=== PATIENT | female | born 1945 | race Caucasian/White ===

== ENCOUNTER 2017-12-07 13:45 | Outpatient (RCR) | payer MEDICARE, OTHER, SELFPAY ==
--- NOTE | 2017-10-27 09:51 | PT.OTN ---
Addendum entered and electronically signed by Bebe Cano, PT 10/27/17 10:03: Transition note: On October 25, 2017 our therapy services consisting of Speech, Occupational, and Physical Therapy transitioned from the [employer] electronic documentation system to a new [employer] electronic documentation system.?? All documentation prior to October 25 can be found under [employer] saved data. From October 25 forward all medical record documentation will be in [email or web address]. Original Note: Current Diagnoses Cerebrovascular disease, unspecified (10/27/17) Unsteadiness on feet (10/27/17) Weakness (10/27/17) Physical Therapy Treatment Note PT-OP-A Visit Information Start: 10/27/17 08:10 Freq: Status: Active Protocol: Activity Type Activity Date Activity User E-Sign Co-Sign Detail Recorded Client Recorded Date Recorded By Document 10/27/17 09:03 [facility] [id number] 10/27/17 09:51 [facility] 10/27/17 09:03 Out-Patient Physical Therapy Visit Information [Visit Information] -Visit Type Treatment Note -Visit Note POC due -Visit Start Time 09:05 -Visit Stop Time 09:45 -Total Visit Minutes 40 -Visit Number 2 PT-OP-C Subjective Start: 10/27/17 08:10 Freq: Status: Active Protocol: Activity Type Activity Date Activity User E-Sign Co-Sign Detail Recorded Client Recorded Date Recorded By Document 10/27/17 09:03 [facility] [id number] 10/27/17 09:51 [facility] 10/27/17 09:03 OP-PT Subjective [Patient Comments] -Patient Comments Pt report she has been walking 1 mile at the track daily most days . PT-OP-Q Treatments Start: 10/27/17 08:10 Freq: Status: Active Protocol: Activity Type Activity Date Activity User E-Sign Co-Sign Detail Recorded Client Recorded Date Recorded By Document 10/27/17 09:03 [facility] [id number] 10/27/17 09:51 [facility] 10/27/17 09:03 Cardio Equipment [Recumbent Elliptical (Biodex)] -Duration (Minutes) 6 -Resistance 4 -Seat Position 9 Gym Equipment [Shuttle Recovery] Unilateral Squats -Resistance 50 -Shuttle Recovery Platform Stable -Reps/Time 2x15 Bilateral Squats -Resistance 100 -Shuttle Recovery Platform Unstable -Reps/Time 2x15 [Shuttle Balance] 1 -Details red clips -Comments fwd & side:WBOS & NBOS & staggered stance fwd [Sport Cord] 2 -Exercise Details side step -Cord/Resistance blue -Reps/Duration x10 each 1 -Exercise Details fwd & back resisted walk -Cord/Resistance blue -Reps/Duration 10 each Neuro Re-Education Treatment [Balance Activities] 1 -Details hurdles w/ balance pods -Reps/Duration 6 reps PT-OP-T Assessment and Plan Start: 10/27/17 08:10 Freq: Status: Active Protocol: Activity Type Activity Date Activity User E-Sign Co-Sign Detail Recorded Client Recorded Date Recorded By Document 10/27/17 09:03 [facility] [id number] 10/27/17 09:51 [facility] 10/27/17 09:03 Physical Therapy Assessment [Assessment Summary] -Assessment Pt had difficulty with balance on uneven surfaces . She did well with general strengthening exercises and will likely be able to inc resistance next session. Physical Therapy Plan [Next Visit Focus/Plan] -Next Visit Plan Advance balance & develop HEP
--- NOTE | 2017-11-02 14:29 | PT.OTN ---
Current Diagnoses Cerebrovascular disease, unspecified (11/02/17) Unsteadiness on feet (11/02/17) Weakness (11/02/17) Physical Therapy Treatment Note PT-OP-A Visit Information Start: 10/27/17 08:10 Freq: Status: Active Protocol: Document 11/02/17 13:49 [facility] (Rec: 11/02/17 14:28 [facility] [id number]) Out-Patient Physical Therapy Visit Information Visit Information Visit Type Treatment Note Visit Note POC due 12/04/17 Visit Start Time 13:45 Visit Stop Time 14:30 Total Visit Minutes 45 Visit Number 3 PT-OP-C Subjective Start: 10/27/17 08:10 Freq: Status: Active Protocol: Document 11/02/17 13:49 [facility] (Rec: 11/02/17 14:28 [facility] [id number]) OP-PT Subjective Patient Comments Patient Comments Pt reports she has been walking daily except today. PT-OP-Q Treatments Start: 10/27/17 08:10 Freq: Status: Active Protocol: Document 11/02/17 13:49 [facility] (Rec: 11/02/17 14:28 [facility] [id number]) Cardio Equipment Recumbent Stepper (Sci-Fit) Duration (Minutes) 6 Resistance 4 Seat Position 13 Gym Equipment Shuttle Recovery Unilateral Squats Resistance 62 Shuttle Recovery Platform Stable Reps/Time 2x15 Bilateral Squats Resistance 125 Shuttle Recovery Platform Unstable Reps/Time 2x15 Shuttle Balance 1 Details red clips Comments fwd & side:WBOS & NBOS & staggered stance fwd Sport Cord 2 Exercise Details side step Cord/Resistance blue Reps/Duration x6 each 1 Exercise Details fwd & back resisted walk Cord/Resistance blue Reps/Duration 10 each Comments w/ 8in step up Neuro Re-Education Treatment Balance Activities 1 Details hurdles w/balance pods Reps/Duration 6 reps PT-OP-T Assessment and Plan Start: 10/27/17 08:10 Freq: Status: Active Protocol: Document 11/02/17 13:49 [facility] (Rec: 11/02/17 14:28 [facility] [id number]) Physical Therapy Assessment Assessment Summary Assessment Pt able to tolerate increased resistance with leg press today. Cont to have difficulty with balance pods with hurdles. Physical Therapy Plan Frequency and Duration Frequency of Treatment 1x/Week Plan of Care End Date 12/04/17 Next Visit Focus/Plan Next Visit Plan Advance balance & progress HEP
--- NOTE | 2017-11-09 14:27 | PT.OTN ---
Current Diagnoses Cerebrovascular disease, unspecified (11/09/17) Unsteadiness on feet (11/09/17) Weakness (11/09/17) Physical Therapy Treatment Note PT-OP-A Visit Information Start: 10/27/17 08:10 Freq: Status: Active Protocol: Document 11/09/17 13:48 [facility] (Rec: 11/09/17 14:27 [facility] [id number]) Out-Patient Physical Therapy Visit Information Visit Information Visit Type Treatment Note Visit Note POC due 12/04/17 Visit Start Time 13:45 Visit Stop Time 14:30 Total Visit Minutes 45 Visit Number 4 PT-OP-C Subjective Start: 10/27/17 08:10 Freq: Status: Active Protocol: Document 11/09/17 13:48 [facility] (Rec: 11/09/17 14:27 [facility] [id number]) OP-PT Subjective Patient Comments Patient Comments Pt reports she stretches when she feels like she needs it. She has already done her mile today. PT-OP-Q Treatments Start: 10/27/17 08:10 Freq: Status: Active Protocol: Document 11/09/17 13:48 [facility] (Rec: 11/09/17 14:27 [facility] [id number]) Gym Equipment Shuttle Recovery Bilateral Squats Resistance 125 Shuttle Recovery Platform Unstable Reps/Time 2x15 Shuttle Balance 1 Details red clips Comments fwd & side:WBOS & NBOS & staggered stance fwd Therapeutic Exercises Supine Exercises 3 Supine Exercise Name Hip flex w/hand press flex (B) Reps/Minutes 10 sec hold x5 2 Supine Exercise Name scissor bent knee Reps/Minutes 20 B 1 Supine Exercise Name bridge Reps/Minutes 20 Standing Exercises 1 Standing Exercise Name side step Resistance yellow tband Neuro Re-Education Treatment Balance Activities 1 Details hurdles w/balance pods Reps/Duration 6 reps PT-OP-T Assessment and Plan Start: 10/27/17 08:10 Freq: Status: Active Protocol: Document 11/09/17 13:48 [facility] (Rec: 11/09/17 14:27 [facility] [id number]) Physical Therapy Assessment Assessment Summary Assessment Improving with balance but cont to have uneven surface difficulty. Given HEP for home . Physical Therapy Plan Frequency and Duration Frequency of Treatment 1x/Week Plan of Care End Date 12/04/17 Next Visit Focus/Plan Next Visit Plan cont to advance balance
--- NOTE | 2017-11-16 13:44 | PT.OTN ---
Current Diagnoses Cerebrovascular disease, unspecified (11/16/17) Unsteadiness on feet (11/16/17) Weakness (11/16/17) Physical Therapy Treatment Note PT-OP-A Visit Information Start: 10/27/17 08:10 Freq: Status: Active Protocol: Document 11/16/17 13:07 [facility] (Rec: 11/16/17 13:44 [facility] [id number]) Out-Patient Physical Therapy Visit Information Visit Information Visit Type Treatment Note Visit Start Time 13:00 Visit Stop Time 13:45 Total Visit Minutes 45 Visit Number 5 Number of LUNCH WAGON OPERATOR Visits 0 PT-OP-C Subjective Start: 10/27/17 08:10 Freq: Status: Active Protocol: Document 11/16/17 13:07 [facility] (Rec: 11/16/17 13:44 [facility] [id number]) OP-PT Subjective Patient Comments Patient Comments Reports she has not done her core exercises much PT-OP-Q Treatments Start: 10/27/17 08:10 Freq: Status: Active Protocol: Document 11/16/17 13:07 [facility] (Rec: 11/16/17 13:44 [facility] [id number]) Cardio Equipment Recumbent Stepper (Sci-Fit) Duration (Minutes) 6 Resistance 5 Seat Position 13 Gym Equipment Shuttle Recovery Unilateral Squats Resistance 62 Shuttle Recovery Platform Stable Reps/Time 2x15 Bilateral Squats Resistance 125 Shuttle Recovery Platform Unstable Reps/Time 2x15 Shuttle Balance 1 Details red clips Comments fwd & side:WBOS & NBOS & staggered stance fwd Therapeutic Exercises Supine Exercises 3 Supine Exercise Name Hip flex w/hand press flex (B) Reps/Minutes 10 sec hold x5 2 Supine Exercise Name scissor bent knee Reps/Minutes 20 B 1 Supine Exercise Name bridge Reps/Minutes 20 Standing Exercises 2 Standing Exercise Name fwd/back walk Resistance green Reps/Minutes 2x20ft 1 Standing Exercise Name side step Resistance green tband Reps/Minutes 2x20ft Neuro Re-Education Treatment Balance Activities 1 Details hurdles w/balance pods Reps/Duration 6 reps PT-OP-T Assessment and Plan Start: 10/27/17 08:10 Freq: Status: Active Protocol: Document 11/16/17 13:07 [facility] (Rec: 11/16/17 13:44 [facility] [id number]) Physical Therapy Assessment Assessment Summary Assessment Pt required min cueing with exercises. Improved ability with balance board, but cont difficulty with hurdles with pods. Physical Therapy Plan Frequency and Duration Frequency of Treatment 1x/Week Plan of Care End Date 12/04/17 Next Visit Focus/Plan Next Visit Plan cont to advance balance Please Sign and Return: I have reviewed this Plan of Care and certify that the skilled therapy services above are required to meet the patient???s needs. Physician Signature Date Printed Name and Credentials Clinical Instructor Signature Printed Name and Credentials
--- NOTE | 2017-11-23 14:29 | PT.OTN ---
Current Diagnoses Cerebrovascular disease, unspecified (11/23/17) Unsteadiness on feet (11/23/17) Weakness (11/23/17) Physical Therapy Treatment Note PT-OP-A Visit Information Start: 10/27/17 08:10 Freq: Status: Active Protocol: Document 11/23/17 13:52 [facility] (Rec: 11/23/17 14:28 [facility] [id number]) Out-Patient Physical Therapy Visit Information Visit Information Visit Type Treatment Note Visit Note POC due 12/04/17 Visit Start Time 13:48 Visit Stop Time 14:28 Total Visit Minutes 40 Visit Number 6 PT-OP-C Subjective Start: 10/27/17 08:10 Freq: Status: Active Protocol: Document 11/23/17 13:52 [facility] (Rec: 11/23/17 14:28 [facility] [id number]) OP-PT Subjective Patient Comments Patient Comments Reports only did core exercises 1x. PT-OP-Q Treatments Start: 10/27/17 08:10 Freq: Status: Active Protocol: Document 11/23/17 13:52 [facility] (Rec: 11/23/17 14:28 [facility] [id number]) Cardio Equipment Recumbent Stepper (Sci-Fit) Duration (Minutes) 6 Resistance 5 Seat Position 12 Gym Equipment Shuttle Recovery Bilateral Squats Resistance 125 Shuttle Recovery Platform Unstable Reps/Time 2x15 Shuttle Balance 1 Details red clips Comments fwd & side:WBOS & NBOS & staggered stance fwd Therapeutic Exercises Supine Exercises 3 Supine Exercise Name Hip flex w/hand press flex (B) Reps/Minutes 10 sec hold x5 2 Supine Exercise Name scissor bent knee Reps/Minutes 20 B 1 Supine Exercise Name bridge w/alt march Reps/Minutes 10 Standing Exercises 2 Standing Exercise Name fwd/back walk Resistance green Reps/Minutes 2x20ft 1 Standing Exercise Name side step Resistance green tband Reps/Minutes 2x20ft PT-OP-T Assessment and Plan Start: 10/27/17 08:10 Freq: Status: Active Protocol: Document 11/23/17 13:52 [facility] (Rec: 11/23/17 14:28 [facility] [id number]) Physical Therapy Assessment Assessment Summary Assessment Pt did well on balance boards and tolerance with inc difficulty core stabilty exercises. Physical Therapy Plan Frequency and Duration Frequency of Treatment 1x/Week Plan of Care End Date 12/04/17 Next Visit Focus/Plan Next Visit Plan cont to advance balance Please Sign and Return: I have reviewed this Plan of Care and certify that the skilled therapy services above are required to meet the patient???s needs. Physician Signature Date Printed Name and Credentials Clinical Instructor Signature Printed Name and Credentials
--- NOTE | 2017-12-07 14:34 | PT.OTN ---
Current Diagnoses Cerebrovascular disease, unspecified (12/07/17) Unsteadiness on feet (12/07/17) Weakness (12/07/17) Physical Therapy Treatment Note PT-OP-A Visit Information Start: 10/27/17 08:10 Freq: Status: Active Protocol: Document 12/07/17 13:57 [facility] (Rec: 12/07/17 14:34 [facility] [id number]) Out-Patient Physical Therapy Visit Information Visit Information Visit Type Progress Note Visit Start Time 13:52 Visit Stop Time 14:30 Total Visit Minutes 38 Visit Number 1 PT-OP-C Subjective Start: 10/27/17 08:10 Freq: Status: Active Protocol: Document 12/07/17 13:57 [facility] (Rec: 12/07/17 14:34 [facility] [id number]) OP-PT Subjective Patient Comments Patient Comments Has been doing core almost daily PT-OP-D Balance Start: 12/07/17 13:57 Freq: Status: Active Protocol: Document 12/07/17 13:57 [facility] (Rec: 12/07/17 14:34 [facility] [id number]) Balance Tests Other Other Balance Tests Performed [facility] PT-OP-M Strength Start: 12/07/17 13:57 Freq: Status: Active Protocol: Document 12/07/17 13:57 [facility] (Rec: 12/07/17 14:34 [facility] [id number]) Hip Strength Hip Manual Muscle Testing Right Flexion (L2) 4+ Good+ Extension (S1) 5 Normal Abduction 5 Normal External Rotation 5 Normal Internal Rotation 5 Normal Left Flexion (L2) 4+ Good+ Extension (S1) 5 Normal Abduction 5 Normal External Rotation 5 Normal Internal Rotation 5 Normal Comments knee and ankle strength 5/5 B PT-OP-Q Treatments Start: 10/27/17 08:10 Freq: Status: Active Protocol: Document 12/07/17 13:57 [facility] (Rec: 12/07/17 14:34 [facility] [id number]) Cardio Equipment Recumbent Stepper (Sci-Fit) Duration (Minutes) 8 Resistance 5 Seat Position 12 Gym Equipment Shuttle Balance 1 Details red clips Comments fwd & side:WBOS & NBOS & staggered stance fwd Therapeutic Exercises Supine Exercises 3 Supine Exercise Name Hip flex w/hand press flex (B) Reps/Minutes 10 sec hold x5 2 Supine Exercise Name scissor bent knee Reps/Minutes 20 B 1 Supine Exercise Name bridge w/alt march Reps/Minutes 10 PT-OP-T Assessment and Plan Start: 10/27/17 08:10 Freq: Status: Active Protocol: Document 12/07/17 13:57 [facility] (Rec: 12/07/17 14:34 [facility] [id number]) Physical Therapy Assessment Impairments Impairments Balance Gait Strength Goals Four Impairment occ ambulating [facility]iary Goal (LTG) Pt will walk at least 4x/week for 2 miles. LTG Duration 01/25/18- daily 1-1.25 mile Three Impairment [place] [facility] Goal (LTG) 28/28 LTG Duration achieved Two Impairment DGI Short Term Goal (STG) 19 STG Duration achieved Penitentiary Goal (LTG) 22 LTG Duration by 01/25/18-excellent progress One Impairment MMT Short Term Goal (STG) Indep HEP STG Duration achieved Loom Operator Apprentice Goal (LTG) 5/5 LTG Duration by 01/25/18 Assessment Summary Assessment Pt is improving significantly with her balance & strength. Cont to have mild balance impairement but is making excellent progress with therapy. Physical Therapy Plan Frequency and Duration Frequency of Treatment 1x/Week Duration of Treatment 1 month Plan of Care Start Date 12/07/17 Plan of Care End Date 01/06/18 Therapeutic Interventions Therapeutic Interventions Balance Training Gait Training Home Exercise Program Therapeutic Exercises Next Visit Focus/Plan Next Note Type Treatment Note Next Visit Plan cont to advance balance Please Sign and Return: I have reviewed this Plan of Care and certify that the skilled therapy services above are required to meet the patient?s needs. Physician Signature Date Printed Name and Credentials Clinical Instructor Signature Printed Name and Credentials
--- NOTE | 2017-12-07 14:34 | PT.OPPN ---
Current Diagnoses Cerebrovascular disease, unspecified (12/07/17) Unsteadiness on feet (12/07/17) Weakness (12/07/17) Physical Therapy Progress Note PT-OP-A Visit Information Start: 10/27/17 08:10 Freq: Status: Active Protocol: Document 12/07/17 13:57 [facility] (Rec: 12/07/17 14:34 [facility] [id number]) Out-Patient Physical Therapy Visit Information Visit Information Visit Type Progress Note Visit Start Time 13:52 Visit Stop Time 14:30 Total Visit Minutes 38 Visit Number 1 PT-OP-C Subjective Start: 10/27/17 08:10 Freq: Status: Active Protocol: Document 12/07/17 13:57 [facility] (Rec: 12/07/17 14:34 [facility] [id number]) OP-PT Subjective Patient Comments Patient Comments Has been doing core almost daily PT-OP-D Balance Start: 12/07/17 13:57 Freq: Status: Active Protocol: Document 12/07/17 13:57 [facility] (Rec: 12/07/17 14:34 [facility] [id number]) Balance Tests Other Other Balance Tests Performed [facility] PT-OP-M Strength Start: 12/07/17 13:57 Freq: Status: Active Protocol: Document 12/07/17 13:57 [facility] (Rec: 12/07/17 14:34 [facility] [id number]) Hip Strength Hip Manual Muscle Testing Right Flexion (L2) 4+ Good+ Extension (S1) 5 Normal Abduction 5 Normal External Rotation 5 Normal Internal Rotation 5 Normal Left Flexion (L2) 4+ Good+ Extension (S1) 5 Normal Abduction 5 Normal External Rotation 5 Normal Internal Rotation 5 Normal Comments knee and ankle strength 5/5 B PT-OP-T Assessment and Plan Start: 10/27/17 08:10 Freq: Status: Active Protocol: Document 12/07/17 13:57 [facility] (Rec: 12/07/17 14:34 [facility] [id number]) Physical Therapy Assessment Impairments Impairments Balance Gait Strength Goals Four Impairment occ ambulating Detention Goal (LTG) Pt will walk at least 4x/week for 2 miles. LTG Duration 01/25/18- daily 1-1.25 mile Three Impairment [place] [employer]ite [employer]er Goal (LTG) LTG Duration achieved Two Impairment DGI Short Term Goal (STG) 19 STG Duration achieved Detention Goal (LTG) 22 LTG Duration by 01/25/18-excellent progress One Impairment MMT Short Term Goal (STG) Indep HEP STG Duration achieved Detention Goal (LTG) 5/5 LTG Duration by 01/25/18 Assessment Summary Assessment Pt is improving significantly with her balance & strength. Cont to have mild balance impairement but is making excellent progress with therapy. Physical Therapy Plan Frequency and Duration Frequency of Treatment 1x/Week Duration of Treatment 1 month Plan of Care Start Date 12/07/17 Plan of Care End Date 01/06/18 Therapeutic Interventions Therapeutic Interventions Balance Training Gait Training Home Exercise Program Therapeutic Exercises Next Visit Focus/Plan Next Note Type Treatment Note Next Visit Plan cont to advance balance
--- NOTE | 2017-12-07 14:34 | PT.OPPOC ---
Current Diagnoses Cerebrovascular disease, unspecified (12/07/17) Unsteadiness on feet (12/07/17) Weakness (12/07/17) Provider Visit Care Team Role Provider Type Mc Saavedra MD Attending Provider Physician Family Provider Primary Care Provider Specialty: Internal Medicine Address: [address] [place] [address], [id number] Email: Plan Of Care PT-OP-T Assessment and Plan Start: 10/27/17 08:10 Freq: Status: Active Protocol: Document 12/07/17 13:57 [facility] (Rec: 12/07/17 14:34 [facility] [id number]) Physical Therapy Assessment Impairments Impairments Balance Gait Strength Goals Four Impairment occ ambulating [facility] Goal (LTG) Pt will walk at least 4x/week for 2 miles. LTG Duration 01/25/18- daily 1-1.25 mile Three Impairment [place] [facility] Goal (LTG) 28/28 LTG Duration achieved Two Impairment DGI Short Term Goal (STG) 19 STG Duration achieved Outside Cutter Hand Goal (LTG) 22 LTG Duration by 01/25/18-excellent progress One Impairment MMT Short Term Goal (STG) Indep HEP STG Duration achieved Outside Cutter Hand Goal (LTG) 5/5 LTG Duration by 01/25/18 Assessment Summary Assessment Pt is improving significantly with her balance & strength. Cont to have mild balance impairement but is making excellent progress with therapy. Physical Therapy Plan Frequency and Duration Frequency of Treatment 1x/Week Duration of Treatment 1 month Plan of Care Start Date 12/07/17 Plan of Care End Date 01/06/18 Therapeutic Interventions Therapeutic Interventions Balance Training Gait Training Home Exercise Program Therapeutic Exercises Next Visit Focus/Plan Next Note Type Treatment Note Next Visit Plan cont to advance balance Plan of Care Dates Plan of Care Start Date 12/07/17 Plan of Care End Date 01/06/18 Please Sign and Return: I have reviewed this Plan of Care and certify that the skilled therapy services above are required to meet the patient?s needs. Physician Signature Date Printed Name and Credentials Clinical Instructor Signature Printed Name and Credentials
--- NOTE | 2017-12-14 10:28 | PT.OPDS ---
Current Diagnoses Cerebrovascular disease, unspecified (12/07/17) Unsteadiness on feet (12/07/17) Weakness (12/07/17) Provider Visit Care Team Role Provider Type Mc Saavedra MD Attending Provider Physician Family Provider Primary Care Provider Specialty: Internal Medicine Address: [address] [place] [address] Email: Discharge Summary PT-OP-C Subjective Start: 10/27/17 08:10 Freq: Status: Active Protocol: Document 12/07/17 13:57 [facility] (Rec: 12/07/17 14:34 [facility] [id number]) OP-PT Subjective Patient Comments Patient Comments Has been doing core almost daily PT-OP-D Balance Start: 12/07/17 13:57 Freq: Status: Active Protocol: Document 12/07/17 13:57 [facility] (Rec: 12/07/17 14:34 [facility] [id number]) Balance Tests Other Other Balance Tests Performed celina DGI PT-OP-M Strength Start: 12/07/17 13:57 Freq: Status: Active Protocol: Document 12/07/17 13:57 [facility] (Rec: 12/07/17 14:34 [facility] [id number]) Hip Strength Hip Manual Muscle Testing Right Flexion (L2) 4+ Good+ Extension (S1) 5 Normal Abduction 5 Normal External Rotation 5 Normal Internal Rotation 5 Normal Left Flexion (L2) 4+ Good+ Extension (S1) 5 Normal Abduction 5 Normal External Rotation 5 Normal Internal Rotation 5 Normal Comments knee and ankle strength 5/5 B PT-OP-T Assessment and Plan Start: 10/27/17 08:10 Freq: Status: Active Protocol: Document 12/07/17 13:57 [facility] (Rec: 12/07/17 14:34 [facility] [id number]) Physical Therapy Assessment Impairments Impairments Balance Gait Strength Goals Four Impairment occ ambulating Multimedia Engineer Goal (LTG) Pt will walk at least 4x/week for 2 miles. LTG Duration 01/25/18- daily 1-1.25 mile Three Impairment Tinnetti Long-Term Goal (LTG) LTG Duration achieved Two Impairment DGI Short Term Goal (STG) 19 STG Duration achieved Multimedia Engineer Goal (LTG) 22 LTG Duration by 01/25/18-excellent progress One Impairment MMT Short Term Goal (STG) Indep HEP STG Duration achieved Long-Term Goal (LTG) 5/5 LTG Duration by 01/25/18 Assessment Summary Assessment Pt is improving significantly with her balance & strength. Cont to have mild balance impairement but is making excellent progress with therapy. Physical Therapy Plan Discharge d/t pt cancelling last appointment and asking for D/C. Pt did make good balance progression.
== END 2018-04-07 09:20 ==
LOC: PHYS 13:45
PROVIDERS: Family Provider Internal Medicine; PCP Internal Medicine; Visit Provider Internal Medicine
DX: I67.9 Cerebrovascular disease, unspecified (principal); R53.1 Weakness; R26.81 Unsteadiness on feet
CPT/HCPCS: 97110; 97112

== ENCOUNTER 2018-05-23 15:03 | Observation (INO) | payer MEDICARE, OTHER, SELFPAY ==
[2018-05-23] VITALS (10 sets, daily range): BP systolic 140–182; BP diastolic 78–115; PULSE 50–74; RESP 14–20; TEMP 36.4–36.7; O2SAT 94–97; BMI 40.9
--- NOTE | 2018-05-23 15:08 | DI.CT.S_ITS ---
PROCEDURE: CT HEAD/BRAIN WO CON INDICATIONS: fall left sided waekness, code stroke TECHNIQUE: Noncontrast 4.5 mm thick angled axial sections acquired from the foramen magnum to the vertex, with coronal and sagittal reformats. For radiation dose reduction, the following was used: automated exposure control, adjustment of mA and/or kV according to patient size. COMPARISON: [facility], CT, HEAD WITHOUT CONTRAST, 05/06/2017, 15:55. FINDINGS: Image quality: Excellent. CSF spaces: Basal cisterns are patent. No extra-axial fluid collections. The ventricles are symmetric in size and shape. Brain: No intracranial bleeds or masses. There is cerebral volume loss for age, with resultant ventricular and sulcal prominence. There are periventricular and deep white matter chronic small vessel ischemic changes. There is intracranial internal carotid artery atherosclerosis. Skull and face: Calvarium and visualized facial bones appear intact, without suspicious lesions. Sinuses: Visualized sinuses and mastoids are clear. IMPRESSION: No acute intracranial abnormality. Dictated by: Kassandra Sosa M.D. on 05/23/2018 at 15:17 Approved by: Kassandra Sosa M.D. on 05/23/2018 at 15:18
--- NOTE | 2018-05-23 15:33 | DI.RAD.S_ITS ---
PROCEDURE: XR CHEST 1V INDICATIONS: chest pain TECHNIQUE: One view of the chest was acquired. COMPARISON: [facility], , CHEST 1 VIEW, 05/06/2017, 15:46. FINDINGS: Surgical changes and devices: Left axillary clips. Lungs and pleura: No pleural effusions or pneumothorax. Minimal increased pulmonary vascularity. Mediastinum: Mediastinal contours appear normal. Heart size is normal. Bones and chest wall: No suspicious bony lesions. Overlying soft tissues appear unremarkable. IMPRESSION: Minimal increased pulmonary vascularity. Dictated by: Emilee Rodriguez M.D. on 05/23/2018 at 15:50 Approved by: Emilee Rodriguez M.D. on 05/23/2018 at 15:51
[2018-05-23 15:41] LABS: Add Manual Diff / Slide Review NO; Basophils Percent Auto 0.3 % (0-2); Eosinophils Percent Auto 0.4 % (2-4); Hematocrit 38.3 % (36-46); Hemoglobin 12.6 g/dL (12.0-16.0); Lymphocytes Percent Auto 14.5 % (25-40); Mean Corpuscular HGB Conc 32.9 % (30-36); Mean Corpuscular Hemoglobin 29.6 PG (26-34); Monocytes Percent Auto 6.5 % (3-14); Neutrophils Absolute Auto 7500 /uL (3000-5900); Neutrophils Percent Auto 78.3 % (50-75); Platelet Count 328 X10^3/uL (150-400); Red Blood Cell Count 4.26 X10^6/uL (4.0-5.2); Red Cell Distribution Width 16.2 % (11.6-14.8); White Blood Cell Count 9.6 X10^3/uL (4.5-11.0)
--- NOTE | 2018-05-23 15:43 | PC.NURSE ---
All neuro symptoms resolved upon admission to ED. Talkative, bright and alert/ oriented x 3.
[2018-05-23 15:44] LABS: INR 1.1 (0.9-1.3); Prothrombin Time 11.8 SECONDS (10.1-12.7)
[2018-05-23 15:52] LABS: PTT Partial Thromboplastin Tim 32 SECONDS (26.4-36.2)
[2018-05-23 15:59] LABS: Alanine Aminotransferase 22 IU/L (9-52); Albumin 4.4 g/dL (3.5-5.0); Albumin Globulin Ratio 1.6 (1.0-2.8); Alkaline Phosphatase 83 U/L (38-126); Aspartate Aminotransferase 20 IU/L (14-36); Bilirubin Total 0.4 mg/dL (0.2-1.3); Blood Urea Nitrogen 29 mg/dL (7-17); Calcium 9.2 mg/dL (8.4-10.2); Carbon Dioxide 24 mmol/L (22-32); Chloride 105 mmol/L (98-107); Creatine Kinase 114 U/L (30-135); Estimated Glomerular Filt Rate 54.5 mL/min (>60); Globulin 2.8 g/dL (1.7-4.1); Glucose 118 mg/dL (80-110); HEMOLYSIS < 15 (0-50); Lipase 54 U/L (23-300); Potassium 4.1 mmol/L (3.4-5.1); Sodium 146 mmol/L (137-145); Total Protein 7.2 g/dL (6.3-8.2)
[2018-05-23 16:11] LABS: Troponin I < 0.012 ng/mL (0.01-0.034)
[2018-05-23 16:14] LABS: CKMB % Relative Index 2.7 % (1.5-5.0); Creatine Kinase MB 3.04 ng/mL (<2.37)
--- NOTE | 2018-05-23 16:23 | ED.HEATRA ---
HPI - Head Injury General Chief complaint: Trauma Stated complaint: GLF Time Seen by Provider: 05/23/18 15:08 Source: patient and EMS Mode of arrival: EMS Limitations: no limitations History of Present Illness HPI Narrative: Patient is a 73-year-old female who presents with left leg weakness. She says she was walking her dog in the park when suddenly she could not lift her leg. She began dragging it. She then tripped and fell she did hit her head but did not lose consciousness. She has no chest pain or heart palpitations. This has never happened to her before. She does take aspirin day. She is now able to move her leg and symptoms have. She bit her tongue when she fell and seem to landed mostly on her right bottom. No hip or pelvis. No numbness or tingling in legs. MD Complaint: head injury Related Data Home Medications Medication Instructions Recorded Confirmed aspirin 81 mg PO BID #0 09/21/11 05/23/18 cholecalciferol (vitamin D3) 2,000 iu PO BID #0 09/21/11 05/23/18 [Vitamin D3] [DEEP SLEEP] 1 cap PO BEDTIME PRN #0 05/06/17 05/23/18 atorvastatin 20 mg PO DAILY 05/23/18 05/23/18 carvedilol 6.25 mg PO BID 05/23/18 05/23/18 folic acid 1 mg PO DAILY 05/23/18 05/23/18 levothyroxine 50 mcg PO DAILY 05/23/18 05/23/18 metformin 500 mg PO BID 05/23/18 05/23/18 Allergies Allergy/AdvReac Type Severity Reaction Status Date / Time Sulfa (Sulfonamide Allergy Mild RASH Verified 05/23/18 17:04 Antibiotics) [SULFA (SULFONAMIDE ANTIBIOTICS)] codeine [CODEINE] AdvReac Mild N/V Verified 05/23/18 17:04 Review of Systems Review of Systems All systems reviewed & are unremarkable except as noted in HPI and below Constitutional Denies chills, Denies fever(s), Denies frequent falls, Denies lethargy and Reports weakness (Left leg) Eyes Denies change in vision, Denies eye discharge, Denies irritation and Denies loss of vision Cardiovascular Denies chest pain, Denies syncope, Denies irregular heart rhythm, Denies lightheadedness, Denies palpitations, Denies dyspnea, Denies dyspnea on exertion and Denies orthopnea Respiratory Denies cough, Denies dyspnea, Denies dyspnea on exertion and Denies wheezing Gastrointestinal Gastrointestinal: Denies abdominal pain, Denies change in bowel habits, Denies diarrhea, Denies nausea and Denies vomiting Musculoskeletal Denies back pain, Denies muscle weakness, Denies numbness and Denies tingling Integumentary/Breasts Denies pruritus, Denies erythema, Denies rash and Denies wounds Neurologic Reports system reviewed and no additional complaints, except as docu, Denies syncope, Denies frequent falls, Denies loss of vision, Denies numbness, Denies other visual disturbances, Denies tingling and Reports weakness (Left leg) Endocrine Denies palpitations Allergic/Immunologic Denies wheezing [facility] Medical History HTN (hypertension) (Chronic) Hypothyroidism (acquired) (Chronic) Obstructive sleep apnea of adult (Chronic) Social History Smoking Status: Never smoker Exam Initial Vital Signs Initial Vital Signs: Vital Signs Temperature 97.6 F 05/23/18 15:05 Pulse Rate 60 05/23/18 15:05 Respiratory Rate 14 05/23/18 15:05 Blood Pressure 149/115 H 05/23/18 15:05 Pulse Oximetry 94 05/23/18 15:05 GENERAL: Well-appearing alert oriented elderly female no acute distress HEENT: Head atraumatic, no abrasions or contusions EOMI, pupils reactive, face symmetric, no vertebral tenderness no step-offs CARDIOVASCULAR: Regular rate and rhythm without murmurs, rubs or gallops. RESPIRATORY: Breath sounds equal bilaterally, no wheezes rales or rhonchi. ABDOMEN: Soft, nontender. Normoactive bowel sounds all 4 quadrants. No guarding or rebound. EXTREMITIES: Normal range of motion, no clubbing or edema. Neurovascularly intact NEUROLOGICAL: Alert and oriented x4.Normal gait and speech. Cranial nerves II through XII grossly intact. Good xoxpbw-vs-bbiq, good qflu-ya-wyci, strength equal bilaterally, no dysarthria or aphasia, sensation in tact to soft touch bilaterally, no visual changes, no facial droop SKIN: Warm, dry, no laceration, no petechiae, no rashes or lesions. Scores NIH Stroke Scale Level of Conciousness: Alert, keenly responsive Ask month/age: Answers both questions correctly. Open/close eyes, close hand: Performs both tasks correctly Best gaze horizontal: Normal Visual sanz: No visual loss Facial palsy: Normal symetrical movement Left arm drift: No drift for full 10 sec Right arm drift: No drift for full 10 sec Left leg drift: No drift for full 10 sec Right leg drift: No drift for full 10 sec Limb ataxia: Absent Sensory on face/arms/legs: Normal, no sensory loss Best language: No aphasia, normal Dysarthria: Normal Extinction or inattention: No abnormality Total NIH Stroke scale score: 0 Course Orders Ordered: ED Orders 05/23/18 15:08 CT head/brain wo con Stat 05/23/18 15:20 Complete Blood Count AUTO DIFF Stat Comprehensive Metabolic Panel Stat Lipase Stat Partial Thromboplastin Time Stat Prothrombin Time INR Stat Troponin & CK Cardiac Panel Stat 05/23/18 15:33 XR chest 1V Stat EKG-12 Lead Stat 05/23/18 18:01 Education, smoking cessation ONGOING 05/23/18 18:03 Consult to Discharge Planning Routine Consult to Occupational Therapy Evaluate & Treat Consult to Physical Therapy Evaluate & Treat 05/24/18 05:00 CBC [Complete Blood Count AUTO DIFF] DAILY CMP [Comprehensive Metabolic Panel] DAILY Magnesium DAILY Phosphorous DAILY Acetaminophen (Tylenol) 650 mg PO Q6HR PRN PRN Reason: As Needed for Fever/Mild Pain Atorvastatin Calcium (Lipitor) 20 mg PO DAILY [facility] Carvedilol (Coreg) 6.25 mg PO BID [facility] Folic Acid (Folic Acid) 1 mg PO DAILY [facility] Hydralazine HCl (Apresoline) 10 mg IV Q6HR PRN PRN Reason: SBP>160 Sodium Chloride (Normal Saline 0.45%) 1,000 mls @ 70 mls/hr IV CONT OLEKSANDR Ibuprofen (Advil) 600 mg PO Q6HR PRN PRN Reason: As Needed for Fever/Mild Pain Levothyroxine Sodium (Synthroid) 50 mcg PO 0600 [facility] Metformin HCl (Glucophage) 500 mg PO BID [facility] Vitamin D (Vitamin D3) 1,000 unit PO BID OLEKSANDR Discontinued Medications Aspirin (Aspirin Chew) 324 mg PO NOW ONE Stop: 05/23/18 16:55 Last Admin: 11/27/18 17:06 Dose: 324 mg Vital Signs - 8 hr 05/23/18 15:05 05/23/18 15:20 05/23/18 15:33 Temperature 97.6 F Pulse Rate 60 62 60 Respiratory Rate 14 16 14 Blood Pressure 149/115 H Blood Pressure [Right Arm] 141/95 H 148/92 H Pulse Oximetry 94 95 94 05/23/18 16:00 05/23/18 16:14 05/23/18 17:30 Temperature Pulse Rate 56 L 50 L 50 L Respiratory Rate 16 18 17 Blood Pressure Blood Pressure [Right Arm] 157/113 H 175/81 H 182/91 H Pulse Oximetry 95 95 MDM - Head Injury Lab Data Attestation: I reviewed the patient's lab results. Result diagrams: 05/23/18 15:20 05/23/18 15:20 Lab Results 05/23/18 05/23/18 05/23/18 Range/Units 15:20 15:20 15:20 WBC 9.6 (4.5-11.0) X10^3/uL RBC 4.26 (4.0-5.2) X10^6/uL Hgb 12.6 (12.0-16.0) g/dL Hct 38.3 (36-46) % MCV 90.0 (80-100) fL MCH 29.6 (26-34) PG MCHC 32.9 (30-36) % RDW 16.2 H (11.6-14.8) % Plt Count 328 (150-400) X10^3/uL Neut % (Auto) 78.3 H (50-75) % Lymph % (Auto) 14.5 L (25-40) % Scurry % (Auto) 6.5 (3-14) % Eos % (Auto) 0.4 L (2-4) % Baso % (Auto) 0.3 (0-2) % Neut # (Auto) 7500 H (9124-0968) /uL PT 11.8 (10.1-12.7) SECONDS INR 1.1 (0.9-1.3) APTT 32 (26.4-36.2) SECONDS Sodium 146 H (137-145) mmol/L Potassium 4.1 (3.4-5.1) mmol/L Chloride 105 (98-107) mmol/L Carbon Dioxide 24 (22-32) mmol/L BUN 29 H (7-17) mg/dL Creatinine 1.00 (0.52-1.04) mg/dL Estimated GFR 54.5 L (>60) mL/min BUN/Creatinine Ratio 29.0 H (6-22) Glucose 118 H (80-110) mg/dL Calcium 9.2 (8.4-10.2) mg/dL Total Bilirubin 0.4 (0.2-1.3) mg/dL AST 20 (14-36) IU/L ALT 22 (9-52) IU/L Alkaline Phosphatase 83 (38-126) U/L Total Creatine Kinase 114 (30-135) U/L CK-MB (CK-2) 3.04 H (<2.37) ng/mL CK-MB (CK-2) Rel Index 2.7 (1.5-5.0) % Troponin I < 0.012 (0.01-0.034) ng/mL Total Protein 7.2 (6.3-8.2) g/dL Albumin 4.4 (3.5-5.0) g/dL Globulin 2.8 (1.7-4.1) g/dL Albumin/Globulin Ratio 1.6 (1.0-2.8) Lipase 54 (23-300) U/L Imaging Data CT scan - head: Radiologist's impression: PROCEDURE: CT HEAD/BRAIN WO CON INDICATIONS: fall left sided waekness, code stroke TECHNIQUE: Noncontrast 4.5 mm thick angled axial sections acquired from the foramen magnum to the vertex, with coronal and sagittal reformats. For radiation dose reduction, the following was used: automated exposure control, adjustment of mA and/or kV according to patient size. COMPARISON: [facility], CT, HEAD WITHOUT CONTRAST, 05/06/2017, 15:55. FINDINGS: Image quality: Excellent. CSF spaces: Basal cisterns are patent. No extra-axial fluid collections. The ventricles are symmetric in size and shape. Brain: No intracranial bleeds or masses. There is cerebral volume loss for age, with resultant ventricular and sulcal prominence. There are periventricular and deep white matter chronic small vessel ischemic changes. There is intracranial internal carotid artery atherosclerosis. Skull and face: Calvarium and visualized facial bones appear intact, without suspicious lesions. Sinuses: Visualized sinuses and mastoids are clear. IMPRESSION: No acute intracranial abnormality. Dictated by: Kassandra Sosa M.D. on 05/23/2018 at 15:17 Chest x-ray: Radiologist's impression: [address] [address] XRay Report Signed Patient: Leslee Johnson MMR#: [id number] : 6Acct:[id number] Age/Sex: 73 / FDate of Service: 05/23/18 Loc: ED Accession Number: [id number] Procedure: XR chest 1V Ordering Provider: Nancy Wu D.O. PROCEDURE: XR CHEST 1V INDICATIONS: chest pain TECHNIQUE: One view of the chest was acquired. COMPARISON: [facility], , CHEST 1 VIEW, 05/06/2017, 15:46. FINDINGS: Surgical changes and devices: Left axillary clips. Lungs and pleura: No pleural effusions or pneumothorax. Minimal increased pulmonary vascularity. Mediastinum: Mediastinal contours appear normal. Heart size is normal. Bones and chest wall: No suspicious bony lesions. Overlying soft tissues appear unremarkable. IMPRESSION: Minimal increased pulmonary vascularity. Dictated by: Emilee Rodriguez M.D. on 05/23/2018 at 15:50 ECG Data Attestation: I personally reviewed and interpreted this ECG as follows: Prior ECG tracings: available for review Interpretation: Normal sinus rhythm rate [address] changes no T-wave inversions, here interval 180 MDM Narrative Medical decision making narrative: Patient's symptoms have completely resolved no longer tPA candidate. She will be placed in observation for TIA workup. Dr. Han accepts Discharge Plan Departure Patient Disposition: Admitted as Observation Clinical Impression: Brain TIA Admit Date/Time: 05/23/18 17:44 Admit Provider: Tegan Omer
--- NOTE | 2018-05-23 16:28 | ED_ITS ---
HPI - Head Injury General Chief complaint: Trauma Stated complaint: GLF Time Seen by Provider: 05/23/18 15:08 Source: patient and EMS Mode of arrival: EMS Limitations: no limitations History of Present Illness HPI Narrative: Patient is a 73-year-old female who presents with left leg weakness. She says she was walking her dog in the park when suddenly she could not lift her leg. She began dragging it. She then tripped and fell she did hit her head but did not lose consciousness. She has no chest pain or heart palpitations. This has never happened to her before. She does take aspirin day. She is now able to move her leg and symptoms have. She bit her tongue when she fell and seem to landed mostly on her right bottom. No hip or pelvis. No numbness or tingling in legs. MD Complaint: head injury Related Data Home Medications Medication Instructions Recorded Confirmed aspirin 81 mg PO BID #0 09/21/11 05/23/18 cholecalciferol (vitamin D3) 2,000 iu PO BID #0 09/21/11 05/23/18 [Vitamin D3] [DEEP SLEEP] 1 cap PO BEDTIME PRN #0 05/06/17 05/23/18 atorvastatin 20 mg PO DAILY 05/23/18 05/23/18 carvedilol 6.25 mg PO BID 05/23/18 05/23/18 folic acid 1 mg PO DAILY 05/23/18 05/23/18 levothyroxine 50 mcg PO DAILY 05/23/18 05/23/18 metformin 500 mg PO BID 05/23/18 05/23/18 Allergies Allergy/AdvReac Type Severity Reaction Status Date / Time Sulfa (Sulfonamide Allergy Mild RASH Verified 05/23/18 17:04 Antibiotics) [SULFA (SULFONAMIDE ANTIBIOTICS)] codeine [CODEINE] AdvReac Mild N/V Verified 05/23/18 17:04 Review of Systems Review of Systems All systems reviewed & are unremarkable except as noted in HPI and below Constitutional Denies chills, Denies fever(s), Denies frequent falls, Denies lethargy and Reports weakness (Left leg) Eyes Denies change in vision, Denies eye discharge, Denies irritation and Denies loss of vision Cardiovascular Denies chest pain, Denies syncope, Denies irregular heart rhythm, Denies lightheadedness, Denies palpitations, Denies dyspnea, Denies dyspnea on exertion and Denies orthopnea Respiratory Denies cough, Denies dyspnea, Denies dyspnea on exertion and Denies wheezing Gastrointestinal Gastrointestinal: Denies abdominal pain, Denies change in bowel habits, Denies diarrhea, Denies nausea and Denies vomiting Musculoskeletal Denies back pain, Denies muscle weakness, Denies numbness and Denies tingling Integumentary/Breasts Denies pruritus, Denies erythema, Denies rash and Denies wounds Neurologic Reports system reviewed and no additional complaints, except as docu, Denies syncope, Denies frequent falls, Denies loss of vision, Denies numbness, Denies other visual disturbances, Denies tingling and Reports weakness (Left leg) Endocrine Denies palpitations Allergic/Immunologic Denies wheezing [facility] Medical History HTN (hypertension) (Chronic) Hypothyroidism (acquired) (Chronic) Obstructive sleep apnea of adult (Chronic) Social History Smoking Status: Never smoker Exam Initial Vital Signs Initial Vital Signs: Vital Signs Temperature 97.6 F 05/23/18 15:05 Pulse Rate 60 05/23/18 15:05 Respiratory Rate 14 05/23/18 15:05 Blood Pressure 149/115 H 05/23/18 15:05 Pulse Oximetry 94 05/23/18 15:05 GENERAL: Well-appearing alert oriented elderly female no acute distress HEENT: Head atraumatic, no abrasions or contusions EOMI, pupils reactive, face symmetric, no vertebral tenderness no step-offs CARDIOVASCULAR: Regular rate and rhythm without murmurs, rubs or gallops. RESPIRATORY: Breath sounds equal bilaterally, no wheezes rales or rhonchi. ABDOMEN: Soft, nontender. Normoactive bowel sounds all 4 quadrants. No guarding or rebound. EXTREMITIES: Normal range of motion, no clubbing or edema. Neurovascularly intact NEUROLOGICAL: Alert and oriented x4.Normal gait and speech. Cranial nerves II through XII grossly intact. Good scjiyp-wt-yawe, good kevm-zb-rurp, strength equal bilaterally, no dysarthria or aphasia, sensation in tact to soft touch bilaterally, no visual changes, no facial droop SKIN: Warm, dry, no laceration, no petechiae, no rashes or lesions. Scores NIH Stroke Scale Level of Conciousness: Alert, keenly responsive Ask month/age: Answers both questions correctly. Open/close eyes, close hand: Performs both tasks correctly Best gaze horizontal: Normal Visual sanz: No visual loss Facial palsy: Normal symetrical movement Left arm drift: No drift for full 10 sec Right arm drift: No drift for full 10 sec Left leg drift: No drift for full 10 sec Right leg drift: No drift for full 10 sec Limb ataxia: Absent Sensory on face/arms/legs: Normal, no sensory loss Best language: No aphasia, normal Dysarthria: Normal Extinction or inattention: No abnormality Total NIH Stroke scale score: 0 Course Orders Ordered: ED Orders 05/23/18 15:08 CT head/brain wo con Stat 05/23/18 15:20 Complete Blood Count AUTO DIFF Stat Comprehensive Metabolic Panel Stat Lipase Stat Partial Thromboplastin Time Stat Prothrombin Time INR Stat Troponin & CK Cardiac Panel Stat 05/23/18 15:33 XR chest 1V Stat EKG-12 Lead Stat 05/23/18 18:01 Education, smoking cessation ONGOING 05/23/18 18:03 Consult to Discharge Planning Routine Consult to Occupational Therapy Evaluate & Treat Consult to Physical Therapy Evaluate & Treat 05/24/18 05:00 CBC [Complete Blood Count AUTO DIFF] DAILY CMP [Comprehensive Metabolic Panel] DAILY Magnesium DAILY Phosphorous DAILY Acetaminophen (Tylenol) 650 mg PO Q6HR PRN PRN Reason: As Needed for Fever/Mild Pain Atorvastatin Calcium (Lipitor) [address] [facility] Carvedilol (Coreg) 6.[address] [facility] Folic Acid (Folic Acid) [address] [facility] Hydralazine HCl (Apresoline) 10 mg IV Q6HR PRN PRN Reason: SBP>160 Sodium Chloride (Normal Saline 0.45%) 1,000 mls @ 70 mls/hr IV CONT OLEKSANDR Ibuprofen (Advil) 600 mg PO Q6HR PRN PRN Reason: As Needed for Fever/Mild Pain Levothyroxine Sodium (Synthroid) [address] [facility] Metformin HCl (Glucophage) [address] [facility] Vitamin D (Vitamin D3) 1,000 unit PO BID OLE[facility]AN[facility] Discontinued Medications Aspirin (Aspirin Chew) 324 mg PO NOW ONE Stop: 05/23/18 16:55 Last Admin: 11/27/18 17:06 Dose: 324 mg Vital Signs - 8 hr 05/23/18 15:05 05/23/18 15:20 05/23/18 15:33 Temperature 97.6 F Pulse Rate 60 62 60 Respiratory Rate 14 16 14 Blood Pressure 149/115 H Blood Pressure [Right Arm] 141/95 H 148/92 H Pulse Oximetry 94 95 94 05/23/18 16:00 05/23/18 16:14 05/23/18 17:30 Temperature Pulse Rate 56 L 50 L 50 L Respiratory Rate 16 18 17 Blood Pressure Blood Pressure [Right Arm] 157/113 H 175/81 H 182/91 H Pulse Oximetry 95 95 MDM - Head Injury Lab Data Attestation: I reviewed the patient's lab results. Result diagrams: 05/23/18 15:20 05/23/18 15:20 Lab Results 05/23/18 05/23/18 05/23/18 Range/Units 15:20 15:20 15:20 WBC 9.6 (4.5-11.0) X10^3/uL RBC 4.26 (4.0-5.2) X10^6/uL Hgb 12.6 (12.0-16.0) g/dL Hct 38.3 (36-46) % MCV 90.0 (80-100) fL MCH 29.6 (26-34) PG MCHC 32.9 (30-36) % RDW 16.2 H (11.6-14.8) % Plt Count 328 (150-400) X10^3/uL Neut % (Auto) 78.3 H (50-75) % Lymph % (Auto) 14.5 L (25-40) % Pickett % (Auto) 6.5 (3-14) % Eos % (Auto) 0.4 L (2-4) % Baso % (Auto) 0.3 (0-2) % Neut # (Auto) 7500 H (9819-5666) /uL PT 11.8 (10.1-12.7) SECONDS INR 1.1 (0.9-1.3) APTT 32 (26.4-36.2) SECONDS Sodium 146 H (137-145) mmol/L Potassium 4.1 (3.4-5.1) mmol/L Chloride 105 (98-107) mmol/L Carbon Dioxide 24 (22-32) mmol/L BUN 29 H (7-17) mg/dL Creatinine 1.00 (0.52-1.04) mg/dL Estimated GFR 54.5 L (>60) mL/min BUN/Creatinine Ratio 29.0 H (6-22) Glucose 118 H (80-110) mg/dL Calcium 9.2 (8.4-10.2) mg/dL Total Bilirubin 0.4 (0.2-1.3) mg/dL AST 20 (14-36) IU/L ALT 22 (9-52) IU/L Alkaline Phosphatase 83 (38-126) U/L Total Creatine Kinase 114 (30-135) U/L CK-MB (CK-2) 3.04 H (<2.37) ng/mL CK-MB (CK-2) Rel Index 2.7 (1.5-5.0) % Troponin I < 0.012 (0.01-0.034) ng/mL Total Protein 7.2 (6.3-8.2) g/dL Albumin 4.4 (3.5-5.0) g/dL Globulin 2.8 (1.7-4.1) g/dL Albumin/Globulin Ratio 1.6 (1.0-2.8) Lipase 54 (23-300) U/L Imaging Data CT scan - head: Radiologist's impression: PROCEDURE: CT HEAD/BRAIN WO CON INDICATIONS: fall left sided waekness, code stroke TECHNIQUE: Noncontrast 4.5 mm thick angled axial sections acquired from the foramen magnum to the vertex, with coronal and sagittal reformats. For radiation dose reduction, the following was used: automated exposure control, adjustment of mA and/or kV according to patient size. COMPARISON: [facility], CT, HEAD WITHOUT CONTRAST, 05/06/2017, 15:55. FINDINGS: Image quality: Excellent. CSF spaces: Basal cisterns are patent. No extra-axial fluid collections. The ventricles are symmetric in size and shape. Brain: No intracranial bleeds or masses. There is cerebral volume loss for age , with resultant ventricular and sulcal prominence. There are periventricular and deep white matter chronic small vessel ischemic changes. There is intracranial internal carotid artery atherosclerosis. Skull and face: Calvarium and visualized facial bones appear intact, without suspicious lesions. Sinuses: Visualized sinuses and mastoids are clear. IMPRESSION: No acute intracranial abnormality. Dictated by: Kassandra Sosa M.D. on 05/23/2018 at 15:17 Chest x-ray: Radiologist's impression: [address] [address] XRay Report Signed Patient: Leslee Johnson MMR#: [id number] : 6Acct:[id number] Age/Sex: 73 / FDate of Service: 05/23/18 Loc: ED Accession Number: [id number] Procedure: XR chest 1V Ordering Provider: Nancy Wu D.O. PROCEDURE: XR CHEST 1V INDICATIONS: chest pain TECHNIQUE: One view of the chest was acquired. COMPARISON: [facility], , CHEST 1 VIEW, 05/06/2017, 15:46. FINDINGS: Surgical changes and devices: Left axillary clips. Lungs and pleura: No pleural effusions or pneumothorax. Minimal increased pulmonary vascularity. Mediastinum: Mediastinal contours appear normal. Heart size is normal. Bones and chest wall: No suspicious bony lesions. Overlying soft tissues appear unremarkable. IMPRESSION: Minimal increased pulmonary vascularity. Dictated by: Emilee Rodriguez M.D. on 05/23/2018 at 15:50 ECG Data Attestation: I personally reviewed and interpreted this ECG as follows: Prior ECG tracings: available for review Interpretation: Normal sinus rhythm rate [address] changes no T-wave inversions, here interval 180 MDM Narrative Medical decision making narrative: Patient's symptoms have completely resolved no longer tPA candidate. She will be placed in observation for TIA workup. Dr. Han accepts Discharge Plan Departure Patient Disposition: Admitted as Observation Clinical Impression: Brain TIA Admit Date/Time: 05/23/18 17:44 Admit Provider: Tegan Omer
[2018-05-23] MEDS: ASPIRIN 81 MG TAB 324 MG PO (17:06)
[2018-05-23 18:32] LABS: Cholesterol 170 mg/dL (140-199); HDL Cholesterol 45 mg/dL (40-60); LDL Cholesterol Calculated 96 mg/dL (<100); Triglycerides 147 mg/dL (35-150)
--- NOTE | 2018-05-23 18:54 | PM.HP.1 ---
History of Present Illness Date Patient Seen: 05/23/18 Time Patient Seen: 18:55 Chief complaint: GLF Narrative: The patient is a 73-year-old female with PMH significant for HTN, AFib, RAMA / CPAP, h/o intracranial bleed (see CT head 05/06/2017), DM 2T, breast cancer (h/o b/l mastectomy, 1980 and 2013), DDD, morbid obesity (BMI 41), and hypothyroidism. Presents with complaints of left lower extremity weakness. Symptom onset is acute. Symptoms presented when patient was walking her dog earlier in the day. At time of the event she developed sudden onset of LLE weakness (reports being unable to lift her leg off the ground and maintaining her balance). Associated symptoms include disorientation, lightheadedness (denies feeling dizzy) and awareness that she may pass out. Due to degree of weakness in the left extremity and difficulty with ambulation, she fell sideways, landing onto her right buttock. She hit the occipital aspect of the head. Patient is on ASA 81 mg BID. There was no loss of consciousness. CT of head in ED was unremarkable for an acute intracranial process. At time of the event patient did not experience headache, change in vision, chest pain, palpitations, dyspnea, or paresthesia. Patient had a similar event 1 year ago. At that time an intracranial bleed was discovered and she was taken to [facility] (w/u did not consist of a surgical intervention by report). In the past 24-48 hours the patient developed LLE edema. Denies pain in the affected extremity. In the past 6-12 months patient reports worsening fatigue and problems with memory. There is a degree of exertional dyspnea and decreased activity toelrance. She is not able to note the severity as her mobility and balance has been less than optimal for a number of months (currently partaking in physical therapy). In regard to AFIB, has been managed w/ phamacotherapy. Never had a cardioversion or any type of an ablation. Follows with a roadmaster, Dr. Boudreaux; however, notes that it has been sometime since she's seen him. Patient does not follow with neurology. Patient History Medical History HTN (hypertension) (Chronic) Hypothyroidism (acquired) (Chronic) Obstructive sleep apnea of adult (Chronic) Family & Social History Safety & Behavioral: Feels Safe in Current Yes Environment Tobacco & Substance use: Patient is . Does with her in her own home. No current or prior history of tobacco dependence. Drinks rarely or on special occasions. No prior or current history of marijuana or recreational drug use. Full Code. No formal advanced directive as of 05/23/2018. Designates as a surrogate decision maker. Meds Home Medications Medication Instructions Recorded Confirmed Type aspirin 81 mg PO BID #0 09/21/11 05/23/18 History cholecalciferol (vitamin D3) 2,000 iu PO BID #0 09/21/11 05/23/18 History [Vitamin D3] [DEEP SLEEP] 1 cap PO BEDTIME PRN #0 05/06/17 05/23/18 History atorvastatin 20 mg PO DAILY 05/23/18 05/23/18 History carvedilol 6.25 mg PO BID 05/23/18 05/23/18 History folic acid 1 mg PO DAILY 05/23/18 05/23/18 History levothyroxine 50 mcg PO DAILY 05/23/18 05/23/18 History metformin 500 mg PO BID 05/23/18 05/23/18 History Allergies Allergy/AdvReac Type Severity Reaction Status Date / Time Sulfa (Sulfonamide Allergy Mild RASH Verified 05/23/18 17:04 Antibiotics) [SULFA (SULFONAMIDE ANTIBIOTICS)] codeine [CODEINE] AdvReac Mild N/V Verified 05/23/18 17:04 Review of Systems Review of Systems All systems reviewed & are unremarkable except as noted in HPI and below Exam Vital Signs (past 8 hours): - 05/23/18 15:05 05/23/18 15:20 05/23/18 15:33 Temperature 97.6 F Pulse Rate 60 62 60 Respiratory Rate 14 16 14 Blood Pressure 149/115 H Blood Pressure [Right Arm] 141/95 H 148/92 H Pulse Oximetry 94 95 94 05/23/18 16:00 05/23/18 16:14 05/23/18 17:30 Temperature Pulse Rate 56 L 50 L 50 L Respiratory Rate 16 18 17 Blood Pressure Blood Pressure [Right Arm] 157/113 H 175/81 H 182/91 H Pulse Oximetry 95 95 Oxygen Delivery Method Room Air Narrative Exam Narrative: Constitutional: NAD, obese body habitus Neurologic: AOx3, no focal neurological deficits, poor long-term memory recall, no speech deficits Head: NC, AT Eyes: Pupils equal and reactive, gaze conjugate Ears: external ears normal, no otorrhea Nose: external nose normal, no rhinorrhea or epistaxis Throat: dry MM, oropharynx w/o exudate Neck: no masses, lymphadenopathy, or JVD Chest / Respiratory: equal chest rise, unlabored respiratory effort, no tachypnea, CTAB Heart / CV: S1S2, + murmur Abdomen / GI: round, + central obesity, NT, ND, + BS, no organomegaly : no suprapubic tenderness, no CVA Peripheral / Vascular: warm to touch, DP pulses palpable, unilateral LLE edema Musc: full ROM of upper and lower extremities, adequate muscle tone and bulk Skin: no ecchymosis or suspicious lesions / ulcers Objective Labs Result Diagrams: 05/23/18 15:20 05/23/18 15:20 Labs: Laboratory Results - last 24 hr 05/23/18 05/23/18 05/23/18 15:20 15:20 15:20 WBC 9.6 RBC 4.26 Hgb 12.6 Hct 38.3 MCV 90.0 MCH 29.6 MCHC 32.9 RDW 16.2 H Plt Count 328 Neut % (Auto) 78.3 H Lymph % (Auto) 14.5 L Toombs % (Auto) 6.5 Eos % (Auto) 0.4 L Baso % (Auto) 0.3 Neut # (Auto) 7500 H PT 11.8 INR 1.1 APTT 32 Sodium 146 H Potassium 4.1 Chloride 105 Carbon Dioxide 24 BUN 29 H Creatinine 1.00 Estimated GFR 54.5 L BUN/Creatinine Ratio 29.0 H Glucose 118 H Calcium 9.2 Total Bilirubin 0.4 AST 20 ALT 22 Alkaline Phosphatase 83 Total Creatine Kinase 114 CK-MB (CK-2) 3.04 H CK-MB (CK-2) Rel Index 2.7 Troponin I < 0.012 Total Protein 7.2 Albumin 4.4 Globulin 2.8 Albumin/Globulin Ratio 1.6 Triglycerides Cholesterol LDL Cholesterol, Calc HDL Cholesterol Lipase 54 05/23/18 15:20 WBC RBC Hgb Hct MCV MCH MCHC RDW Plt Count Neut % (Auto) Lymph % (Auto) Toombs % (Auto) Eos % (Auto) Baso % (Auto) Neut # (Auto) PT INR APTT Sodium Potassium Chloride Carbon Dioxide BUN Creatinine Estimated GFR BUN/Creatinine Ratio Glucose Calcium Total Bilirubin AST ALT Alkaline Phosphatase Total Creatine Kinase CK-MB (CK-2) CK-MB (CK-2) Rel Index Troponin I Total Protein Albumin Globulin Albumin/Globulin Ratio Triglycerides 147 Cholesterol 170 LDL Cholesterol, Calc 96 HDL Cholesterol 45 Lipase Assessment & Plan Plan: Assessment/Plan Narrative: TIA - h/o afib, w/ ASA 81 mg BID for anticoagulation - echocardiogram - MR per stroke protocol in am - tele monitoring - VS and pulse ox Q4H - Goal BP less than 180/105 mmHg Ground Level Fall 2/2 LLE weakness, CT Head unremarkable for an acute intracranial process. AFIB (dx 5 yrs ago) Managed w/ pharmacotherapy. No prior h/o cardioversion or ablation procedures. BATCH TANK CONTROLLER regimen consists of ASA 81 mg BID and carvedilol 6.25 BID H/O intracerebral bleed. [id number] Score 6. ATRIA Bleeding Score 2 (does account for prior hemorrhage dx). - continue BATCH TANK CONTROLLER regimen - risk stratify - concern that patient may be having asymptomatic AFIB, or potentially deni / tachy arrhythmia, consider evaluation for a cardiac event recorder, would need to follow up with outpatient cardiology - potentially not a candidate for long-term anticoagulation; however, ATRIA score is 2 and does encourage start of warfarin; perhaps, consider an evaluation for Watchman device, would also need to f/u w/ outptient cardiology LLE unilateral edema, new onset - LLE venous doppler to R/O DVT Essential HTN, sub-optimally controlled - Trend BP - May require prn anti-hypertensives or an adjustment in home anti-hypertensive regimen DM 2T, uncontrolled A1C 8% in October 2017 w/ renal complications (CKD III) Currently managed w/ metformin 500 mg BID - repeat Hgb A1C , may need to adjust anti-glycemic regimen. This patient would benefit from a much tighter glucose control. - UA to check for proteinuria - hold metformin while inpatient, resume (if appropriate) at discharge - AC/HS glucose checks, start low dose (insulin naive) SSI Hypothyroidism BATCH TANK CONTROLLER managed w/ levothyroxine - check TSH - resume BATCH TANK CONTROLLER regimen Full code. No formal advance directive. Designates is surrogate decision maker. Home medications reviewed and reconciled.
--- NOTE | 2018-05-23 18:57 | P.HP_ITS ---
History of Present Illness Date Patient Seen: 05/23/18 Time Patient Seen: 18:55 Chief complaint: GLF Narrative: The patient is a 73-year-old female with PMH significant for HTN, AFib, RAMA / CPAP, h/o intracranial bleed (see CT head 05/06/2017), DM 2T, breast cancer (h/o b/l mastectomy, 1980 and 2013), DDD, morbid obesity (BMI 41), and hypothyroidism. Presents with complaints of left lower extremity weakness. Symptom onset is acute. Symptoms presented when patient was walking her dog earlier in the day. At time of the event she developed sudden onset of LLE weakness (reports being unable to lift her leg off the ground and maintaining her balance). Associated symptoms include disorientation, lightheadedness (denies feeling dizzy) and awareness that she may pass out. Due to degree of weakness in the left extremity and difficulty with ambulation, she fell sideways, landing onto her right buttock. She hit the occipital aspect of the head. Patient is on ASA 81 mg BID. There was no loss of consciousness. CT of head in ED was unremarkable for an acute intracranial process. At time of the event patient did not experience headache, change in vision, chest pain, palpitations, dyspnea, or paresthesia. Patient had a similar event 1 year ago. At that time an intracranial bleed was discovered and she was taken to [facility] (w/u did not consist of a surgical intervention by report). In the past 24-48 hours the patient developed LLE edema. Denies pain in the affected extremity. In the past 6-12 months patient reports worsening fatigue and problems with memory. There is a degree of exertional dyspnea and decreased activity toelrance. She is not able to note the severity as her mobility and balance has been less than optimal for a number of months ( currently partaking in physical therapy). In regard to AFIB, has been managed w/ phamacotherapy. Never had a cardioversion or any type of an ablation. Follows with a mechanical car checker, Dr. Boudreaux; however, notes that it has been sometime since she's seen him. Patient does not follow with neurology. Patient History Medical History HTN (hypertension) (Chronic) Hypothyroidism (acquired) (Chronic) Obstructive sleep apnea of adult (Chronic) Family & Social History Safety & Behavioral: Feels Safe in Current Yes Environment Tobacco & Substance use: Patient is . Does with her in her own home. No current or prior history of tobacco dependence. Drinks rarely or on special occasions. No prior or current history of marijuana or recreational drug use. Full Code. No formal advanced directive as of 05/23/2018. Designates as a surrogate decision maker. Meds Home Medications Medication Instructions Recorded Confirmed Type aspirin 81 mg PO BID #0 09/21/11 05/23/18 History cholecalciferol (vitamin D3) 2,000 iu PO BID #0 09/21/11 05/23/18 History [Vitamin D3] [DEEP SLEEP] 1 cap PO BEDTIME PRN #0 05/06/17 05/23/18 History atorvastatin 20 mg PO DAILY 05/23/18 05/23/18 History carvedilol 6.25 mg PO BID 05/23/18 05/23/18 History folic acid 1 mg PO DAILY 05/23/18 05/23/18 History levothyroxine 50 mcg PO DAILY 05/23/18 05/23/18 History metformin 500 mg PO BID 05/23/18 05/23/18 History Allergies Allergy/AdvReac Type Severity Reaction Status Date / Time Sulfa (Sulfonamide Allergy Mild RASH Verified 05/23/18 17:04 Antibiotics) [SULFA (SULFONAMIDE ANTIBIOTICS)] codeine [CODEINE] AdvReac Mild N/V Verified 05/23/18 17:04 Review of Systems Review of Systems All systems reviewed & are unremarkable except as noted in HPI and below Exam Vital Signs (past 8 hours): - 05/23/18 15:05 05/23/18 15:20 05/23/18 15:33 Temperature 97.6 F Pulse Rate 60 62 60 Respiratory Rate 14 16 14 Blood Pressure 149/115 H Blood Pressure [Right Arm] 141/95 H 148/92 H Pulse Oximetry 94 95 94 05/23/18 16:00 05/23/18 16:14 05/23/18 17:30 Temperature Pulse Rate 56 L 50 L 50 L Respiratory Rate 16 18 17 Blood Pressure Blood Pressure [Right Arm] 157/113 H 175/81 H 182/91 H Pulse Oximetry 95 95 Oxygen Delivery Method Room Air Narrative Exam Narrative: Constitutional: NAD, obese body habitus Neurologic: AOx3, no focal neurological deficits, poor long-term memory recall , no speech deficits Head: NC, AT Eyes: Pupils equal and reactive, gaze conjugate Ears: external ears normal, no otorrhea Nose: external nose normal, no rhinorrhea or epistaxis Throat: dry MM, oropharynx w/o exudate Neck: no masses, lymphadenopathy, or JVD Chest / Respiratory: equal chest rise, unlabored respiratory effort, no tachypnea, CTAB Heart / CV: S1S2, + murmur Abdomen / GI: round, + central obesity, NT, ND, + BS, no organomegaly : no suprapubic tenderness, no CVA Peripheral / Vascular: warm to touch, DP pulses palpable, unilateral LLE edema Musc: full ROM of upper and lower extremities, adequate muscle tone and bulk Skin: no ecchymosis or suspicious lesions / ulcers Objective Labs Result Diagrams: 05/23/18 15:20 05/23/18 15:20 Labs: Laboratory Results - last 24 hr 05/23/18 05/23/18 05/23/18 15:20 15:20 15:20 WBC 9.6 RBC 4.26 Hgb 12.6 Hct 38.3 MCV 90.0 MCH 29.6 MCHC 32.9 RDW 16.2 H Plt Count 328 Neut % (Auto) 78.3 H Lymph % (Auto) 14.5 L Lander % (Auto) 6.5 Eos % (Auto) 0.4 L Baso % (Auto) 0.3 Neut # (Auto) 7500 H PT 11.8 INR 1.1 APTT 32 Sodium 146 H Potassium 4.1 Chloride 105 Carbon Dioxide 24 BUN 29 H Creatinine 1.00 Estimated GFR 54.5 L BUN/Creatinine Ratio 29.0 H Glucose 118 H Calcium 9.2 Total Bilirubin 0.4 AST 20 ALT 22 Alkaline Phosphatase 83 Total Creatine Kinase 114 CK-MB (CK-2) 3.04 H CK-MB (CK-2) Rel Index 2.7 Troponin I < 0.012 Total Protein 7.2 Albumin 4.4 Globulin 2.8 Albumin/Globulin Ratio 1.6 Triglycerides Cholesterol LDL Cholesterol, Calc HDL Cholesterol Lipase 54 05/23/18 15:20 WBC RBC Hgb Hct MCV MCH MCHC RDW Plt Count Neut % (Auto) Lymph % (Auto) Lander % (Auto) Eos % (Auto) Baso % (Auto) Neut # (Auto) PT INR APTT Sodium Potassium Chloride Carbon Dioxide BUN Creatinine Estimated GFR BUN/Creatinine Ratio Glucose Calcium Total Bilirubin AST ALT Alkaline Phosphatase Total Creatine Kinase CK-MB (CK-2) CK-MB (CK-2) Rel Index Troponin I Total Protein Albumin Globulin Albumin/Globulin Ratio Triglycerides 147 Cholesterol 170 LDL Cholesterol, Calc 96 HDL Cholesterol 45 Lipase Assessment & Plan Plan: Assessment/Plan Narrative: TIA - h/o afib, w/ ASA 81 mg BID for anticoagulation - echocardiogram - MR per stroke protocol in am - tele monitoring - VS and pulse ox Q4H - Goal BP less than 180/105 mmHg Ground Level Fall 2/2 LLE weakness, CT Head unremarkable for an acute intracranial process. AFIB (dx 5 yrs ago) Managed w/ pharmacotherapy. No prior h/o cardioversion or ablation procedures. DIRECTOR OF EXHIBITS regimen consists of ASA 81 mg BID and carvedilol 6.25 BID H/O intracerebral bleed. [id number] Score 6. ATRIA Bleeding Score 2 (does account for prior hemorrhage dx). - continue DIRECTOR OF EXHIBITS regimen - risk stratify - concern that patient may be having asymptomatic AFIB, or potentially deni / tachy arrhythmia, consider evaluation for a cardiac event recorder, would need to follow up with outpatient cardiology - potentially not a candidate for long-term anticoagulation; however, ATRIA score is 2 and does encourage start of warfarin; perhaps, consider an evaluation for Watchman device, would also need to f/u w/ outptient cardiology LLE unilateral edema, new onset - LLE venous doppler to R/O DVT Essential HTN, sub-optimally controlled - Trend BP - May require prn anti-hypertensives or an adjustment in home anti-hypertensive regimen DM 2T, uncontrolled A1C 8% in October 2017 w/ renal complications (CKD III) Currently managed w/ metformin 500 mg BID - repeat Hgb A1C , may need to adjust anti-glycemic regimen. This patient would benefit from a much tighter glucose control. - UA to check for proteinuria - hold metformin while inpatient, resume (if appropriate) at discharge - AC/HS glucose checks, start low dose (insulin naive) SSI Hypothyroidism DIRECTOR OF EXHIBITS managed w/ levothyroxine - check TSH - resume DIRECTOR OF EXHIBITS regimen Full code. No formal advance directive. Designates is surrogate decision maker. Home medications reviewed and reconciled.
[2018-05-23] MEDS: SODIUM CHLORIDE 0.45% 1,000 ML 70 ML IV (20:00)
[2018-05-23] MEDS: CARVEDILOL 6.25 MG TABLET PO (21:36)
[2018-05-23] MEDS: CHOLECALCIFEROL (VITAMIN D3) 1,000 UNIT TABLET 1000 UNIT PO (21:36)
--- NOTE | 2018-05-23 23:31 | PC.NURSE ---
1919: Leslee admitted from ER, awake, oriented to self & situation, NIH = zero. Good historian except for recent details, spouse reports she has short term memory loss. Hypertensive, BP 153/110 on right ankle, 149/102 right wrist. After rest period at 2136 BP better at 140/78. RA oxygen high 90's. Tele rhythm sinus deni, rate 58 bpm. SCD's placed, JUDITH hose obtained from materials by pond supervisor at 2200, pt sleeping at that time. NOC RN Karyna aware that there are orders for JUDITH hose. Admission paperwork complete by Tasha haley RN. IVF infusing at 70 ml/hour to right wrist, 2nd IV to right wrist is saline locked. Taking in good PO's, no facial droop & denies difficulty swallowing food or water. Pt oriented to room & call button, calling nurse appropriately, call button at side. Alarm active & high fall precautions in place.
[2018-05-24] VITALS: O2SAT 95
--- NOTE | 2018-05-24 | DI.ECHO.S_ITS ---
[facility] +---------+ : : [address] [place] : : : : [id number] : : : : Phone: [phone]+ Echocardiogram Report + + :Name: BARBARA MOREIRA Study Date: 05/24/2018 Height: 69 in : :[facility] Exam Location: [facility] Weight: 223 lb : : Gender: Female BSA: 2.2 m2 : :: 1945 Age: 73 yrs BP: 146/93 mmHg: :Reason For Study: Atrial Fibrillation/Dyspnea : :Ordering Physician: Alan : :Hospitalist Performed By: Kaitlin Moreno : :Referring: SAMIRA LUCAS : + + Interpretation Summary The left ventricle is normal in size. The ejection fraction is estimated to be 55-60%. The right ventricle is normal in size and function. There is mild aortic regurgitation. The ascending aorta is mildly enlarged. The aortic arch is mildly enlarged. Procedure: A two-dimensional transthoracic echocardiogram with color flow and Doppler was performed. The study quality was technically adequate. There is no prior echocardiogram noted for this patient. The patient was in normal sinus rhythm during the exam. Left Ventricle: The left ventricle is normal in size. Left ventricular wall thickness is mildly increased. Proximal septal thickening is noted. There is no echo evidence for significant left ventricular outflow tract obstruction. There is no thrombus. The ejection fraction is estimated to be 55-60%. There are no focal wall motion abnormalities. MV E/A: 0.98 Med Peak E' Luis Fernando: 4.5 cm/sec E/E' med: 13.7. Right Ventricle: The right ventricle is normal in size and function. Atria: The left atrium is moderately dilated. The right atrium is normal in size. The interatrial septum is intact with no evidence for an atrial septal defect. Mitral Valve: There is mild mitral annular calcification. There is trace mitral regurgitation. Aortic Valve: The aortic valve is trileaflet. The aortic valve is mildly calcified. There is no hemodynamically significant valvular aortic stenosis. There is mild aortic regurgitation. Tricuspid Valve: The tricuspid valve is not well visualized, but is grossly normal. Pulmonary artery pressures cannot be estimated because of the lack of a measurable TR jet velocity. There is trace tricuspid regurgitation. Pulmonic Valve: The pulmonic valve is not well seen, but is grossly normal. There is mild pulmonic regurgitation. Great Vessels: The aortic root is normal size. The ascending aorta is mildly enlarged. The aortic arch is mildly enlarged. The inferior vena cava was not visualized. Pericardium/ Pleura There is no pericardial effusion. There is an anterior echo-free space consistent with a fat pad. There is no pleural effusion. MMode/2D Measurements & Calculations LVIDd: 5.2 cm LVOT diam: 2.5 cm LVIDs: 2.9 cm Ao root diam: 3.5 cm FS: 44.8 % asc Aorta Diam: 3.9 cm IVSd: 1.2 cm Ao Arch Diam (Prox Trans): 3.6 cm LVPWd: 1.00 cm LV almanza. diameter/BSA (cm/m^2): 2.4 LV sys. diameter/BSA (cm/m^2): 1.3 LA A2 area: 23.0 cm2 RA long axis: 4.9 cm LA A4 area: 25.7 cm2 RA area: 15.9 cm2 LA length (vol): 5.9 cm RA vol: 43.7 ml LA vol: 85.0 ml RA : 20.2 ml/m2 LA vol index: 39.3 ml/m2 TAPSE: 2.5 cm Doppler Measurements & Calculations MV E max luis fernando: 62.0 cm/sec PA V2 max: 55.7 cm/sec MV A max luis fernando: 63.6 cm/sec PA V2 mean: 35.5 cm/sec MV E/A: 0.98 PA mean P.58 mmHg Med Peak E' Luis Fernando: 4.5 cm/sec PA pr(Accel): -0.85 mmHg E/E' med: 13.7 Lat Peak E' Luis Fernando: 5.4 cm/sec E/E' lat: 11.5 E/e' average: 12.6 MV dec time: 0.18 sec Reading Physician:NARENDRA
--- NOTE | 2018-05-24 | DI.US.S_ITS ---
PROCEDURE: US PERIPH VENOUS LOW EXTREM LT INDICATIONS: acute LLE edema, TIA event, h/o afib TECHNIQUE: Real-time imaging, as well as color and pulse Doppler interrogation, were performed of the lower extremity deep veins from the inguinal ligament to the popliteal fossa. COMPARISON: None. FINDINGS: The deep veins are normally compressible, and free of intraluminal thrombus. Color and pulse Doppler demonstrate normal phasic intraluminal flow. There is normal augmentation response to distal compression maneuver. IMPRESSION: No evidence of left lower extremity deep vein thrombosis. Dictated by: Jong Ng M.D. on 05/24/2018 at 9:18 Approved by: Jong Ng M.D. on 05/24/2018 at 9:19
--- NOTE | 2018-05-24 | DI.MRI.S_ITS ---
PROCEDURE: MR STROKE Pre- and post-contrast brain MRI, non-contrast brain MR angiogram, pre- and postcontrast neck MR angiogram INDICATIONS: TIA, r.o CVA TECHNIQUE: Brain: Noncontrast axial T1 spin echo, axial T2 fast spin echo, sagittal and axial FLAIR, coronal T2 fast spin echo, axial gradient echo, axial diffusion and ADC through the brain. After the administration of contrast, axial 3D VIBE of the cranial vasculature and brain. Brain MRA: Non-contrast 3-D time of flight MR angiogram, with multiple qnhapzd-hfujfedbw-pgncobolon (MIP) reformats performed. Neck MRA: Axial and sagittal TruFISP through the neck. Coronal dynamic MR angiogram during administration of contrast in the arterial and venous phases, with 3-dimenstional awktnzl-utqdoitei-cwspkxvcpm (MIP) reformats constructed from subtraction images. COMPARISON: [facility], US, CAROTID ARTERY DOPPLER BILAT, 10/09/2012, 12:47. [facility], CT, HEAD WITHOUT CONTRAST, 05/06/2017, 15:55. [facility], MR, MR HEAD/BRAIN WO CON, 11/02/2017, 8:44. [facility], CT, CT HEAD/BRAIN WO CON, 05/23/2018, 14:57. FINDINGS: Image quality: Diagnostic BRAIN: CSF spaces: Ventricles are normal in size and shape. Basal cisterns are patent. No extra-axial fluid collections. Brain: No intracranial mass effects. No acute hemorrhage can be seen. Findings of remote hemorrhage can again be seen within the right epstein radiata, with susceptibility artifact. Smaller foci of susceptibility artifact can be seen elsewhere, which are consistent with small areas of remote hemorrhage, including within the left anterior thalamus. Chronic small vessel ischemic change can be seen. Brain parenchymal volume loss is noted. Goldman-white matter interface is normal. Diffusion weighted images show no acute ischemic insults. Brainstem appears normal. Normal intravascular flow voids are present. No abnormal intracranial enhancement. Skull and face: Calvarial marrow signal is normal. Orbits appear normal. Sinuses: Sinuses and mastoids are clear. BRAIN MR ANGIOGRAM: Anterior circulation: Intracranial internal carotid arteries are normal in size and enhancement. The flow within the paired anterior cerebral arteries is normal and symmetric. The flow within the middle cerebral arteries is normal and symmetric. The anterior communicating artery is seen. No stenoses, occlusions, or aneurysms. Posterior circulation: The visualized portions of the vertebral arteries demonstrate normal caliber, and join to form a normal appearing basilar artery. There is a prominent right posterior communicating artery seen, with an accompanying diminutive right P1 segment. This is attributed to a type origin of the right posterior cerebral artery, which is considered to be a normal developmental variant of typically no clinical consequence. The flow within the posterior cerebral arteries is normal and symmetric. No stenoses, occlusions, or aneurysms. NECK MR ANGIOGRAM: Carotids: Great vessels demonstrate a conventional anatomy as they arise from the aortic arch. The origins of the common carotid arteries appear patent. The calibers and courses of both common carotid arteries are normal. The bifurcation regions appear normal bilaterally. The internal carotid arteries demonstrate normal caliber. The proximal internal carotid arteries are tortuous, particularly on the right. Posterior circulation: The origins of the vertebral arteries appear patent. The proximal vertebral arteries are tortuous and there is apparent poor flow within them. More superior portions of both vertebral arteries demonstrate normal caliber, and join to form a normal appearing basilar artery. Miscellaneous: Subclavian arteries appear patent. Pre-contrast images through the neck show no soft tissue abnormalities. IMPRESSION: BRAIN MRI: No findings of acute or subacute infarction can be seen. Remote right epstein radiata hemorrhage is seen. Note is made of age-appropriate brain parenchymal volume loss and chronic small vessel ischemic changes. BRAIN MR ANGIOGRAM: No significant intracranial arterial abnormality is seen. NECK MR ANGIOGRAM: No hemodynamically significant stenosis can be seen of the carotid arteries. Apparent poor flow within the proximal vertebral arteries. However, this is felt most likely to be artifactual. Dictated by: Brendon Childs M.D. on 05/24/2018 at 9:08 Approved by: Brendon Childs M.D. on 05/24/2018 at 9:19
[2018-05-24 01:00] LABS: RBC Urine None Seen (0-5/HPF)
[2018-05-24 01:15] LABS: Appearance Urine UA CLEAR; Bilirubin Urine UA NEGATIVE (NEGATIVE); Color Urine UA YELLOW; Glucose Urine UA TRACE g/dL (Normal); Ketones Urine UA NEGATIVE (NEGATIVE); Leukocyte Esterase Urine UA TRACE (NEGATIVE); Nitrite Urine UA NEGATIVE (Negative); Occult Blood Urine UA NEGATIVE (Negative); Protein Urine UA NEGATIVE (Negative); Specific Gravity Urine UA 1.025 (1.000-1.035); Urobilinogen Urine UA 0.2 E.U./dL (0.2)
[2018-05-24 01:23] LABS: Bacteria Urine Few (2-10); Culture Indicated Urine Specimen Cultured; Granular Casts Urine 0-1/LPF; Renal Epithelial Cells Urine 0-1/HPF; Squamous Epithelial Cell Urine 1-5 /HPF; WBC Urine 5-10/HPF (0-5/HPF)
[2018-05-24 04:00] VITALS: BP 149/93; PULSE 57; RESP 16; TEMP 36.6; O2SAT 94
[2018-05-24] MEDS: LEVOTHYROXINE 50 MCG TABLET PO (05:31)
[2018-05-24 06:07] LABS: Add Manual Diff / Slide Review NO; Basophils Percent Auto 0.4 % (0-2); Eosinophils Percent Auto 0.7 % (2-4); Hemoglobin 11.2 g/dL (12.0-16.0); Lymphocytes Percent Auto 21.8 % (25-40); Mean Corpuscular Hemoglobin 29.7 PG (26-34); Mean Corpuscular Volume 90.1 fL (80-100); Monocytes Percent Auto 8.5 % (3-14); Neutrophils Absolute Auto 7100 /uL (3000-5900); Neutrophils Percent Auto 68.6 % (50-75); Platelet Count 278 X10^3/uL (150-400); Red Blood Cell Count 3.78 X10^6/uL (4.0-5.2); White Blood Cell Count 10.3 X10^3/uL (4.5-11.0)
[2018-05-24 06:17] LABS: Alanine Aminotransferase 22 IU/L (9-52); Albumin 3.6 g/dL (3.5-5.0); Albumin Globulin Ratio 1.5 (1.0-2.8); Alkaline Phosphatase 69 U/L (38-126); Aspartate Aminotransferase 16 IU/L (14-36); BUN Creatinine Ratio 31.1 (6-22); Bilirubin Total 0.3 mg/dL (0.2-1.3); Blood Urea Nitrogen 28 mg/dL (7-17); Calcium 8.6 mg/dL (8.4-10.2); Carbon Dioxide 25 mmol/L (22-32); Chloride 107 mmol/L (98-107); Estimated Glomerular Filt Rate > 60.0 mL/min (>60); Globulin 2.4 g/dL (1.7-4.1); Glucose 131 mg/dL (80-110); HEMOLYSIS < 15 (0-50); Magnesium 2.1 mg/dL (1.6-2.3); Phosphorous 4.2 mg/dL (2.8-4.1); Potassium 3.3 mmol/L (3.4-5.1); Sodium 143 mmol/L (137-145)
[2018-05-24 06:20] LABS: Hemoglobin A1C% w Est Avg Glu 7.3 % (4.0-6.0)
[2018-05-24 06:28] LABS: Cholesterol 134 mg/dL (140-199); HDL Cholesterol 30 mg/dL (40-60); LDL Cholesterol Calculated 77 mg/dL (<100); Triglycerides 137 mg/dL (35-150); VLDL Cholesterol Calculated 27 mg/dL (2-30)
[2018-05-24 07:10] LABS: TSH w/ Reflex to FT4 2.48 uIU/mL (0.47-4.68)
[2018-05-24 07:40] VITALS: BP 173/89; PULSE 60; RESP 16; TEMP 36.9; O2SAT 96
[2018-05-24] MEDS: ATORVASTATIN 20 MG TABLET PO (08:34)
[2018-05-24] MEDS: FOLIC ACID 1 MG TABLET PO (08:34)
[2018-05-24] MEDS: CARVEDILOL 6.25 MG TABLET PO (08:34)
[2018-05-24] MEDS: CHOLECALCIFEROL (VITAMIN D3) 1,000 UNIT TABLET 1000 UNIT PO (08:34)
[2018-05-24] MEDS: SODIUM CHLORIDE 0.9% FLUSH 10 ML IV (08:35)
[2018-05-24 09:09] VITALS: BP 146/93
--- NOTE | 2018-05-24 09:45 | PT.IPTN ---
Physical Therapy Treatment Note M2 PT-IP Current Condition Start: 05/24/18 08:48 Freq: NEEDED Status: Active Protocol: Document 05/24/18 08:49 [facility] (Rec: 05/24/18 09:03 [facility] [id number]) Physical Therapy Current Condition Current Condition Evaluation Date 05/24/18 Treatment Diagnosis weakness, possible TIA M3 PT-IP Subjective Start: 05/24/18 08:48 Freq: NEEDED Status: Active Protocol: Document 05/24/18 08:49 [facility] (Rec: 05/24/18 09:03 [facility] [id number]) Subjective Physical Therapy Visit Type Type Initial Evaluation Visit Start Time 08:55 Visit Stop Time 09:20 Total Visit Minutes 25 Number of EL TEACHER Visits 0 Physical Therapy Visit Comments Patient Comments Pt agreeable to get up Patient Goals Home M4 PT-IP Mobility and Gait Start: 05/24/18 08:48 Freq: NEEDED Status: Active Protocol: Document 05/24/18 08:49 [facility] (Rec: 05/24/18 09:03 [facility] [id number]) PT-Bed Mobility Assessment Supine to Sit Supine to Sit Independent Scooting Scooting to Edge of Bed Independent PT-Transfer Assessment Sit to and From Stand Sit to and from Stand Contact Guard Assistance Equipment Transfer Assistive Device Gait Belt Orthotic/Prosthetic Devices or Brace: No Transfers Transfer Destination Chair Transfer Technique Stand Step Pivot Transfer Ability Level of Assist Minimal Assistance Comments Mobility Comments Pt used hand hold for stability for transfer to chair Gait Assessment Comments Gait Comments Did not amb d/t high BP. RN unsure if accurate measurement d/t BP being taken on ankle ( 195/147). Nurse present during session and asked for pt to just transfer to chair for breakfast. RN to follow up on BPs & to monitor pt. Pt reported no [place]AM[place], nausea, or any unwell feeling. PT-Balance Assessment Sitting Balance and Reactions Static Sitting Balance Ability Normal Dynamic Sitting Balance Ability Normal Standing Balance and Reactions Static Standing Balance Ability Fair Dynamic Standing Balance Ability Fair M5 PT-IP Objective Assessments Start: 05/24/18 08:48 Freq: NEEDED Status: Active Protocol: Document 05/24/18 08:49 [facility] (Rec: 05/24/18 09:45 [facility] [id number]) Orientation Orientation/Cognition Level of Alertness Alert Strength Lower Extremity Strength Assessment Bilaterally Impaired M6 PT-IP Treatment Start: 05/24/18 08:48 Freq: NEEDED Status: Active Protocol: Document 05/24/18 08:49 [facility] (Rec: 05/24/18 09:45 [facility] [email or web address]) Physical Therapy Treatment Education Education Provided Safety M7 PT-IP Assessment and Plan Start: 05/24/18 08:48 Freq: NEEDED Status: Active Protocol: Document 05/24/18 08:49 [facility] (Rec: 05/24/18 09:45 [facility] [id number]) PT Summary Assessment and Plan Potential Rehabilitation Potential Good Status of Condition at Evaluation Unstable Summary Impairments Strength Balance Cognition Gait Activity Tolerance Assessment Summary Pt was limited during eval d/t possible elevated BP. Pt did require hand hold assist for transfer and would benefit from skilled PT for improving balance and gait stability. Goals Bed Mobility Goal Independent Transfer Goal Independent Gait Goal Standby Assistance Gait Distance 200 Other Goals up/down 9 stairs with rail SBA Days to Meet Goals 4 Frequency of Treatment Frequency Of Treatment Twice a Day Treatment Plan Physical Therapy Treatment Plan Transfer Training Gait Training Therapeutic Exercise Balance Retraining Neuromuscular Re-ed Recommendations To Nursing Amount of Assist Needed 1 Person Assist Discharge Recommendations PT Discharge Recommendations Home with Assistance Outpatient PT
[2018-05-24] MEDS: SODIUM CHLORIDE 0.45% 1,000 ML 70 ML IV (10:12)
--- NOTE | 2018-05-24 12:41 | CM.IDA ---
Discharge Planning/Care Management CM Discharge Assessment Start: 05/24/18 12:33 Freq: Status: Active Protocol: Document 05/24/18 12:33 [facility] (Rec: 05/24/18 12:41 [facility] [id number]) Discharge Planning Assessment Assigned Net C Developer JEET Solorzano DPOA/Assigned Designee Name Sky Johnson, spouse Contact Information [phone] Advance Directives? No History Provided By Patient Family Member Prior Living Arrangements House Household Members spouse Type of transporation used prior to Drives own vehicle admit Independent with ADL's Yes Is patient alert and oriented? Yes Comment Met w/pt and her spouse at bedside, explained SW role. Pt explains she walks her dog daily at [facility] in [place] and is mostly indp at home. Pt had a stroke approx one year ago and since then has been a little more unsteady on her feet. Spouse and she are retired and spouse able bodied and can assist prn. Pt states no barriers to safe [place] home today if medically cleared. Pt/spouse appreciative of the visit. Barriers to Discharge No Discharge Plan Home Transportation Arrangement Family Referrals Initiated None needed Whiteboard Updated in Patient Room with Yes name and ext. # of Net C Developer Review Status In Process
--- NOTE | 2018-05-24 14:08 | PM.DS.1 ---
History of Present Illness Date Patient Seen: 05/24/18 Chief complaint: GLF Narrative: The patient is a 73-year-old female with PMH significant for HTN, AFib, RAMA / CPAP, h/o intracranial bleed (see CT head 05/06/2017), DM 2T, breast cancer (h/o b/l mastectomy, 1980 and 2013), DDD, morbid obesity (BMI 41), and hypothyroidism. Presents with complaints of left lower extremity weakness. Symptom onset is acute. Symptoms presented when patient was walking her dog earlier in the day. At time of the event she developed sudden onset of LLE weakness (reports being unable to lift her leg off the ground and maintaining her balance). Associated symptoms include disorientation, lightheadedness (denies feeling dizzy) and awareness that she may pass out. Due to degree of weakness in the left extremity and difficulty with ambulation, she fell sideways, landing onto her right buttock. She hit the occipital aspect of the head. Patient is on ASA 81 mg BID. There was no loss of consciousness. CT of head in ED was unremarkable for an acute intracranial process. At time of the event patient did not experience headache, change in vision, chest pain, palpitations, dyspnea, or paresthesia. Patient had a similar event 1 year ago. At that time an intracranial bleed was discovered and she was taken to [facility] (w/u did not consist of a surgical intervention by report). In the past 24-48 hours the patient developed LLE edema. Denies pain in the affected extremity. In the past 6-12 months patient reports worsening fatigue and problems with memory. There is a degree of exertional dyspnea and decreased activity toelrance. She is not able to note the severity as her mobility and balance has been less than optimal for a number of months (currently partaking in physical therapy). In regard to AFIB, has been managed w/ phamacotherapy. Never had a cardioversion or any type of an ablation. Follows with a shotgun shell loading machine operator, Dr. Boudreaux; however, notes that it has been sometime since she's seen him. Patient does not follow with neurology. Discharge Providers Date of admission: 05/23/18 17:44 Primary care physician: Mc Saavedra MD Consults: 05/23/18 18:03 Consult to Discharge Planning Routine Comment: Consult to Occupational Therapy Evaluate & Treat Comment: Physician Instructions: Evaluate and treat Consult to Physical Therapy Evaluate & Treat Comment: Physician Instructions: Evaluate and Treat Discharge provider: Diane Martell MD Discharge Date: 05/24/18 Summary Discharge Diagnosis: TIA Hypertension Morbid Obesity Atrial Fibrillation Hyperlipidemia Type 2 Diabetes Remote History of Intracranial Hemorrhage Hospital Course: Patient admitted to the hospital follow a fall. She felt her leg giving away with some disorientation similar to a prior episode. She had a complete work up to include a MRI, HEAD CT, ECHO, Doppler to r/o DVT. Her work up was negative. Patient was seen by OT/PT today. She was cleared to return home to continue outpatient rehab. Patient was deemed appropriate for discharge home. Status at Discharge Functional status at discharge: uses cane/walker Overall status at discharge: patient is back to baseline Time Spent with Patient Less than 30 minutes Exam Vital Signs (past 8 hours): - 05/24/18 07:40 05/24/18 09:09 Temperature 98.4 F Pulse Rate 60 Respiratory Rate 16 Blood Pressure 173/89 H 146/93 H Pulse Oximetry 96 Oxygen Delivery Method Room Air Narrative Exam Narrative: Pleasant female in no acute distress No facial asymetry, no weakness, no numbness or tingling Lungs: Clear CV: irregularly, irregular Objective Labs Result Diagrams: 05/24/18 05:48 05/24/18 05:48 Labs: Laboratory Results - last 24 hr 05/23/18 05/23/18 05/23/18 15:20 15:20 15:20 WBC 9.6 RBC 4.26 Hgb 12.6 Hct 38.3 MCV 90.0 MCH 29.6 MCHC 32.9 RDW 16.2 H Plt Count 328 Neut % (Auto) 78.3 H Lymph % (Auto) 14.5 L Owen % (Auto) 6.5 Eos % (Auto) 0.4 L Baso % (Auto) 0.3 Neut # (Auto) 7500 H PT 11.8 INR 1.1 APTT 32 Sodium 146 H Potassium 4.1 Chloride 105 Carbon Dioxide 24 BUN 29 H Creatinine 1.00 Estimated GFR 54.5 L BUN/Creatinine Ratio 29.0 H Glucose 118 H Hemoglobin A1c Calcium 9.2 Phosphorus Magnesium Total Bilirubin 0.4 AST 20 ALT 22 Alkaline Phosphatase 83 Total Creatine Kinase 114 CK-MB (CK-2) 3.04 H CK-MB (CK-2) Rel Index 2.7 Troponin I < 0.012 Total Protein 7.2 Albumin 4.4 Globulin 2.8 Albumin/Globulin Ratio 1.6 Triglycerides Cholesterol LDL Cholesterol, Calc VLDL Cholesterol HDL Cholesterol Lipase 54 TSH Urine Color Urine Appearance Urine pH Ur Specific [place] Urine Protein Urine Glucose (UA) Urine Ketones Urine Occult Blood Urine Nitrate Urine Bilirubin Urine Urobilinogen Ur Leukocyte Esterase Urine RBC Urine WBC Ur Squamous Epith Cells Ur Renal Epithelial Cell Urine Bacteria Granular Casts Ur Culture Indicated? Micro UA Comment 05/23/18 05/23/18 05/24/18 15:20 23:50 05:48 WBC 10.3 RBC 3.78 L Hgb 11.2 L Hct 34.0 L MCV 90.1 MCH 29.7 MCHC 33.0 RDW 16.0 H Plt Count 278 Neut % (Auto) 68.6 Lymph % (Auto) 21.8 L Owen % (Auto) 8.5 Eos % (Auto) 0.7 L Baso % (Auto) 0.4 Neut # (Auto) 7100 H PT INR APTT Sodium Potassium Chloride Carbon Dioxide BUN Creatinine Estimated GFR BUN/Creatinine Ratio Glucose Hemoglobin A1c Calcium Phosphorus Magnesium Total Bilirubin AST ALT Alkaline Phosphatase Total Creatine Kinase CK-MB (CK-2) CK-MB (CK-2) Rel Index Troponin I Total Protein Albumin Globulin Albumin/Globulin Ratio Triglycerides 147 Cholesterol 170 LDL Cholesterol, Calc 96 VLDL Cholesterol HDL Cholesterol 45 Lipase TSH Urine Color Yellow Urine Appearance Clear Urine pH 5.0 Ur Specific [place] 1.025 Urine Protein Negative Urine Glucose (UA) Trace Urine Ketones Negative Urine Occult Blood Negative Urine Nitrate Negative Urine Bilirubin Negative Urine Urobilinogen 0.2 Ur Leukocyte Esterase Trace H Urine RBC None seen Urine WBC 5-10/hpf H Ur Squamous Epith Cells 1-5 /hpf Ur Renal Epithelial Cell 0-1/hpf Urine Bacteria Few (2-10) H Granular Casts 0-1/lpf Ur Culture Indicated? Specimen cultured Micro UA Comment Not Reportable 05/24/18 05/24/18 05/24/18 05:48 05:48 05:48 WBC RBC Hgb Hct MCV MCH MCHC RDW Plt Count Neut % (Auto) Lymph % (Auto) Owen % (Auto) Eos % (Auto) Baso % (Auto) Neut # (Auto) PT INR APTT Sodium 143 Potassium 3.3 L Chloride 107 Carbon Dioxide 25 BUN 28 H Creatinine 0.90 Estimated GFR > 60.0 BUN/Creatinine Ratio 31.1 H Glucose 131 H Hemoglobin A1c 7.3 H Calcium 8.6 Phosphorus 4.2 H Magnesium 2.1 Total Bilirubin 0.3 AST 16 ALT 22 Alkaline Phosphatase 69 Total Creatine Kinase CK-MB (CK-2) CK-MB (CK-2) Rel Index Troponin I Total Protein 6.0 L Albumin 3.6 Globulin 2.4 Albumin/Globulin Ratio 1.5 Triglycerides 137 Cholesterol 134 L LDL Cholesterol, Calc 77 VLDL Cholesterol 27 HDL Cholesterol 30 L Lipase TSH Urine Color Urine Appearance Urine pH Ur Specific [place] Urine Protein Urine Glucose (UA) Urine Ketones Urine Occult Blood Urine Nitrate Urine Bilirubin Urine Urobilinogen Ur Leukocyte Esterase Urine RBC Urine WBC Ur Squamous Epith Cells Ur Renal Epithelial Cell Urine Bacteria Granular Casts Ur Culture Indicated? Micro UA Comment 05/24/18 05:48 WBC RBC Hgb Hct MCV MCH MCHC RDW Plt Count Neut % (Auto) Lymph % (Auto) Owen % (Auto) Eos % (Auto) Baso % (Auto) Neut # (Auto) PT INR APTT Sodium Potassium Chloride Carbon Dioxide BUN Creatinine Estimated GFR BUN/Creatinine Ratio Glucose Hemoglobin A1c Calcium Phosphorus Magnesium Total Bilirubin AST ALT Alkaline Phosphatase Total Creatine Kinase CK-MB (CK-2) CK-MB (CK-2) Rel Index Troponin I Total Protein Albumin Globulin Albumin/Globulin Ratio Triglycerides Cholesterol LDL Cholesterol, Calc VLDL Cholesterol HDL Cholesterol Lipase TSH 2.48 Urine Color Urine Appearance Urine pH Ur Specific [place] Urine Protein Urine Glucose (UA) Urine Ketones Urine Occult Blood Urine Nitrate Urine Bilirubin Urine Urobilinogen Ur Leukocyte Esterase Urine RBC Urine WBC Ur Squamous Epith Cells Ur Renal Epithelial Cell Urine Bacteria Granular Casts Ur Culture Indicated? Micro UA Comment Discharge Plan Discharge Plan Patient Disposition: Home Discharge Med Rec/Prescriptions Prescriptions: New aspirin 325 mg tablet 325 mg PO DAILY Qty: 30 RF: 0 Continue cholecalciferol (vitamin D3) [Vitamin D3] 1,000 UNIT tablet 2,000 iu PO BID Qty: 0 RF: 0 [DEEP SLEEP] 1 cap PO BEDTIME PRN (Reason: Sleep) Qty: 0 RF: 0 metformin 500 mg tablet 500 mg PO BID RF: 0 carvedilol 6.25 mg tablet 6.25 mg PO BID RF: 0 atorvastatin 20 mg tablet 20 mg PO DAILY RF: 0 levothyroxine 50 mcg tablet 50 mcg PO DAILY RF: 0 folic acid 1 mg tablet 1 mg PO DAILY RF: 0 Discontinued aspirin 81 MG tablet,chewable 81 mg PO BID Qty: 0 RF: 0 Provider Discharge Instructions Diet: Low-sodium and Low-cholesterol Activity: As tolerated Discharge Data Primary Care Provider: Mc Saavedra Attending Provider: Tegan Omer Admit Date/Time: 05/23/18 17:44
--- NOTE | 2018-05-24 14:10 | PT.IPTN ---
Physical Therapy Treatment Note M2 PT-IP Current Condition Start: 05/24/18 08:48 Freq: NEEDED Status: Discharge Protocol: Document 05/24/18 08:49 [facility] (Rec: 05/24/18 09:03 [facility] [email or web address]) Physical Therapy Current Condition Current Condition Evaluation Date 05/24/18 Treatment Diagnosis weakness, possible TIA M3 PT-IP Subjective Start: 05/24/18 08:48 Freq: NEEDED Status: Discharge Protocol: Document 05/24/18 14:10 [facility] (Rec: 05/24/18 15:02 [facility] [email or web address]) Subjective Physical Therapy Visit Type Type Treatment Note Visit Start Time 13:45 Visit Stop Time 14:10 Total Visit Minutes 25 Number of ELEVATOR STARTER Visits 1 Physical Therapy Visit Comments Patient Comments Pt state she is feeling better . M4 PT-IP Mobility and Gait Start: 05/24/18 08:48 Freq: NEEDED Status: Discharge Protocol: Document 05/24/18 14:10 [facility] (Rec: 05/24/18 15:02 [facility] [email or web address]) PT-Transfer Assessment Sit to and From Stand Sit to and from Stand Contact Guard Assistance Equipment Transfer Assistive Device Gait Belt Orthotic/Prosthetic Devices or Brace: No Transfers Transfer Destination Bed Transfer Ability Level of Assist Contact Guard Assistance Gait Assessment Gait Gait Assistance Required: Contact Guard Assist Distance (Feet) 200 Assistive Devices Assistive Device None Gait Belt Straight Cane Orthotic/Prosthetic Devices or Brace: No Gait Deviations General Gait Pattern Decreased Stride Length Decreased Feet Clearance Wide Based Gait Comments Gait Comments pt ambulated 40 feet without assistive device with CGA and mild unsteadiness and then 160 feet with SPC and CGA. Stair Climbing Assessment Evaluation Level of Assist On Stairs Contact Guard Assistance Devices Stair Climbing Assistive Devices Right Railing Technique/Endurance Stair Climbing Direction Ascend and Descend Stair Climbing Technique Step Over Step Number of Steps Climbed 3 Query Text: Stair Climbing Set # Repetitions (reps) 1 M5 PT-IP Objective Assessments Start: 05/24/18 08:48 Freq: NEEDED Status: Discharge Protocol: Document 05/24/18 08:49 [facility] (Rec: 05/24/18 09:45 [facility] [email or web address]) Orientation Orientation/Cognition Level of Alertness Alert Strength Lower Extremity Strength Assessment Bilaterally Impaired M6 PT-IP Treatment Start: 05/24/18 08:48 Freq: NEEDED Status: Discharge Protocol: Document 05/24/18 08:49 [facility] (Rec: 05/24/18 09:45 [facility] [email or web address]) Physical Therapy Treatment Education Education Provided Safety M7 PT-IP Assessment and Plan Start: 05/24/18 08:48 Freq: NEEDED Status: Discharge Protocol: Document 05/24/18 14:10 [facility] (Rec: 05/24/18 15:02 [facility] [email or web address]) PT Summary Assessment and Plan Summary Assessment Summary Pt improving with mobility. She was mildly unsteady and reach to furniture with gait without assistive device. She improved stability with gait with SPC. She was safe with stair mobility and bed mobility. She did need increase time with initial stand for have safe balance. Frequency of Treatment Frequency Of Treatment Twice a Day Treatment Plan Physical Therapy Treatment Plan Transfer Training Gait Training Therapeutic Exercise Balance Retraining Neuromuscular Re-ed Recommendations To Nursing Amount of Assist Needed 1 Person Assist Discharge Recommendations PT Discharge Recommendations Home with Assistance Outpatient PT
--- NOTE | 2018-05-24 14:46 | OT.IP.EVAL ---
Past Medical History (Last Reviewed 05/23/18 @ 18:57 by LUISITO Solorio) HTN (hypertension) (Chronic) Hypothyroidism (acquired) (Chronic) Obstructive sleep apnea of adult (Chronic) Occupational Therapy Inpatient Evaluation/Re-Eval M1 PT/OT-IP Prior Functional Status Start: 05/24/18 08:48 Freq: NEEDED Status: Active Protocol: Document 05/24/18 08:49 [facility] (Rec: 05/24/18 09:03 [facility] [email or web address]) Medical Review Prior Functional Status Medical History Reviewed Yes Diet/Fluid Consistency Regular Communication WNL, Short term memory loss Mobility and Gait Indep without AD. Typically walks 1 mile at the park with her dog daily Activities of Daily Living and IADL's indep Social History Household Members spouse Living Arrangements House Number of Floors (Floors) One Floor Number of Stairs To Enter/Railing? either 1 step then 3 or 6 steps then 3 to enter with rail Home Environment High Toilet Walk in Shower Built-In Shower Seat Home Equipment Straight Cane Grab Bars In Shower Employment Status Retired M1 PT/OT-IP Prior Functional Status Start: 05/24/18 13:57 Freq: NEEDED Status: Active Protocol: Document 05/24/18 13:58 [facility] (Rec: 05/24/18 14:46 [facility] [id number]) Medical Review Prior Functional Status Medical History Reviewed Yes Diet/Fluid Consistency Regular Communication WNL, Short term memory loss Mobility and Gait Indep without AD. Typically walks 1 mile at the park with her dog daily Activities of Daily Living and IADL's Pt states independent with ADL 's , spouse pays the bills, cooks, does the laundry and they have assist for housekeeping. Social History Household Members spouse Living Arrangements House Number of Floors (Floors) One Floor Number of Stairs To Enter/Railing? either 1 step then 3 or 6 steps then 3 to enter with rail Home Environment High Toilet Walk in Shower Built-In Shower Seat Home Equipment Straight Cane Grab Bars In Shower Employment Status Retired M2 OT-IP Current Condition Start: 05/24/18 13:57 Freq: Status: Active Protocol: Document 05/24/18 13:58 [facility] (Rec: 05/24/18 14:46 [facility] [id number]) Occupational Therapy Current Condition Current Condition Evaluation Date 05/24/18 Treatment Diagnosis Weakness, GLF, possible TIA Diagnosis Onset Date 05/23/18 M3 OT- IP Subjective and Pain Start: 05/24/18 13:57 Freq: Status: Active Protocol: Document 05/24/18 13:58 [facility] (Rec: 05/24/18 14:46 [facility] [id number]) OT- Subjective Occupational Therapy Visit Type Type Initial Evaluation Visit Start Time 12:35 Visit Stop Time 13:35 Total Visit Minutes 60 Notes Pt's present for the end of OT session. Occupational Therapy Visit Comments Patient/Caregiver Goals Pt wanting to go home. OT Pain Assessment Pain When Pain Assessed At Rest Pain Present Pain Present Denied Pain M4 OT- IP ADL's Start: 05/24/18 13:57 Freq: Status: Active Protocol: Document 05/24/18 13:58 [facility] (Rec: 05/24/18 14:46 [facility] [id number]) OT ADL-Grooming General Evaluation Grooming Ability Standby Assistance Comments OT Grooming Comments SBA while at the sink for grooming needs and assist to manage IV pole. OT ADL-Dressing General Eval Lower Body Dressing Ability Standby Assistance Comments OT Dressing Comments Pt able to andressa/doff socks from the edge of the recliner. OT ADL-Toileting General Evaluation Toileting Ability Standby Assistance Devices Toileting Assistive Devices Grab Bars Comments OT Toileting Comments SBA to manage IV pole otherwise able to do all toileting needs with increased time and use of grab bar. M5 OT- IP IADL's Start: 05/24/18 13:57 Freq: Status: Active Protocol: Document 05/24/18 13:58 [facility] (Rec: 05/24/18 14:46 [facility] [id number]) OT-Instrumental Activities of Daily Living Medication Management Medication Management Comments Pt states takes her own medications. Money Management Money Management Caregiver Provides Assistance Meal Preparation Meal Preparation Caregiver Provides Assist Drapery Cutter Machine Drapery Cutter Machine Caregiver Provides Assist Driving Driving Comments Pt states drive only during the day and locally. M6 OT- IP Functional Cognition Start: 05/24/18 13:57 Freq: Status: Active Protocol: Document 05/24/18 13:58 [facility] (Rec: 05/24/18 14:46 [facility] [id number]) Cognitive Factors Limiting Selfcare Function Cognitive Ability Level of Alertness Alert Patient Orientation Name Place Situation Attention Span Ability Capable of Focused Attention Capable of Sustained Attention Unable to Sustain Attention Ability to Follow Commands Able to Follow One Step Commands Memory Description Immediate Intact Short Term Impaired Black Studies Professor Intact Problem Solving Ability Needs Assist to Identify Solutions Executive Function Ability Unable to Filter Distractions Unable to Organize Plans Unable to Remember Details Cognitive Tests ACL Pt score 4.4 out of 6.0 on the Lei Cognitive Level Screen which implies live with someone who does a daily check on the environment and removes any safety hazzards and solve any new problems. May be alone for part of the day with procedures for obtaining help by phone or from a neighbor. Cognitive Comments Cognitive Assessment Comments Pt scored 196 seconds and needing two cues to complete Pollock Making Part B which from [employer] implies a score of more than 180 seconds implies greater chance of a car accident. OT- Vision and Hearing OT- Hearing Assessment OT- Hearing Assessment WFL M7 OT- IP Mobility and Balance Start: 05/24/18 13:57 Freq: Status: Active Protocol: Document 05/24/18 13:58 [facility] (Rec: 05/24/18 14:46 [facility] [id number]) OT-Transfer Assessment Sit to and From Stand Sit to and from Stand Standby Assistance Transfers Transfer Ability Standby Assistance Technique Transfer Destination Chair Toilet Transfer Technique Stand Step Pivot Devices Transfer Assistive Devices None Gait Belt Comments Mobility Comments Pt tends to place her hand on the counter, wall and grab bar while walking into the bathroom. Pt states at home has placed spots to hold to for reassurance while getting into the bathroom. OT- Balance Assessment Sitting Balance and Reactions Static Sitting Balance Ability Normal Dynamic Sitting Balance Ability Normal Standing Balance and Reactions Static Standing Balance Ability Good Dynamic Standing Balance Ability Fair M8 OT- IP Objective Assessments Start: 05/24/18 13:57 Freq: Status: Active Protocol: Document 05/24/18 13:58 [facility] (Rec: 05/24/18 14:46 [facility] [id number]) OT Gross Range of Motion Upper Extremity Range of Motion Assessment Within Functional Limits M9 OT- IP Assessment and Plan Start: 05/24/18 13:57 Freq: Status: Active Protocol: Document 05/24/18 13:58 [facility] (Rec: 05/24/18 14:46 [facility] [id number]) OT Summary Assessment and Plan Potential Rehabilitation Potential Good Analytic Complexity at Evaluation Low Summary OT Impairments Balance Functional Cognition Functional Mobility Bathing Progress Towards Goals Progressing Toward Goals Assessment Summary Pt low complexity and main barriers are steps, dynamic balance, and would continue to benefit from supervision at home. Goals Dressing Goal Independent Bathing Goal Standby Assistance Shower Transfer Goal Standby Assistance OT-Other Goals Short term goals: see above LTG : Independent with the above Days to Meet Goals 3 Frequency of Treatment Frequency Of Treatment Once a Day Treatment Plan OT Treatment Plan Functional Cognition Training Functional Mobility Patient/Family Education Discharge Planning Other Treatment Recommendations and Next Shower Treatment Focus Discharge Recommendations OT Discharge Recommendations Home with Assistance
--- NOTE | 2018-05-24 14:51 | PC.NURSE ---
Discharge Note: Patient discharged home this shift via private vehicle. Discharge instructions reviewed with patient and spouse. No questions at time of discharge. IVs removed and patient tolerated well. Telemetry removed. Patient belongings with patient at time of discharge. Patient taken to car via wheelchair at 1445.
== END 2018-05-24 14:51 | disposition home or self-care (01) ==
LOC: ED 17:08 → AC 17:45
PROVIDERS: Nurse Practitioner Gerontology; Admitting Provider Hospitalist; Emergency Provider Emergency Medicine; Family Provider Internal Medicine; PCP Internal Medicine; Visit Provider Hospitalist
DX: G45.9 Transient cerebral ischemic attack, unspecified (principal); R53.1 Weakness; W01.198A Fall on same level from slipping, tripping and stumbling with subsequent striking against other object, initial encounter; Y93.K1 Activity, walking an animal; I10 Essential (primary) hypertension; E03.9 Hypothyroidism, unspecified; G47.33 Obstructive sleep apnea (adult) (pediatric); I48.91 Unspecified atrial fibrillation; E11.9 Type 2 diabetes mellitus without complications; E66.01 Morbid (severe) obesity due to excess calories; Z68.41 Body mass index [BMI] 40.0-44.9, adult; Z79.84 Long term (current) use of oral hypoglycemic drugs
CPT/HCPCS: 36415; 36591; 70450; 70553; 71045; 80053; 80061; 81001; 82550; 82553; 82962; 83036; 83690; 83735; 84100; 84443; 84484; 85025; 85610; 85730; 87086; 93005; 93306; 93971; 97116; 97127; 97163; 97165; 97530; 97535; 99283; 99285; 99291; G0378; J7050

== ENCOUNTER 2018-10-04 11:15 | Outpatient (RCR) | payer MEDICARE, OTHER, SELFPAY ==
--- NOTE | 2018-04-11 12:03 | PT.OPPOC ---
Current Diagnoses Other abnormalities of gait and mobility (04/11/18) Weakness (04/11/18) Provider Visit Care Team Role Provider Type Mc Saavedra MD Attending Provider Physician Family Provider Primary Care Provider Specialty: Internal Medicine Address: [address] [place] [address], [id number] Email: Plan Of Care PT-OP-T Assessment and Plan Start: 04/11/18 16:44 Freq: Status: Active Protocol: Document 04/11/18 16:46 ML (Rec: 04/11/18 17:16 ML [email or web address]) Physical Therapy Assessment Rehab Potential Rehabilitation Potential Good Evaluation Complexity Number of Personal Factors/Comorbidities 1-2 Number of Body Systems Impaired 1-2 Clinical Presentation at Evaluation Stable Impairments Impairments Balance Coordination Functional Activities Functional Mobility Gait Posture Strength Goals Two Impairment dec strength Short Term Goal (STG) Pt will be independent with HEP. STG Duration 05/12/18 Jail Goal (LTG) Pt will score a 5/5 on all LE MMT. One Impairment dec balance Short Term Goal (STG) Pt will be able to ambulate 20 ' in less than 5.5 seconds. STG Duration 05/12/18 Jail Goal (LTG) Pt will be able to ambulate stairs without use of handrail . LTG Duration 06/11/18 Assessment Summary Assessment Pt presented with dec balance during ambulation over objects , backward, eyes closed, and stairs. Pt was very dependent on having something to hold onto during all ambulation and moved very slowly and cautiously. Pt will benefit from skilled PT to improve her confidence in her balance through mobility of uneven surfaces, changing heights, low lighting, and different directions of gait. Physical Therapy Plan Frequency and Duration Frequency of Treatment 1x/Week Duration of Treatment 50 Plan of Care Start Date 04/11/18 Plan of Care End Date 06/11/18 Therapeutic Interventions Therapeutic Interventions Balance Training Coordination Training Gait Training Home Exercise Program Joint Mobilizations Manual Therapy Neuromuscular Re-education Patient/Caregiver Education Self-Care/Home Management Soft Tissue Mobilization Taping Therapeutic Activities Therapeutic Exercises Next Visit Focus/Plan Next Note Type Treatment Note Next Visit Plan HEP: NBOS, eyes closed, SLS, stairs Plan of Care Dates Plan of Care Start Date 04/11/18 Plan of Care End Date 06/11/18 Please Sign and Return: I have reviewed this Plan of Care and certify that the skilled therapy services above are required to meet the patient?s needs. Physician Signature Date Printed Name and Credentials Clinical Instructor Signature Printed Name and Credentials
--- NOTE | 2018-04-11 13:40 | PT.OIE ---
Current Diagnoses Other abnormalities of gait and mobility (04/11/18) Weakness (04/11/18) Past Medical History (Last Reviewed 02/03/18 @ 12:59 by LUISITO Barrera) HTN (hypertension) (Chronic) Hypothyroidism (acquired) (Chronic) Obstructive sleep apnea of adult (Chronic) Provider Visit Care Team Role Provider Type Mc Saavedra MD Attending Provider Physician Family Provider Primary Care Provider Specialty: Internal Medicine Address: [address] [place] [address], [facility] Email: Physical Therapy Initial Evaluation PT-OP-A Visit Information Start: 04/11/18 16:44 Freq: Status: Active Protocol: Document 04/11/18 16:46 ML (Rec: 04/11/18 17:16 ML [email or web address]) Out-Patient Physical Therapy Visit Information Visit Information Visit Type Initial Evaluation Visit Start Time 13:00 Visit Stop Time 13:50 Total Visit Minutes 50 Visit Number 07/06 Number of PROCUREMENT CONSULTANT Visits 0 Evaluation Information Evaluation Date 04/11/18 PT-OP-B Current Condition Start: 04/11/18 16:44 Freq: Status: Active Protocol: Document 04/11/18 16:46 ML (Rec: 04/11/18 17:16 ML [email or web address]) Current Condition History of Current Condition Current Complaints dec balance History of Current Condition 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 Pt reports having 2 sessions of PT prior to this since CVA, and despite improvement feels as though her balance and strength could improve. Pt gave up using her cane 5 days ago, and has been successful at safely walking 1.25 miles with her dog regularly to the park without dizziness. Pt emphasizes her caution/ awareness and moving slowly through all things and reports that she is frequently looking for something or someone to hold onto through activities that require unstable surfaces, quick rotational movements, low lighting, or change in surface height (stairs without rail). Pt also explains her frustration for memory difficulties of event that have happened recently. Treatment Goals Patient/Caregiver Goals gain strength in UEs and LEs; inc balance unsupported for gait and functional activities PT-OP-C Subjective Start: 10/16/18 16:44 Freq: Status: Active Protocol: Document 04/11/18 16:46 ML (Rec: 04/11/18 17:16 ML [email or web address]) OP-PT Subjective Patient Comments Patient Comments Pt reports not being sure of what exactly is her problem with her balance, but notes that there is deficit and would like to improve. PT-OP-D Balance Start: 04/11/18 16:44 Freq: Status: Active Protocol: Document 04/11/18 16:46 ML (Rec: 04/11/18 17:16 ML [email or web address]) Balance Tests Other Other Balance Tests Performed FGA: PT-OP-G Mobility & Gait Start: 04/11/18 16:44 Freq: Status: Active Protocol: Document 04/11/18 16:46 ML (Rec: 04/11/18 17:16 ML [email or web address]) OP Gait Assessment Gait Gait Assistance Required: Independent Comments Gait Comments Pt moves very slowly through all gait motions, pt's HUSAM is very wide to inc balance PT-OP-M Strength Start: 04/11/18 16:44 Freq: Status: Active Protocol: Document 04/11/18 16:46 ML (Rec: 04/11/18 17:16 ML [email or web address]) Hip Strength Hip Manual Muscle Testing Right Flexion (L2) 4- Good- Extension (S1) 5 Normal Abduction 5 Normal External Rotation 4- Good- Internal Rotation 5 Normal Left Flexion (L2) 4- Good- Extension (S1) 5 Normal Abduction 5 Normal External Rotation 4 Good Internal Rotation 5 Normal Knee Strength Knee Manual Muscle Testing Right Flexion (S2) 5 Normal Extension (L3) 5 Normal Left Flexion (S2) 5 Normal Extension (L3) 5 Normal Ankle/Foot Strength Ankle and Foot Manual Muscle Testing Right Dorsiflexion (L4) 4+ Good+ Plantarflexion (S1) 5 Normal Left Dorsiflexion (L4) 4+ Good+ Plantarflexion (S1) 5 Normal PT-OP-T Assessment and Plan Start: 04/11/18 16:44 Freq: Status: Active Protocol: Document 04/11/18 16:46 ML (Rec: 04/11/18 17:16 ML [email or web address]) Physical Therapy Assessment Rehab Potential Rehabilitation Potential Good Evaluation Complexity Number of Personal Factors/Comorbidities 1-2 Number of Body Systems Impaired 1-2 Clinical Presentation at Evaluation Stable Impairments Impairments Balance Coordination Functional Activities Functional Mobility Gait Posture Strength Goals Two Impairment dec strength Short Term Goal (STG) Pt will be independent with HEP. STG Duration 05/12/18 Detention Goal (LTG) Pt will score a 5/5 on all LE MMT. One Impairment dec balance Short Term Goal (STG) Pt will be able to ambulate 20 ' in less than 5.5 seconds. STG Duration 05/12/18 Detention Goal (LTG) Pt will be able to ambulate stairs without use of handrail . LTG Duration 06/11/18 Assessment Summary Assessment Pt presented with dec balance during ambulation over objects , backward, eyes closed, and stairs. Pt was very dependent on having something to hold onto during all ambulation and moved very slowly and cautiously. Pt will benefit from skilled PT to improve her confidence in her balance through mobility of uneven surfaces, changing heights, low lighting, and different directions of gait. Physical Therapy Plan Frequency and Duration Frequency of Treatment 1x/Week Duration of Treatment 50 Plan of Care Start Date 04/11/18 Plan of Care End Date 06/11/18 Therapeutic Interventions Therapeutic Interventions Balance Training Coordination Training Gait Training Home Exercise Program Joint Mobilizations Manual Therapy Neuromuscular Re-education Patient/Caregiver Education Self-Care/Home Management Soft Tissue Mobilization Taping Therapeutic Activities Therapeutic Exercises Next Visit Focus/Plan Next Note Type Treatment Note Next Visit Plan HEP: NBOS, eyes closed, SLS, stairs
--- NOTE | 2018-04-13 11:55 | PT.OIE ---
Current Diagnoses Other abnormalities of gait and mobility (04/11/18) Weakness (04/11/18) Past Medical History (Last Reviewed 02/03/18 @ 12:59 by LUISITO Barrera) HTN (hypertension) (Chronic) Hypothyroidism (acquired) (Chronic) Obstructive sleep apnea of adult (Chronic) Provider Visit Care Team Role Provider Type Mc Saavedra MD Attending Provider Physician Family Provider Primary Care Provider Specialty: Internal Medicine Address: [address] [place] [address], [facility] Email: Physical Therapy Initial Evaluation PT-OP-A Visit Information Start: 04/11/18 16:44 Freq: Status: Active Protocol: Document 04/11/18 16:46 ML (Rec: 04/11/18 17:16 ML [email or web address]) Out-Patient Physical Therapy Visit Information Visit Information Visit Type Initial Evaluation Visit Start Time 13:00 Visit Stop Time 13:50 Total Visit Minutes 50 Visit Number 07/06 Number of REFRIGERATED CARGO CLERK Visits 0 Evaluation Information Evaluation Date 04/11/18 PT-OP-B Current Condition Start: 04/11/18 16:44 Freq: Status: Active Protocol: Document 04/11/18 16:46 ML (Rec: 04/11/18 17:16 ML [email or web address]) Current Condition History of Current Condition Current Complaints dec balance History of Current Condition 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 Pt reports having 2 sessions of PT prior to this since CVA, and despite improvement feels as though her balance and strength could improve. Pt gave up using her cane 5 days ago, and has been successful at safely walking 1.25 miles with her dog regularly to the park without dizziness. Pt emphasizes her caution/ awareness and moving slowly through all things and reports that she is frequently looking for something or someone to hold onto through activities that require unstable surfaces, quick rotational movements, low lighting, or change in surface height (stairs without rail). Pt also explains her frustration for memory difficulties of event that have happened recently. Treatment Goals Patient/Caregiver Goals gain strength in UEs and LEs; inc balance unsupported for gait and functional activities PT-OP-C Subjective Start: 10/16/18 16:44 Freq: Status: Active Protocol: Document 04/11/18 16:46 ML (Rec: 04/11/18 17:16 ML [email or web address]) OP-PT Subjective Patient Comments Patient Comments Pt reports not being sure of what exactly is her problem with her balance, but notes that there is deficit and would like to improve. PT-OP-D Balance Start: 04/11/18 16:44 Freq: Status: Active Protocol: Document 04/11/18 16:46 ML (Rec: 04/11/18 17:16 ML [email or web address]) Balance Tests Other Other Balance Tests Performed FGA: PT-OP-G Mobility & Gait Start: 04/11/18 16:44 Freq: Status: Active Protocol: Document 04/11/18 16:46 ML (Rec: 04/11/18 17:16 ML [email or web address]) OP Gait Assessment Gait Gait Assistance Required: Independent Comments Gait Comments Pt moves very slowly through all gait motions, pt's HUSAM is very wide to inc balance PT-OP-M Strength Start: 04/11/18 16:44 Freq: Status: Active Protocol: Document 04/11/18 16:46 ML (Rec: 04/11/18 17:16 ML [email or web address]) Hip Strength Hip Manual Muscle Testing Right Flexion (L2) 4- Good- Extension (S1) 5 Normal Abduction 5 Normal External Rotation 4- Good- Internal Rotation 5 Normal Left Flexion (L2) 4- Good- Extension (S1) 5 Normal Abduction 5 Normal External Rotation 4 Good Internal Rotation 5 Normal Knee Strength Knee Manual Muscle Testing Right Flexion (S2) 5 Normal Extension (L3) 5 Normal Left Flexion (S2) 5 Normal Extension (L3) 5 Normal Ankle/Foot Strength Ankle and Foot Manual Muscle Testing Right Dorsiflexion (L4) 4+ Good+ Plantarflexion (S1) 5 Normal Left Dorsiflexion (L4) 4+ Good+ Plantarflexion (S1) 5 Normal PT-OP-T Assessment and Plan Start: 04/11/18 16:44 Freq: Status: Active Protocol: Document 04/11/18 16:46 ML (Rec: 04/11/18 17:16 ML [email or web address]) Physical Therapy Assessment Rehab Potential Rehabilitation Potential Good Evaluation Complexity Number of Personal Factors/Comorbidities 1-2 Number of Body Systems Impaired 1-2 Clinical Presentation at Evaluation Stable Impairments Impairments Balance Coordination Functional Activities Functional Mobility Gait Posture Strength Goals Two Impairment dec strength Short Term Goal (STG) Pt will be independent with HEP. STG Duration 05/12/18 Nursing Home Goal (LTG) Pt will score a 5/5 on all LE MMT. One Impairment dec balance Short Term Goal (STG) Pt will be able to ambulate 20 ' in less than 5.5 seconds. STG Duration 05/12/18 Nursing Home Goal (LTG) Pt will be able to ambulate stairs without use of handrail . LTG Duration 06/11/18 Assessment Summary Assessment Pt presented with dec balance during ambulation over objects , backward, eyes closed, and stairs. Pt was very dependent on having something to hold onto during all ambulation and moved very slowly and cautiously. Pt will benefit from skilled PT to improve her confidence in her balance through mobility of uneven surfaces, changing heights, low lighting, and different directions of gait. Physical Therapy Plan Frequency and Duration Frequency of Treatment 1x/Week Duration of Treatment 50 Plan of Care Start Date 04/11/18 Plan of Care End Date 06/11/18 Therapeutic Interventions Therapeutic Interventions Balance Training Coordination Training Gait Training Home Exercise Program Joint Mobilizations Manual Therapy Neuromuscular Re-education Patient/Caregiver Education Self-Care/Home Management Soft Tissue Mobilization Taping Therapeutic Activities Therapeutic Exercises Next Visit Focus/Plan Next Note Type Treatment Note Next Visit Plan HEP: NBOS, eyes closed, SLS, stairs
--- NOTE | 2018-04-19 17:49 | PT.OTN ---
Current Diagnoses Other abnormalities of gait and mobility (04/19/18) Physical Therapy Treatment Note PT-OP-A Visit Information Start: 04/11/18 16:44 Freq: Status: Active Protocol: Document 04/19/18 17:34 ML (Rec: 04/19/18 17:48 ML [id number]) Out-Patient Physical Therapy Visit Information Visit Information Visit Type Treatment Note Visit Start Time 16:00 Visit Stop Time 16:45 Total Visit Minutes 45 Visit Number 2/10 Number of SKULL CHOPPER Visits 0 PT-OP-B Current Condition Start: 04/11/18 16:44 Freq: Status: Active Protocol: Document 04/11/18 16:46 ML (Rec: 04/11/18 17:16 ML [email or web address]) Current Condition History of Current Condition Current Complaints dec balance History of Current Condition 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 Pt reports having 2 sessions of PT prior to this since CVA, and despite improvement feels as though her balance and strength could improve. Pt gave up using her cane 5 days ago, and has been successful at safely walking 1.25 miles with her dog regularly to the park without dizziness. Pt emphasizes her caution/ awareness and moving slowly through all things and reports that she is frequently looking for something or someone to hold onto through activities that require unstable surfaces, quick rotational movements, low lighting, or change in surface height (stairs without rail). Pt also explains her frustration for memory difficulties of event that have happened recently. Treatment Goals Patient/Caregiver Goals gain strength in UEs and LEs; inc balance unsupported for gait and functional activities PT-OP-C Subjective Start: 04/11/18 16:44 Freq: Status: Active Protocol: Document 04/19/18 17:34 ML (Rec: 04/19/18 17:48 ML [id number]) OP-PT Subjective Patient Comments Patient Comments Pt came into PT expressing that she was doing very well and had gone for a 1 mile walk with her dog just before attending PT. PT-OP-D Balance Start: 04/11/18 16:44 Freq: Status: Active Protocol: Document 04/11/18 16:46 ML (Rec: 04/11/18 17:16 ML [email or web address]) Balance Tests Other Other Balance Tests Performed FGA: PT-OP-G Mobility & Gait Start: 04/11/18 16:44 Freq: Status: Active Protocol: Document 04/11/18 16:46 ML (Rec: 04/11/18 17:16 ML [email or web address]) OP Gait Assessment Gait Gait Assistance Required: Independent Comments Gait Comments Pt moves very slowly through all gait motions, pt's HUSAM is very wide to inc balance PT-OP-M Strength Start: 04/11/18 16:44 Freq: Status: Active Protocol: Document 04/11/18 16:46 ML (Rec: 04/11/18 17:16 ML [email or web address]) Hip Strength Hip Manual Muscle Testing Right Flexion (L2) 4- Good- Extension (S1) 5 Normal Abduction 5 Normal External Rotation 4- Good- Internal Rotation 5 Normal Left Flexion (L2) 4- Good- Extension (S1) 5 Normal Abduction 5 Normal External Rotation 4 Good Internal Rotation 5 Normal Knee Strength Knee Manual Muscle Testing Right Flexion (S2) 5 Normal Extension (L3) 5 Normal Left Flexion (S2) 5 Normal Extension (L3) 5 Normal Ankle/Foot Strength Ankle and Foot Manual Muscle Testing Right Dorsiflexion (L4) 4+ Good+ Plantarflexion (S1) 5 Normal Left Dorsiflexion (L4) 4+ Good+ Plantarflexion (S1) 5 Normal PT-OP-Q Treatments Start: 04/11/18 16:44 Freq: Status: Active Protocol: Document 04/19/18 17:34 ML (Rec: 04/19/18 17:48 ML [id number]) Gym Equipment Shuttle Recovery Unilateral Squats Resistance 100# Shuttle Recovery Platform Unstable Reps/Time 12 each leg; cues and facilitation for glute; difficult maintain unstable Therapeutic Exercises Supine Exercises 1 Supine Exercise Name knee to chest stretch Side bilateral Reps/Minutes 30 sec hold Comments HEP Standing Exercises 1 Standing Exercise Name hurdles Side bilateral Equipment Used at bar Comments alternating step through; cue for slow and controlled & upright posture Neuro Re-Education Treatment Balance Activities 3 Details SLS Equipment counter and mirror Reps/Duration 30 sec Comments cues for glute and core activation; nuetral trunk and pelvis position; HEP; UE support for balance 2 Details tandem stance balance Equipment at counter Reps/Duration 30 sec Comments HEP; 2 finger support 1 Details NBOS balance Equipment at counter Reps/Duration 30 sec Comments eyes closed; HEP; 2 finger support PT-OP-T Assessment and Plan Start: 04/11/18 16:44 Freq: Status: Active Protocol: Document 04/19/18 17:34 ML (Rec: 04/19/18 17:48 ML [id number]) Physical Therapy Assessment Goals Two Impairment dec strength Short Term Goal (STG) Pt will be independent with HEP. STG Duration 05/12/18 Custodial Goal (LTG) Pt will score a 5/5 on all LE MMT. One Impairment dec balance Short Term Goal (STG) Pt will be able to ambulate 20 ' in less than 5.5 seconds. STG Duration 05/12/18 Globe Mounter Goal (LTG) Pt will be able to ambulate stairs without use of handrail . LTG Duration 06/11/18 Assessment Summary Assessment Pt had difficulty with balance exercises, especially shifting weight into back leg for tandem and standing on R leg > L leg. After using a mirror and verbal cueing as well as demonstration, the pt was able to make corrections, but still had difficulty with exercises. Pt had difficulty activating glutes on shuttle recovery but improved with facilitation. Pt also required cueing to slow motion through hurdles but improved with cueing. Physical Therapy Plan Frequency and Duration Frequency of Treatment 1x/Week Duration of Treatment 2 months Plan of Care Start Date 04/11/18 Plan of Care End Date 06/11/18 Next Visit Focus/Plan Next Note Type Treatment Note Next Visit Plan check on HEP; add HEP glute activation; shuttle balance and recovery; marching with hold in knee flex; add in challenging walking balance exercises
--- NOTE | 2018-04-26 17:08 | PT.OTN ---
Current Diagnoses Other abnormalities of gait and mobility (04/26/18) Physical Therapy Treatment Note PT-OP-A Visit Information Start: 04/11/18 16:44 Freq: Status: Active Protocol: Document 04/26/18 16:06 ML (Rec: 04/26/18 16:58 ML [id number]) Out-Patient Physical Therapy Visit Information Visit Information Visit Type Treatment Note Visit Start Time 16:00 Visit Stop Time 16:45 Total Visit Minutes 45 Visit Number 3/10 Number of POLYMER MATERIALS CONSULTANT Visits 0 PT-OP-B Current Condition Start: 04/11/18 16:44 Freq: Status: Active Protocol: Document 04/11/18 16:46 ML (Rec: 04/11/18 17:16 ML [email or web address]) Current Condition History of Current Condition Current Complaints dec balance History of Current Condition 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 Pt reports having 2 sessions of PT prior to this since CVA, and despite improvement feels as though her balance and strength could improve. Pt gave up using her cane 5 days ago, and has been successful at safely walking 1.25 miles with her dog regularly to the park without dizziness. Pt emphasizes her caution/ awareness and moving slowly through all things and reports that she is frequently looking for something or someone to hold onto through activities that require unstable surfaces, quick rotational movements, low lighting, or change in surface height (stairs without rail). Pt also explains her frustration for memory difficulties of event that have happened recently. Treatment Goals Patient/Caregiver Goals gain strength in UEs and LEs; inc balance unsupported for gait and functional activities PT-OP-C Subjective Start: 04/11/18 16:44 Freq: Status: Active Protocol: Document 04/26/18 16:06 ML (Rec: 04/26/18 16:58 ML [id number]) OP-PT Subjective Patient Comments Patient Comments Pt expresses that she is really having to be careful about making quick turns and on pavement, especially around dusk, to be cautious of losing her balance. PT-OP-D Balance Start: 04/11/18 16:44 Freq: Status: Active Protocol: Document 04/11/18 16:46 ML (Rec: 04/11/18 17:16 ML [email or web address]) Balance Tests Other Other Balance Tests Performed FGA: PT-OP-G Mobility & Gait Start: 04/11/18 16:44 Freq: Status: Active Protocol: Document 04/11/18 16:46 ML (Rec: 04/11/18 17:16 ML [email or web address]) OP Gait Assessment Gait Gait Assistance Required: Independent Comments Gait Comments Pt moves very slowly through all gait motions, pt's HUSAM is very wide to inc balance PT-OP-M Strength Start: 04/11/18 16:44 Freq: Status: Active Protocol: Document 04/11/18 16:46 ML (Rec: 04/11/18 17:16 ML [email or web address]) Hip Strength Hip Manual Muscle Testing Right Flexion (L2) 4- Good- Extension (S1) 5 Normal Abduction 5 Normal External Rotation 4- Good- Internal Rotation 5 Normal Left Flexion (L2) 4- Good- Extension (S1) 5 Normal Abduction 5 Normal External Rotation 4 Good Internal Rotation 5 Normal Knee Strength Knee Manual Muscle Testing Right Flexion (S2) 5 Normal Extension (L3) 5 Normal Left Flexion (S2) 5 Normal Extension (L3) 5 Normal Ankle/Foot Strength Ankle and Foot Manual Muscle Testing Right Dorsiflexion (L4) 4+ Good+ Plantarflexion (S1) 5 Normal Left Dorsiflexion (L4) 4+ Good+ Plantarflexion (S1) 5 Normal PT-OP-Q Treatments Start: 04/11/18 16:44 Freq: Status: Active Protocol: Document 04/26/18 16:06 ML (Rec: 04/26/18 16:58 ML [id number]) Cardio Equipment Recumbent Stepper (Sci-Fit) Duration (Minutes) 7 Resistance 6 Seat Position 14 Gym Equipment Shuttle Recovery Unilateral Squats Resistance 100# Shuttle Recovery Platform Stable Reps/Time cues for glute activation Shuttle Balance 1 Details red clips Comments WBOS;NBOS; tandem bilat; static, required UE support for tandem bilat Therapeutic Exercises Standing Exercises 3 Standing Exercise Name marching w/short knee flexion hold Equipment Used at bar Comments required some UE support, encouraged less and less 2 Standing Exercise Name hip ext Side bilateral Resistance lvl 1 Equipment Used at bar Comments cues for upright posture and min ROM to maintain pelvis position,engage abd PT-OP-T Assessment and Plan Start: 04/11/18 16:44 Freq: Status: Active Protocol: Document 04/26/18 16:06 ML (Rec: 04/26/18 16:58 ML [id number]) Physical Therapy Assessment Goals Two Impairment dec strength Short Term Goal (STG) Pt will be independent with HEP. STG Duration 05/12/18 Sales Manager Prearranged Funerals Goal (LTG) Pt will score a 5/5 on all LE MMT. One Impairment dec balance Short Term Goal (STG) Pt will be able to ambulate 20 ' in less than 5.5 seconds. STG Duration 05/12/18 Sales Manager Prearranged Funerals Goal (LTG) Pt will be able to ambulate stairs without use of handrail . LTG Duration 06/11/18 Assessment Summary Assessment Pt was able to activate her glute through exercise with less faciliation in comparison to last visit. Pt found marching exercise very difficult and was unable to remove her UE support although she did use less and less through cueing and repetition. Pt was able to do WBOS with ease, but was more challenge through the progression of NBOS and tandem. Physical Therapy Plan Frequency and Duration Frequency of Treatment 1x/Week Duration of Treatment 2 months Plan of Care Start Date 04/11/18 Plan of Care End Date 06/11/18 Next Visit Focus/Plan Next Note Type Treatment Note Next Visit Plan check on HEP exercises; wt shifting on shuttle balance ( red clips); review marching, hurdles, scifit, tandem walking parallel bars
--- NOTE | 2018-05-03 13:38 | PT.OTN ---
Current Diagnoses Other abnormalities of gait and mobility (05/03/18) Physical Therapy Treatment Note PT-OP-A Visit Information Start: 04/11/18 16:44 Freq: Status: Active Protocol: Document 05/03/18 11:25 ML (Rec: 05/03/18 11:46 ML [id number]) Out-Patient Physical Therapy Visit Information Visit Information Visit Type Treatment Note Visit Start Time 10:34 Visit Stop Time 11:17 Total Visit Minutes 43 Visit Number 4/10 Number of SEED TECHNICIAN Visits 0 PT-OP-B Current Condition Start: 04/11/18 16:44 Freq: Status: Active Protocol: Document 04/11/18 16:46 ML (Rec: 04/11/18 17:16 ML [email or web address]) Current Condition History of Current Condition Current Complaints dec balance History of Current Condition 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 Pt reports having 2 sessions of PT prior to this since CVA, and despite improvement feels as though her balance and strength could improve. Pt gave up using her cane 5 days ago, and has been successful at safely walking 1.25 miles with her dog regularly to the park without dizziness. Pt emphasizes her caution/ awareness and moving slowly through all things and reports that she is frequently looking for something or someone to hold onto through activities that require unstable surfaces, quick rotational movements, low lighting, or change in surface height (stairs without rail). Pt also explains her frustration for memory difficulties of event that have happened recently. Treatment Goals Patient/Caregiver Goals gain strength in UEs and LEs; inc balance unsupported for gait and functional activities PT-OP-C Subjective Start: 04/11/18 16:44 Freq: Status: Active Protocol: Document 05/03/18 11:25 ML (Rec: 05/03/18 11:46 ML [id number]) OP-PT Subjective Patient Comments Patient Comments Pt came into therapy after just going on a walk with her dog for 1 mile where she doesn 't have something to hold onto . PT-OP-D Balance Start: 04/11/18 16:44 Freq: Status: Active Protocol: Document 04/11/18 16:46 ML (Rec: 04/11/18 17:16 ML [email or web address]) Balance Tests Other Other Balance Tests Performed FGA: PT-OP-G Mobility & Gait Start: 04/11/18 16:44 Freq: Status: Active Protocol: Document 04/11/18 16:46 ML (Rec: 04/11/18 17:16 ML [email or web address]) OP Gait Assessment Gait Gait Assistance Required: Independent Comments Gait Comments Pt moves very slowly through all gait motions, pt's HUSAM is very wide to inc balance PT-OP-M Strength Start: 04/11/18 16:44 Freq: Status: Active Protocol: Document 04/11/18 16:46 ML (Rec: 04/11/18 17:16 ML [email or web address]) Hip Strength Hip Manual Muscle Testing Right Flexion (L2) 4- Good- Extension (S1) 5 Normal Abduction 5 Normal External Rotation 4- Good- Internal Rotation 5 Normal Left Flexion (L2) 4- Good- Extension (S1) 5 Normal Abduction 5 Normal External Rotation 4 Good Internal Rotation 5 Normal Knee Strength Knee Manual Muscle Testing Right Flexion (S2) 5 Normal Extension (L3) 5 Normal Left Flexion (S2) 5 Normal Extension (L3) 5 Normal Ankle/Foot Strength Ankle and Foot Manual Muscle Testing Right Dorsiflexion (L4) 4+ Good+ Plantarflexion (S1) 5 Normal Left Dorsiflexion (L4) 4+ Good+ Plantarflexion (S1) 5 Normal PT-OP-Q Treatments Start: 04/11/18 16:44 Freq: Status: Active Protocol: Document 05/03/18 11:25 ML (Rec: 05/03/18 11:46 ML [id number]) Neuro Re-Education Treatment Balance Activities 7 Details rocker board wt shifts Equipment parallel bars Comments forward and backward; side to side 6 Details therapad wt shift and SLS Equipment parallel bars Comments wt shifts to pickle processor leg momentarily, cues for posture and glute engagement 5 Details tandem walking Equipment parallel bars Comments forward and backward 4 Details hurdles Equipment parallel bars PT-OP-T Assessment and Plan Start: 04/11/18 16:44 Freq: Status: Active Protocol: Document 05/03/18 11:25 ML (Rec: 05/03/18 11:46 ML [id number]) Physical Therapy Assessment Goals Two Impairment dec strength Short Term Goal (STG) Pt will be independent with HEP. STG Duration 05/12/18 Microelectronics Engineer Goal (LTG) Pt will score a 5/5 on all LE MMT. One Impairment dec balance Short Term Goal (STG) Pt will be able to ambulate 20 ' in less than 5.5 seconds. STG Duration 05/12/18 Detention Goal (LTG) Pt will be able to ambulate stairs without use of handrail . LTG Duration 06/11/18 Assessment Summary Assessment Pt had difficulty activating her glute through activities by maintaining a flexed position in NBOS or abducting her hip in SLS. Pt was able to achieve wt shift better side to side rather than forward and backward. Physical Therapy Plan Frequency and Duration Frequency of Treatment 1x/Week Duration of Treatment 2 months Plan of Care Start Date 04/11/18 Plan of Care End Date 06/11/18 Next Visit Focus/Plan Next Note Type Treatment Note Next Visit Plan work on glute activation through exercises (bridging/ standing hip ext, marching on ball), PNF pelvis, progress balance
--- NOTE | 2018-05-10 12:00 | PT.OTN ---
Current Diagnoses Other abnormalities of gait and mobility (05/10/18) Physical Therapy Treatment Note PT-OP-A Visit Information Start: 04/11/18 16:44 Freq: Status: Active Protocol: Document 05/10/18 11:23 ML (Rec: 05/10/18 11:29 ML [id number]) Out-Patient Physical Therapy Visit Information Visit Information Visit Type Treatment Note Visit Start Time 10:32 Visit Stop Time 11:17 Total Visit Minutes 45 Visit Number 5/10 Number of CLINICAL TECHNICIAN Visits 0 PT-OP-B Current Condition Start: 04/11/18 16:44 Freq: Status: Active Protocol: Document 04/11/18 16:46 ML (Rec: 04/11/18 17:16 ML [email or web address]) Current Condition History of Current Condition Current Complaints dec balance History of Current Condition 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 Pt reports having 2 sessions of PT prior to this since CVA, and despite improvement feels as though her balance and strength could improve. Pt gave up using her cane 5 days ago, and has been successful at safely walking 1.25 miles with her dog regularly to the park without dizziness. Pt emphasizes her caution/ awareness and moving slowly through all things and reports that she is frequently looking for something or someone to hold onto through activities that require unstable surfaces, quick rotational movements, low lighting, or change in surface height (stairs without rail). Pt also explains her frustration for memory difficulties of event that have happened recently. Treatment Goals Patient/Caregiver Goals gain strength in UEs and LEs; inc balance unsupported for gait and functional activities PT-OP-C Subjective Start: 04/11/18 16:44 Freq: Status: Active Protocol: Document 05/10/18 11:23 ML (Rec: 05/10/18 11:29 ML [id number]) OP-PT Subjective Patient Comments Patient Comments Pt notes she has been doing her exercise regularly but missed yesterday. PT-OP-D Balance Start: 04/11/18 16:44 Freq: Status: Active Protocol: Document 04/11/18 16:46 ML (Rec: 04/11/18 17:16 ML [email or web address]) Balance Tests Other Other Balance Tests Performed FGA: 19/30 PT-OP-G Mobility & Gait Start: 04/11/18 16:44 Freq: Status: Active Protocol: Document 04/11/18 16:46 ML (Rec: 04/11/18 17:16 ML [email or web address]) OP Gait Assessment Gait Gait Assistance Required: Independent Comments Gait Comments Pt moves very slowly through all gait motions, pt's HUSAM is very wide to inc balance PT-OP-M Strength Start: 04/11/18 16:44 Freq: Status: Active Protocol: Document 04/11/18 16:46 ML (Rec: 04/11/18 17:16 ML [email or web address]) Hip Strength Hip Manual Muscle Testing Right Flexion (L2) 4- Good- Extension (S1) 5 Normal Abduction 5 Normal External Rotation 4- Good- Internal Rotation 5 Normal Left Flexion (L2) 4- Good- Extension (S1) 5 Normal Abduction 5 Normal External Rotation 4 Good Internal Rotation 5 Normal Knee Strength Knee Manual Muscle Testing Right Flexion (S2) 5 Normal Extension (L3) 5 Normal Left Flexion (S2) 5 Normal Extension (L3) 5 Normal Ankle/Foot Strength Ankle and Foot Manual Muscle Testing Right Dorsiflexion (L4) 4+ Good+ Plantarflexion (S1) 5 Normal Left Dorsiflexion (L4) 4+ Good+ Plantarflexion (S1) 5 Normal PT-OP-Q Treatments Start: 04/11/18 16:44 Freq: Status: Active Protocol: Document 05/10/18 11:23 ML (Rec: 05/10/18 11:29 ML [id number]) Therapeutic Exercises Standing Exercises 4 Standing Exercise Name wt shifting to SLS Comments cues for neutral position; core and glute actviation 2 Standing Exercise Name hip ext Side bilateral Resistance lvl 1 Equipment Used at bar Comments cues for upright posture and min ROM to maintain pelvis position,engage abd Neuro Re-Education Treatment Balance Activities 10 Details dynadisc balance Comments NBOS on one pod, tandem on two pods 9 Details seated theraball marches Equipment 75 cm Comments also done with chairs; lots of cues for posture (pt ed on sitting posture) 8 Details garbage pick up man object from ground Equipment parallel bars Comments cues for correct mechanics PT-OP-T Assessment and Plan Start: 04/11/18 16:44 Freq: Status: Active Protocol: Document 05/10/18 11:23 ML (Rec: 05/10/18 11:29 ML [id number]) Physical Therapy Assessment Goals Two Impairment dec strength Short Term Goal (STG) Pt will be independent with HEP. STG Duration 05/12/18 Hedis Analyst Goal (LTG) Pt will score a 5/5 on all LE MMT. One Impairment dec balance Short Term Goal (STG) Pt will be able to ambulate 20 ' in less than 5.5 seconds. STG Duration 05/12/18 Mcfp Goal (LTG) Pt will be able to ambulate stairs without use of handrail . LTG Duration 06/11/18 Assessment Summary Assessment Pt is able to ambulate though clinic without holding onto objects and walking with more appropriate gait pattern. Pt is improving her mechanics and balance with corrections as needed, but still seems to have difficulty with good core engagement in wt shifting and hip ext exercise. Physical Therapy Plan Frequency and Duration Frequency of Treatment 1x/Week Duration of Treatment 2 months Plan of Care Start Date 04/11/18 Plan of Care End Date 06/11/18 Next Visit Focus/Plan Next Note Type Treatment Note Next Visit Plan walking quickly; obstacle course of different things; bridging exercise; ask about HEP
--- NOTE | 2018-05-16 13:28 | PT.OTN ---
Current Diagnoses Other abnormalities of gait and mobility (05/16/18) Physical Therapy Treatment Note PT-OP-A Visit Information Start: 04/11/18 16:44 Freq: Status: Active Protocol: Document 05/16/18 11:19 ML (Rec: 05/16/18 12:10 ML [id number]) Out-Patient Physical Therapy Visit Information Visit Information Visit Type Treatment Note Visit Start Time 10:34 Visit Stop Time 11:17 Total Visit Minutes 43 Visit Number 6/ Number of SHIPPING WEIGHER Visits 0 PT-OP-B Current Condition Start: 04/11/18 16:44 Freq: Status: Active Protocol: Document 04/11/18 16:46 ML (Rec: 04/11/18 17:16 ML [email or web address]) Current Condition History of Current Condition Current Complaints dec balance History of Current Condition 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 Pt reports having 2 sessions of PT prior to this since CVA, and despite improvement feels as though her balance and strength could improve. Pt gave up using her cane 5 days ago, and has been successful at safely walking 1.25 miles with her dog regularly to the park without dizziness. Pt emphasizes her caution/ awareness and moving slowly through all things and reports that she is frequently looking for something or someone to hold onto through activities that require unstable surfaces, quick rotational movements, low lighting, or change in surface height (stairs without rail). Pt also explains her frustration for memory difficulties of event that have happened recently. Treatment Goals Patient/Caregiver Goals gain strength in UEs and LEs; inc balance unsupported for gait and functional activities PT-OP-C Subjective Start: 04/11/18 16:44 Freq: Status: Active Protocol: Document 05/16/18 11:19 ML (Rec: 05/16/18 12:10 ML [id number]) OP-PT Subjective Patient Comments Patient Comments Pt notes that he says she is walking around open spaces better without trying to grab onto things. PT-OP-D Balance Start: 04/11/18 16:44 Freq: Status: Active Protocol: Document 04/11/18 16:46 ML (Rec: 04/11/18 17:16 ML [email or web address]) Balance Tests Other Other Balance Tests Performed FGA: PT-OP-G Mobility & Gait Start: 04/11/18 16:44 Freq: Status: Active Protocol: Document 04/11/18 16:46 ML (Rec: 04/11/18 17:16 ML [email or web address]) OP Gait Assessment Gait Gait Assistance Required: Independent Comments Gait Comments Pt moves very slowly through all gait motions, pt's HUSAM is very wide to inc balance PT-OP-M Strength Start: 04/11/18 16:44 Freq: Status: Active Protocol: Document 04/11/18 16:46 ML (Rec: 04/11/18 17:16 ML [email or web address]) Hip Strength Hip Manual Muscle Testing Right Flexion (L2) 4- Good- Extension (S1) 5 Normal Abduction 5 Normal External Rotation 4- Good- Internal Rotation 5 Normal Left Flexion (L2) 4- Good- Extension (S1) 5 Normal Abduction 5 Normal External Rotation 4 Good Internal Rotation 5 Normal Knee Strength Knee Manual Muscle Testing Right Flexion (S2) 5 Normal Extension (L3) 5 Normal Left Flexion (S2) 5 Normal Extension (L3) 5 Normal Ankle/Foot Strength Ankle and Foot Manual Muscle Testing Right Dorsiflexion (L4) 4+ Good+ Plantarflexion (S1) 5 Normal Left Dorsiflexion (L4) 4+ Good+ Plantarflexion (S1) 5 Normal PT-OP-Q Treatments Start: 04/11/18 16:44 Freq: Status: Active Protocol: Document 05/16/18 11:19 ML (Rec: 05/16/18 12:10 ML [id number]) Gym Equipment Therapeutic Ball marching Ball Size/Color red 75cm Body Position Sitting Comments cues for dec trunk motions, UE support, and breathing with core engagement Therapeutic Exercises Supine Exercises bridge w/march Side bilateral Reps/Minutes 5x each leg Comments cue to engage core, hips level , and breathe Gait Training Gait Activity quick and safe walking Description quick and safe walking Comments no UE support; cues for neutral foot position; verbal cues for turning at specific times/directions Neuro Re-Education Treatment Balance Activities obstacle course Reps/Duration 6x through Comments uneven surfaces, hurdles, and steps; cues for initiating foot and neutral foot positioning PT-OP-T Assessment and Plan Start: 04/11/18 16:44 Freq: Status: Active Protocol: Document 05/16/18 11:19 ML (Rec: 05/16/18 12:10 ML [id number]) Physical Therapy Assessment Goals Two Impairment dec strength Short Term Goal (STG) Pt will be independent with HEP. STG Duration 05/12/18 Senior Care Goal (LTG) Pt will score a 5/5 on all LE MMT. One Impairment dec balance Short Term Goal (STG) Pt will be able to ambulate 20 ' in less than 5.5 seconds. STG Duration 05/12/18 Senior Care Goal (LTG) Pt will be able to ambulate stairs without use of handrail . LTG Duration 06/11/18 Assessment Summary Assessment Pt showed improvement in her ability to walk quickly without UE support and maintain a neutral foot position through cueing. Pt was able to make turns safely and more quickly than she has in the past. Pt still has difficulty in her awareness as she steps quickly onto surfaces she does not understand stability of. Pt was able to initiate movement with R when she was cued, but without cueing always initates with L. Pt shows improved core stability to struggles to maintain normal breathing pattern while initiating core. Physical Therapy Plan Frequency and Duration Frequency of Treatment 1x/Week Duration of Treatment 2 months Plan of Care Start Date 04/11/18 Plan of Care End Date 06/11/18 Next Visit Focus/Plan Next Note Type Treatment Note Next Visit Plan breathe through exercise; obstacle course of different things; review bridging exercise; ask about HEP
--- NOTE | 2018-06-02 15:21 | PT.OTN ---
Current Diagnoses Other abnormalities of gait and mobility (06/02/18) Physical Therapy Treatment Note PT-OP-A Visit Information Start: 04/11/18 16:44 Freq: Status: Active Protocol: Document 06/02/18 15:10 SA (Rec: 06/02/18 15:21 SA [email or web address]) Out-Patient Physical Therapy Visit Information Visit Information Visit Type Treatment Note Visit Start Time 13:20 Visit Stop Time 14:00 Total Visit Minutes 40 Visit Number 7/ Number of ROAD GANG SUPERVISOR Visits 1 PT-OP-B Current Condition Start: 04/11/18 16:44 Freq: Status: Active Protocol: Document 04/11/18 16:46 ML (Rec: 04/11/18 17:16 ML [email or web address]) Current Condition History of Current Condition Current Complaints dec balance History of Current Condition 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 Pt reports having 2 sessions of PT prior to this since CVA, and despite improvement feels as though her balance and strength could improve. Pt gave up using her cane 5 days ago, and has been successful at safely walking 1.25 miles with her dog regularly to the park without dizziness. Pt emphasizes her caution/ awareness and moving slowly through all things and reports that she is frequently looking for something or someone to hold onto through activities that require unstable surfaces, quick rotational movements, low lighting, or change in surface height (stairs without rail). Pt also explains her frustration for memory difficulties of event that have happened recently. Treatment Goals Patient/Caregiver Goals gain strength in UEs and LEs; inc balance unsupported for gait and functional activities PT-OP-C Subjective Start: 04/11/18 16:44 Freq: Status: Active Protocol: Document 06/02/18 15:10 SA (Rec: 06/02/18 15:21 SA [email or web address]) OP-PT Subjective Patient Comments Patient Comments Using cane consistently, feeling a little more steady on feet. PT-OP-D Balance Start: 04/11/18 16:44 Freq: Status: Active Protocol: Document 04/11/18 16:46 ML (Rec: 04/11/18 17:16 ML [email or web address]) Balance Tests Other Other Balance Tests Performed FGA: PT-OP-G Mobility & Gait Start: 04/11/18 16:44 Freq: Status: Active Protocol: Document 04/11/18 16:46 ML (Rec: 04/11/18 17:16 ML [email or web address]) OP Gait Assessment Gait Gait Assistance Required: Independent Comments Gait Comments Pt moves very slowly through all gait motions, pt's HUSAM is very wide to inc balance PT-OP-M Strength Start: 04/11/18 16:44 Freq: Status: Active Protocol: Document 04/11/18 16:46 ML (Rec: 04/11/18 17:16 ML [email or web address]) Hip Strength Hip Manual Muscle Testing Right Flexion (L2) 4- Good- Extension (S1) 5 Normal Abduction 5 Normal External Rotation 4- Good- Internal Rotation 5 Normal Left Flexion (L2) 4- Good- Extension (S1) 5 Normal Abduction 5 Normal External Rotation 4 Good Internal Rotation 5 Normal Knee Strength Knee Manual Muscle Testing Right Flexion (S2) 5 Normal Extension (L3) 5 Normal Left Flexion (S2) 5 Normal Extension (L3) 5 Normal Ankle/Foot Strength Ankle and Foot Manual Muscle Testing Right Dorsiflexion (L4) 4+ Good+ Plantarflexion (S1) 5 Normal Left Dorsiflexion (L4) 4+ Good+ Plantarflexion (S1) 5 Normal PT-OP-Q Treatments Start: 04/11/18 16:44 Freq: Status: Active Protocol: Document 06/02/18 15:10 SA (Rec: 06/02/18 15:21 SA [email or web address]) Cardio Equipment Recumbent Elliptical (Biodex) Duration (Minutes) 6 Resistance 4 Other HR 58-67 BPM Gym Equipment Shuttle Balance dynamic balance Details NBOS, weight shifts, UE movements and head turns Reps/Duration 5 min Therapeutic Ball marching Ball Size/Color red 75cm Body Position Sitting Comments cues for dec trunk motions, UE support, and breathing with core engagement Neuro Re-Education Treatment Balance Activities lateral stepping with postural correction Reps/Duration 4 lengths Comments cues for posture, limited UE support cone/bal bulk picker Equipment cone/weighted balls Reps/Duration 6 lengths Comments Pt with cane bending over to bulk picker balls from cone on ground. obstacle course Reps/Duration 6x through Comments uneven surfaces, hurdles, and steps; cues for initiating foot and neutral foot positioning PT-OP-T Assessment and Plan Start: 04/11/18 16:44 Freq: Status: Active Protocol: Document 06/02/18 15:10 SA (Rec: 06/02/18 15:21 SA [email or web address]) Physical Therapy Assessment Assessment Summary Assessment Pt progressing with dynamic balance challenges, improving gait. Physical Therapy Plan Next Visit Focus/Plan Next Note Type Treatment Note Next Visit Plan Pt consistent with HEP, progress dynamic balance and core strengthening as able.
--- NOTE | 2018-06-06 13:11 | PT.OTN ---
Current Diagnoses Other abnormalities of gait and mobility (06/06/18) Physical Therapy Treatment Note PT-OP-A Visit Information Start: 04/11/18 16:44 Freq: Status: Active Protocol: Document 06/06/18 13:01 SA (Rec: 06/06/18 13:11 SA [email or web address]) Out-Patient Physical Therapy Visit Information Visit Information Visit Type Treatment Note Visit Start Time 12:15 Visit Stop Time 13:01 Total Visit Minutes 46 Visit Number 8/10 Number of MEDICAL INSURANCE CLAIMS PROCESSOR Visits 2 PT-OP-B Current Condition Start: 04/11/18 16:44 Freq: Status: Active Protocol: Document 04/11/18 16:46 ML (Rec: 04/11/18 17:16 ML [email or web address]) Current Condition History of Current Condition Current Complaints dec balance History of Current Condition 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 Pt reports having 2 sessions of PT prior to this since CVA, and despite improvement feels as though her balance and strength could improve. Pt gave up using her cane 5 days ago, and has been successful at safely walking 1.25 miles with her dog regularly to the park without dizziness. Pt emphasizes her caution/ awareness and moving slowly through all things and reports that she is frequently looking for something or someone to hold onto through activities that require unstable surfaces, quick rotational movements, low lighting, or change in surface height (stairs without rail). Pt also explains her frustration for memory difficulties of event that have happened recently. Treatment Goals Patient/Caregiver Goals gain strength in UEs and LEs; inc balance unsupported for gait and functional activities PT-OP-C Subjective Start: 04/11/18 16:44 Freq: Status: Active Protocol: Document 06/06/18 13:01 SA (Rec: 06/06/18 13:11 SA [email or web address]) OP-PT Subjective Patient Comments Patient Comments is making a rail for stairs at home, working on walking safely with increasing speed. Patient Reported Progress Improving PT-OP-D Balance Start: 04/11/18 16:44 Freq: Status: Active Protocol: Document 04/11/18 16:46 ML (Rec: 04/11/18 17:16 ML [email or web address]) Balance Tests Other Other Balance Tests Performed FGA: PT-OP-G Mobility & Gait Start: 04/11/18 16:44 Freq: Status: Active Protocol: Document 04/11/18 16:46 ML (Rec: 04/11/18 17:16 ML [email or web address]) OP Gait Assessment Gait Gait Assistance Required: Independent Comments Gait Comments Pt moves very slowly through all gait motions, pt's HUSAM is very wide to inc balance PT-OP-M Strength Start: 04/11/18 16:44 Freq: Status: Active Protocol: Document 04/11/18 16:46 ML (Rec: 04/11/18 17:16 ML [email or web address]) Hip Strength Hip Manual Muscle Testing Right Flexion (L2) 4- Good- Extension (S1) 5 Normal Abduction 5 Normal External Rotation 4- Good- Internal Rotation 5 Normal Left Flexion (L2) 4- Good- Extension (S1) 5 Normal Abduction 5 Normal External Rotation 4 Good Internal Rotation 5 Normal Knee Strength Knee Manual Muscle Testing Right Flexion (S2) 5 Normal Extension (L3) 5 Normal Left Flexion (S2) 5 Normal Extension (L3) 5 Normal Ankle/Foot Strength Ankle and Foot Manual Muscle Testing Right Dorsiflexion (L4) 4+ Good+ Plantarflexion (S1) 5 Normal Left Dorsiflexion (L4) 4+ Good+ Plantarflexion (S1) 5 Normal PT-OP-Q Treatments Start: 04/11/18 16:44 Freq: Status: Active Protocol: Document 06/06/18 13:01 SA (Rec: 06/06/18 13:11 SA [email or web address]) Cardio Equipment Recumbent Stepper (Sci-Fit) Duration (Minutes) 7 Resistance 6 Gym Equipment Shuttle Balance dynamic balance Details NBOS, weight shifts, UE movements and head turns Reps/Duration 5 min Comments Blue setting Therapeutic Ball marching Ball Size/Color red 75cm Body Position Sitting Comments cues for dec trunk motions, UE support, and breathing with core engagement Therapeutic Exercises Supine Exercises bridge w/march Side bilateral Reps/Minutes 10x each Comments cues for engaging core and LE control Standing Exercises Hip ABD Side bilateral Resistance # 1 TB Reps/Minutes 15 x each Comments Limited UE support, cues for control Neuro Re-Education Treatment Balance Activities lateral stepping with postural correction Reps/Duration 4 lengths Comments cues for posture, limited UE support obstacle course Reps/Duration 6x through Comments uneven surfaces, hurdles, and steps; cues for initiating foot and neutral foot positioning 10 Details dynadisc balance Comments NBOS on one pod, tandem on two pods, progressing to marching 8 Details pickling tank operator object from ground Equipment parallel bars Comments cues for correct mechanics PT-OP-T Assessment and Plan Start: 04/11/18 16:44 Freq: Status: Active Protocol: Document 06/06/18 13:01 SA (Rec: 06/06/18 13:11 SA [email or web address]) Physical Therapy Assessment Progress Towards Goals Progress Towards Goals Progressing Toward Goals Assessment Summary Assessment Worked on stair climb with single rail as at home, increasing speed with postural control. Pt demonstrates good tolerance/ability to continue working on at home with use of rail. Physical Therapy Plan Next Visit Focus/Plan Next Note Type Treatment Note Next Visit Plan Continue to progress dynamic balance program as well as increasing gait speed. Continue with core stability training.
--- NOTE | 2018-06-16 11:21 | PT.OTN ---
Current Diagnoses Other abnormalities of gait and mobility (06/16/18) Physical Therapy Treatment Note PT-OP-A Visit Information Start: 04/11/18 16:44 Freq: Status: Active Protocol: Document 06/16/18 11:10 SA (Rec: 06/16/18 11:20 SA [email or web address]) Out-Patient Physical Therapy Visit Information Visit Information Visit Type Progress Note Visit Start Time 10:15 Visit Stop Time 11:03 Total Visit Minutes 48 Visit Number 9/10 Number of RESIDENTIAL ROOFER HELPER Visits 3 PT-OP-B Current Condition Start: 04/11/18 16:44 Freq: Status: Active Protocol: Document 04/11/18 16:46 ML (Rec: 04/11/18 17:16 ML [email or web address]) Current Condition History of Current Condition Current Complaints dec balance History of Current Condition 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 Pt reports having 2 sessions of PT prior to this since CVA, and despite improvement feels as though her balance and strength could improve. Pt gave up using her cane 5 days ago, and has been successful at safely walking 1.25 miles with her dog regularly to the park without dizziness. Pt emphasizes her caution/ awareness and moving slowly through all things and reports that she is frequently looking for something or someone to hold onto through activities that require unstable surfaces, quick rotational movements, low lighting, or change in surface height (stairs without rail). Pt also explains her frustration for memory difficulties of event that have happened recently. Treatment Goals Patient/Caregiver Goals gain strength in UEs and LEs; inc balance unsupported for gait and functional activities PT-OP-C Subjective Start: 04/11/18 16:44 Freq: Status: Active Protocol: Document 06/16/18 11:10 SA (Rec: 06/16/18 11:20 SA [email or web address]) OP-PT Subjective Patient Comments Patient Comments Feeling stronger, have been walking a lot but not doing any exercises at home. Patient Reported Progress Improving PT-OP-D Balance Start: 04/11/18 16:44 Freq: Status: Active Protocol: Document 04/11/18 16:46 ML (Rec: 04/11/18 17:16 ML [email or web address]) Balance Tests Other Other Balance Tests Performed FGA: PT-OP-G Mobility & Gait Start: 04/11/18 16:44 Freq: Status: Active Protocol: Document 04/11/18 16:46 ML (Rec: 04/11/18 17:16 ML [email or web address]) OP Gait Assessment Gait Gait Assistance Required: Independent Comments Gait Comments Pt moves very slowly through all gait motions, pt's HUSAM is very wide to inc balance PT-OP-M Strength Start: 04/11/18 16:44 Freq: Status: Active Protocol: Document 06/16/18 11:10 SA (Rec: 06/16/18 11:20 SA [email or web address]) Hip Strength Hip Manual Muscle Testing Right Flexion (L2) 4+ Good+ Extension (S1) 5 Normal Abduction 4 Good External Rotation 4 Good Internal Rotation 5 Normal Left Flexion (L2) 4+ Good+ Extension (S1) 5 Normal Abduction 5 Normal External Rotation 4+ Good+ Internal Rotation 5 Normal Knee Strength Knee Manual Muscle Testing Right Flexion (S2) 5 Normal Extension (L3) 5 Normal Left Flexion (S2) 5 Normal Extension (L3) 5 Normal Ankle/Foot Strength Ankle and Foot Manual Muscle Testing Right Dorsiflexion (L4) 4+ Good+ Plantarflexion (S1) 5 Normal Left Dorsiflexion (L4) 4+ Good+ Plantarflexion (S1) 5 Normal PT-OP-Q Treatments Start: 04/11/18 16:44 Freq: Status: Active Protocol: Document 06/16/18 11:10 SA (Rec: 06/16/18 11:20 SA [email or web address]) Gym Equipment Shuttle Balance dynamic balance Details NBOS, weight shifts, UE movements and head turns Reps/Duration 5 min Comments Blue setting Neuro Re-Education Treatment Balance Activities lateral stepping with postural correction Reps/Duration 4 lengths Comments cues for posture, limited UE support cone/bal fruit picker machine operator Equipment cone/weighted balls Reps/Duration 6 lengths Comments Pt with cane bending over to fruit picker machine operator balls from cone on ground. obstacle course Reps/Duration 6x through Comments uneven surfaces, hurdles, and steps; cues for initiating foot and neutral foot positioning PT-OP-T Assessment and Plan Start: 04/11/18 16:44 Freq: Status: Active Protocol: Document 06/16/18 11:10 SA (Rec: 12/21/18 11:20 SA [email or web address]) Physical Therapy Assessment Progress Towards Goals Progress Towards Goals Progressing Toward Goals Assessment Summary Assessment Pt progressing well with walking speed and stair climb, can continue to progress dynamic balance training and LE strengthening. Physical Therapy Plan Next Visit Focus/Plan Next Note Type Treatment Note Next Visit Plan Continue to work on dynamic balance ans LE/core strengthening. Finalize HEP and encourage pt to do.
--- NOTE | 2018-06-16 13:11 | PT.OTN ---
Current Diagnoses Other abnormalities of gait and mobility (06/16/18) Physical Therapy Treatment Note PT-OP-A Visit Information Start: 04/11/18 16:44 Freq: Status: Active Protocol: Document 06/16/18 11:10 SA (Rec: 06/16/18 11:20 SA [email or web address]) Out-Patient Physical Therapy Visit Information Visit Information Visit Type Progress Note Visit Start Time 10:15 Visit Stop Time 11:03 Total Visit Minutes 48 Visit Number 9/10 Number of ENROLLMENT SERVICES VICE PRESIDENT Visits 3 PT-OP-B Current Condition Start: 04/11/18 16:44 Freq: Status: Active Protocol: Document 04/11/18 16:46 ML (Rec: 04/11/18 17:16 ML [email or web address]) Current Condition History of Current Condition Current Complaints dec balance History of Current Condition 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 Pt reports having 2 sessions of PT prior to this since CVA, and despite improvement feels as though her balance and strength could improve. Pt gave up using her cane 5 days ago, and has been successful at safely walking 1.25 miles with her dog regularly to the park without dizziness. Pt emphasizes her caution/ awareness and moving slowly through all things and reports that she is frequently looking for something or someone to hold onto through activities that require unstable surfaces, quick rotational movements, low lighting, or change in surface height (stairs without rail). Pt also explains her frustration for memory difficulties of event that have happened recently. Treatment Goals Patient/Caregiver Goals gain strength in UEs and LEs; inc balance unsupported for gait and functional activities PT-OP-C Subjective Start: 04/11/18 16:44 Freq: Status: Active Protocol: Document 06/16/18 11:10 SA (Rec: 06/16/18 11:20 SA [email or web address]) OP-PT Subjective Patient Comments Patient Comments Feeling stronger, have been walking a lot but not doing any exercises at home. Patient Reported Progress Improving PT-OP-D Balance Start: 04/11/18 16:44 Freq: Status: Active Protocol: Document 04/11/18 16:46 ML (Rec: 04/11/18 17:16 ML [email or web address]) Balance Tests Other Other Balance Tests Performed FGA: PT-OP-G Mobility & Gait Start: 04/11/18 16:44 Freq: Status: Active Protocol: Document 04/11/18 16:46 ML (Rec: 04/11/18 17:16 ML [email or web address]) OP Gait Assessment Gait Gait Assistance Required: Independent Comments Gait Comments Pt moves very slowly through all gait motions, pt's HUSAM is very wide to inc balance PT-OP-M Strength Start: 04/11/18 16:44 Freq: Status: Active Protocol: Document 06/16/18 11:10 SA (Rec: 06/16/18 11:20 SA [email or web address]) Hip Strength Hip Manual Muscle Testing Right Flexion (L2) 4+ Good+ Extension (S1) 5 Normal Abduction 4 Good External Rotation 4 Good Internal Rotation 5 Normal Left Flexion (L2) 4+ Good+ Extension (S1) 5 Normal Abduction 5 Normal External Rotation 4+ Good+ Internal Rotation 5 Normal Knee Strength Knee Manual Muscle Testing Right Flexion (S2) 5 Normal Extension (L3) 5 Normal Left Flexion (S2) 5 Normal Extension (L3) 5 Normal Ankle/Foot Strength Ankle and Foot Manual Muscle Testing Right Dorsiflexion (L4) 4+ Good+ Plantarflexion (S1) 5 Normal Left Dorsiflexion (L4) 4+ Good+ Plantarflexion (S1) 5 Normal PT-OP-Q Treatments Start: 04/11/18 16:44 Freq: Status: Active Protocol: Document 06/16/18 11:10 SA (Rec: 06/16/18 11:20 SA [email or web address]) Gym Equipment Shuttle Balance dynamic balance Details NBOS, weight shifts, UE movements and head turns Reps/Duration 5 min Comments Blue setting Neuro Re-Education Treatment Balance Activities lateral stepping with postural correction Reps/Duration 4 lengths Comments cues for posture, limited UE support cone/bal cable mock up assembler Equipment cone/weighted balls Reps/Duration 6 lengths Comments Pt with cane bending over to cable mock up assembler balls from cone on ground. obstacle course Reps/Duration 6x through Comments uneven surfaces, hurdles, and steps; cues for initiating foot and neutral foot positioning PT-OP-T Assessment and Plan Start: 04/11/18 16:44 Freq: Status: Active Protocol: Document 06/16/18 11:10 SA (Rec: 12/21/18 11:20 SA [email or web address]) Physical Therapy Assessment Goals Four Impairment occ ambulating Correction Goal (LTG) Pt will walk at least 4x/week for 2 miles. LTG Duration 01/25/18- daily 1-1.25 mile Three Impairment Tinnetti Correction Goal (LTG) LTG Duration achieved Two Impairment dec strength Short Term Goal (STG) Pt will be independent with HEP. STG Duration 05/12/18 Correction Goal (LTG) Pt will score a 5/5 on all LE MMT. 06-16-18. Improved ti 4+/ 5 One Impairment dec balance Short Term Goal (STG) Pt will be able to ambulate 20 ' in less than 5.5 seconds. STG Duration 05/12/18 Events Assistant Goal (LTG) Pt will be able to ambulate stairs without use of handrail . LTG Duration 06/16/18 achieved Progress Towards Goals Progress Towards Goals Progressing Toward Goals Assessment Summary Assessment Pt progressing well with walking speed and stair climb, can continue to progress dynamic balance training and LE strengthening. Physical Therapy Plan Frequency and Duration Frequency of Treatment 1x/Week Duration of Treatment 2 months Plan of Care Start Date 06/16/18 Plan of Care End Date 08/12/18 Next Visit Focus/Plan Next Note Type Treatment Note Next Visit Plan Continue to work on dynamic balance ans LE/core strengthening. Finalize HEP and encourage pt to do.
--- NOTE | 2018-06-16 16:10 | PT.OPPN ---
Current Diagnoses Other abnormalities of gait and mobility (06/16/18) Physical Therapy Progress Note PT-OP-A Visit Information Start: 04/11/18 16:44 Freq: Status: Active Protocol: Document 06/16/18 11:10 SA (Rec: 06/16/18 11:20 SA [email or web address]) Out-Patient Physical Therapy Visit Information Visit Information Visit Type Progress Note Visit Start Time 10:15 Visit Stop Time 11:03 Total Visit Minutes 48 Visit Number 9/10 Number of BUSINESS AND MARKETING TEACHER Visits 3 PT-OP-B Current Condition Start: 04/11/18 16:44 Freq: Status: Active Protocol: Document 04/11/18 16:46 ML (Rec: 04/11/18 17:16 ML [email or web address]) Current Condition History of Current Condition Current Complaints dec balance History of Current Condition 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 Pt reports having 2 sessions of PT prior to this since CVA, and despite improvement feels as though her balance and strength could improve. Pt gave up using her cane 5 days ago, and has been successful at safely walking 1.25 miles with her dog regularly to the park without dizziness. Pt emphasizes her caution/ awareness and moving slowly through all things and reports that she is frequently looking for something or someone to hold onto through activities that require unstable surfaces, quick rotational movements, low lighting, or change in surface height (stairs without rail). Pt also explains her frustration for memory difficulties of event that have happened recently. Treatment Goals Patient/Caregiver Goals gain strength in UEs and LEs; inc balance unsupported for gait and functional activities PT-OP-C Subjective Start: 04/11/18 16:44 Freq: Status: Active Protocol: Document 06/16/18 11:10 SA (Rec: 06/16/18 11:20 SA [email or web address]) OP-PT Subjective Patient Comments Patient Comments Feeling stronger, have been walking a lot but not doing any exercises at home. Patient Reported Progress Improving PT-OP-D Balance Start: 04/11/18 16:44 Freq: Status: Active Protocol: Document 04/11/18 16:46 ML (Rec: 04/11/18 17:16 ML [email or web address]) Balance Tests Other Other Balance Tests Performed FGA: PT-OP-G Mobility & Gait Start: 04/11/18 16:44 Freq: Status: Active Protocol: Document 04/11/18 16:46 ML (Rec: 04/11/18 17:16 ML [email or web address]) OP Gait Assessment Gait Gait Assistance Required: Independent Comments Gait Comments Pt moves very slowly through all gait motions, pt's HUSAM is very wide to inc balance PT-OP-M Strength Start: 04/11/18 16:44 Freq: Status: Active Protocol: Document 06/16/18 11:10 SA (Rec: 06/16/18 11:20 SA [email or web address]) Hip Strength Hip Manual Muscle Testing Right Flexion (L2) 4+ Good+ Extension (S1) 5 Normal Abduction 4 Good External Rotation 4 Good Internal Rotation 5 Normal Left Flexion (L2) 4+ Good+ Extension (S1) 5 Normal Abduction 5 Normal External Rotation 4+ Good+ Internal Rotation 5 Normal Knee Strength Knee Manual Muscle Testing Right Flexion (S2) 5 Normal Extension (L3) 5 Normal Left Flexion (S2) 5 Normal Extension (L3) 5 Normal Ankle/Foot Strength Ankle and Foot Manual Muscle Testing Right Dorsiflexion (L4) 4+ Good+ Plantarflexion (S1) 5 Normal Left Dorsiflexion (L4) 4+ Good+ Plantarflexion (S1) 5 Normal PT-OP-T Assessment and Plan Start: 04/11/18 16:44 Freq: Status: Active Protocol: Document 06/16/18 16:07 [facility] (Rec: 06/16/18 16:10 [facility] [email or web address]) Physical Therapy Assessment Impairments Impairments Activity Tolerance Balance Functional Mobility Gait Posture Strength Goals FGA Impairment balance Correction Goal (LTG) FGA to to demonstrate dec risk for falls LTG Duration 08/17/18 Four Impairment occ ambulating Projector Booth Operator Goal (LTG) Pt will walk at least 4x/week for 2 miles. LTG Duration 07/28/18- daily 1-1.25 mile Three Impairment Tinnetti Correction Goal (LTG) LTG Duration achieved Two Impairment dec strength Short Term Goal (STG) Pt will be independent with HEP. STG Duration 05/12/18 Correction Goal (LTG) Pt will score a 5/5 on all LE MMT. 06-16-18. Improved ti 4+/ 5 LTG Duration 07/17/18 One Impairment dec balance Short Term Goal (STG) Pt will be able to ambulate 20 ' in less than 5.5 seconds. STG Duration achieved Correction Goal (LTG) Pt will be able to ambulate stairs without use of handrail . LTG Duration 06/16/18 achieved Physical Therapy Plan Frequency and Duration Frequency of Treatment 1x/Week Duration of Treatment 2 months Plan of Care Start Date 06/16/18 Plan of Care End Date 08/12/18 Therapeutic Interventions Therapeutic Interventions Aquatic Therapy Balance Training Gait Training Home Exercise Program Neuromuscular Re-education Taping Therapeutic Activities Therapeutic Exercises Next Visit Focus/Plan Next Note Type Treatment Note Next Visit Plan Continue to work on dynamic balance ans LE/core strengthening. Finalize HEP and encourage pt to do.
--- NOTE | 2018-06-16 16:10 | PT.OPPOC ---
Current Diagnoses Other abnormalities of gait and mobility (06/16/18) Provider Visit Care Team Role Provider Type Mc Saavedra MD Attending Provider Physician Family Provider Primary Care Provider Specialty: Internal Medicine Address: [address] [place] [address], [id number] Email: Plan Of Care PT-OP-T Assessment and Plan Start: 04/11/18 16:44 Freq: Status: Active Protocol: Document 06/16/18 16:07 [facility] (Rec: 06/16/18 16:10 [facility] [email or web address]) Physical Therapy Assessment Impairments Impairments Activity Tolerance Balance Functional Mobility Gait Posture Strength Goals FGA Impairment balance Halfway Goal (LTG) FGA to to demonstrate dec risk for falls LTG Duration 08/17/18 Four Impairment occ ambulating Halfway Goal (LTG) Pt will walk at least 4x/week for 2 miles. LTG Duration 07/28/18- daily 1-1.25 mile Three Impairment Tinnetti Concaver Goal (LTG) LTG Duration achieved Two Impairment dec strength Short Term Goal (STG) Pt will be independent with HEP. STG Duration 05/12/18 Halfway Goal (LTG) Pt will score a 5/5 on all LE MMT. 06-16-18. Improved ti 4+/ 5 LTG Duration 07/17/18 One Impairment dec balance Short Term Goal (STG) Pt will be able to ambulate 20 ' in less than 5.5 seconds. STG Duration achieved Concaver Goal (LTG) Pt will be able to ambulate stairs without use of handrail . LTG Duration 06/16/18 achieved Physical Therapy Plan Frequency and Duration Frequency of Treatment 1x/Week Duration of Treatment 2 months Plan of Care Start Date 06/16/18 Plan of Care End Date 08/12/18 Therapeutic Interventions Therapeutic Interventions Aquatic Therapy Balance Training Gait Training Home Exercise Program Neuromuscular Re-education Taping Therapeutic Activities Therapeutic Exercises Next Visit Focus/Plan Next Note Type Treatment Note Next Visit Plan Continue to work on dynamic balance ans LE/core strengthening. Finalize HEP and encourage pt to do. Plan of Care Dates Plan of Care Start Date 06/16/18 Plan of Care End Date 08/12/18 Please Sign and Return: I have reviewed this Plan of Care and certify that the skilled therapy services above are required to meet the patient?s needs. Physician Signature Date Printed Name and Credentials Clinical Instructor Signature Printed Name and Credentials
--- NOTE | 2018-06-28 12:02 | PT.OTN ---
Current Diagnoses Other abnormalities of gait and mobility (06/28/18) Physical Therapy Treatment Note PT-OP-A Visit Information Start: 04/11/18 16:44 Freq: Status: Active Protocol: Document 06/28/18 11:22 [facility] (Rec: 06/28/18 12:02 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 Pt reports having 2 sessions of PT prior to this since CVA, and despite improvement feels as though her balance and strength could improve. Pt gave up using her cane 5 days ago, and has been successful at safely walking 1.25 miles with her dog regularly to the park without dizziness. Pt emphasizes her caution/ awareness and moving slowly through all things and reports that she is frequently looking for something or someone to hold onto through activities that require unstable surfaces, quick rotational movements, low lighting, or change in surface height (stairs without rail). Pt also explains her frustration for memory difficulties of event that have happened recently. Treatment Goals Patient/Caregiver Goals gain strength in UEs and LEs; inc balance unsupported for gait and functional activities PT-OP-C Subjective Start: 04/11/18 16:44 Freq: Status: Active Protocol: Document 06/28/18 11:22 [facility] (Rec: 06/28/18 12:02 [facility] [id number]) OP-PT Subjective Patient Comments Patient Comments Pt report sshe has not been doing her walking this week with the holidays. She plans to get back to it soon. PT-OP-D Balance Start: 04/11/18 16:44 Freq: Status: Active Protocol: Document 04/11/18 16:46 ML (Rec: 04/11/18 17:16 ML [email or web address]) Balance Tests Other Other Balance Tests Performed FGA: PT-OP-G Mobility & Gait Start: 04/11/18 16:44 Freq: Status: Active Protocol: Document 04/11/18 16:46 ML (Rec: 04/11/18 17:16 ML [email or web address]) OP Gait Assessment Gait Gait Assistance Required: Independent Comments Gait Comments Pt moves very slowly through all gait motions, pt's HUSAM is very wide to inc balance PT-OP-M Strength Start: 04/11/18 16:44 Freq: Status: Active Protocol: Document 06/16/18 11:10 SA (Rec: 06/16/18 11:20 SA [email or web address]) Hip Strength Hip Manual Muscle Testing Right Flexion (L2) 4+ Good+ Extension (S1) 5 Normal Abduction 4 Good External Rotation 4 Good Internal Rotation 5 Normal Left Flexion (L2) 4+ Good+ Extension (S1) 5 Normal Abduction 5 Normal External Rotation 4+ Good+ Internal Rotation 5 Normal Knee Strength Knee Manual Muscle Testing Right Flexion (S2) 5 Normal Extension (L3) 5 Normal Left Flexion (S2) 5 Normal Extension (L3) 5 Normal Ankle/Foot Strength Ankle and Foot Manual Muscle Testing Right Dorsiflexion (L4) 4+ Good+ Plantarflexion (S1) 5 Normal Left Dorsiflexion (L4) 4+ Good+ Plantarflexion (S1) 5 Normal PT-OP-Q Treatments Start: 04/11/18 16:44 Freq: Status: Active Protocol: Document 06/28/18 11:22 [facility] (Rec: 06/28/18 12:02 [facility] [id number]) Cardio Equipment Recumbent Stepper (Sci-Fit) Duration (Minutes) 7 Resistance 7 Therapeutic Exercises Standing Exercises 4 Standing Exercise Name sidestepping Equipment Used Lvl3 Reps/Minutes 2x20ft Neuro Re-Education Treatment Balance Activities 10 Details dynadisc balance Comments staggered stance: head turns & EC 6 Details tandem walking Reps/Duration 4x20ft 5 Details hurdles Comments close set x6 laps; about 5 ft apart w/2 hurdles x8 laps 4 Details step ups to bosu B Reps/Duration x8 ea leg 3 Details fwd/back walking EC Reps/Duration 3x20ft 2 Details backwards walking Reps/Duration 3x20ft 1 Details marching fwd Reps/Duration 3x20ft PT-OP-T Assessment and Plan Start: 04/11/18 16:44 Freq: Status: Active Protocol: Document 06/28/18 11:22 [facility] (Rec: 06/28/18 12:02 [facility] [id number]) Physical Therapy Assessment Goals FGA Impairment balance Halfway Goal (LTG) FGA to 25/30 to demonstrate dec risk for falls LTG Duration 08/17/18 Four Impairment occ ambulating Meat Carver Goal (LTG) Pt will walk at least 4x/week for 2 miles. LTG Duration 07/28/18- daily 1-1.25 mile Three Impairment Tinnetti Meat Carver Goal (LTG) LTG Duration achieved Two Impairment dec strength Short Term Goal (STG) Pt will be independent with HEP. STG Duration 05/12/18 Halfway Goal (LTG) Pt will score a 5/5 on all LE MMT. 06-16-18. Improved ti 4+/ 5 LTG Duration 07/17/18 One Impairment dec balance Short Term Goal (STG) Pt will be able to ambulate 20 ' in less than 5.5 seconds. STG Duration achieved Meat Carver Goal (LTG) Pt will be able to ambulate stairs without use of handrail . LTG Duration 06/16/18 achieved Assessment Summary Assessment Pt did well with balance exercises today, but was challenged with SLS positions, NBOS like tandem and EC activities. Physical Therapy Plan Frequency and Duration Frequency of Treatment 1x/Week Duration of Treatment 2 months Plan of Care Start Date 06/16/18 Plan of Care End Date 08/12/18 Next Visit Focus/Plan Next Note Type Treatment Note Next Visit Plan Work on dynamic balance activities.
--- NOTE | 2018-07-05 11:53 | PT.OTN ---
Current Diagnoses Other abnormalities of gait and mobility (07/05/18) Physical Therapy Treatment Note PT-OP-A Visit Information Start: 04/11/18 16:44 Freq: Status: Active Protocol: Document 07/05/18 11:12 [facility] (Rec: 07/05/18 11:53 [facility] [id number]) Out-Patient Physical Therapy Visit Information Visit Information Visit Type Treatment Note Visit Start Time 11:15 Visit Stop Time 12:00 Total Visit Minutes 45 Visit Number 3/10 Number of CONTROL CLERK REPAIRS Visits 0 PT-OP-B Current Condition Start: 04/11/18 16:44 Freq: Status: Active Protocol: Document 04/11/18 16:46 ML (Rec: 04/11/18 17:16 ML [email or web address]) Current Condition History of Current Condition Current Complaints dec balance History of Current Condition 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 Pt reports having 2 sessions of PT prior to this since CVA, and despite improvement feels as though her balance and strength could improve. Pt gave up using her cane 5 days ago, and has been successful at safely walking 1.25 miles with her dog regularly to the park without dizziness. Pt emphasizes her caution/ awareness and moving slowly through all things and reports that she is frequently looking for something or someone to hold onto through activities that require unstable surfaces, quick rotational movements, low lighting, or change in surface height (stairs without rail). Pt also explains her frustration for memory difficulties of event that have happened recently. Treatment Goals Patient/Caregiver Goals gain strength in UEs and LEs; inc balance unsupported for gait and functional activities PT-OP-C Subjective Start: 04/11/18 16:44 Freq: Status: Active Protocol: Document 07/05/18 11:12 [facility] (Rec: 07/05/18 11:53 [facility] [id number]) OP-PT Subjective Patient Comments Patient Comments reports she hasn't been walking d/t having a lot of sorting she was doing at home. PT-OP-D Balance Start: 04/11/18 16:44 Freq: Status: Active Protocol: Document 04/11/18 16:46 ML (Rec: 04/11/18 17:16 ML [email or web address]) Balance Tests Other Other Balance Tests Performed FGA: PT-OP-G Mobility & Gait Start: 04/11/18 16:44 Freq: Status: Active Protocol: Document 04/11/18 16:46 ML (Rec: 04/11/18 17:16 ML [email or web address]) OP Gait Assessment Gait Gait Assistance Required: Independent Comments Gait Comments Pt moves very slowly through all gait motions, pt's HUSAM is very wide to inc balance PT-OP-M Strength Start: 04/11/18 16:44 Freq: Status: Active Protocol: Document 06/16/18 11:10 SA (Rec: 06/16/18 11:20 SA [email or web address]) Hip Strength Hip Manual Muscle Testing Right Flexion (L2) 4+ Good+ Extension (S1) 5 Normal Abduction 4 Good External Rotation 4 Good Internal Rotation 5 Normal Left Flexion (L2) 4+ Good+ Extension (S1) 5 Normal Abduction 5 Normal External Rotation 4+ Good+ Internal Rotation 5 Normal Knee Strength Knee Manual Muscle Testing Right Flexion (S2) 5 Normal Extension (L3) 5 Normal Left Flexion (S2) 5 Normal Extension (L3) 5 Normal Ankle/Foot Strength Ankle and Foot Manual Muscle Testing Right Dorsiflexion (L4) 4+ Good+ Plantarflexion (S1) 5 Normal Left Dorsiflexion (L4) 4+ Good+ Plantarflexion (S1) 5 Normal PT-OP-Q Treatments Start: 04/11/18 16:44 Freq: Status: Active Protocol: Document 07/05/18 11:12 [facility] (Rec: 07/05/18 11:53 [facility] [id number]) Cardio Equipment Recumbent Stepper (Sci-Fit) Duration (Minutes) 7 Resistance 7 Gym Equipment Shuttle Balance 1 Details red clips Comments fwd &side WBOS &NBOS; fwd staggered stance B Therapeutic Exercises Standing Exercises 4 Standing Exercise Name sidestepping Equipment Used green Reps/Minutes 2x20ft 3 Standing Exercise Name fwd/back walk Equipment Used green Reps/Minutes 2x20ft Neuro Re-Education Treatment Balance Activities 5 Details hurdles Comments close set x6 laps; about 5 ft apart w/2 hurdles x8 laps 3 Details walking w/vertical & horizontal head turns Reps/Duration 4x50ft 2 Details EC fwd/backwards walking Reps/Duration 2x20ft PT-OP-T Assessment and Plan Start: 04/11/18 16:44 Freq: Status: Active Protocol: Document 07/05/18 11:12 [facility] (Rec: 07/05/18 11:53 [facility] [id number]) Physical Therapy Assessment Goals FGA Impairment balance Bulk Tank Driver Goal (LTG) FGA to 25/30 to demonstrate dec risk for falls LTG Duration 08/17/18 Four Impairment occ ambulating Usp Goal (LTG) Pt will walk at least 4x/week for 2 miles. LTG Duration 07/28/18- daily 1-1.25 mile Two Impairment dec strength Short Term Goal (STG) Pt will be independent with HEP. STG Duration 05/12/18 Bulk Tank Driver Goal (LTG) Pt will score a 5/5 on all LE MMT. 06-16-18. Improved ti 4+/ 5 LTG Duration 07/17/18 Assessment Summary Assessment Pt had difficulty w/ EC activity but improved balance w/ head turns today. She cont to be challenged by uneven surfaces Physical Therapy Plan Frequency and Duration Frequency of Treatment 1x/Week Duration of Treatment 2 months Plan of Care Start Date 06/16/18 Plan of Care End Date 08/12/18 Next Visit Focus/Plan Next Note Type Treatment Note Next Visit Plan Work on dynamic balance activities with eyes closed & head turns
--- NOTE | 2018-07-12 11:57 | PT.OTN ---
Current Diagnoses Other abnormalities of gait and mobility (07/12/18) Physical Therapy Treatment Note PT-OP-A Visit Information Start: 04/11/18 16:44 Freq: Status: Active Protocol: Document 07/12/18 11:24 [facility] (Rec: 07/12/18 11:57 [facility] [id number]) Out-Patient Physical Therapy Visit Information Visit Information Visit Type Treatment Note Visit Start Time 11:15 Visit Stop Time 12:00 Total Visit Minutes 45 Visit Number 4/10 Number of CRACKER SPRAYER Visits 0 PT-OP-B Current Condition Start: 04/11/18 16:44 Freq: Status: Active Protocol: Document 04/11/18 16:46 ML (Rec: 04/11/18 17:16 ML [email or web address]) Current Condition History of Current Condition Current Complaints dec balance History of Current Condition 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 Pt reports having 2 sessions of PT prior to this since CVA, and despite improvement feels as though her balance and strength could improve. Pt gave up using her cane 5 days ago, and has been successful at safely walking 1.25 miles with her dog regularly to the park without dizziness. Pt emphasizes her caution/ awareness and moving slowly through all things and reports that she is frequently looking for something or someone to hold onto through activities that require unstable surfaces, quick rotational movements, low lighting, or change in surface height (stairs without rail). Pt also explains her frustration for memory difficulties of event that have happened recently. Treatment Goals Patient/Caregiver Goals gain strength in UEs and LEs; inc balance unsupported for gait and functional activities PT-OP-C Subjective Start: 04/11/18 16:44 Freq: Status: Active Protocol: Document 07/12/18 11:24 [facility] (Rec: 07/12/18 11:57 [facility] [id number]) OP-PT Subjective Patient Comments Patient Comments Pt reports she still isn't walking PT-OP-D Balance Start: 04/11/18 16:44 Freq: Status: Active Protocol: Document 04/11/18 16:46 ML (Rec: 04/11/18 17:16 ML [email or web address]) Balance Tests Other Other Balance Tests Performed FGA: PT-OP-G Mobility & Gait Start: 04/11/18 16:44 Freq: Status: Active Protocol: Document 04/11/18 16:46 ML (Rec: 04/11/18 17:16 ML [email or web address]) OP Gait Assessment Gait Gait Assistance Required: Independent Comments Gait Comments Pt moves very slowly through all gait motions, pt's HUSAM is very wide to inc balance PT-OP-M Strength Start: 04/11/18 16:44 Freq: Status: Active Protocol: Document 06/16/18 11:10 SA (Rec: 06/16/18 11:20 SA [email or web address]) Hip Strength Hip Manual Muscle Testing Right Flexion (L2) 4+ Good+ Extension (S1) 5 Normal Abduction 4 Good External Rotation 4 Good Internal Rotation 5 Normal Left Flexion (L2) 4+ Good+ Extension (S1) 5 Normal Abduction 5 Normal External Rotation 4+ Good+ Internal Rotation 5 Normal Knee Strength Knee Manual Muscle Testing Right Flexion (S2) 5 Normal Extension (L3) 5 Normal Left Flexion (S2) 5 Normal Extension (L3) 5 Normal Ankle/Foot Strength Ankle and Foot Manual Muscle Testing Right Dorsiflexion (L4) 4+ Good+ Plantarflexion (S1) 5 Normal Left Dorsiflexion (L4) 4+ Good+ Plantarflexion (S1) 5 Normal PT-OP-Q Treatments Start: 04/11/18 16:44 Freq: Status: Active Protocol: Document 07/12/18 11:24 [facility] (Rec: 07/12/18 11:57 [facility] [id number]) Cardio Equipment Recumbent Stepper (Sci-Fit) Duration (Minutes) 7 Resistance 7 Gym Equipment Shuttle Balance 1 Details red clips Comments fwd &side WBOS &NBOS; fwd staggered stance B Therapeutic Exercises Standing Exercises 4 Standing Exercise Name sidestepping Equipment Used green Reps/Minutes 2x20ft 3 Standing Exercise Name fwd/back walk Equipment Used green Reps/Minutes 2x20ft Neuro Re-Education Treatment Balance Activities 7 Details backwards steps large Reps/Duration 2x20ft 5 Details hurdles Comments close set x8 laps w/tpads between 2 Details EC fwd/backwards walking Reps/Duration 2x20ft 1 Details marching fwd Reps/Duration 3x20ft PT-OP-T Assessment and Plan Start: 04/11/18 16:44 Freq: Status: Active Protocol: Document 07/12/18 11:24 [facility] (Rec: 07/12/18 11:57 [facility] [id number]) Physical Therapy Assessment Goals FGA Impairment balance Accounts Adjustable Clerk Goal (LTG) FGA to 30 to demonstrate dec risk for falls LTG Duration 08/17/18 Four Impairment occ ambulating Nursing Home Goal (LTG) Pt will walk at least 4x/week for 2 miles. LTG Duration 07/28/18- daily 1-1.25 mile Two Impairment dec strength Short Term Goal (STG) Pt will be independent with HEP. STG Duration 05/12/18 Nursing Home Goal (LTG) Pt will score a 5/5 on all LE MMT. 06-16-18. Improved ti 4+/ 5 LTG Duration 07/17/18 Assessment Summary Assessment Pt had no difficulty w/ head turns and walking today. Improved balance on balance board. Difficulty w/ dynamic EC activities Physical Therapy Plan Frequency and Duration Frequency of Treatment 1x/Week Duration of Treatment 2 months Plan of Care Start Date 06/16/18 Plan of Care End Date 08/12/18 Next Visit Focus/Plan Next Note Type Treatment Note Next Visit Plan Cont to advance balance activities
--- NOTE | 2018-07-19 11:59 | PT.OTN ---
Current Diagnoses Other abnormalities of gait and mobility (07/19/18) Physical Therapy Treatment Note PT-OP-A Visit Information Start: 04/11/18 16:44 Freq: Status: Active Protocol: Document 07/19/18 11:24 [facility] (Rec: 07/19/18 11:59 [facility] [id number]) Out-Patient Physical Therapy Visit Information Visit Information Visit Type Treatment Note Visit Start Time 11:15 Visit Stop Time 11:55 Total Visit Minutes 40 Visit Number 5/10 Number of COMMERCIAL HOUSEKEEPER Visits 0 PT-OP-B Current Condition Start: 04/11/18 16:44 Freq: Status: Active Protocol: Document 04/11/18 16:46 ML (Rec: 04/11/18 17:16 ML [email or web address]) Current Condition History of Current Condition Current Complaints dec balance History of Current Condition 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 Pt reports having 2 sessions of PT prior to this since CVA, and despite improvement feels as though her balance and strength could improve. Pt gave up using her cane 5 days ago, and has been successful at safely walking 1.25 miles with her dog regularly to the park without dizziness. Pt emphasizes her caution/ awareness and moving slowly through all things and reports that she is frequently looking for something or someone to hold onto through activities that require unstable surfaces, quick rotational movements, low lighting, or change in surface height (stairs without rail). Pt also explains her frustration for memory difficulties of event that have happened recently. Treatment Goals Patient/Caregiver Goals gain strength in UEs and LEs; inc balance unsupported for gait and functional activities PT-OP-C Subjective Start: 04/11/18 16:44 Freq: Status: Active Protocol: Document 07/19/18 11:24 [facility] (Rec: 07/19/18 11:59 [facility] [id number]) OP-PT Subjective Patient Comments Patient Comments Pt reports she is too scared to go walking. Reports noncompliance with HEP PT-OP-D Balance Start: 04/11/18 16:44 Freq: Status: Active Protocol: Document 04/11/18 16:46 ML (Rec: 04/11/18 17:16 ML [email or web address]) Balance Tests Other Other Balance Tests Performed FGA: PT-OP-G Mobility & Gait Start: 04/11/18 16:44 Freq: Status: Active Protocol: Document 04/11/18 16:46 ML (Rec: 04/11/18 17:16 ML [email or web address]) OP Gait Assessment Gait Gait Assistance Required: Independent Comments Gait Comments Pt moves very slowly through all gait motions, pt's HUSAM is very wide to inc balance PT-OP-M Strength Start: 04/11/18 16:44 Freq: Status: Active Protocol: Document 06/16/18 11:10 SA (Rec: 06/16/18 11:20 SA [email or web address]) Hip Strength Hip Manual Muscle Testing Right Flexion (L2) 4+ Good+ Extension (S1) 5 Normal Abduction 4 Good External Rotation 4 Good Internal Rotation 5 Normal Left Flexion (L2) 4+ Good+ Extension (S1) 5 Normal Abduction 5 Normal External Rotation 4+ Good+ Internal Rotation 5 Normal Knee Strength Knee Manual Muscle Testing Right Flexion (S2) 5 Normal Extension (L3) 5 Normal Left Flexion (S2) 5 Normal Extension (L3) 5 Normal Ankle/Foot Strength Ankle and Foot Manual Muscle Testing Right Dorsiflexion (L4) 4+ Good+ Plantarflexion (S1) 5 Normal Left Dorsiflexion (L4) 4+ Good+ Plantarflexion (S1) 5 Normal PT-OP-Q Treatments Start: 04/11/18 16:44 Freq: Status: Active Protocol: Document 07/19/18 11:24 [facility] (Rec: 07/19/18 11:59 [facility] [id number]) Cardio Equipment Recumbent Stepper (Sci-Fit) Duration (Minutes) 7 Resistance 7 Therapeutic Exercises Standing Exercises Hip ABD Standing Exercise Name hip abd Side bilateral Equipment Used L2 Reps/Minutes 2x10 4 Standing Exercise Name sidestepping Equipment Used green Reps/Minutes 2x20ft 3 Standing Exercise Name fwd/back walk Equipment Used green Reps/Minutes 2x20ft 2 Standing Exercise Name hip ext Side bilateral Equipment Used L2 Reps/Minutes 2x10 Neuro Re-Education Treatment Balance Activities 10 Details SLS &tandem stance B 6 Details tandem walking Reps/Duration 4x20ft 2 Details EC fwd/backwards walking Reps/Duration 2x20ft PT-OP-T Assessment and Plan Start: 04/11/18 16:44 Freq: Status: Active Protocol: Document 07/19/18 11:24 [facility] (Rec: 07/19/18 11:59 [facility] [id number]) Physical Therapy Assessment Goals FGA Impairment balance [facility] Goal (LTG) FGA to to demonstrate dec risk for falls LTG Duration 08/17/18 Four Impairment occ ambulating Soil Analyst Goal (LTG) Pt will walk at least 4x/week for 2 miles. LTG Duration 07/28/18- daily 1-1.25 mile Two Impairment dec strength Short Term Goal (STG) Pt will be independent with HEP. STG Duration 05/12/18 [facility] Goal (LTG) Pt will score a 5/5 on all LE MMT. 06-16-18. Improved ti 4+/ 5 LTG Duration 07/17/18 Assessment Summary Assessment Cueing was required for exercise form and safety. She had mostly difficulty with eyes closed posiitons Physical Therapy Plan Frequency and Duration Frequency of Treatment 1x/Week Duration of Treatment 2 months Plan of Care Start Date 06/16/18 Plan of Care End Date 08/12/18 Next Visit Focus/Plan Next Note Type Treatment Note Next Visit Plan review HEP and cont to advance balance
--- NOTE | 2018-07-26 12:04 | PT.OTN ---
Current Diagnoses Other abnormalities of gait and mobility (07/26/18) Physical Therapy Treatment Note PT-OP-A Visit Information Start: 04/11/18 16:44 Freq: Status: Active Protocol: Document 07/26/18 11:16 [facility] (Rec: 07/26/18 12:03 [facility] [id number]) Out-Patient Physical Therapy Visit Information Visit Information Visit Type Treatment Note Visit Start Time 11:22 Visit Stop Time 12:00 Total Visit Minutes 38 Visit Number 6/ Number of PHD INTERN Visits 0 PT-OP-B Current Condition Start: 04/11/18 16:44 Freq: Status: Active Protocol: Document 04/11/18 16:46 ML (Rec: 04/11/18 17:16 ML [email or web address]) Current Condition History of Current Condition Current Complaints dec balance History of Current Condition 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 Pt reports having 2 sessions of PT prior to this since CVA, and despite improvement feels as though her balance and strength could improve. Pt gave up using her cane 5 days ago, and has been successful at safely walking 1.25 miles with her dog regularly to the park without dizziness. Pt emphasizes her caution/ awareness and moving slowly through all things and reports that she is frequently looking for something or someone to hold onto through activities that require unstable surfaces, quick rotational movements, low lighting, or change in surface height (stairs without rail). Pt also explains her frustration for memory difficulties of event that have happened recently. Treatment Goals Patient/Caregiver Goals gain strength in UEs and LEs; inc balance unsupported for gait and functional activities PT-OP-C Subjective Start: 04/11/18 16:44 Freq: Status: Active Protocol: Document 07/26/18 11:16 [facility] (Rec: 07/26/18 12:03 [facility] [id number]) OP-PT Subjective Patient Comments Patient Comments Pt reports she has done her exercises some. PT-OP-D Balance Start: 04/11/18 16:44 Freq: Status: Active Protocol: Document 04/11/18 16:46 ML (Rec: 04/11/18 17:16 ML [email or web address]) Balance Tests Other Other Balance Tests Performed FGA: PT-OP-G Mobility & Gait Start: 04/11/18 16:44 Freq: Status: Active Protocol: Document 04/11/18 16:46 ML (Rec: 04/11/18 17:16 ML [email or web address]) OP Gait Assessment Gait Gait Assistance Required: Independent Comments Gait Comments Pt moves very slowly through all gait motions, pt's HUSAM is very wide to inc balance PT-OP-M Strength Start: 04/11/18 16:44 Freq: Status: Active Protocol: Document 06/16/18 11:10 SA (Rec: 06/16/18 11:20 SA [email or web address]) Hip Strength Hip Manual Muscle Testing Right Flexion (L2) 4+ Good+ Extension (S1) 5 Normal Abduction 4 Good External Rotation 4 Good Internal Rotation 5 Normal Left Flexion (L2) 4+ Good+ Extension (S1) 5 Normal Abduction 5 Normal External Rotation 4+ Good+ Internal Rotation 5 Normal Knee Strength Knee Manual Muscle Testing Right Flexion (S2) 5 Normal Extension (L3) 5 Normal Left Flexion (S2) 5 Normal Extension (L3) 5 Normal Ankle/Foot Strength Ankle and Foot Manual Muscle Testing Right Dorsiflexion (L4) 4+ Good+ Plantarflexion (S1) 5 Normal Left Dorsiflexion (L4) 4+ Good+ Plantarflexion (S1) 5 Normal PT-OP-Q Treatments Start: 04/11/18 16:44 Freq: Status: Active Protocol: Document 07/26/18 11:16 [facility] (Rec: 07/26/18 12:03 [facility] [id number]) Cardio Equipment Recumbent Stepper (Sci-Fit) Duration (Minutes) 5 Resistance 7 Gym Equipment Shuttle Balance 1 Details red clips Comments fwd &side WBOS &NBOS; fwd staggered stance B Therapeutic Exercises Standing Exercises Hip ABD Standing Exercise Name hip abd Side bilateral Equipment Used L2 Reps/Minutes 2x10 Comments HEP 2 Standing Exercise Name hip ext Side bilateral Equipment Used L2 Reps/Minutes 2x10 Comments HEP 1 Standing Exercise Name squats Reps/Minutes 20 Neuro Re-Education Treatment Balance Activities 10 Details SLS &tandem stance B Reps/Duration HEP 6 Details tandem walking Reps/Duration 4x20ft 5 Details hurdles Comments close set x8 laps 2 Details EC fwd/backwards walking Reps/Duration 2x20ft 1 Details marching fwd/back Reps/Duration 2x20ft ea Comments EC PT-OP-T Assessment and Plan Start: 04/11/18 16:44 Freq: Status: Active Protocol: Document 07/26/18 11:16 [facility] (Rec: 07/26/18 12:03 [facility] [id number]) Physical Therapy Assessment Goals FGA Impairment balance Premium Note Interest Calculator Clerk Goal (LTG) FGA to 25/30 to demonstrate dec risk for falls LTG Duration 08/17/18 Four Impairment occ ambulating Senior Living Goal (LTG) Pt will walk at least 4x/week for 2 miles. LTG Duration 07/28/18- daily 1-1.25 mile Two Impairment dec strength Short Term Goal (STG) Pt will be independent with HEP. STG Duration 05/12/18 Senior Living Goal (LTG) Pt will score a 5/5 on all LE MMT. 06-16-18. Improved ti 4+/ 5 LTG Duration 07/17/18 Assessment Summary Assessment Pt was challenged by hurdles today but did better with EC activity. When amb, working on trying to amb with typical HUSAM and less use of external objects. Physical Therapy Plan Frequency and Duration Frequency of Treatment 1x/Week Duration of Treatment 2 months Plan of Care Start Date 06/16/18 Plan of Care End Date 08/12/18 Next Visit Focus/Plan Next Note Type Treatment Note Next Visit Plan Advance EC activities
--- NOTE | 2018-08-02 11:16 | PT.OTN ---
Current Diagnoses Other abnormalities of gait and mobility (08/02/18) Physical Therapy Treatment Note PT-OP-A Visit Information Start: 04/11/18 16:44 Freq: Status: Active Protocol: Document 08/02/18 10:38 [facility] (Rec: 08/02/18 11:16 [facility] [id number]) Out-Patient Physical Therapy Visit Information Visit Information Visit Type Treatment Note Visit Start Time 10:35 Visit Stop Time 11:15 Total Visit Minutes 40 Visit Number 7/10 Number of OFFICE MOVER Visits 0 PT-OP-B Current Condition Start: 04/11/18 16:44 Freq: Status: Active Protocol: Document 04/11/18 16:46 ML (Rec: 04/11/18 17:16 ML [email or web address]) Current Condition History of Current Condition Current Complaints dec balance History of Current Condition 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 Pt reports having 2 sessions of PT prior to this since CVA, and despite improvement feels as though her balance and strength could improve. Pt gave up using her cane 5 days ago, and has been successful at safely walking 1.25 miles with her dog regularly to the park without dizziness. Pt emphasizes her caution/ awareness and moving slowly through all things and reports that she is frequently looking for something or someone to hold onto through activities that require unstable surfaces, quick rotational movements, low lighting, or change in surface height (stairs without rail). Pt also explains her frustration for memory difficulties of event that have happened recently. Treatment Goals Patient/Caregiver Goals gain strength in UEs and LEs; inc balance unsupported for gait and functional activities PT-OP-C Subjective Start: 04/11/18 16:44 Freq: Status: Active Protocol: Document 08/02/18 10:38 [facility] (Rec: 08/02/18 11:16 [facility] [id number]) OP-PT Subjective Patient Comments Patient Comments Pt reports she did her exercises about 3 different times since last session. PT-OP-D Balance Start: 04/11/18 16:44 Freq: Status: Active Protocol: Document 04/11/18 16:46 ML (Rec: 04/11/18 17:16 ML [email or web address]) Balance Tests Other Other Balance Tests Performed FGA: PT-OP-G Mobility & Gait Start: 04/11/18 16:44 Freq: Status: Active Protocol: Document 04/11/18 16:46 ML (Rec: 04/11/18 17:16 ML [email or web address]) OP Gait Assessment Gait Gait Assistance Required: Independent Comments Gait Comments Pt moves very slowly through all gait motions, pt's HUSAM is very wide to inc balance PT-OP-M Strength Start: 04/11/18 16:44 Freq: Status: Active Protocol: Document 06/16/18 11:10 SA (Rec: 06/16/18 11:20 SA [email or web address]) Hip Strength Hip Manual Muscle Testing Right Flexion (L2) 4+ Good+ Extension (S1) 5 Normal Abduction 4 Good External Rotation 4 Good Internal Rotation 5 Normal Left Flexion (L2) 4+ Good+ Extension (S1) 5 Normal Abduction 5 Normal External Rotation 4+ Good+ Internal Rotation 5 Normal Knee Strength Knee Manual Muscle Testing Right Flexion (S2) 5 Normal Extension (L3) 5 Normal Left Flexion (S2) 5 Normal Extension (L3) 5 Normal Ankle/Foot Strength Ankle and Foot Manual Muscle Testing Right Dorsiflexion (L4) 4+ Good+ Plantarflexion (S1) 5 Normal Left Dorsiflexion (L4) 4+ Good+ Plantarflexion (S1) 5 Normal PT-OP-Q Treatments Start: 04/11/18 16:44 Freq: Status: Active Protocol: Document 08/02/18 10:38 [facility] (Rec: 08/02/18 11:16 [facility] [id number]) Cardio Equipment Recumbent Stepper (Sci-Fit) Duration (Minutes) 7 Resistance 9 Gym Equipment Shuttle Recovery Bilateral Squats Resistance 112 Shuttle Recovery Platform Stable Reps/Time 30 Shuttle Balance 1 Details red clips Reps/Duration w/balloon toss Comments fwd &side WBOS &NBOS; fwd staggered stance B Therapeutic Exercises Standing Exercises 4 Standing Exercise Name sidestepping Equipment Used green Reps/Minutes 2x20ft 3 Standing Exercise Name fwd/back walk Equipment Used green Reps/Minutes 2x20ft 1 Standing Exercise Name walking lunges Reps/Minutes 4x20ft Neuro Re-Education Treatment Balance Activities 4 Details NBOS on black pod Comments ec 2 Details EC fwd/backwards walking Reps/Duration 2x20ft PT-OP-T Assessment and Plan Start: 04/11/18 16:44 Freq: Status: Active Protocol: Document 08/02/18 10:38 [facility] (Rec: 08/02/18 11:16 [facility] [id number]) Physical Therapy Assessment Goals FGA Impairment balance Intermediate Goal (LTG) FGA to 25/30 to demonstrate dec risk for falls LTG Duration 08/17/18 Four Impairment occ ambulating Route Sales Person Goal (LTG) Pt will walk at least 4x/week for 2 miles. LTG Duration 07/28/18- daily 1-1.25 mile Two Impairment dec strength Short Term Goal (STG) Pt will be independent with HEP. STG Duration 05/12/18 Route Sales Person Goal (LTG) Pt will score a 5/5 on all LE MMT. 06-16-18. Improved ti 4+/ 5 LTG Duration 07/17/18 Assessment Summary Assessment Pt cont to be challenged by EC activities. She requires further balance training to improve safety at home and in the community. Physical Therapy Plan Frequency and Duration Frequency of Treatment 1x/Week Duration of Treatment 2 months Plan of Care Start Date 06/16/18 Plan of Care End Date 08/12/18 Next Visit Focus/Plan Next Note Type Treatment Note Next Visit Plan Cont to advance balance
--- NOTE | 2018-08-09 10:25 | PT.OTN ---
Current Diagnoses Other abnormalities of gait and mobility (08/09/18) Physical Therapy Treatment Note PT-OP-A Visit Information Start: 04/11/18 16:44 Freq: Status: Active Protocol: Document 08/09/18 09:53 [facility] (Rec: 08/09/18 10:25 [facility] [id number]) Out-Patient Physical Therapy Visit Information Visit Information Visit Type Treatment Note Visit Start Time 09:45 Visit Stop Time 10:25 Total Visit Minutes 40 Visit Number 07/06 Number of SOAKER HELPER Visits 0 PT-OP-B Current Condition Start: 04/11/18 16:44 Freq: Status: Active Protocol: Document 04/11/18 16:46 ML (Rec: 04/11/18 17:16 ML [email or web address]) Current Condition History of Current Condition Current Complaints dec balance History of Current Condition 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 Pt reports having 2 sessions of PT prior to this since CVA, and despite improvement feels as though her balance and strength could improve. Pt gave up using her cane 5 days ago, and has been successful at safely walking 1.25 miles with her dog regularly to the park without dizziness. Pt emphasizes her caution/ awareness and moving slowly through all things and reports that she is frequently looking for something or someone to hold onto through activities that require unstable surfaces, quick rotational movements, low lighting, or change in surface height (stairs without rail). Pt also explains her frustration for memory difficulties of event that have happened recently. Treatment Goals Patient/Caregiver Goals gain strength in UEs and LEs; inc balance unsupported for gait and functional activities PT-OP-C Subjective Start: 04/11/18 16:44 Freq: Status: Active Protocol: Document 08/09/18 09:53 [facility] (Rec: 08/09/18 10:25 [facility] [id number]) OP-PT Subjective Patient Comments Patient Comments Pt reports she is leaving for her trip in a few days. PT-OP-D Balance Start: 04/11/18 16:44 Freq: Status: Active Protocol: Document 04/11/18 16:46 ML (Rec: 04/11/18 17:16 ML [email or web address]) Balance Tests Other Other Balance Tests Performed FGA: PT-OP-G Mobility & Gait Start: 04/11/18 16:44 Freq: Status: Active Protocol: Document 04/11/18 16:46 ML (Rec: 04/11/18 17:16 ML [email or web address]) OP Gait Assessment Gait Gait Assistance Required: Independent Comments Gait Comments Pt moves very slowly through all gait motions, pt's HUSAM is very wide to inc balance PT-OP-M Strength Start: 04/11/18 16:44 Freq: Status: Active Protocol: Document 06/16/18 11:10 SA (Rec: 06/16/18 11:20 SA [email or web address]) Hip Strength Hip Manual Muscle Testing Right Flexion (L2) 4+ Good+ Extension (S1) 5 Normal Abduction 4 Good External Rotation 4 Good Internal Rotation 5 Normal Left Flexion (L2) 4+ Good+ Extension (S1) 5 Normal Abduction 5 Normal External Rotation 4+ Good+ Internal Rotation 5 Normal Knee Strength Knee Manual Muscle Testing Right Flexion (S2) 5 Normal Extension (L3) 5 Normal Left Flexion (S2) 5 Normal Extension (L3) 5 Normal Ankle/Foot Strength Ankle and Foot Manual Muscle Testing Right Dorsiflexion (L4) 4+ Good+ Plantarflexion (S1) 5 Normal Left Dorsiflexion (L4) 4+ Good+ Plantarflexion (S1) 5 Normal PT-OP-Q Treatments Start: 04/11/18 16:44 Freq: Status: Active Protocol: Document 08/09/18 09:53 [facility] (Rec: 08/09/18 10:25 [facility] [id number]) Cardio Equipment Recumbent Stepper (Sci-Fit) Duration (Minutes) 7 Resistance 9 Gym Equipment Shuttle Recovery Unilateral Squats Resistance 62 Shuttle Recovery Platform Stable Reps/Time 20 Bilateral Squats Resistance 112 Shuttle Recovery Platform Stable Reps/Time 30 Shuttle Balance 1 Details red clips Reps/Duration w/balloon toss Comments fwd &side WBOS &NBOS; fwd staggered stance B Neuro Re-Education Treatment Balance Activities 10 Details staggered stance EC 9 Details bosu balance progressed to EC 3 Details FGA PT-OP-T Assessment and Plan Start: 04/11/18 16:44 Freq: Status: Active Protocol: Document 08/09/18 09:53 [facility] (Rec: 08/09/18 10:25 [facility] [id number]) Physical Therapy Assessment Goals FGA Impairment balance Intermediate Goal (LTG) FGA to to demonstrate dec risk for falls LTG Duration 08/17/18 Four Impairment occ ambulating Clinical Nursing Assistant Goal (LTG) Pt will walk at least 4x/week for 2 miles. LTG Duration 09/08/18-unable to walk d/t weather Two Impairment dec strength Short Term Goal (STG) Pt will be independent with HEP. STG Duration 05/12/18 -achieved Clinical Nursing Assistant Goal (LTG) Pt will score a 5/5 on all LE MMT. 06-16-18. Improved ti 4+/ 5 LTG Duration 09/14/18 Assessment Summary Assessment Pt is improving with balance but still has difficulty with NBOS activities and when EC. She is improving overall with HEP compliance Physical Therapy Plan Frequency and Duration Frequency of Treatment 1x/Week Duration of Treatment 2 months Plan of Care Start Date 08/09/18 Plan of Care End Date 10/07/18 Therapeutic Interventions Therapeutic Interventions Gait Training Home Exercise Program Neuromuscular Re-education Patient/Caregiver Education Self-Care/Home Management Taping Therapeutic Activities Therapeutic Exercises Next Visit Focus/Plan Next Note Type Treatment Note Next Visit Plan Cont to advance balance
--- NOTE | 2018-08-09 10:25 | PT.OPPOC ---
Current Diagnoses Other abnormalities of gait and mobility (08/09/18) Provider Visit Care Team Role Provider Type Mc Saavedra MD Attending Provider Physician Family Provider Primary Care Provider Specialty: Internal Medicine Address: [address] [place] [address], [id number] Email: Plan Of Care PT-OP-T Assessment and Plan Start: 04/11/18 16:44 Freq: Status: Active Protocol: Document 08/09/18 09:53 [facility] (Rec: 08/09/18 10:25 [facility] [id number]) Physical Therapy Assessment Goals FGA Impairment balance Jail Goal (LTG) FGA to to demonstrate dec risk for falls LTG Duration 08/17/18 Four Impairment occ ambulating Jail Goal (LTG) Pt will walk at least 4x/week for 2 miles. LTG Duration 09/08/18-unable to walk d/t weather Two Impairment dec strength Short Term Goal (STG) Pt will be independent with HEP. STG Duration 05/12/18 -achieved Paper Rewinder Goal (LTG) Pt will score a 5/5 on all LE MMT. 06-16-18. Improved ti 4+/ 5 LTG Duration 09/14/18 Assessment Summary Assessment Pt is improving with balance but still has difficulty with NBOS activities and when EC. She is improving overall with HEP compliance Physical Therapy Plan Frequency and Duration Frequency of Treatment 1x/Week Duration of Treatment 2 months Plan of Care Start Date 08/09/18 Plan of Care End Date 10/07/18 Therapeutic Interventions Therapeutic Interventions Gait Training Home Exercise Program Neuromuscular Re-education Patient/Caregiver Education Self-Care/Home Management Taping Therapeutic Activities Therapeutic Exercises Next Visit Focus/Plan Next Note Type Treatment Note Next Visit Plan Cont to advance balance Plan of Care Dates Plan of Care Start Date 08/09/18 Plan of Care End Date 10/07/18 Please Sign and Return: I have reviewed this Plan of Care and certify that the skilled therapy services above are required to meet the patient?s needs. Physician Signature Date Printed Name and Credentials Clinical Instructor Signature Printed Name and Credentials
--- NOTE | 2018-10-04 11:49 | PT.OTN ---
Current Diagnoses Other abnormalities of gait and mobility (10/04/18) Physical Therapy Treatment Note PT-OP-A Visit Information Start: 04/11/18 16:44 Freq: Status: Active Protocol: Document 10/04/18 11:45 [facility] (Rec: 10/04/18 11:49 [facility] [id number]) Out-Patient Physical Therapy Visit Information Visit Information Visit Type Treatment Note Visit Start Time 11:20 Visit Stop Time 11:35 Total Visit Minutes 15 PT-OP-B Current Condition Start: 04/11/18 16:44 Freq: Status: Active Protocol: Document 04/11/18 16:46 ML (Rec: 04/11/18 17:16 ML [email or web address]) Current Condition History of Current Condition Current Complaints dec balance History of Current Condition 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 Pt reports having 2 sessions of PT prior to this since CVA, and despite improvement feels as though her balance and strength could improve. Pt gave up using her cane 5 days ago, and has been successful at safely walking 1.25 miles with her dog regularly to the park without dizziness. Pt emphasizes her caution/ awareness and moving slowly through all things and reports that she is frequently looking for something or someone to hold onto through activities that require unstable surfaces, quick rotational movements, low lighting, or change in surface height (stairs without rail). Pt also explains her frustration for memory difficulties of event that have happened recently. Treatment Goals Patient/Caregiver Goals gain strength in UEs and LEs; inc balance unsupported for gait and functional activities PT-OP-C Subjective Start: 04/11/18 16:44 Freq: Status: Active Protocol: Document 10/04/18 11:45 [facility] (Rec: 10/04/18 11:49 [facility] [email or web address]) OP-PT Subjective Patient Comments Patient Comments Pt reports she is pursueing brain therapy in [place] and will no longer be able to attend PT. PT-OP-D Balance Start: 04/11/18 16:44 Freq: Status: Active Protocol: Document 04/11/18 16:46 ML (Rec: 04/11/18 17:16 ML [email or web address]) Balance Tests Other Other Balance Tests Performed FGA: PT-OP-G Mobility & Gait Start: 04/11/18 16:44 Freq: Status: Active Protocol: Document 04/11/18 16:46 ML (Rec: 04/11/18 17:16 ML [email or web address]) OP Gait Assessment Gait Gait Assistance Required: Independent Comments Gait Comments Pt moves very slowly through all gait motions, pt's HUSAM is very wide to inc balance PT-OP-M Strength Start: 04/11/18 16:44 Freq: Status: Active Protocol: Document 06/16/18 11:10 SA (Rec: 06/16/18 11:20 SA [email or web address]) Hip Strength Hip Manual Muscle Testing Right Flexion (L2) 4+ Good+ Extension (S1) 5 Normal Abduction 4 Good External Rotation 4 Good Internal Rotation 5 Normal Left Flexion (L2) 4+ Good+ Extension (S1) 5 Normal Abduction 5 Normal External Rotation 4+ Good+ Internal Rotation 5 Normal Knee Strength Knee Manual Muscle Testing Right Flexion (S2) 5 Normal Extension (L3) 5 Normal Left Flexion (S2) 5 Normal Extension (L3) 5 Normal Ankle/Foot Strength Ankle and Foot Manual Muscle Testing Right Dorsiflexion (L4) 4+ Good+ Plantarflexion (S1) 5 Normal Left Dorsiflexion (L4) 4+ Good+ Plantarflexion (S1) 5 Normal PT-OP-Q Treatments Start: 04/11/18 16:44 Freq: Status: Active Protocol: Document 10/04/18 11:45 [facility] (Rec: 10/04/18 11:49 [facility] [id number]) Self-Care/Home Management Treatment Education Other Education Verbal review of exercises; review of documenting when she does them and doing them at least 3-4x/week and walking 3- 6x/week. PT-OP-T Assessment and Plan Start: 04/11/18 16:44 Freq: Status: Active Protocol: Document 10/04/18 11:45 [facility] (Rec: 10/04/18 11:49 [facility] [id number]) Physical Therapy Assessment Goals FGA Impairment balance Nursing Home Goal (LTG) FGA to to demonstrate dec risk for falls LTG Duration 08/17/18 Four Impairment occ ambulating Nursing Home Goal (LTG) Pt will walk at least 4x/week for 2 miles. LTG Duration 09/08/18-unable to walk d/t weather Two Impairment dec strength Short Term Goal (STG) Pt will be independent with HEP. STG Duration 05/12/18 -achieved Wrecking Mechanic Goal (LTG) Pt will score a 5/5 on all LE MMT. 06-16-18. Improved ti 4+/ 5 LTG Duration 09/14/18 Assessment Summary Assessment Pt has improved significantly over course of therapy with strength and balance. Verbal review was given for exercises and frequency as pt plans to pursue a brain therapy in [place] for her memory and will no longer be able to attend. Physical Therapy Plan Discharge Physical Therapy Discharge Reasons Patient Request
== END 2018-10-04 13:15 ==
LOC: PHYS 11:15
PROVIDERS: Family Provider Internal Medicine; PCP Internal Medicine; Visit Provider Internal Medicine
DX: R26.89 Other abnormalities of gait and mobility (principal)
CPT/HCPCS: 95831; 97110; 97112; 97116; 97161; 97535

== ENCOUNTER → 2018-10-06 08:08 | Outpatient (CLI) | payer MEDICARE, OTHER, SELFPAY ==
[2018-05-23 19:50] VITALS: BMI 40.9
[2018-10-06 11:46] LABS: Alanine Aminotransferase 26 IU/L (9-52); Albumin 4.2 g/dL (3.5-5.0); Albumin Globulin Ratio 1.6 (1.0-2.8); Alkaline Phosphatase 75 U/L (38-126); Aspartate Aminotransferase 16 IU/L (14-36); Bilirubin Total 0.5 mg/dL (0.2-1.3); Blood Urea Nitrogen 20 mg/dL (7-17); Calcium 9.6 mg/dL (8.4-10.2); Carbon Dioxide 28 mmol/L (22-32); Chloride 102 mmol/L (98-107); Cholesterol 171 mg/dL (140-199); Estimated Glomerular Filt Rate 54.5 mL/min (>60); Globulin 2.7 g/dL (1.7-4.1); Glucose 140 mg/dL (80-110); HDL Cholesterol 44 mg/dL (40-60); HEMOLYSIS < 15 (0-50); LDL Cholesterol Calculated 95 mg/dL (<100); Sodium 139 mmol/L (137-145); Total Protein 6.9 g/dL (6.3-8.2); Triglycerides 162 mg/dL (35-150)
[2018-10-06 12:11] LABS: Thyroid Stimulating Hormone 2.21 uIU/mL (0.47-4.68)
[2018-10-06 12:50] LABS: Creatinine Urine Random 35.7 mg/dL
[2018-10-06 12:54] LABS: Microalbumi Creatinin Ratio Ur 25.2 ug/mg CR (<30); Microalbumin Urine Random 0.9 mg/dL (0-1.6)
[2018-10-06 15:26] LABS: Vitamin D 25 Hydroxy (D3) 56.8 ng/mL (30.0-100.0)
== END ==
PROVIDERS: PCP Internal Medicine; Visit Provider Internal Medicine
DX: E11.9 Type 2 diabetes mellitus without complications (principal); E03.9 Hypothyroidism, unspecified; E78.5 Hyperlipidemia, unspecified; I10 Essential (primary) hypertension; E55.9 Vitamin D deficiency, unspecified
CPT/HCPCS: 36415; 80053; 80061; 82043; 82306; 82570; 83036; 84443

== ENCOUNTER → 2019-06-05 08:29 | Outpatient (CLI) | payer MEDICARE, OTHER, SELFPAY ==
[2018-05-23 19:50] VITALS: BMI 40.9
[2019-06-07 21:52] LABS: Albumin 3.5 g/dL (3.8-4.8); Alpha 1 Globulin 0.4 g/dL (0.2-0.3); Alpha 2 Globulin 0.9 g/dL (0.5-0.9); Beta 1 Globulin 0.4 g/dL (0.4-0.6); Gamma Globulin 0.7 g/dL (0.8-1.7); Protein, Total 6.2 g/dL (6.1-8.1)
[2019-06-08 19:20] LABS: Methylmalonic Acid 423 nmol/L (87-318)
== END ==
PROVIDERS: PCP Internal Medicine; Visit Provider Psychiatry & Neurology Neurology
DX: R41.89 Other symptoms and signs involving cognitive functions and awareness (principal)
CPT/HCPCS: 36415; 83921; 84155; 84165

== ENCOUNTER → 2019-07-20 13:10 | Outpatient (ROUT) | payer MEDICARE, OTHER, SELFPAY ==
[2018-05-23 19:50] VITALS: BMI 40.9
[2019-07-20 13:21] LABS: Add Manual Diff / Slide Review NO; Basophils Absolute Auto 100 /uL (0-100); Basophils Percent Auto 1.2 % (0-2); Eosinophils Absolute Auto 100 /uL (0-450); Eosinophils Percent Auto 0.7 % (2-4); Hematocrit 37.4 % (36-46); Hemoglobin 12.5 g/dL (12.0-16.0); Lymphocytes Absolute Auto 1900 /uL (1100-4500); Mean Corpuscular HGB Conc 33.4 % (30-36); Mean Corpuscular Hemoglobin 29.1 PG (26-34); Mean Corpuscular Volume 87.1 fL (80-100); Monocytes Absolute Auto 800 /uL (0-900); Monocytes Percent Auto 7.7 % (3-14); Neutrophils Absolute Auto 7700 /uL (1500-7000); Neutrophils Percent Auto 72.4 % (50-75); Platelet Count 349 X10^3/uL (150-400); Red Blood Cell Count 4.29 X10^6/uL (4.0-5.2); Red Cell Distribution Width 16.2 % (11.6-14.8); White Blood Cell Count 10.7 X10^3/uL (4.5-11.0)
[2019-07-20 13:24] LABS: Alanine Aminotransferase 16 IU/L (<35); Albumin 3.7 g/dL (3.5-5.0); Albumin Globulin Ratio 1.3 (1.0-2.8); Alkaline Phosphatase 91 U/L (38-126); Aspartate Aminotransferase 18 IU/L (14-36); Bilirubin Total 0.4 mg/dL (0.2-1.3); Blood Urea Nitrogen 27 mg/dL (7-17); Calcium 9.8 mg/dL (8.4-10.2); Carbon Dioxide 26 mmol/L (22-32); Chloride 105 mmol/L (98-107); Estimated Glomerular Filt Rate > 60.0 mL/min (>60); Globulin 2.9 g/dL (1.7-4.1); Glucose 170 mg/dL (80-110); HEMOLYSIS < 15 (0-50); Potassium 3.9 mmol/L (3.4-5.1); Sodium 141 mmol/L (137-145); Total Protein 6.6 g/dL (6.3-8.2)
[2019-07-20 13:40] LABS: B Type Natriuretic Peptide < 100 (<100)
[2019-07-20 13:54] LABS: TSH w/ Reflex to FT4 3.62 uIU/mL (0.47-4.68)
[2019-07-20 13:55] LABS: Carcinoembryonic Antigen 2.6 ng/mL (0.1-3.0)
[2019-07-23 12:01] LABS: Cancer Antigen 27.29 18 U/mL (< 38)
== END ==
PROVIDERS: PCP Internal Medicine; Visit Provider Internal Medicine
DX: R06.00 Dyspnea, unspecified (principal); Z85.3 Personal history of malignant neoplasm of breast; R53.83 Other fatigue
CPT/HCPCS: 80053; 82378; 83880; 84443; 85025; 86300

== ENCOUNTER → 2019-07-27 10:47 | Outpatient (CLI) | payer MEDICARE, OTHER, SELFPAY ==
[2018-05-23 19:50] VITALS: BMI 40.9
--- NOTE | 2019-07-27 | DI.MRI.S_ITS ---
PROCEDURE: MR THORACIC SPINE WO/W CON INDICATIONS: BREAST CANCER URINARY INCONTINENCE TECHNIQUE: Noncontrast sagittal T1 spin echo and T2 fast spin echo, sagittal STIR, axial T1 and T2 fast spin echo through the thoracic spine. After the administration of contrast, axial and sagittal T1 spin echo with fat saturation through the thoracic spine. COMPARISON: None. FINDINGS: Image quality: Excellent. Alignment and curvature: There is normal bony alignment. Marrow: Marrow is of normal overall signal. Increased T1 and T2 signal is present within the T12 vertebral body most suggestive of hemangioma. No acute vertebral body compression fractures. Spinal cord: Visualized spinal cord is of normal signal and size, without abnormal enhancement. Paraspinous soft tissues: No paravertebral masses or abnormal enhancement. Miscellaneous: Central canal and foramina appear widely patent at all scanned levels. Bridging anterior osteophytes are noted at T3-4. Minimal disc bulges are present at T2-3, T3-4, left posterior paracentral bulge at T6-7, T7-8, T8-9, causing effacement of the anterior thecal sac. IMPRESSION: 1. Little disc bulges with effacement of the anterior thecal sac. 2. There is no abnormal enhancement. 3. Vertebral body lesion at T12 appearing most suggestive of hemangioma. Dictated by: Emilee Rodriguez M.D. on 07/27/2019 at 16:54 Approved by: Emilee Rodriguez M.D. on 07/27/2019 at 16:58
--- NOTE | 2019-07-27 | DI.MRI.S_ITS ---
PROCEDURE: MR LUMBAR SPINE WO/W CON INDICATIONS: BREAST CANCER URINARY INCONTINENCE TECHNIQUE: Noncontrast sagittal T1 spin echo and T2 fast spin echo, sagittal STIR, axial T1 and T2 fast spin echo through the lumbar spine. In cases with scoliosis, additional coronal T2 fast spin echo may be performed. After the administration of contrast, sagittal and axial T1 spin echo with fat saturation through the lumbar spine. COMPARISON: None. FINDINGS: Image quality: Excellent. Alignment and curvature: There is normal bony alignment. Marrow: Marrow is of normal overall signal. Increased T1 and T2 signal is present at L3 most suggestive of a hemangioma. No acute vertebral body compression fractures. No suspicious marrow enhancement. Spinal cord: Conus medullaris terminates at the L2 level. Visualized spinal cord demonstrates normal signal, without suspicious enhancement. Paraspinous soft tissues: No paravertebral masses or abnormal enhancement. Discs: Multilevel moderate disc desiccation is present. L1-L2: No disc bulge, spinal stenosis or foraminal narrowing. Mild facet and ligamentum flavum hypertrophy. L2-L3: Minimal disc bulge without spinal stenosis or foraminal narrowing. Mild facet and ligamentum flavum hypertrophy. L3-L4: Mild disc bulge without spinal stenosis. Facet and ligamentum flavum hypertrophy are present. L4-L5: Mild disc bulge with minimal spinal stenosis. No foraminal narrowing. Facet and ligamentum flavum hypertrophy are present. L5-S1: Mild disc bulge without spinal stenosis. No foraminal narrowing. IMPRESSION: 1. Multilevel degenerative changes as above. 2. No definitively identified areas of metastatic disease within the spine. Dictated by: Emilee Rodriguez M.D. on 07/27/2019 at 16:58 Approved by: Emilee Rodriguez M.D. on 07/27/2019 at 17:00
--- NOTE | 2019-07-27 | DI.MRI.S_ITS ---
PROCEDURE: MR CERVICAL SPINE WO/W CON INDICATIONS: BREAST CANCER URINARY INCONTINENCE TECHNIQUE: Noncontrast sagittal T1 spin echo and T2 fast spin echo, sagittal STIR, foraminal oblique sagittal T2 fast spin echo, axial gradient echo or T2 fast spin echo through the cervical spine. After the administration of contrast, axial and sagittal T1 spin echo with fat saturation through the cervical spine. COMPARISON: None. FINDINGS: Image quality: Excellent. Alignment and curvature: There is trace anterolisthesis of C3 on C4, C4 on C5, trace retrolisthesis of C5 on C6. Marrow: Marrow is normal in overall signal, without suspicious enhancement. Spinal cord: Visualized spinal cord has normal size and signal. No cerebellar tonsillar herniation. No abnormal intramedullary enhancement. Paraspinous soft tissues: No paravertebral masses or suspicious enhancement. Discs: Multilevel moderate to severe disc space narrowing is present. C2-3: Mild disc bulge without spinal stenosis. Severe left foraminal narrowing with uncovertebral hypertrophy. C3-4: Mild disc bulge without spinal stenosis. Moderate to severe left foraminal narrowing with uncovertebral hypertrophy. C4-5: Mild left-sided asymmetric disc bulge with mild spinal stenosis. Moderate left and mild to moderate right foraminal narrowing with uncovertebral hypertrophy. C5-6: Mild disc bulge with severe spinal stenosis. Moderate to severe right and moderate left foraminal narrowing with uncovertebral hypertrophy. C6-7: Mild disc bulge with moderate spinal stenosis. Mild to moderate left and mild right foraminal narrowing with uncovertebral hypertrophy. C7-T1: No disc bulge, spinal stenosis or foraminal narrowing. IMPRESSION: 1. No areas of abnormal enhancement. 2. Spinal stenosis most severe at C5-6 and C6-7 secondary to disc bulge. 3. Multilevel foraminal narrowing most severe at C2-3 secondary to uncovertebral arthropathy. Dictated by: Emilee Rodriguez M.D. on 07/27/2019 at 16:49 Approved by: Emilee Rodriguez M.D. on 07/27/2019 at 16:53
== END ==
PROVIDERS: PCP Internal Medicine; Visit Provider Internal Medicine
DX: N39.42 Incontinence without sensory awareness (principal); M50.21 Other cervical disc displacement, high cervical region; M48.02 Spinal stenosis, cervical region; M51.24 Other intervertebral disc displacement, thoracic region; M51.26 Other intervertebral disc displacement, lumbar region; Z85.3 Personal history of malignant neoplasm of breast
CPT/HCPCS: 72156; 72157; 72158; A9579

== ENCOUNTER 2019-12-02 12:04 | Inpatient (IN) | payer MEDICARE, OTHER, SELFPAY ==
[2018-05-23 19:50] VITALS: BMI 40.9
[2019-12-02] VITALS (33 sets, daily range): BP systolic 118–170; BP diastolic 72–120; PULSE 66–137; RESP 18–32; TEMP 36.3–36.7; O2SAT 92–97; BMI 34.9
[2019-12-02 12:48] LABS: Add Manual Diff / Slide Review NO; Basophils Absolute Auto 100 /uL (0-100); Basophils Percent Auto 0.7 % (0-2); Eosinophils Absolute Auto 100 /uL (0-450); Eosinophils Percent Auto 0.7 % (2-4); Hematocrit 34.3 % (36-46); Hemoglobin 11.5 g/dL (12.0-16.0); Lymphocytes Absolute Auto 1600 /uL (1100-4500); Lymphocytes Percent Auto 17.4 % (25-40); Mean Corpuscular HGB Conc 33.4 % (30-36); Mean Corpuscular Volume 83.7 fL (80-100); Monocytes Absolute Auto 700 /uL (0-900); Monocytes Percent Auto 8.1 % (3-14); Neutrophils Absolute Auto 6700 /uL (1500-7000); Neutrophils Percent Auto 73.1 % (50-75); Platelet Count 288 X10^3/uL (150-400); Red Blood Cell Count 4.09 X10^6/uL (4.0-5.2); Red Cell Distribution Width 17.7 % (11.6-14.8); White Blood Cell Count 9.2 X10^3/uL (4.5-11.0)
[2019-12-02] MEDS: TRANEXAMIC ACID 1,000 MG VIAL 1000 MG (13:00)
[2019-12-02] MEDS: LIDOCAINE 2% INJ MDV 20 ML (13:00)
[2019-12-02 13:09] LABS: INR 1.4 (0.9-1.3); Prothrombin Time 16.5 SECONDS (10.1-12.7)
[2019-12-02 13:12] LABS: PTT Partial Thromboplastin Tim 35 SECONDS (26.4-36.2)
[2019-12-02 13:13] LABS: Alanine Aminotransferase 46 IU/L (<35); Albumin 3.7 g/dL (3.5-5.0); Albumin Globulin Ratio 1.2 (1.0-2.8); Alkaline Phosphatase 91 U/L (38-126); Aspartate Aminotransferase 28 IU/L (14-36); BUN Creatinine Ratio 22.3 (6-22); Bilirubin Total 0.4 mg/dL (0.2-1.3); Blood Urea Nitrogen 27 mg/dL (7-17); Calcium 9.4 mg/dL (8.4-10.2); Carbon Dioxide 24 mmol/L (22-32); Chloride 109 mmol/L (98-107); Estimated Glomerular Filt Rate 43.6 mL/min (>60); Glucose 160 mg/dL (80-110); HEMOLYSIS < 15 (0-50); Potassium 4.3 mmol/L (3.4-5.1); Sodium 142 mmol/L (137-145); Total Protein 6.7 g/dL (6.3-8.2)
--- NOTE | 2019-12-02 13:48 | ED.PEDHENT ---
HPI - Pediatric HENT <SERAFIN Rangel-BC - Last Filed: 12/02/19 18:28> General Chief complaint: Nasal Problem Stated complaint: Excessive nose bleed 45 minutes Time Seen by Provider: 12/02/19 12:24 Source: patient and family Mode of arrival: Ambulatory Limitations: no limitations History of Present Illness HPI Narrative: The patient is a 74-year-old female nonsmoker with history of AFib on Eliquis who presents with a chief complaint of a nosebleed spontaneously at 10:45 a.m.. She states that she was sitting in a chair and suddenly bleeding severe out of her left nare. She denies any falls or trauma. She states that she tried to hold pressure and sat back, laying down to try to stop the bleeding. Wound is not controlled, she came to the emergency department with her . She denies any falls, trauma, chest pain, shortness of breath, just states that she has ?bleeding from my nose. Related Data Home Medications Medication Instructions Recorded Confirmed aspirin 81 mg PO BID #0 09/21/11 12/04/19 cholecalciferol (vitamin D3) 2,000 iu PO BID #0 09/21/11 12/04/19 [Vitamin D3] [DEEP SLEEP] 1 cap PO BEDTIME PRN #0 05/06/17 12/04/19 atorvastatin 20 mg PO DAILY 05/23/18 12/04/19 folic acid 1 mg PO DAILY 05/23/18 12/04/19 levothyroxine 50 mcg PO DAILY 05/23/18 12/04/19 metformin 500 mg PO BID 05/23/18 12/04/19 Respironics Dreamstation Auto CPAP #1 ea 08/01/18 12/04/19 Previous Rx's Medication Instructions Recorded apixaban [Eliquis] 5 mg PO BID 30 Days #60 tab 12/04/19 digoxin 125 mcg PO DAILY 30 Days #30 tab 12/04/19 metoprolol succinate 100 mg PO BID 30 Days #60 tab 12/04/19 Allergies Allergy/AdvReac Type Severity Reaction Status Date / Time Sulfa (Sulfonamide Allergy Mild RASH Verified 12/24/19 11:21 Antibiotics) [SULFA (SULFONAMIDE ANTIBIOTICS)] codeine [CODEINE] AdvReac Mild N/V Verified 12/24/19 11:21 Patient History <SERAFIN Rangel-BC - Last Filed: 12/02/19 18:28> Medical History Breast cancer (Acute) Dementia (Acute) Diabetes type 2, controlled (Acute) HTN (hypertension) (Chronic) Hypothyroidism (acquired) (Chronic) Intraparenchymal hemorrhage of brain (Inactive) Obstructive sleep apnea of adult (Chronic) Surgical History History of bilateral mastectomy (Acute) History of hysterectomy (Acute) History of vein stripping (Acute) Family History Mother Ovarian cancer Father Leukemia Brother Diabetes mellitus Social History household members: spouse Smoking Status: Never smoker Smoking Status: Never smoker alcohol intake frequency: 0-2 drinks per day Substance Use Type: does not use Pediatric Exam <Ame Kendall [facility]- - Last Filed: 12/02/19 18:28> Narrative Physical exam: GENERAL: Elderly, obese female, bleeding from nose HEAD: Atraumatic. Normocephalic. No temporal or scalp tenderness. EYES: Pupils equal round and reactive. Extraocular motions intact. No scleral icterus. No injection or drainage. ENT: Airway patent. Uvula midline. Epistaxis noted from left nare. Blood clots and mouth. Unable to visualize bleeding source. NECK: Trachea midline. No JVD or lymphadenopathy. Supple, nontender, no meningeal signs. CARDIOVASCULAR: Tachycardic rate and regular rhythm RESPIRATORY: Clear to auscultation. Breath sounds equal bilaterally. No wheezes, rales, or rhonchi. No cough. No increased respiratory effort. No accessory muscle use. GASTROINTESTINAL: Abdomen soft, non-tender, nondistended. No hepato-splenomegaly, or palpable masses. No guarding. EXTREMITIES: No clubbing, cyanosis, or edema. No joint tenderness, effusion, or edema noted. BACK: Nontender without deformity or crepitance. No flank tenderness. NEURO: AOx3. SKIN: No rash or erythema. Initial Vital Signs Initial Vital Signs: Vital Signs Temperature 98.0 F 12/02/19 12:20 Pulse Rate 135 H 12/02/19 12:20 Respiratory Rate 24 12/02/19 12:20 Blood Pressure 138/80 12/02/19 12:20 Pulse Oximetry 97 12/02/19 12:20 General Limitations: no limitations Expanded Neurological Exam Eye Opening: Spontaneous Verbal Response: Orientated Motor Response: Obey commands Lorenzo Coma Scale Total: 15 <Gab Regalado MD - Last Filed: 12/24/19 18:35> Initial Vital Signs Initial Vital Signs: Vital Signs Temperature 98.0 F 12/02/19 12:20 Pulse Rate 135 H 12/02/19 12:20 Respiratory Rate 24 12/02/19 12:20 Blood Pressure 138/80 12/02/19 12:20 Pulse Oximetry 97 12/02/19 12:20 Procedures <KARELY Rangel - Last Filed: 12/02/19 18:28> Epistaxis Control Time Out Performed: Yes Nostril: left Nose Prepped With: lidocaine and oxymetazoline Direct Inspection: unable to visualize Cautery Used: none Device Inserted: nasal tampon Patient Tolerated Procedure: well Scores <KARELY Rangel - Last Filed: 12/02/19 18:28> GCS Lorenzo coma scale eye opening: Spontaneous Lorenzo coma scale verbal response: Orientated [place] coma scale motor response: Obey commands Lorenzo coma scale total score: 15 Course <KARELY Rangel - Last Filed: 12/02/19 18:28> Orders Ordered: Discontinued Medications Apixaban (Eliquis) 5 mg PO BID [facility] Last Admin: 12/04/19 08:50 Dose: 5 mg Documented by: Admin: 12/03/19 21:16 Dose: 5 mg Documented by: Admin: 12/03/19 08:27 Dose: 5 mg Documented by: SORAYA Aspirin (Aspirin Chew) 81 mg PO BID [facility] Last Admin: 12/04/19 08:50 Dose: 81 mg Documented by: Admin: 12/03/19 21:16 Dose: 81 mg Documented by: Admin: 12/03/19 08:26 Dose: 81 mg Documented by: Admin: 12/02/19 21:30 Dose: 81 mg Documented by: XIOMARA Atorvastatin Calcium (Lipitor) 20 mg PO BEDTIME [facility] Last Admin: 12/03/19 21:16 Dose: 20 mg Documented by: RICHIE Carvedilol (Coreg) 6.25 mg PO BID [facility] Last Admin: 12/03/19 02:14 Dose: 6.25 mg Documented by: Admin: 12/02/19 20:59 Dose: Not Given Documented by: XIOMARA Carvedilol (Coreg) 12.5 mg PO BID [facility] Last Admin: 12/03/19 08:26 Dose: 12.5 mg Documented by: SORAYA Dextrose (D50w) 25 gm IV PRN PRN; Protocol PRN Reason: Hypoglycemia Digoxin (Lanoxin) 250 mcg IV Q6H [facility] Stop: 12/03/19 04:01 Last Admin: 12/03/19 05:09 Dose: 250 mcg Documented by: Admin: 12/02/19 22:25 Dose: 250 mcg Documented by: RICHIE Digoxin (Lanoxin) 0.125 mg PO DAILY@1700 [facility] Last Admin: 12/03/19 17:01 Dose: 0.125 mg Documented by: RICHIE Diltiazem HCl (Cardizem) 10 mg IV NOW ONE Stop: 12/02/19 14:37 Last Admin: 12/02/19 14:45 Dose: 10 mg Documented by: VIRY Diltiazem HCl (Cardizem) 10 mg IV NOW ONE Stop: 12/02/19 15:08 Last Admin: 12/02/19 15:12 Dose: 10 mg Documented by: VIRY Enoxaparin Sodium (Lovenox) 40 mg SUBCUT DAILY [facility] Folic Acid (Folic Acid) 1 mg PO DAILY [facility] Last Admin: 12/04/19 08:50 Dose: 1 mg Documented by: Admin: 12/03/19 08:26 Dose: 1 mg Documented by: SORAYA Sodium Chloride (Normal Saline 0.9%) 1,000 mls @ 1,000 mls/hr IV BOLUS ONE Stop: 12/02/19 14:27 Last Infusion: 12/02/19 15:45 Dose: 0 mls/hr Documented by: Admin: 12/02/19 14:35 Dose: 1,000 mls/hr Documented by: VIRY DILTIAZEM (Diltiazem 125 Mg/125 Ml-D5w) 125 mg in 125 mls @ 5 mls/hr IV TITRATE [facility]; Protocol Last Titration: 12/04/19 09:10 Dose: 0 mg/hr, 0 mls/hr Documented by: Titration: 12/04/19 08:00 Dose: 5 mg/hr, 5 mls/hr Documented by: Titration: 12/04/19 07:05 Dose: 10 mg/hr, 10 mls/hr Documented by: Admin: 12/04/19 02:57 Dose: 15 mg/hr, 15 mls/hr Documented by: Titration: 12/04/19 02:57 Dose: 15 mg/hr, 15 mls/hr Documented by: Titration: 12/04/19 01:41 Dose: 15 mg/hr, 15 mls/hr Documented by: Titration: 12/04/19 01:21 Dose: 12.5 mg/hr, 12.5 mls/hr Documented by: Titration: 12/03/19 22:21 Dose: 10 mg/hr, 10 mls/hr Documented by: Titration: 12/03/19 19:28 Dose: 7.5 mg/hr, 7.5 mls/hr Documented by: Titration: 12/03/19 17:02 Dose: 5 mg/hr, 5 mls/hr Documented by: Admin: 12/03/19 13:18 Dose: 10 mg/hr, 10 mls/hr Documented by: Titration: 12/03/19 12:16 Dose: 10 mg/hr, 10 mls/hr Documented by: Titration: 12/03/19 08:07 Dose: 10 mg/hr, 10 mls/hr Documented by: Titration: 12/03/19 04:00 Dose: 15 mg/hr, 15 mls/hr Documented by: Titration: 12/03/19 01:39 Dose: 5 mg/hr, 5 mls/hr Documented by: Titration: 12/03/19 01:22 Dose: 10 mg/hr, 10 mls/hr Documented by: Admin: 12/03/19 00:53 Dose: 15 mg/hr, 15 mls/hr Documented by: Titration: 12/03/19 00:53 Dose: 15 mg/hr, 15 mls/hr Documented by: Admin: 12/02/19 23:51 Dose: 15 mg/hr, 15 mls/hr Documented by: Titration: 12/02/19 23:51 Dose: 15 mg/hr, 15 mls/hr Documented by: Titration: 12/02/19 18:46 Dose: 15 mg/hr, 15 mls/hr Documented by: Titration: 12/02/19 18:15 Dose: 10 mg/hr, 10 mls/hr Documented by: Titration: 12/02/19 17:35 Dose: 5 mg/hr, 5 mls/hr Documented by: Admin: 12/02/19 17:06 Dose: 5 mg/hr, 5 mls/hr Documented by: VIRY Sodium Chloride (Normal Saline 0.45%) 1,000 mls @ 0 mls/hr IV CONT [facility] Last Infusion: 12/03/19 10:20 Dose: 0 mls/hr Documented by: Infusion: 12/03/19 03:00 Dose: 0 mls/hr Documented by: Admin: 12/02/19 17:45 Dose: 100 mls/hr Documented by: XIOMARA Insulin Aspart (Novolog Flexpen) 0 unit SUBCUT ACHS [facility]; Protocol Last Admin: 12/04/19 12:21 Dose: 1 unit Documented by: LOLI Cosigned by: SARAH Admin: 12/04/19 08:48 Dose: 1 unit Documented by: LOLI Cosigned by: SARAH Admin: 12/03/19 21:17 Dose: Not Given Documented by: Admin: 12/03/19 17:02 Dose: 1 unit Documented by: RICHIE Cosigned by: BROOKLYN Admin: 12/03/19 13:17 Dose: Not Given Documented by: Admin: 12/03/19 08:19 Dose: Not Given Documented by: SORAYA Levothyroxine Sodium (Synthroid) 50 mcg PO 0600 [facility] Last Admin: 12/04/19 08:49 Dose: 50 mcg Documented by: Admin: 12/03/19 08:30 Dose: 50 mcg Documented by: SORAYA Lidocaine HCl (Xylocaine 1%) 10 ml INJ NOW ONE Stop: 12/02/19 12:37 Last Admin: 12/02/19 15:03 Dose: Not Given Documented by: VIRY Metformin HCl (Glucophage) 500 mg PO BID [facility] Last Admin: 12/02/19 20:58 Dose: 500 mg Documented by: XIOMARA Metoprolol Succinate (Toprol Xl) 25 mg PO NOW ONE Stop: 12/02/19 15:43 Last Admin: 12/02/19 16:00 Dose: 25 mg Documented by: VIRY Metoprolol Succinate (Toprol Xl) 75 mg PO BID [facility] Last Admin: 12/04/19 08:50 Dose: 75 mg Documented by: Admin: 12/03/19 21:16 Dose: 75 mg Documented by: RICHIE Metoprolol Tartrate (Lopressor) 5 mg IV NOW ONE Stop: 12/02/19 19:14 Last Admin: 12/02/19 19:27 Dose: 5 mg Documented by: XIOMARA Metoprolol Tartrate (Lopressor) 5 mg IV NOW ONE Stop: 12/02/19 19:52 Last Admin: 12/02/19 20:16 Dose: 5 mg Documented by: RICHIE Metoprolol Tartrate (Lopressor) 5 mg IV NOW ONE Stop: 12/02/19 20:54 Last Admin: 12/02/19 21:25 Dose: 5 mg Documented by: XIOMARA Naloxone HCl (Narcan) 0.2 mg IV Q2MIN PRN PRN Reason: Opiate Reversal Oxymetazoline HCl (Afrin) 2 sprays NASAL NOW ONE Stop: 12/02/19 12:54 Last Admin: 12/02/19 14:56 Dose: 2 sprays Documented by: VIRY Potassium Chloride (Klor-Con M20) 20 meq PO NOW ONE Stop: 12/04/19 07:54 Last Admin: 12/04/19 08:50 Dose: 20 meq Documented by: LOLI Tranexamic Acid (Cyklokapron) 5,000 mg INJ INTRA-OP ONE Stop: 12/02/19 12:37 Last Admin: 12/02/19 15:03 Dose: Not Given Documented by: VIRY Vitamin D (Vitamin D3) 2,000 unit PO BID [facility] Last Admin: 12/04/19 08:50 Dose: 2,000 unit Documented by: Admin: 12/03/19 21:16 Dose: 2,000 unit Documented by: Admin: 12/03/19 08:27 Dose: 2,000 unit Documented by: Admin: 12/02/19 20:58 Dose: 2,000 unit Documented by: MSTEWART Vital Signs Vital signs: Vital Signs - 8 hr 12/02/19 12:20 12/02/19 12:30 12/02/19 13:00 Temperature 98.0 F Pulse Rate 135 H 135 H Respiratory Rate 24 20 Blood Pressure 138/80 Blood Pressure [Right Arm] 168/80 H 168/85 H Pulse Oximetry 97 95 12/02/19 13:30 12/02/19 14:05 12/02/19 14:30 Temperature Pulse Rate 135 H 134 H 134 H Respiratory Rate 19 30 H 19 Blood Pressure Blood Pressure [Right Arm] 170/99 H 151/73 H 141/87 H Pulse Oximetry 94 92 94 12/02/19 15:00 12/02/19 15:43 12/02/19 16:00 Temperature Pulse Rate 135 H 135 H 137 H Respiratory Rate 32 H 22 32 H Blood Pressure Blood Pressure [Right Arm] 134/77 129/90 129/93 H Pulse Oximetry 95 95 96 12/02/19 16:46 12/02/19 17:00 12/02/19 17:30 Temperature Pulse Rate 134 H 135 H 134 H Respiratory Rate 22 25 H Blood Pressure Blood Pressure [Right Arm] 145/102 H 144/102 H 138/106 H Pulse Oximetry 95 96 <Gab Regalado MD - Last Filed: 12/24/19 18:35> Orders Ordered: Discontinued Medications Apixaban (Eliquis) 5 mg PO BID [facility] Last Admin: 12/04/19 08:50 Dose: 5 mg Documented by: Admin: 12/03/19 21:16 Dose: 5 mg Documented by: Admin: 12/03/19 08:27 Dose: 5 mg Documented by: SORAYA Aspirin (Aspirin Chew) 81 mg PO BID [facility] Last Admin: 12/04/19 08:50 Dose: 81 mg Documented by: Admin: 12/03/19 21:16 Dose: 81 mg Documented by: Admin: 12/03/19 08:26 Dose: 81 mg Documented by: Admin: 12/02/19 21:30 Dose: 81 mg Documented by: XIOMARA Atorvastatin Calcium (Lipitor) 20 mg PO BEDTIME [facility] Last Admin: 12/03/19 21:16 Dose: 20 mg Documented by: RICHIE Carvedilol (Coreg) 6.25 mg PO BID [facility] Last Admin: 12/03/19 02:14 Dose: 6.25 mg Documented by: Admin: 12/02/19 20:59 Dose: Not Given Documented by: XIOMARA Carvedilol (Coreg) 12.5 mg PO BID [facility] Last Admin: 12/03/19 08:26 Dose: 12.5 mg Documented by: SORAYA Dextrose (D50w) 25 gm IV PRN PRN; Protocol PRN Reason: Hypoglycemia Digoxin (Lanoxin) 250 mcg IV Q6H [facility] Stop: 12/03/19 04:01 Last Admin: 12/03/19 05:09 Dose: 250 mcg Documented by: Admin: 12/02/19 22:25 Dose: 250 mcg Documented by: RICHIE Digoxin (Lanoxin) 0.125 mg PO DAILY@1700 [facility] Last Admin: 12/03/19 17:01 Dose: 0.125 mg Documented by: RICHIE Diltiazem HCl (Cardizem) 10 mg IV NOW ONE Stop: 12/02/19 14:37 Last Admin: 12/02/19 14:45 Dose: 10 mg Documented by: VIRY Diltiazem HCl (Cardizem) 10 mg IV NOW ONE Stop: 12/02/19 15:08 Last Admin: 12/02/19 15:12 Dose: 10 mg Documented by: VIRY Enoxaparin Sodium (Lovenox) 40 mg SUBCUT DAILY [facility] Folic Acid (Folic Acid) 1 mg PO DAILY [facility] Last Admin: 12/04/19 08:50 Dose: 1 mg Documented by: Admin: 12/03/19 08:26 Dose: 1 mg Documented by: SORAYA Sodium Chloride (Normal Saline 0.9%) 1,000 mls @ 1,000 mls/hr IV BOLUS ONE Stop: 12/02/19 14:27 Last Infusion: 12/02/19 15:45 Dose: 0 mls/hr Documented by: Admin: 12/02/19 14:35 Dose: 1,000 mls/hr Documented by: MMCFARL DILTIAZEM (Diltiazem 125 Mg/125 Ml-D5w) 125 mg in 125 mls @ 5 mls/hr IV TITRATE [facility]; Protocol Last Titration: 12/04/19 09:10 Dose: 0 mg/hr, 0 mls/hr Documented by: Titration: 12/04/19 08:00 Dose: 5 mg/hr, 5 mls/hr Documented by: Titration: 12/04/19 07:05 Dose: 10 mg/hr, 10 mls/hr Documented by: Admin: 12/04/19 02:57 Dose: 15 mg/hr, 15 mls/hr Documented by: Titration: 12/04/19 02:57 Dose: 15 mg/hr, 15 mls/hr Documented by: Titration: 12/04/19 01:41 Dose: 15 mg/hr, 15 mls/hr Documented by: Titration: 12/04/19 01:21 Dose: 12.5 mg/hr, 12.5 mls/hr Documented by: Titration: 12/03/19 22:21 Dose: 10 mg/hr, 10 mls/hr Documented by: Titration: 12/03/19 19:28 Dose: 7.5 mg/hr, 7.5 mls/hr Documented by: Titration: 12/03/19 17:02 Dose: 5 mg/hr, 5 mls/hr Documented by: Admin: 12/03/19 13:18 Dose: 10 mg/hr, 10 mls/hr Documented by: Titration: 12/03/19 12:16 Dose: 10 mg/hr, 10 mls/hr Documented by: Titration: 12/03/19 08:07 Dose: 10 mg/hr, 10 mls/hr Documented by: Titration: 12/03/19 04:00 Dose: 15 mg/hr, 15 mls/hr Documented by: Titration: 12/03/19 01:39 Dose: 5 mg/hr, 5 mls/hr Documented by: Titration: 12/03/19 01:22 Dose: 10 mg/hr, 10 mls/hr Documented by: Admin: 12/03/19 00:53 Dose: 15 mg/hr, 15 mls/hr Documented by: Titration: 12/03/19 00:53 Dose: 15 mg/hr, 15 mls/hr Documented by: Admin: 12/02/19 23:51 Dose: 15 mg/hr, 15 mls/hr Documented by: Titration: 12/02/19 23:51 Dose: 15 mg/hr, 15 mls/hr Documented by: Titration: 12/02/19 18:46 Dose: 15 mg/hr, 15 mls/hr Documented by: Titration: 12/02/19 18:15 Dose: 10 mg/hr, 10 mls/hr Documented by: Titration: 12/02/19 17:35 Dose: 5 mg/hr, 5 mls/hr Documented by: Admin: 12/02/19 17:06 Dose: 5 mg/hr, 5 mls/hr Documented by: MMCFARL Sodium Chloride (Normal Saline 0.45%) 1,000 mls @ 0 mls/hr IV CONT [facility] Last Infusion: 12/03/19 10:20 Dose: 0 mls/hr Documented by: Infusion: 12/03/19 03:00 Dose: 0 mls/hr Documented by: Admin: 12/02/19 17:45 Dose: 100 mls/hr Documented by: XIOMARA Insulin Aspart (Novolog Flexpen) 0 unit SUBCUT ACHS [facility]; Protocol Last Admin: 12/04/19 12:21 Dose: 1 unit Documented by: LOLI Cosigned by: ASRAH Admin: 12/04/19 08:48 Dose: 1 unit Documented by: LOLI Cosigned by: SARAH Admin: 12/03/19 21:17 Dose: Not Given Documented by: Admin: 12/03/19 17:02 Dose: 1 unit Documented by: RICHIE Cosigned by: BROOKLYN Admin: 12/03/19 13:17 Dose: Not Given Documented by: Admin: 12/03/19 08:19 Dose: Not Given Documented by: SORAYA Levothyroxine Sodium (Synthroid) 50 mcg PO 0600 [facility] Last Admin: 12/04/19 08:49 Dose: 50 mcg Documented by: Admin: 12/03/19 08:30 Dose: 50 mcg Documented by: SORAYA Lidocaine HCl (Xylocaine 1%) 10 ml INJ NOW ONE Stop: 12/02/19 12:37 Last Admin: 12/02/19 15:03 Dose: Not Given Documented by: VIRY Metformin HCl (Glucophage) 500 mg PO BID [facility] Last Admin: 12/02/19 20:58 Dose: 500 mg Documented by: XIOMARA Metoprolol Succinate (Toprol Xl) 25 mg PO NOW ONE Stop: 12/02/19 15:43 Last Admin: 12/02/19 16:00 Dose: 25 mg Documented by: VIRY Metoprolol Succinate (Toprol Xl) 75 mg PO BID [facility] Last Admin: 12/04/19 08:50 Dose: 75 mg Documented by: Admin: 12/03/19 21:16 Dose: 75 mg Documented by: RICHIE Metoprolol Tartrate (Lopressor) 5 mg IV NOW ONE Stop: 12/02/19 19:14 Last Admin: 12/02/19 19:27 Dose: 5 mg Documented by: XIOMARA Metoprolol Tartrate (Lopressor) 5 mg IV NOW ONE Stop: 12/02/19 19:52 Last Admin: 12/02/19 20:16 Dose: 5 mg Documented by: RICHIE Metoprolol Tartrate (Lopressor) 5 mg IV NOW ONE Stop: 12/02/19 20:54 Last Admin: 12/02/19 21:25 Dose: 5 mg Documented by: XIOMARA Naloxone HCl (Narcan) 0.2 mg IV Q2MIN PRN PRN Reason: Opiate Reversal Oxymetazoline HCl (Afrin) 2 sprays NASAL NOW ONE Stop: 12/02/19 12:54 Last Admin: 12/02/19 14:56 Dose: 2 sprays Documented by: VIRY Potassium Chloride (Klor-Con M20) 20 meq PO NOW ONE Stop: 12/04/19 07:54 Last Admin: 12/04/19 08:50 Dose: 20 meq Documented by: LOLI Tranexamic Acid (Cyklokapron) 5,000 mg INJ INTRA-OP ONE Stop: 12/02/19 12:37 Last Admin: 12/02/19 15:03 Dose: Not Given Documented by: MMCFARL Vitamin D (Vitamin D3) 2,000 unit PO BID [facility] Last Admin: 12/04/19 08:50 Dose: 2,000 unit Documented by: Admin: 12/03/19 21:16 Dose: 2,000 unit Documented by: Admin: 12/03/19 08:27 Dose: 2,000 unit Documented by: Admin: 12/02/19 20:58 Dose: 2,000 unit Documented by: MSTANNA Vital Signs Vital signs: Vital Signs - 8 hr 12/02/19 12:20 12/02/19 12:30 12/02/19 13:00 Temperature 98.0 F Pulse Rate 135 H 135 H Respiratory Rate 24 20 Blood Pressure 138/80 Blood Pressure [Right Arm] 168/80 H 168/85 H Pulse Oximetry 97 95 12/02/19 13:30 12/02/19 14:05 12/02/19 14:30 Temperature Pulse Rate 135 H 134 H 134 H Respiratory Rate 19 30 H 19 Blood Pressure Blood Pressure [Right Arm] 170/99 H 151/73 H 141/87 H Pulse Oximetry 94 92 94 12/02/19 15:00 12/02/19 15:43 12/02/19 16:00 Temperature Pulse Rate 135 H 135 H 137 H Respiratory Rate 32 H 22 32 H Blood Pressure Blood Pressure [Right Arm] 134/77 129/90 129/93 H Pulse Oximetry 95 95 96 12/02/19 16:46 12/02/19 17:00 12/02/19 17:30 Temperature Pulse Rate 134 H 135 H 134 H Respiratory Rate 22 25 H Blood Pressure Blood Pressure [Right Arm] 145/102 H 144/102 H 138/106 H Pulse Oximetry 95 96 Medical Decision Making <SERAFIN Rangel-BC - Last Filed: 12/02/19 18:28> Lab Data Result diagrams: 12/04/19 04:34 12/04/19 04:34 Labs: Lab Results 12/02/19 12/02/19 12/02/19 Range/Units 12:40 12:40 12:40 WBC 9.2 (4.5-11.0) X10^3/uL RBC 4.09 (4.0-5.2) X10^6/uL Hgb 11.5 L (12.0-16.0) g/dL Hct 34.3 L (36-46) % MCV 83.7 (80-100) fL MCH 28.0 (26-34) PG MCHC 33.4 (30-36) % RDW 17.7 H (11.6-14.8) % Plt Count 288 (150-400) X10^3/uL Neut % (Auto) 73.1 (50-75) % Lymph % (Auto) 17.4 L (25-40) % Desha % (Auto) 8.1 (3-14) % Eos % (Auto) 0.7 L (2-4) % Baso % (Auto) 0.7 (0-2) % Neut # (Auto) 6700 (8336-7967) /uL Lymph # (Auto) 1600 (8309-3792) /uL Desha # (Auto) 700 (0-900) /uL Eos # (Auto) 100 (0-450) /uL Baso # (Auto) 100 (0-100) /uL PT 16.5 H (10.1-12.7) SECONDS INR 1.4 H (0.9-1.3) APTT 35 D (26.4-36.2) SECONDS Sodium 142 (137-145) mmol/L Potassium 4.3 (3.4-5.1) mmol/L Chloride 109 H (98-107) mmol/L Carbon Dioxide 24 (22-32) mmol/L BUN 27 H (7-17) mg/dL Creatinine 1.21 H (0.52-1.04) mg/dL Estimated GFR 43.6 L (>60) mL/min BUN/Creatinine Ratio 22.3 H (6-22) Glucose 160 H (80-110) mg/dL Calcium 9.4 (8.4-10.2) mg/dL Magnesium (1.6-2.3) mg/dL Total Bilirubin 0.4 (0.2-1.3) mg/dL AST 28 (14-36) IU/L ALT 46 H (<35) IU/L Alkaline Phosphatase 91 (38-126) U/L Total Creatine Kinase (30-135) U/L CK-MB (CK-2) CK-MB (CK-2) Rel Index Troponin I (0.01-0.034) ng/mL Total Protein 6.7 (6.3-8.2) g/dL Albumin 3.7 (3.5-5.0) g/dL Globulin 3.0 (1.7-4.1) g/dL Albumin/Globulin Ratio 1.2 (1.0-2.8) 12/02/19 12/02/19 12/02/19 Range/Units 12:46 12:46 15:14 WBC 10.6 (4.5-11.0) X10^3/uL RBC 4.04 (4.0-5.2) X10^6/uL Hgb 10.9 L (12.0-16.0) g/dL Hct 33.8 L (36-46) % MCV 83.8 (80-100) fL MCH 27.1 (26-34) PG MCHC 32.3 (30-36) % RDW 17.9 H (11.6-14.8) % Plt Count 290 (150-400) X10^3/uL Neut % (Auto) 74.0 (50-75) % Lymph % (Auto) 16.6 L (25-40) % Desha % (Auto) 8.5 (3-14) % Eos % (Auto) 0.5 L (2-4) % Baso % (Auto) 0.4 (0-2) % Neut # (Auto) 7800 H (7763-1649) /uL Lymph # (Auto) 1800 (7061-1829) /uL Desha # (Auto) 900 (0-900) /uL Eos # (Auto) 100 (0-450) /uL Baso # (Auto) 0 (0-100) /uL PT (10.1-12.7) SECONDS INR (0.9-1.3) APTT (26.4-36.2) SECONDS Sodium (137-145) mmol/L Potassium (3.4-5.1) mmol/L Chloride (98-107) mmol/L Carbon Dioxide (22-32) mmol/L BUN (7-17) mg/dL Creatinine (0.52-1.04) mg/dL Estimated GFR (>60) mL/min BUN/Creatinine Ratio (6-22) Glucose (80-110) mg/dL Calcium (8.4-10.2) mg/dL Magnesium 2.1 (1.6-2.3) mg/dL Total Bilirubin (0.2-1.3) mg/dL AST (14-36) IU/L ALT (<35) IU/L Alkaline Phosphatase (38-126) U/L Total Creatine Kinase 34 (30-135) U/L CK-MB (CK-2) TNP CK-MB (CK-2) Rel Index TNP Troponin I < 0.012 (0.01-0.034) ng/mL Total Protein (6.3-8.2) g/dL Albumin (3.5-5.0) g/dL Globulin (1.7-4.1) g/dL Albumin/Globulin Ratio (1.0-2.8) Imaging Data Chest x-ray: Radiologist's Impression: [address] [place] [id number] XRay Report Signed Patient: Leslee Johnson [facility]#: [id number] : 6Acct:[id number] Age/Sex: 74 / FDate of Service: 12/02/19 Loc: ED Accession Number: [id number] Procedure: XR chest 1V Ordering Provider: Ame Kendall- PROCEDURE: XR CHEST 1V INDICATIONS: tachycardia TECHNIQUE: One view of the chest was acquired. COMPARISON: [facility], , XR CHEST 1V, 05/23/2018, 15:41. FINDINGS: Surgical changes and devices: There are surgical clips seen within the left axilla. Lungs and pleura: Increased attenuation within the left artery is present no large effusion or pneumothorax is identified. Mediastinum: Mediastinal contours appear normal. Heart size is normal. Bones and chest wall: No suspicious bony lesions. Overlying soft tissues appear unremarkable. IMPRESSION: Left basilar atelectasis versus pneumonia. Correlate clinically. Dictated by: Jong Ng M.D. on 12/02/2019 at 16:27 Approved by: Jong Ng M.D. on 12/02/2019 at 16:28 l ECG Data Attestation: I personally reviewed and interpreted this ECG as follows: Interpretation: Atrial flutter. Ventricular rate 136. QRS 84. No ST elevation depression noted. viewed by Dr Regalado MDM Narrative Medical decision making narrative: The patient is a 74-year-old female who presents with a chief complaint of epistaxis onset this morning while sitting at her table. Hemostasis was achieved by a rhino rocket dipped into the aches a.m. lidocaine. However the patient was in atrial flutter in the 130s upon arrival to the emergency department. Her heart rate did not recover with fluids, rhino rocket etcetera. Given high HR, consulted Dr Regalado throughout her stay in ER. Patient's hemoglobin dropped from 11.5 to 10.9, with a L of fluid. She is given 10 mg IV diltiazem twice as per Dr Regalado's instructions, with no improvement. Then metoprolol succinate was attempted. Patient remains in atrial flutter in the 130s. That she was started on a diltiazem drip and I spoke with Dr. Morales regarding admission. The patient self-extricated her urine a rocket with no resumption of epistaxis. She has a negative troponin I discussed at length the importance of controlling her heart rate and admission patient has no questions or concerns and was subsequently admitted to the ICU on a diltiazem drip. <Gab Regalado MD - Last Filed: 12/24/19 18:35> Lab Data Labs: Lab Results 12/02/19 12/02/19 12/02/19 Range/Units 12:40 12:40 12:40 WBC 9.2 (4.5-11.0) X10^3/uL RBC 4.09 (4.0-5.2) X10^6/uL Hgb 11.5 L (12.0-16.0) g/dL Hct 34.3 L (36-46) % MCV 83.7 (80-100) fL MCH 28.0 (26-34) PG MCHC 33.4 (30-36) % RDW 17.7 H (11.6-14.8) % Plt Count 288 (150-400) X10^3/uL Neut % (Auto) 73.1 (50-75) % Lymph % (Auto) 17.4 L (25-40) % Desha % (Auto) 8.1 (3-14) % Eos % (Auto) 0.7 L (2-4) % Baso % (Auto) 0.7 (0-2) % Neut # (Auto) 6700 (6814-5447) /uL Lymph # (Auto) 1600 (3672-0936) /uL Desha # (Auto) 700 (0-900) /uL Eos # (Auto) 100 (0-450) /uL Baso # (Auto) 100 (0-100) /uL PT 16.5 H (10.1-12.7) SECONDS INR 1.4 H (0.9-1.3) APTT 35 D (26.4-36.2) SECONDS Sodium 142 (137-145) mmol/L Potassium 4.3 (3.4-5.1) mmol/L Chloride 109 H (98-107) mmol/L Carbon Dioxide 24 (22-32) mmol/L BUN 27 H (7-17) mg/dL Creatinine 1.21 H (0.52-1.04) mg/dL Estimated GFR 43.6 L (>60) mL/min BUN/Creatinine Ratio 22.3 H (6-22) Glucose 160 H (80-110) mg/dL Calcium 9.4 (8.4-10.2) mg/dL Magnesium (1.6-2.3) mg/dL Total Bilirubin 0.4 (0.2-1.3) mg/dL AST 28 (14-36) IU/L ALT 46 H (<35) IU/L Alkaline Phosphatase 91 (38-126) U/L Total Creatine Kinase (30-135) U/L CK-MB (CK-2) CK-MB (CK-2) Rel Index Troponin I (0.01-0.034) ng/mL Total Protein 6.7 (6.3-8.2) g/dL Albumin 3.7 (3.5-5.0) g/dL Globulin 3.0 (1.7-4.1) g/dL Albumin/Globulin Ratio 1.2 (1.0-2.8) 12/02/19 12/02/19 12/02/19 Range/Units 12:46 12:46 15:14 WBC 10.6 (4.5-11.0) X10^3/uL RBC 4.04 (4.0-5.2) X10^6/uL Hgb 10.9 L (12.0-16.0) g/dL Hct 33.8 L (36-46) % MCV 83.8 (80-100) fL MCH 27.1 (26-34) PG MCHC 32.3 (30-36) % RDW 17.9 H (11.6-14.8) % Plt Count 290 (150-400) X10^3/uL Neut % (Auto) 74.0 (50-75) % Lymph % (Auto) 16.6 L (25-40) % Desha % (Auto) 8.5 (3-14) % Eos % (Auto) 0.5 L (2-4) % Baso % (Auto) 0.4 (0-2) % Neut # (Auto) 7800 H (4292-7714) /uL Lymph # (Auto) 1800 (5842-4882) /uL Desha # (Auto) 900 (0-900) /uL Eos # (Auto) 100 (0-450) /uL Baso # (Auto) 0 (0-100) /uL PT (10.1-12.7) SECONDS INR (0.9-1.3) APTT (26.4-36.2) SECONDS Sodium (137-145) mmol/L Potassium (3.4-5.1) mmol/L Chloride (98-107) mmol/L Carbon Dioxide (22-32) mmol/L BUN (7-17) mg/dL Creatinine (0.52-1.04) mg/dL Estimated GFR (>60) mL/min BUN/Creatinine Ratio (6-22) Glucose (80-110) mg/dL Calcium (8.4-10.2) mg/dL Magnesium 2.1 (1.6-2.3) mg/dL Total Bilirubin (0.2-1.3) mg/dL AST (14-36) IU/L ALT (<35) IU/L Alkaline Phosphatase (38-126) U/L Total Creatine Kinase 34 (30-135) U/L CK-MB (CK-2) TNP CK-MB (CK-2) Rel Index TNP Troponin I < 0.012 (0.01-0.034) ng/mL Total Protein (6.3-8.2) g/dL Albumin (3.5-5.0) g/dL Globulin (1.7-4.1) g/dL Albumin/Globulin Ratio (1.0-2.8) Discharge Plan Departure Patient Disposition: Admitted As Inpatient Clinical Impression: Epistaxis Atrial flutter Qualifiers: Atrial flutter type: unspecified Qualified Code(s): I48.92 - Unspecified atrial flutter Discharge Date/Time: 12/02/19 17:37 Instructions: DI for Atrial Flutter, Digoxin, Metoprolol, Apixaban Referrals: Nat Lewis MD [Primary Care Provider] - Admit Date/Time: 12/02/19 17:52 Admit Provider: Ricky Morales <Gab Regalado MD - Last Filed: 12/24/19 18:35> Cosign ED Attending Cosignature Attestation: I was immediately available in the department for consultation. This documentation has been reviewed and I agree with assessment and plan. Supervised by Gab Regalado MD
[2019-12-02] MEDS: SODIUM CHLORIDE 0.9% 1,000 ML 1000 ML IV (14:35)
[2019-12-02] MEDS: dilTIAZem 5 MG/ML SDV 10 MG IV ×2 (14:45→15:12)
[2019-12-02] MEDS: OXYMETAZOLINE NASAL SPRAY 30 ML 2 SPRAYS NASAL (14:56)
[2019-12-02 15:20] LABS: Add Manual Diff / Slide Review NO; Basophils Absolute Auto 0 /uL (0-100); Basophils Percent Auto 0.4 % (0-2); Eosinophils Absolute Auto 100 /uL (0-450); Eosinophils Percent Auto 0.5 % (2-4); Hematocrit 33.8 % (36-46); Hemoglobin 10.9 g/dL (12.0-16.0); Lymphocytes Absolute Auto 1800 /uL (1100-4500); Lymphocytes Percent Auto 16.6 % (25-40); Mean Corpuscular HGB Conc 32.3 % (30-36); Mean Corpuscular Hemoglobin 27.1 PG (26-34); Mean Corpuscular Volume 83.8 fL (80-100); Monocytes Absolute Auto 900 /uL (0-900); Monocytes Percent Auto 8.5 % (3-14); Neutrophils Absolute Auto 7800 /uL (1500-7000); Platelet Count 290 X10^3/uL (150-400); Red Blood Cell Count 4.04 X10^6/uL (4.0-5.2); Red Cell Distribution Width 17.9 % (11.6-14.8); White Blood Cell Count 10.6 X10^3/uL (4.5-11.0)
[2019-12-02] MEDS: METOPROLOL ER 25 MG TABLET PO (16:00)
--- NOTE | 2019-12-02 17:00 | DI.RAD.S_ITS ---
PROCEDURE: XR CHEST 1V INDICATIONS: tachycardia TECHNIQUE: One view of the chest was acquired. COMPARISON: [facility], CR, XR CHEST 1V, 05/23/2018, 15:41. FINDINGS: Surgical changes and devices: There are surgical clips seen within the left axilla. Lungs and pleura: Increased attenuation within the left artery is present no large effusion or pneumothorax is identified. Mediastinum: Mediastinal contours appear normal. Heart size is normal. Bones and chest wall: No suspicious bony lesions. Overlying soft tissues appear unremarkable. IMPRESSION: Left basilar atelectasis versus pneumonia. Correlate clinically. Dictated by: Jong Ng M.D. on 12/02/2019 at 16:27 Approved by: Jong Ng M.D. on 12/02/2019 at 16:28 l
[2019-12-02] MEDS: DILTIAZEM 125 MG/125 ML PIGGYBACK IV (17:06)
[2019-12-02 17:27] LABS: Creatine Kinase 34 U/L (30-135)
[2019-12-02 17:40] LABS: Troponin I < 0.012 ng/mL (0.01-0.034)
[2019-12-02] MEDS: SODIUM CHLORIDE 0.45% 1,000 ML 100 ML IV (17:45)
[2019-12-02] MEDS: METOPROLOL TARTRATE 5 MG/5 ML INJ IV ×3 (19:27→21:25)
[2019-12-02 19:35] LABS: Magnesium 2.1 mg/dL (1.6-2.3)
[2019-12-02] MEDS: CHOLECALCIFEROL (VITAMIN D3) 1,000 UNIT TABLET 2000 UNIT PO (20:58)
[2019-12-02] MEDS: METFORMIN HCL 500 MG TABLET PO (20:58)
[2019-12-02] MEDS: ASPIRIN 81 MG CHEW TAB PO (21:30)
--- NOTE | 2019-12-02 21:39 | PC.NURSE ---
Addendum entered by Lisandra Bonner R.N. 12/03/19 02:18: 0218 Per provider order give morning dose of cardizem PO to control BP of 140/103. Will continue to monitor for effectiveness. Addendum entered by Lisandra Bonner R.N. 12/03/19 01:44: 0120 Per provider Zaheer Anaya [employer], titrate Diltiazem gtt until pt heart rate is 100 bpm, this nurse has titrated the gtt x2, currently gtt is infusing at 5ml/hr, HR is 86 BP 165/91, shank carrier shows 2-3 beat pauses, evidence that pt is attempting to convert from A-Fib to NSR. Pt is currently asymptomatic, resting in bed with eyes closed, home CPAP on. Bed low and locked, call light within reach, will continue to monitor. Original Note: Evening shift note: Pt to room 231 from E.R. awake, alert, conversant and pleasant. Pt is able to ambulate from stretcher to bed, connected to monitor, vital signs taken and entered into computer. Cloth used to wash blood of of pt face from nosebleed in ED. Admission complete by this nurse, IV fluids and diltazem gtt started per orders, SCD's placed, Zaheer Anaya in to discuss plan with pt and , EKG ordered and completed, VO given to increase Diltazem gtt to 20mL/hr and administer metoprolol 5mg for HR 132 BP 161/118, pt is currently asymptomatic. Additional administration of metoprolol, see MAR for documentation. Bed low and locked, oriented to call light, will continue to monitor.
--- NOTE | 2019-12-02 21:59 | PM.HP.1 ---
History of Present Illness History of Present Illness Date Patient Seen: 12/02/19 Time Patient Seen: 19:20 Chief complaint: Nose bleed 45 minutes Narrative: Ms. Leslee Johnson is a s a 73-year-old female with past medical history significant for hypertension, atrial fibrillation, RAMA with CPAP, history of intracranial bleed (see CT head 05/06/2017), abd-[id number]-[id number] type 2 diabetes, breast cancer (status post bilateral mastectomy, 1980 and 2013), DDD, obesity and hypothyroidism who presents to the ER with an acute uncontrolled epistaxis. The patient has impaired secondary to dementia and she herself states she has very poor recall and uses her to be her memory. Information is obtained from the patient is substantiated with her Sky. Her states that he found his this morning at approximately 10:30 a.m. with bleeding from the left nare. The patient without previous episodes epistaxis and is currently anticoagulated on aspirin 81 mg. Prior to her epistaxis patient was going about her normal activities with no complaints of pain or problems. The patient has a history of dementia with short-term memory loss and is functioning at baseline per her 's report She reports no recent illness or COVID-19 exposure. She denies fevers or chills and has no headaches. She has a history of dizziness though she had a blood rapid head movements are standing quickly. She denies complaints of chest pain or palpitations has a history of atrial fibrillation. She denies shortness of breath cough or wheezing has no abdominal pain, heartburn, nausea vomiting. She denies constipation or diarrhea and has noted urinary symptoms including frequency urgency or burning. Upon arrival to the ER the patient is found to afebrile with a temperature 98.0?, tachycardic at 135, blood pressure of 138/80, oxygen saturation 97% on room air. A chest x-ray is obtained with findings of less basilar atelectasis versus pneumonia. No evidence of pulmonary edema. Twelve lead EKG finds atrial flutter with RVR which appears to be 2-[address] or T-wave changes or indications of ischemia and infarct. On laboratory analysis she has white count of 10.6, hemoglobin of 10.9 and hematocrit of 33.8 and platelets 290. On coagulation has a PT of 16.5, INR 1.4 and a PTT 35. Her electrolytes are within normal limits and she has a BUN of 27 and creatinine of 1.21. Her EGFR is calculated at 43.6. Her nonfasting glucose is 160 and has normal liver functions with total bilirubin of 0.4, AST of 28, ALT of 46 and alkaline phosphatase of 91. Her total CK is low at 34 and has troponin negative at 0.02. Magnesium is added to the labs and found to be 2.1. In the ER the patient received metoprolol succinate 25 mg x 1 with no change in rhythm followed by diltiazem bolus and infusion. The epistaxis is treated tranexamic acid and Oxymetazoline Nasal [place] and a rhino rocket was placed which the patient self removed due to her confusional state. The patient is admitted to the intensive care unit by the medicine service for atrial flutter with RVR. Patient History Medical History Breast cancer (Acute) Dementia (Acute) Diabetes type 2, controlled (Acute) HTN (hypertension) (Chronic) Hypothyroidism (acquired) (Chronic) Intraparenchymal hemorrhage of brain (Inactive) Obstructive sleep apnea of adult (Chronic) Surgical History History of bilateral mastectomy (Acute) History of hysterectomy (Acute) History of vein stripping (Acute) Family & Social History Family History Mother Ovarian cancer Father Leukemia Brother Diabetes mellitus Social History: household members spouse Prior Living Arrangements House Safety & Behavioral: Feels Safe in Current Yes Environment Been Physically Hurt or No Threatened By a Person Suicidal Ideation Description None Suicide Plan Description No Plan Tobacco & Substance use: Smoking Status Never smoker alcohol intake frequency 0-2 drinks per day Substance Use Type does not use Comment: The patient lives with her JOSHUA to whom she has been for 42 years. They live in a single family home in [place]. Smoking: The patient has never used tobacco products. Alcohol: Patient consumes occasional alcohol approximately 1 drink every few months. Substance use: The patient denies recreational pharmaceuticals, herbal or cannabis products. Advanced directives: In direct discussion with the patient and her the patient has elected to be FULL CODE. She states she does not wish to have prolonged life-sustaining treatment and designates her Sky to be her surrogate decision maker. Meds Home Medications and Allergies Home Medications Medication Instructions Recorded Confirmed Type aspirin 81 mg PO BID #0 09/21/11 05/23/18 History cholecalciferol (vitamin D3) 2,000 iu PO BID #0 09/21/11 05/23/18 History [Vitamin D3] [DEEP SLEEP] 1 cap PO BEDTIME PRN #0 05/06/17 05/23/18 History atorvastatin 20 mg PO DAILY 05/23/18 05/23/18 History carvedilol 6.25 mg PO BID 05/23/18 05/23/18 History folic acid 1 mg PO DAILY 05/23/18 05/23/18 History levothyroxine 50 mcg PO DAILY 05/23/18 05/23/18 History metformin 500 mg PO BID 05/23/18 05/23/18 History Respironics Dreamstation Auto CPAP #1 ea 08/01/18 08/01/18 History Allergies Allergy/AdvReac Type Severity Reaction Status Date / Time Sulfa (Sulfonamide Allergy Mild RASH Verified 05/23/18 17:04 Antibiotics) [SULFA (SULFONAMIDE ANTIBIOTICS)] codeine [CODEINE] AdvReac Mild N/V Verified 05/23/18 17:04 Review of Systems Review of Systems ROS: Yes All systems reviewed with the patient and are negative except as otherwise documented Exam Vital Signs (past 8 hours): - 12/02/19 13:00 12/02/19 13:30 12/02/19 14:05 Temperature Pulse Rate 135 H 134 H Respiratory Rate 19 30 H Blood Pressure Blood Pressure [Right Arm] 168/85 H 170/99 H 151/73 H Pulse Oximetry 94 92 12/02/19 14:30 12/02/19 15:00 12/02/19 15:43 Temperature Pulse Rate 134 H 135 H 135 H Respiratory Rate 19 32 H 22 Blood Pressure Blood Pressure [Right Arm] 141/87 H 134/77 129/90 Pulse Oximetry 94 95 95 12/02/19 16:00 12/02/19 16:46 12/02/19 17:00 Temperature Pulse Rate 137 H 134 H 135 H Respiratory Rate 32 H 22 25 H Blood Pressure Blood Pressure [Right Arm] 129/93 H 145/102 H 144/102 H Pulse Oximetry 96 95 96 12/02/19 17:30 12/02/19 18:11 12/02/19 19:00 Temperature 97.5 F L 97.8 F Pulse Rate 134 H 134 H 132 H Respiratory Rate 18 18 Blood Pressure 136/109 H 161/118 H Blood Pressure [Right Arm] 138/106 H Pulse Oximetry 95 96 12/02/19 20:00 Temperature 97.8 F Pulse Rate 128 H Respiratory Rate 18 Blood Pressure 148/92 H Blood Pressure [Right Arm] Pulse Oximetry 93 Oxygen Delivery Method Room Air Oxygen Flow Rate 0 Narrative Exam Narrative: GENERAL APPEARANCE: well developed, obese female resting semi recumbent in bed in no acute distress. HEENT: Symmetrical facies, PERRLA, conjunctiva clear, EOMs intact without nystagmus, no sinus tenderness to percussion, small amount of serosanguineous drainage from the left near, mucous membranes are moist and pink without lesions or exudate. NECK/THYROID: neck supple, no JVD, no carotid bruit, no thyromegaly, trachea midline. LYMPH NODES: no cervical or supraclavicular lymphadenopathy. SKIN: [place], warm and dry, no visible lesions, rashes, ulcerations or petechiae. HEART: Tachycardia with regular rhythm, S1-S2, no murmur appreciated, no rubs or gallops, brisk capillary refill, trace bilateral pedal edema LUNGS: Breath sounds diminished in the bases without coarseness crackles or wheezing, no cough present CHEST: Symmetrical movement, no accessory muscle use, child tidal volume. ABDOMEN: Soft, distended/round, to pink to percussion bilateral upper quadrants withoutl tenderness, no guarding or peritoneal signs, no organomegaly, no flank or suprapubic tenderness, active bowel tones. EXTREMITIES: moves all extremities, strength is 5/5 and symmetrical, no deformities or joint effusions. NEUROLOGIC: AAO to person and place confused to date and time, impaired recall cranial nerves II-XII grossly intact, sensation intact to light touch, hearing grossly normal to speech. PSYCH: Anxious, good eye contact, cooperative, appropriate with stable behavior. Objective Labs Result Diagrams: 12/02/19 15:14 12/02/19 12:40 Labs: Laboratory Results - last 24 hr 12/02/19 12/02/19 12/02/19 12:40 12:40 12:40 WBC 9.2 RBC 4.09 Hgb 11.5 L Hct 34.3 L MCV 83.7 MCH 28.0 MCHC 33.4 RDW 17.7 H Plt Count 288 Neut % (Auto) 73.1 Lymph % (Auto) 17.4 L [place] % (Auto) 8.1 Eos % (Auto) 0.7 L Baso % (Auto) 0.7 Neut # (Auto) 6700 Lymph # (Auto) 1600 [place] # (Auto) 700 Eos # (Auto) 100 Baso # (Auto) 100 PT 16.5 H INR 1.4 H APTT 35 D Sodium 142 Potassium 4.3 Chloride 109 H Carbon Dioxide 24 BUN 27 H Creatinine 1.21 H Estimated GFR 43.6 L BUN/Creatinine Ratio 22.3 H Glucose 160 H Calcium 9.4 Magnesium Total Bilirubin 0.4 AST 28 ALT 46 H Alkaline Phosphatase 91 Total Creatine Kinase CK-MB (CK-2) CK-MB (CK-2) Rel Index Troponin I Total Protein 6.7 Albumin 3.7 Globulin 3.0 Albumin/Globulin Ratio 1.2 12/02/19 12/02/19 12/02/19 12:46 12:46 15:14 WBC 10.6 RBC 4.04 Hgb 10.9 L Hct 33.8 L MCV 83.8 MCH 27.1 MCHC 32.3 RDW 17.9 H Plt Count 290 Neut % (Auto) 74.0 Lymph % (Auto) 16.6 L [place] % (Auto) 8.5 Eos % (Auto) 0.5 L Baso % (Auto) 0.4 Neut # (Auto) 7800 H Lymph # (Auto) 1800 [place] # (Auto) 900 Eos # (Auto) 100 Baso # (Auto) 0 PT INR APTT Sodium Potassium Chloride Carbon Dioxide BUN Creatinine Estimated GFR BUN/Creatinine Ratio Glucose Calcium Magnesium 2.1 Total Bilirubin AST ALT Alkaline Phosphatase Total Creatine Kinase 34 CK-MB (CK-2) TNP CK-MB (CK-2) Rel Index TNP Troponin I < 0.012 Total Protein Albumin Globulin Albumin/Globulin Ratio Assessment & Plan Assessment & Plan narrative: This is a 74-year-old female patient who presents to the ER with epistaxis and found to be in atrial flutter unbeknownst to the patient with a rapid ventricular response. She has a history of intracranial bleed and is not on systemic anticoagulation. The patient is planned for Watchman procedure this with Dr. Boudreaux and telling him. 1. Atrial flutter with rapid ventricular response, acute, present on admission, active -the patient has a history of atrial fibrillation and presents to the ER with a stable tachycardia at approximately 135 beats per minute. The patient is under the care of Dr. Boudreaux, Cardiology, at telling him and has planned Watchman placement next . -no complaints of chest pain shortness of breath nausea vomiting or diaphoresis, total CK is 34 and troponin is <0.012 -in the ER patient received metoprolol succinate 25 mg p.o. with no change, received diltiazem 10 mg bolus and started on infusion. -patient has been anticoagulated on Eliquis 5 mg twice daily, the patient currently has active epistaxis though controlled, next dose Eliquis in the morning. -patient remains hemodynamically stable in fact mildly hypertensive blood pressure 161/111. -will give metoprolol 5 mg and will repeat up to 3 doses. 2. Essential hypertension, chronic, present on admit, active -patient is hypertensive with pressure up to 161/111 with patient on diltiazem drip and having received metoprolol in the ER. -hold patient's to usual Coreg dose and instead will treat with metoprolol 5 mg up to 3 doses for rhythm stabilization as above. -will restart Coreg 6.25 mg twice daily in the morning. -will monitor and trend blood pressures. 3. Diabetes type 2 non insulin dependent without complications, chronic, stable -patient has been taking metformin 500 mg twice daily and she checks her blood sugars each morning and indicates they have been ?normal?. -Blood sugar on admission is 160. -will check glucose a.c. and HS and cover with low-dose correctional insulin. -patient is on a heart healthy moderate constant carbohydrate diet. -obtain hemoglobin A1c. 4. Hypothyroidism, chronic, stable -continue patient's home regimen of levothyroxine 50 mcg daily. -obtain TSH with reflex to T4. 5. Obstructive sleep apnea, using CPAP, chronic, stable -respiratory therapy to consult -CPAP per RT protocol, may use own machine. 6. Dementia, chronic, stable. -both patient and her endorse history of dementia and exhibits short-term memory loss and describes her as her ?memory?. -she is status post intercranial bleed in 2017. -patient is mildly anxious however will avoid benzodiazepines. Patient is reassured with explanation of plan of care and interventions. Isolation: None VTE prophylaxis: Bilateral SCDs, on Eliquis anticoagulation IV fluid: 0.45% normal saline at 100 mL per hour, reduced to TKO. Diet: Heart healthy, moderate constant carb. Code status: FULL CODE, the patient's Sky is her surrogate decision maker. The patient is admitted to the intensive care unit as an inpatient with atrial flutter with rapid ventricular response requiring close monitoring and frequent interventions. The patient is expected length of stay is greater than 2 midnights. Scores GCS Lorenzo coma scale eye opening: Spontaneous [place] coma scale verbal response: Confused [place] coma scale motor response: Obey commands [place] coma scale total score: 14 CHADS-VASc Congestive heart failure: no Hypertension: yes Age 75 years or older: no Diabetes mellitus: yes Stroke, TIA, or TE: yes Vascular disease: yes Age 65 to 74 years: yes Sex category (female): Female CHADS-VASc Score: 7
[2019-12-02] MEDS: DIGOXIN 500 MCG/2 ML AMPUL 250 MCG IV (22:25)
[2019-12-02] MEDS: DILTIAZEM 125 MG/125 ML PIGGYBACK 15 MG IV (23:51)
[2019-12-03] VITALS (23 sets, daily range): BP systolic 127–161; BP diastolic 78–103; PULSE 67–133; RESP 18–26; TEMP 36.6–36.9; O2SAT 90–96
[2019-12-03 00:53] LABS: Troponin I < 0.012 ng/mL (0.01-0.034)
[2019-12-03] MEDS: DILTIAZEM 125 MG/125 ML PIGGYBACK 15 MG IV (00:53)
[2019-12-03 01:28] LABS: TSH w/ Reflex to FT4 1.64 uIU/mL (0.47-4.68)
[2019-12-03] MEDS: carvediloL 6.25 MG TABLET PO (02:14)
[2019-12-03] MEDS: DIGOXIN 500 MCG/2 ML AMPUL 250 MCG IV (05:09)
[2019-12-03 06:03] LABS: Add Manual Diff / Slide Review NO; Basophils Absolute Auto 0 /uL (0-100); Basophils Percent Auto 0.2 % (0-2); Eosinophils Absolute Auto 100 /uL (0-450); Eosinophils Percent Auto 0.6 % (2-4); Hematocrit 31.8 % (36-46); Hemoglobin 10.4 g/dL (12.0-16.0); Lymphocytes Absolute Auto 2200 /uL (1100-4500); Lymphocytes Percent Auto 21.8 % (25-40); Mean Corpuscular HGB Conc 32.7 % (30-36); Mean Corpuscular Hemoglobin 27.3 PG (26-34); Mean Corpuscular Volume 83.5 fL (80-100); Monocytes Absolute Auto 900 /uL (0-900); Neutrophils Absolute Auto 6900 /uL (1500-7000); Neutrophils Percent Auto 68.4 % (50-75); Platelet Count 277 X10^3/uL (150-400); Red Blood Cell Count 3.82 X10^6/uL (4.0-5.2); Red Cell Distribution Width 17.6 % (11.6-14.8); White Blood Cell Count 10.1 X10^3/uL (4.5-11.0)
[2019-12-03 06:16] LABS: BUN Creatinine Ratio 30.6 (6-22); Blood Urea Nitrogen 30 mg/dL (7-17); Carbon Dioxide 29 mmol/L (22-32); Chloride 107 mmol/L (98-107); Estimated Glomerular Filt Rate 55.6 mL/min (>60); Glucose 121 mg/dL (80-110); HEMOLYSIS < 15 (0-50); Sodium 139 mmol/L (137-145)
[2019-12-03 07:09] LABS: Hemoglobin A1C% w Est Avg Glu 7.4 % (4.0-6.0)
--- NOTE | 2019-12-03 07:30 | DI.ECHO.S_ITS ---
[facility]---------+ [facility] +---------+ : : [address] : : : : [id number] : : : : Phone: [phone]+ Echocardiogram Report + + :Name: BARBARA MOREIRA Study Date: 12/03/2019 Height: 69 in : :[facility] Weight: 234 lb : : Gender: Female BSA: 2.2 m2 : :: 1945 Age: 74 yrs BP: 127/78 mmHg: :Reason For Study: Atrial flutter with RVR : :Ordering Physician: Alan : :Hospitalist Performed By: Archana Hernandez : :Referring: ELE TINSLEY : + + Interpretation Summary The patient was in atrial flutter with heart rates between 72-88 bpm during the exam. Mild-moderate concentric left ventricular hypertrophy with ejection fraction 55-60%. Mildly dilated left atrium. Mild aortic valve sclerosis. Mild mitral regurgitation. Mild tricuspid regurgitation. Mildly enlarged ascending aorta. Comparison is made with the echocardiogram of 05/24/2018, LV wall thickness has increased and atrial flutter is new. Procedure: A two-dimensional transthoracic echocardiogram with color flow and Doppler was performed. The study quality was technically adequate. Comparison is made with the echocardiogram of 05/24/2018. The patient was in atrial flutter with heart rates between 72-88 bpm during the exam. Left Ventricle: The left ventricle is normal in size. There is mild-moderate concentric left ventricular hypertrophy. The ejection fraction is estimated to be 55-60%. There are no focal wall motion abnormalities. Diastolic function could not be accurately assessed due to atrial fibrillation. Right Ventricle: The right ventricle grossly appears normal in size with probable normal systolic function. Atria: The left atrium is mildly dilated. Right atrial size is normal. There is no Doppler evidence for an interatrial shunt. Mitral Valve: The mitral valve is normal in structure and function. There is mild mitral regurgitation. Aortic Valve: There is mild aortic valve sclerosis. The aortic valve is mildly calcified. There is no aortic valve stenosis. There is trace aortic regurgitation. Tricuspid Valve: The tricuspid valve is normal in structure and function. There is mild tricuspid regurgitation. Pulmonary artery pressures cannot be estimated because of the lack of a measurable TR jet velocity but the IVC suggests a CVP of around 3 mmHg. Pulmonic Valve: The pulmonic valve is normal in structure and function. There is mild pulmonic regurgitation. Great Vessels: The aortic root is normal size. The ascending aorta is mildly enlarged. The IVC is of normal diameter and collapses greater than 50% with a sniff. This suggests a low right atrial pressure of 3 mm Hg. Pericardium/ Pleura There is no pericardial effusion. There is no pleural effusion. MMode/2D Measurements & Calculations LVIDd: 4.7 cm LVOT diam: 2.1 cm LVIDs: 3.3 cm Ao root diam: 3.2 cm FS: 29.6 % asc Aorta Diam: 3.6 cm EPSS: 1.1 cm Ao Arch Diam (Prox Trans): 3.1 cm IVSd: 1.3 cm LVPWd: 1.4 cm LV almanza. diameter/BSA (cm/m^2): 2.1 LV sys. diameter/BSA (cm/m^2): 1.5 LA A2 area: 22.1 cm2 RA long axis: 5.9 cm LA A4 area: 23.5 cm2 RA area: 21.3 cm2 LA length (vol): 5.7 cm RA vol: 64.9 ml LA vol: 77.4 ml RA : 29.4 ml/m2 LA vol index: 35.1 ml/m2 IVC diam: 1.3 cm RVD1 (basal): 3.8 cm Doppler Measurements & Calculations Ao V2 max: 186.3 cm/sec LVOT Max Luis Fernadno: 119.4 cm/sec Ao V2 mean: 121.3 cm/sec LV V1 max P.8 mmHg Ao max P.9 mmHg LV V1 VTI: 18.1 cm Ao mean P.0 mmHg ALEXANDRA(I,D): 2.0 cm2 Ao V2 VTI: 30.6 cm ALEXANDRA(V,D): 2.1 cm2 sev ratio: 0.59 ALEXANDRA indexed to BSA (cm^2/m^2): 0.90 AI P1/2t: 1132 msec AI dec slope: 95.9 cm/sec2 MV E max luis fernando: 89.4 cm/sec PA V2 max: 71.5 cm/sec MV A max luis fernando: 1.5 cm/sec PA V2 mean: 45.8 cm/sec MV E/A: 58.6 PA mean P.98 mmHg MV dec time: 0.14 sec SV(LVOT): 60.6 ml Electronically signed by: Mj Ferrell on Reading Physician:12/03/2019 01:46 PM
[2019-12-03] MEDS: FOLIC ACID 1 MG TABLET PO (08:26)
[2019-12-03] MEDS: carvediloL 12.5 MG TABLET PO (08:26)
[2019-12-03] MEDS: ASPIRIN 81 MG CHEW TAB PO ×2 (08:26→21:16)
[2019-12-03] MEDS: CHOLECALCIFEROL (VITAMIN D3) 1,000 UNIT TABLET 2000 UNIT PO ×2 (08:27→21:16)
[2019-12-03] MEDS: APIXABAN 5 MG TABLET PO ×2 (08:27→21:16)
[2019-12-03] MEDS: LEVOTHYROXINE 50 MCG TABLET PO (08:30)
--- NOTE | 2019-12-03 08:43 | PC.NURSE ---
Addendum entered by Steffanie Ureña R.N. 12/03/19 13:55: echo complete Original Note: pt continues to be afib/aflutter rates between 72-128 bpm, denies pain and has mostly clear lungs only slight diminished at bases bilaterally, skin intact - some blanchable redness to bottom - dilt gtt continues and decreased to 10mg/h when given po coreg this am ( increased dose of 12.5mg), good appetite and denies any N/V or chest pain- does endorse urinary frequency and some stress incontinence
--- NOTE | 2019-12-03 12:24 | CM.DANOTE ---
DCP assessment: EMR reviewed: Patient is a 74 yr old female who was admitted for Afib with RVR and nose bleed. Patients PCP is Dr Lewis. CM/RN met with patient at the bedside and explained role. Patient was alert and oriented x3 however was forgetful of details and needed reminding of conversation. Patients was in the room and he is her DPOA. Patient as early stage dementia and has been struggling while here to get a steady Heart Rate. During AM rounds Dr. Becerra stated he is talking with patients Urban Design Consultant in [place] and is considering transferring the patient up to [facility]. Patient currently lives with her in [place] and depending on Transfer will most likely D/C home if not transferred. I: Medicare and [facility] Plan: Transfer to [facility] for further cardiac work up and treatment. Jordyn Krueger RN Discharge Planning/Care Management CM Discharge Assessment Start: 12/03/19 12:18 Freq: Status: Active Protocol: Document 12/03/19 12:18 HS (Rec: 12/03/19 12:24 HS [id number]) Discharge Planning Assessment Assigned Lofter Jordyn Krueger RN DPOA/Assigned Designee Name Sky Johnson ([email or web address]) Contact Information [phone] Advance Directives? No History Provided By Patient,Family Member Has Patient been admitted in last 30 No days? Prior Living Arrangements House Household Members spouse Type of transporation used prior to Relies on Others admit Independent with ADL's Yes Is patient alert and oriented? Yes Caregiver for Another No Comment Met w/pt and her spouse at bedside, explained SW role. Pt explains she walks her dog daily at [employer] in [place] and is mostly indp at home. Pt had a stroke approx two year ago and since then has been a little more unsteady on her feet. Spouse and she are retired and spouse able bodied and can assist prn. Pt states no barriers to safe DC home today if medically cleared. Pt/spouse appreciative of the visit. Comment Patient is most likely being transfered to [place] to be assisted by her group tester at [facility]. Discharge Plan Home Transportation Arrangement Family Referrals Initiated None needed Whiteboard Updated in Patient Room with Yes name and ext. # of Lofter Review Status In Process Next Review Type Continued Stay Review
[2019-12-03] MEDS: DILTIAZEM 125 MG/125 ML PIGGYBACK 10 MG IV (13:18)
[2019-12-03] MEDS: DIGOXIN 0.125 MG TABLET PO (17:01)
[2019-12-03] MEDS: INSULIN ASPART 100 UNIT/ML INSULN PEN SUBCUT (17:02)
--- NOTE | 2019-12-03 18:12 | PM.PN.1 ---
Subjective Subjective Date Patient Seen: 12/03/19 Time Patient Seen: 18:12 Interval history: Leslee Johnson is a s a 73-year-old female with past medical history significant for hypertension, atrial fibrillation, RAMA with CPAP, history of intracranial bleed (see CT head 05/06/2017), [id number] type 2 diabetes, breast cancer (status post bilateral mastectomy, 1980 and 2013), DDD, obesity and hypothyroidism who initially presented with uncontrolled epistaxis, which has subsequently resolved, but the patient remains admitted for uncontrolled atrial fibrillation with RVR. Have been in contact with her cardiology group in [place]. Patient was loaded with 500 mcg total IV digoxin after initial recommendations, and continued on oral digoxin. She remains on IV diltiazem at a rate of 10, down somewhat from 20. Her Coreg was increased slightly to 12.5 mg this morning, but she has been unable to come off of her diltiazem infusion. Discussed with on-call Cardiology today, Dr. Hernandez, for [facility] cardiology who did not recommend transfer at this time for stable atrial flutter, and instead recommended increasing doses of metoprolol at this time. Early this morning her heart rate was briefly very low at 15, but this was likely due to the combination therapy that she is currently on. She remains on telemetry. Will start metoprolol this evening at 75 mg extended release b.i.d., and began to increase as tolerated. Her rate is improved, most of the time in the 70s, but she does jump into the 110s and 130s intermittently. She remains in atrial flutter. Her echocardiogram today revealed an EF of 55-60%. Exam Vital Signs (past 8 hours): - 12/03/19 12:00 12/03/19 13:00 12/03/19 14:00 Temperature Pulse Rate 111 H 119 H 78 Respiratory Rate 18 Blood Pressure Pulse Oximetry 95 12/03/19 16:00 12/03/19 17:01 Temperature 98.3 F Pulse Rate 112 H 78 Respiratory Rate 20 Blood Pressure 138/101 H 138/101 H Pulse Oximetry Oxygen Delivery Method Room Air Oxygen Flow Rate 0 Narrative Exam Narrative: GENERAL APPEARANCE: well developed, obese female resting semi recumbent in bed in no acute distress. HEENT: Symmetrical facies, PERRLA, conjunctiva clear, EOMs intact without nystagmus, no sinus tenderness to percussion, small amount of serosanguineous drainage from the left near, mucous membranes are moist and pink without lesions or exudate. NECK/THYROID: neck supple, no JVD, no carotid bruit, no thyromegaly, trachea midline. LYMPH NODES: no cervical or supraclavicular lymphadenopathy. SKIN: [place], warm and dry, no visible lesions, rashes, ulcerations or petechiae. HEART: Tachycardic, irregularly irregular, S1-S2, no murmur appreciated, no rubs or gallops, brisk capillary refill. LUNGS: Breath sounds diminished in the bases without coarseness crackles or wheezing, no cough present CHEST: Symmetrical movement, no accessory muscle use, child tidal volume. ABDOMEN: Soft, distended/round, to pink to percussion bilateral upper quadrants withoutl tenderness, no guarding or peritoneal signs, no organomegaly, no flank or suprapubic tenderness, active bowel tones. EXTREMITIES: moves all extremities, strength is 5/5 and symmetrical, no deformities or joint effusions. No edema. NEUROLOGIC: AAO to person and place confused to date and time, impaired recall cranial nerves II-XII grossly intact, sensation intact to light touch, hearing grossly normal to speech. PSYCH: Anxious, good eye contact, cooperative, appropriate with stable behavior. Objective Labs Result Diagrams: 12/03/19 04:38 12/03/19 04:38 Labs: Laboratory Results - last 24 hr 12/02/19 12/03/19 12/03/19 12:46 00:12 00:12 WBC RBC Hgb Hct MCV MCH MCHC RDW Plt Count Neut % (Auto) Lymph % (Auto) Day % (Auto) Eos % (Auto) Baso % (Auto) Neut # (Auto) Lymph # (Auto) Day # (Auto) Eos # (Auto) Baso # (Auto) Sodium Potassium Chloride Carbon Dioxide BUN Creatinine Estimated GFR BUN/Creatinine Ratio Glucose Hemoglobin A1c Calcium Magnesium 2.1 Troponin I < 0.012 TSH 1.64 12/03/19 12/03/19 12/03/19 04:38 04:38 04:38 WBC 10.1 RBC 3.82 L Hgb 10.4 L Hct 31.8 L MCV 83.5 MCH 27.3 MCHC 32.7 RDW 17.6 H Plt Count 277 Neut % (Auto) 68.4 Lymph % (Auto) 21.8 L Day % (Auto) 9.0 Eos % (Auto) 0.6 L Baso % (Auto) 0.2 Neut # (Auto) 6900 Lymph # (Auto) 2200 Day # (Auto) 900 Eos # (Auto) 100 Baso # (Auto) 0 Sodium 139 Potassium 4.0 Chloride 107 Carbon Dioxide 29 BUN 30 H Creatinine 0.98 Estimated GFR 55.6 L BUN/Creatinine Ratio 30.6 H Glucose 121 H Hemoglobin A1c 7.4 H Calcium 9.0 Magnesium Troponin I TSH Assessment & Plan Assessment & Plan narrative: This is a 74-year-old female patient who presents to the ER with epistaxis and found to be in atrial flutter unbeknownst to the patient with a rapid ventricular response. She remains on diltiazem infusion and currently adjusting medications with cardiology input. 1. Atrial flutter with rapid ventricular response, acute, present on admission, active -the patient has a history of atrial fibrillation and presents to the ER with a stable tachycardia at approximately 135 beats per minute. The patient is under the care of Dr. Boudreaux, Cardiology, at telling him and has planned Watchman placement next . Have discussed with material preparation worker providers regarding this patient but will attempt to reach out to Dr. Boudreaux tomorrow regarding recommendations. -no complaints of chest pain shortness of breath nausea vomiting or diaphoresis, total CK is 34 and troponin is <0.012 -in the ER patient received metoprolol succinate 25 mg p.o. with no change, received diltiazem 10 mg bolus and started on infusion. Continue to wean for goal HR <100. -patient has been anticoagulated on Eliquis 5 mg twice daily, the patient currently has epistaxis but minimal at slowing quite a bit, continue eliquis given atrial flutter. -patient remains hemodynamically stable. Per cardiology recommend conversion from coreg to metoprolol and continue oral digoxin with plan for outpatient follow up. As noted above this recommendation was different based on on -call providers regarding need for transfer. Will continue to manage as per latest recommendations and reach out to the patient's supervisor dock tomorrow. 2. Essential hypertension, chronic, present on admit, active -patient is hypertensive with pressure up to 161/111 with patient on diltiazem drip and having received metoprolol in the ER. -coreg 12.5 mg given today, will switch to metoprolol 75 mg BID starting this evening. 3. Diabetes type 2 non insulin dependent without complications, chronic, stable -patient has been taking metformin 500 mg twice daily and she checks her blood sugars each morning and indicates they have been ?normal?. -Blood sugar on admission is 160. -will check glucose a.c. and HS and cover with low-dose correctional insulin. -patient is on a heart healthy moderate constant carbohydrate diet. -A1c with suboptimal control at 7.4% but no current medication changes are necessary. 4. Hypothyroidism, chronic, stable -continue patient's home regimen of levothyroxine 50 mcg daily. -TSH is unremarkable at 1.64. 5. Obstructive sleep apnea, using CPAP, chronic, stable -respiratory therapy to consult -CPAP per RT protocol, may use own machine. 6. Dementia, chronic, stable. -both patient and her endorse history of dementia and exhibits short-term memory loss and describes her as her ?memory?. -she is status post intercranial bleed in 2017. -patient is mildly anxious however will avoid benzodiazepines. Patient is reassured with explanation of plan of care and interventions. Isolation: None VTE prophylaxis: Bilateral SCDs, on Eliquis anticoagulation IV fluid: 0.45% normal saline at 100 mL per hour, reduced to TKO. Diet: Heart healthy, moderate constant carb. Code status: FULL CODE, the patient's Sky is her surrogate decision maker. The patient is admitted to the intensive care unit as an inpatient with atrial flutter with rapid ventricular response requiring close monitoring and frequent interventions. The patient is expected length of stay is greater than 2 midnights.
[2019-12-03] MEDS: METOPROLOL ER 25 MG TABLET 75 MG PO (21:16)
[2019-12-03] MEDS: ATORVASTATIN 20 MG TABLET PO (21:16)
[2019-12-04 00:27] VITALS: BP 164/97; PULSE 128; RESP 24; TEMP 36.9; O2SAT 96
[2019-12-04] MEDS: DILTIAZEM 125 MG/125 ML PIGGYBACK 15 MG IV (02:57)
[2019-12-04 05:00] VITALS: BP 134/87; PULSE 92; RESP 21; TEMP 36.6; O2SAT 97
[2019-12-04 05:17] LABS: Add Manual Diff / Slide Review NO; Basophils Absolute Auto 0 /uL (0-100); Basophils Percent Auto 0.2 % (0-2); Eosinophils Absolute Auto 100 /uL (0-450); Eosinophils Percent Auto 0.7 % (2-4); Hematocrit 31.7 % (36-46); Hemoglobin 10.4 g/dL (12.0-16.0); Lymphocytes Absolute Auto 2100 /uL (1100-4500); Mean Corpuscular HGB Conc 32.7 % (30-36); Mean Corpuscular Hemoglobin 27.3 PG (26-34); Mean Corpuscular Volume 83.4 fL (80-100); Monocytes Absolute Auto 1000 /uL (0-900); Neutrophils Absolute Auto 7500 /uL (1500-7000); Neutrophils Percent Auto 70.1 % (50-75); Platelet Count 300 X10^3/uL (150-400); Red Cell Distribution Width 17.2 % (11.6-14.8); White Blood Cell Count 10.7 X10^3/uL (4.5-11.0)
[2019-12-04 05:30] LABS: BUN Creatinine Ratio 20.2 (6-22); Blood Urea Nitrogen 18 mg/dL (7-17); Carbon Dioxide 26 mmol/L (22-32); Chloride 106 mmol/L (98-107); Estimated Glomerular Filt Rate > 60.0 mL/min (>60); Glucose 157 mg/dL (80-110); HEMOLYSIS < 15 (0-50); Magnesium 2.1 mg/dL (1.6-2.3); Potassium 3.7 mmol/L (3.4-5.1); Sodium 139 mmol/L (137-145)
[2019-12-04 06:00] VITALS: BP 134/99; PULSE 68; RESP 18; O2SAT 91
[2019-12-04 08:00] VITALS: BP 127/75; PULSE 70; RESP 13; TEMP 36.2; O2SAT 92
[2019-12-04] MEDS: INSULIN ASPART 100 UNIT/ML INSULN PEN SUBCUT ×2 (08:48→12:21)
[2019-12-04] MEDS: LEVOTHYROXINE 50 MCG TABLET PO (08:49)
[2019-12-04] MEDS: FOLIC ACID 1 MG TABLET PO (08:50)
[2019-12-04] MEDS: ASPIRIN 81 MG CHEW TAB PO (08:50)
[2019-12-04] MEDS: METOPROLOL ER 25 MG TABLET 75 MG PO (08:50)
[2019-12-04] MEDS: CHOLECALCIFEROL (VITAMIN D3) 1,000 UNIT TABLET 2000 UNIT PO (08:50)
[2019-12-04] MEDS: APIXABAN 5 MG TABLET PO (08:50)
[2019-12-04] MEDS: POTASSIUM CHLORIDE 20 MEQ TAB PO (08:50)
[2019-12-04 09:00] VITALS: BP 146/94; PULSE 72; RESP 26; O2SAT 98
--- NOTE | 2019-12-04 11:29 | PM.DS.1 ---
History of Present Illness History of Present Illness Date Patient Seen: 12/04/19 Time Patient Seen: 11:29 Chief complaint: Nose bleed 45 minutes Narrative: As per LUISITO Rossi: Ms. Leslee Johnson is a s a 73-year-old female with past medical history significant for hypertension, atrial fibrillation, RAMA with CPAP, history of intracranial bleed (see CT head 05/06/2017), cyj-byspsyx-yeyeraqbl type 2 diabetes, breast cancer (status post bilateral mastectomy, 1980 and 2013), DDD, obesity and hypothyroidism who presents to the ER with an acute uncontrolled epistaxis. The patient has impaired secondary to dementia and she herself states she has very poor recall and uses her to be her memory. Information is obtained from the patient is substantiated with her Sky. Her states that he found his this morning at approximately 10:30 a.m. with bleeding from the left nare. The patient without previous episodes epistaxis and is currently anticoagulated on aspirin 81 mg. Prior to her epistaxis patient was going about her normal activities with no complaints of pain or problems. The patient has a history of dementia with short-term memory loss and is functioning at baseline per her 's report She reports no recent illness or COVID-19 exposure. She denies fevers or chills and has no headaches. She has a history of dizziness though she had a blood rapid head movements are standing quickly. She denies complaints of chest pain or palpitations has a history of atrial fibrillation. She denies shortness of breath cough or wheezing has no abdominal pain, heartburn, nausea vomiting. She denies constipation or diarrhea and has noted urinary symptoms including frequency urgency or burning. Upon arrival to the ER the patient is found to afebrile with a temperature 98.0?, tachycardic at 135, blood pressure of 138/80, oxygen saturation 97% on room air. A chest x-ray is obtained with findings of less basilar atelectasis versus pneumonia. No evidence of pulmonary edema. Twelve lead EKG finds atrial flutter with RVR which appears to be 2-[address] or T-wave changes or indications of ischemia and infarct. On laboratory analysis she has white count of 10.6, hemoglobin of 10.9 and hematocrit of 33.8 and platelets 290. On coagulation has a PT of 16.5, INR 1.4 and a PTT 35. Her electrolytes are within normal limits and she has a BUN of 27 and creatinine of 1.21. Her EGFR is calculated at 43.6. Her nonfasting glucose is 160 and has normal liver functions with total bilirubin of 0.4, AST of 28, ALT of 46 and alkaline phosphatase of 91. Her total CK is low at 34 and has troponin negative at 0.02. Magnesium is added to the labs and found to be 2.1. In the ER the patient received metoprolol succinate 25 mg x 1 with no change in rhythm followed by diltiazem bolus and infusion. The epistaxis is treated tranexamic acid and Oxymetazoline Nasal [place] and a rhino rocket was placed which the patient self removed due to her confusional state. The patient is admitted to the intensive care unit by the medicine service for atrial flutter with RVR. Discharge Providers Provider Date of admission: 12/02/19 17:52 Discharge Date: 12/04/19 Primary care physician: Nat Lewis MD Consults: 12/02/19 23:20 Consult to Respiratory Therapy Evaluate & Treat Comment: RAMA with CPAP Physician Instructions: Evaluate and treat Discharge provider: Jefferson Becerra DO Summary Hospital Course Discharge Diagnosis: Please see hospital course by problem list noted below Hospital Course: This is a 74-year-old female patient with past medical history significant for hypertension, atrial fibrillation, RAMA with CPAP, history of intracranial bleed (see CT head 05/06/2017), vqf-wrjlsio-iqsgurrov type 2 diabetes, breast cancer (status post bilateral mastectomy, 1980 and 2013), DDD, obesity and hypothyroidism that presented to the ER with epistaxis and was found to be in atrial flutter unbeknownst to the patient with a rapid ventricular response. With cardiology consultation patient was placed on digoxin and increased on beta-mykel until diltiazem was able to be weaned off. Once weaned off patient had a controlled rate in the 70s but she was still in atrial flutter. Discussed with her outpatient boat engines installer, Dr. Boudreaux, who agreed that patient was stable for discharge home and recommended continuing Eliquis in anticipation of her Watchman procedure planned. 1. Atrial flutter with rapid ventricular response and variable conduction, acute, present on admission, RVR resolved. -the patient has a history of atrial fibrillation and presents to the ER with a stable tachycardia at approximately 135 beats per minute. The patient is under the care of Dr. Boudreaux, Cardiology, at telling him and has planned Watchman placement next . Case was discussed with on-call providers as well as Dr. Boudreaux himself on the day of discharge. They recommended digoxin load followed by oral digoxin, and increasing metoprolol. -no complaints of chest pain shortness of breath nausea vomiting or diaphoresis, total CK is 34 and troponin is <0.012 -in the ER patient received metoprolol succinate 25 mg p.o. with no change, received diltiazem 10 mg bolus and started on infusion until she was able to be weaned off after starting digoxin and ultimately 100 mg of metoprolol twice daily. While on diltiazem infusion patient did have brief rates below 30, but these were short lived in the patient was asymptomatic, and she was sleeping at the time. These resolved after diltiazem was weaned off. -patient has been anticoagulated on Eliquis 5 mg twice daily, the patient currently has epistaxis but minimal at slowing quite a bit, continue eliquis given atrial flutter an planned Watchman procedure. -patient remains hemodynamically stable. Per cardiology recommend conversion from coreg to metoprolol and continue oral digoxin with plan for outpatient follow up. 2. Essential hypertension, chronic, present on admit, active -upon discharge patient will continue oral metoprolol as noted above. Her blood pressure is well controlled upon discharge. 3. Diabetes type 2 non insulin dependent without complications, chronic, stable -patient has been taking metformin 500 mg twice daily and she checks her blood sugars each morning and indicates they have been ?normal?. -Blood sugar on admission is 160. -A1c with suboptimal control at 7.4% but no current medication changes are necessary. 4. Hypothyroidism, chronic, stable -continue patient's home regimen of levothyroxine 50 mcg daily. -TSH is unremarkable at 1.64. 5. Obstructive sleep apnea, using CPAP, chronic, stable -counseled on continuing CPAP machine nightly at home. 6. Dementia, chronic, stable. -both patient and her endorse history of dementia and exhibits short-term memory loss and describes her as her ?memory?. -she is status post intercranial bleed in 2017. -patient is mildly anxious however will avoid benzodiazepines. Patient is reassured with explanation of plan of care and interventions. 7. Epistaxis, present on admission, resolved -this is secondary to Eliquis use. Given low volume and active atrial flutter, as well as planned Watchman procedure, Eliquis was continued during her hospitalization and will be continued upon discharge. Time Spent with Patient Time spent: Greater than 30 minutes Exam Vital Signs (past 8 hours): - 12/04/19 05:00 12/04/19 06:00 12/04/19 08:00 Temperature 97.9 F 97.2 F L Pulse Rate 92 H 68 70 Respiratory Rate 21 18 13 Blood Pressure 134/87 134/99 H 127/75 Pulse Oximetry 97 91 92 12/04/19 09:00 Temperature Pulse Rate 72 Respiratory Rate 26 H Blood Pressure 146/94 H Pulse Oximetry 98 Oxygen Delivery Method Room Air Oxygen Flow Rate 0 Narrative Exam Narrative: GENERAL APPEARANCE: well developed, obese female resting semi recumbent in bed in no acute distress. HEENT: Symmetrical facies, PERRLA, conjunctiva clear, EOMs intact without nystagmus, no sinus tenderness to percussion, small amount of serosanguineous drainage from the left near, mucous membranes are moist and pink without lesions or exudate. NECK/THYROID: neck supple, no JVD, no carotid bruit, no thyromegaly, trachea midline. LYMPH NODES: no cervical or supraclavicular lymphadenopathy. SKIN: [place], warm and dry, no visible lesions, rashes, ulcerations or petechiae. HEART: Regularly irregular rhythm with normal rate, S1-S2, mild systolic murmur, no rubs or gallops, brisk capillary refill. LUNGS: Breath sounds diminished in the bases without coarseness crackles or wheezing, no cough present CHEST: Symmetrical movement, no accessory muscle use, child tidal volume. ABDOMEN: Soft, distended/round, to pink to percussion bilateral upper quadrants without tenderness, no guarding or peritoneal signs, no organomegaly, no flank or suprapubic tenderness, active bowel tones. EXTREMITIES: moves all extremities, strength is 5/5 and symmetrical, no deformities or joint effusions. No edema. NEUROLOGIC: AAO to person and place confused to date and time, impaired recall cranial nerves II-XII grossly intact, sensation intact to light touch, hearing grossly normal to speech. PSYCH: Anxious, good eye contact, cooperative, appropriate with stable behavior. Objective Labs Result Diagrams: 12/04/19 04:34 12/04/19 04:34 Labs: Laboratory Results - last 24 hr 12/04/19 12/04/19 04:34 04:34 WBC 10.7 RBC 3.80 L Hgb 10.4 L Hct 31.7 L MCV 83.4 MCH 27.3 MCHC 32.7 RDW 17.2 H Plt Count 300 Neut % (Auto) 70.1 Lymph % (Auto) 20.0 L [place] % (Auto) 9.0 Eos % (Auto) 0.7 L Baso % (Auto) 0.2 Neut # (Auto) 7500 H Lymph # (Auto) 2100 [place] # (Auto) 1000 H Eos # (Auto) 100 Baso # (Auto) 0 Sodium 139 Potassium 3.7 Chloride 106 Carbon Dioxide 26 BUN 18 H Creatinine 0.89 Estimated GFR > 60.0 BUN/Creatinine Ratio 20.2 Glucose 157 H Calcium 9.0 Magnesium 2.1 Discharge Plan Discharge Plan Patient Disposition: Home Discharge comment: You were admitted to the hospital with nose bleeding which resolved. In the ED, you were also found to be in rapid atrial flutter. This improved by changing your medications slightly to metoprolol succinate 100 mg BID and digoxin. You should follow up with your boat engines installer as soon as possible. please continue your eliquis in anticipation of the watchman procedure. Discharge orders & Medications Prescriptions: New Eliquis 5 mg Tablet 5 mg PO BID 30 Days Qty: 60 RF: 0 digoxin 125 mcg (0.125 mg) tablet 125 mcg PO DAILY 30 Days Qty: 30 RF: 0 metoprolol succinate 100 mg tablet extended release 24 hr 100 mg PO BID 30 Days Qty: 60 RF: 0 Continued aspirin 81 MG tablet,chewable 81 mg PO BID Qty: 0 RF: 0 cholecalciferol (vitamin D3) [Vitamin D3] 1,000 UNIT tablet 2,000 iu PO BID Qty: 0 RF: 0 [DEEP SLEEP] 1 cap PO BEDTIME PRN (Reason: Sleep) Qty: 0 RF: 0 metformin 500 mg tablet 500 mg PO BID RF: 0 atorvastatin 20 mg tablet 20 mg PO DAILY RF: 0 levothyroxine 50 mcg tablet 50 mcg PO DAILY RF: 0 folic acid 1 mg tablet 1 mg PO DAILY RF: 0 (DME) [employer] Dreamstation Auto CPAP Qty: 1 RF: 0 Discontinued carvedilol 6.25 mg tablet 6.25 mg PO BID RF: 0 Follow up/Referrals: Nat Lewis MD [Primary Care Provider] - Discharge Health Status Health Concerns: atrial flutter Diet/Activity/Treatments Diet: Diet as Tolerated, Low-sodium and Low-cholesterol Activity: As tolerated Visit Report/Discharge Packet Instructions: DI for Atrial Flutter, Digoxin, Metoprolol, Apixaban Visit Report Forms: Patient Portal/API, Stroke Signs & Symptoms Discharge Data Primary Care Provider: Nat Lewis Discharges patient from system. Discharge Date/Time: 12/04/19 14:30
[2019-12-04 12:00] VITALS: BP 135/86; PULSE 75; RESP 30; TEMP 36.3; O2SAT 97
--- NOTE | 2019-12-04 13:27 | CM.DPC ---
DCP: continued: Case received and met with pt and her in Team Bedside Rounds. Dr. Becerra stated that he was planning on speaking with pt's own tennis director: Dr. Boudreaux. He has done this and pt is now getting ready to d/c to home and will followup with Dr. Boudreaux as per plan.
== END 2019-12-04 14:30 | disposition home or self-care (01) | DRG 309 ==
LOC: ED 12:24 → AC 17:52 → ICU 18:08
PROVIDERS: Internal Medicine; Nurse Practitioner Adult Health; Admitting Provider Family Medicine; Emergency Provider Nurse Practitioner Family; PCP Internal Medicine; Referring Provider Nurse Practitioner Family; Visit Provider Family Medicine
DX: I48.92 Unspecified atrial flutter (principal); D68.318 Other hemorrhagic disorder due to intrinsic circulating anticoagulants, antibodies, or inhibitors; I48.91 Unspecified atrial fibrillation; R04.0 Epistaxis; F03.90 Unspecified dementia, unspecified severity, without behavioral disturbance, psychotic disturbance, mood disturbance, and anxiety; I10 Essential (primary) hypertension; E11.9 Type 2 diabetes mellitus without complications; Z79.84 Long term (current) use of oral hypoglycemic drugs; G47.33 Obstructive sleep apnea (adult) (pediatric); T45.515A Adverse effect of anticoagulants, initial encounter
CPT/HCPCS: 30903; 36415; 71045; 80048; 80053; 82550; 82962; 83036; 83735; 84443; 84484; 85025; 85610; 85730; 93005; 93306; 96361; 96365; 96376; 99284; J1160; J7050

== ENCOUNTER → 2019-12-24 08:44 | Outpatient (CLI) | payer MEDICARE, OTHER, SELFPAY ==
[2019-12-02 17:55] VITALS: BMI 34.9
[2019-12-24 10:16] LABS: Alanine Aminotransferase 19 IU/L (<35); Albumin 3.8 g/dL (3.5-5.0); Albumin Globulin Ratio 1.3 (1.0-2.8); Alkaline Phosphatase 83 U/L (38-126); Aspartate Aminotransferase 22 IU/L (14-36); BUN Creatinine Ratio 28.1 (6-22); Bilirubin Total 0.5 mg/dL (0.2-1.3); Blood Urea Nitrogen 27 mg/dL (7-17); Calcium 9.2 mg/dL (8.4-10.2); Carbon Dioxide 30 mmol/L (22-32); Chloride 102 mmol/L (98-107); Cholesterol 176 mg/dL (140-199); Glucose 173 mg/dL (80-110); HDL Cholesterol 33 mg/dL (40-60); HEMOLYSIS < 15 (0-50); LDL Cholesterol Calculated 88 mg/dL (<100); Sodium 139 mmol/L (137-145); Total Protein 6.8 g/dL (6.3-8.2); Triglycerides 276 mg/dL (35-150)
[2019-12-24 10:17] LABS: Hemoglobin A1C% w Est Avg Glu 7.3 % (4.0-6.0)
[2019-12-24 10:43] LABS: Vitamin D 25 Hydroxy (D3) 47.3 ng/mL (30.0-100.0)
[2019-12-24 10:46] LABS: Ferritin 11 ng/mL (11-264)
[2019-12-24 10:47] LABS: TSH w/ Reflex to FT4 3.39 uIU/mL (0.47-4.68)
[2019-12-24 11:00] LABS: Vitamin B12 466 pg/mL (239-931)
[2019-12-26 21:07] LABS: Albumin 3.2 g/dL (2.9-4.4); Alpha 1 Globulin 0.3 g/dL (0.0-0.4); Beta 1 Globulin 0.9 g/dL (0.7-1.3); Gamma Globulin 0.7 g/dL (0.4-1.8); Immunoglobulin A 181 mg/dL (64-422); Immunoglobulin G 822 mg/dL (586-1602); Immunoglobulin M 69 mg/dL (26-217); Protein, Total 6.1 g/dL (6.0-8.5)
== END ==
PROVIDERS: PCP Internal Medicine; Referring Provider Internal Medicine; Visit Provider Internal Medicine
DX: I10 Essential (primary) hypertension (principal); E03.9 Hypothyroidism, unspecified
CPT/HCPCS: 36415; 80053; 80061; 82306; 82607; 82728; 83036; 84155; 84165; 84443

== ENCOUNTER 2019-12-24 11:06 | Emergency (ER) | payer MEDICARE, OTHER, SELFPAY ==
[2019-12-02 17:55] VITALS: BMI 34.9
[2019-12-24 11:18] VITALS: BP 190/81; PULSE 62; RESP 17; TEMP 36.7; O2SAT 97
--- NOTE | 2019-12-24 11:22 | ED.EPISTAXIS ---
HPI - Epistaxis <LUISITO Herrmann - Last Filed: 12/24/19 19:46> General Chief complaint: Nasal Problem Stated complaint: nose bleed Time Seen by Provider: 12/24/19 11:17 Source: patient Mode of arrival: Wheelchair History of Present Illness HPI Narrative: 74yo female with history of hypertension, a flutter, TIA, and is currently taking Eliquis, presents to the emergency department complaining of a nose bleed to her left nostril for approximately an hour. She states she will be slowly weaning off Eliquis after her heart surgery but still has approximately 45 days left of the medication. She states she was blowing her nose and it started to bleed. She reports some small clots, nose bleed has been ongoing despite lying down and pinching her nose. Patient states this is the 2nd nose bleed on Eliquis that she has had. She denies any other symptoms such as dizziness, chest pain, headache, vision changes, shortness of breath, nausea, vomiting, diarrhea, or abdominal pain. Patient denies fevers, weakness, or vertigo. Related Data Home Medications Medication Instructions Recorded Confirmed aspirin 81 mg PO BID #0 09/21/11 12/04/19 cholecalciferol (vitamin D3) 2,000 iu PO BID #0 09/21/11 12/04/19 [Vitamin D3] [DEEP SLEEP] 1 cap PO BEDTIME PRN #0 05/06/17 12/04/19 atorvastatin 20 mg PO DAILY 05/23/18 12/04/19 folic acid 1 mg PO DAILY 05/23/18 12/04/19 levothyroxine 50 mcg PO DAILY 05/23/18 12/04/19 metformin 500 mg PO BID 05/23/18 12/04/19 Respironics Dreamstation Auto CPAP #1 ea 08/01/18 12/04/19 Allergies Allergy/AdvReac Type Severity Reaction Status Date / Time Sulfa (Sulfonamide Allergy Mild RASH Verified 12/24/19 11:21 Antibiotics) [SULFA (SULFONAMIDE ANTIBIOTICS)] codeine [CODEINE] AdvReac Mild N/V Verified 12/24/19 11:21 Review of Systems <LUISITO Herrmann - Last Filed: 12/24/19 19:46> Review of Systems Narrative: REVIEW OF SYSTEMS: GENERAL: Denies fever or chills. HENT: No head or nasal trauma. Reports nosebleed to left nostril, see HPI. EYES: No vision changes. CARDIOVASCULAR: No chest pain or syncope. RESPIRATORY: No shortness of breath or cough. GASTROINTESTINAL: No nausea, vomiting, diarrhea, or constipation. MUSCULOSKELETAL: No trauma. INTEGUMENTARY: No rash, lesions, or pruritus. NEURO: No numbness or tingling. Patient reports baseline memory issues, see HPI. PSYCH: No behavior or mood changes. Patient History <LUISITO Herrmann - Last Filed: 12/24/19 19:46> Medical History Breast cancer (Acute) Dementia (Acute) Diabetes type 2, controlled (Acute) HTN (hypertension) (Chronic) Hypothyroidism (acquired) (Chronic) Intraparenchymal hemorrhage of brain (Inactive) Obstructive sleep apnea of adult (Chronic) Surgical History History of bilateral mastectomy (Acute) History of hysterectomy (Acute) History of vein stripping (Acute) Family History Mother Ovarian cancer Father Leukemia Brother Diabetes mellitus Social History household members: spouse Smoking Status: Never smoker Smoking Status: Never smoker alcohol intake frequency: holidays/special occasions only Substance Use Type: does not use Exam <LUISITO Herrmann - Last Filed: 12/24/19 19:46> Initial Vital Signs Initial Vital Signs: Vital Signs Temperature 98.1 F 12/24/19 11:18 Pulse Rate 62 12/24/19 11:18 Respiratory Rate 17 12/24/19 11:18 Blood Pressure 190/81 H 12/24/19 11:18 Pulse Oximetry 97 12/24/19 11:18 PHYSICAL EXAMINATION: GENERAL: Well groomed, alert, and cooperative. Answers questions promptly and appropriately. Vital signs noted. HENT: Normocephalic, atraumatic. Minor oozing noted to left nostril, small clots visible. Clamp in place upon examination, small amount of blood noted to washcloth the patient is holding to nose. No notable trauma or ecchymosis. EYES: Conjunctiva pink, sclera white, no periorbital swelling. CHEST: Normal to inspection and without deformities. CARDIOVASCULAR: S1 and S2 sounds normal. Regular rate and rhythm, no murmurs, clicks, or bruits. No pedal edema. RESPIRATORY: Normal respiratory rate, trachea midline, airway patent. No stridor, nasal flaring or accessory muscle use. Lungs are clear in all sanz without wheeze, rhonchi, or crackles. MUSCULOSKELETAL: Normal gait and coordination. Equal tone and mass bilaterally. EXTREMITIES: CMS intact. Moves all extremities. SKIN: Warm, dry, soft, appropriate color for ethnicity. No lesions, rashes, or wounds. NEURO: Alert and Oriented X 3. Good coordination. No ataxia, or sensory deficits, or cognitive issues. PSYCH: Appropriate affect and mood. <Rachel Guzman MD - Last Filed: 01/11/20 18:02> Initial Vital Signs Initial Vital Signs: Vital Signs Temperature 98.1 F 12/24/19 11:18 Pulse Rate 62 12/24/19 11:18 Respiratory Rate 17 12/24/19 11:18 Blood Pressure 190/81 H 12/24/19 11:18 Pulse Oximetry 97 12/24/19 11:18 Course <LUISITO Herrmann - Last Filed: 12/24/19 19:46> Course Course Narrative: A clamp was placed on patient's nose after triage, Afrin was given. Patient continued to have bleeding after Afrin,4.5cm rhino rocket was inserted to left nostril by Dr. Guzman. Approximately an hour later, a small amount of blood was noted to right nostril. Afrin was given, bleeding resolved. 0, I spoke with ENT Dr. Cano, about weaning from right nostril. He recommended close follow-up, he states he is in the clinic for the next few days and patient can call and if bleeding continues. Patient was notified of this, given strict ED return precautions. Agreed to plan of care. Orders Ordered: Discontinued Medications Oxymetazoline HCl (Afrin) 2 sprays NASAL NOW ONE Stop: 12/24/19 11:20 Last Admin: 12/24/19 12:13 Dose: 2 sprays Documented by: GRIFFIN Oxymetazoline HCl (Afrin) 2 sprays NASAL NOW ONE Stop: 12/24/19 15:07 Last Admin: 12/24/19 15:00 Dose: 2 sprays Documented by: GRIFFIN Consultations Consultation #1: Patient staffed with Dr. Guzman, discussed test, test results, plan of care. Vital Signs Vital signs: Vital Signs - 8 hr 12/24/19 14:51 Pulse Rate 65 Blood Pressure 146/85 H Pulse Oximetry 96 <Rachel Guzman MD - Last Filed: 01/11/20 18:02> Orders Ordered: Discontinued Medications Oxymetazoline HCl (Afrin) 2 sprays NASAL NOW ONE Stop: 12/24/19 11:20 Last Admin: 12/24/19 12:13 Dose: 2 sprays Documented by: GRIFFIN Oxymetazoline HCl (Afrin) 2 sprays NASAL NOW ONE Stop: 12/24/19 15:07 Last Admin: 12/24/19 15:00 Dose: 2 sprays Documented by: GRIFFIN Vital Signs Vital signs: Vital Signs - 8 hr 12/24/19 14:51 Pulse Rate 65 Blood Pressure 146/85 H Pulse Oximetry 96 [facility] - Epistaxis <LUISITO Herrmann - Last Filed: 12/24/19 19:46> Medical Records Attestation: I reviewed the patient's medical records. Lab Data Attestation: I reviewed the patient's lab results. [facility] Narrative Medical decision making narrative: 74-year-old female presents to the emergency department for an epistaxis. She is currently taking Eliquis. No trauma. Attempted to control bleeding with Afrin, not successful. Clots were removed and renal rocket was placed by Dr. Guzman. Bleeding was controlled, however, pen discharge a small amount of bleeding was noted to right nostril, opted of where renal record was placed. Bleeding stopped after Afrin was administered in that nostril. ENT was consulted, recommended close follow-up. Also advised patient that ENT was in the office for the next 3 days if bleeding continued to call the office. Strict return precautions given for new or worsening symptoms. Patient agreed to plan of care verbalized understanding. Discharge Plan Departure Patient Disposition: Home Clinical Impression: Epistaxis Discharge Date/Time: 12/24/19 15:15 Instructions: DI for Nosebleed Activity Restrictions/Additional Instructions: Thank you for entrusting me with your care today. As discussed, we have placed a rhino rocket in your nose, please leave this in place. We have schedule you an appointment with Dr. Cano on December 26, at 1040 at [facility] in [place]. . Please keep this appointment scheduled. Return emergency department for any new or worsening symptoms such as continued nasal bleeding, dizziness, syncope, chest pain, shortness of breath, fevers, severe headache, or any other concerns. Prescriptions: No Action aspirin 81 MG tablet,chewable 81 mg PO BID Qty: 0 RF: 0 cholecalciferol (vitamin D3) [Vitamin D3] 1,000 UNIT tablet 2,000 iu PO BID Qty: 0 RF: 0 [DEEP SLEEP] 1 cap PO BEDTIME PRN (Reason: Sleep) Qty: 0 RF: 0 metformin 500 mg tablet 500 mg PO BID RF: 0 atorvastatin 20 mg tablet 20 mg PO DAILY RF: 0 levothyroxine 50 mcg tablet 50 mcg PO DAILY RF: 0 folic acid 1 mg tablet 1 mg PO DAILY RF: 0 (DME) Respiron[employer] Dreamstation Auto CPAP Qty: 1 RF: 0 Referrals: Nat Lewis MD [Primary Care Provider] - <Rachel Guzman MD - Last Filed: 01/11/20 18:02> Cosign ED Attending Cosignature Attestation: I was immediately available in the department for consultation throughout this patient's visit. I agree with documentation as above. Rachel Guzman MD
[2019-12-24] MEDS: OXYMETAZOLINE NASAL SPRAY 30 ML 2 SPRAYS NASAL ×2 (12:13→15:00)
[2019-12-24 14:51] VITALS: BP 146/85; PULSE 65; O2SAT 96
--- NOTE | 2019-12-24 15:06 | PC.NURSE ---
4545 Upon DC patient was noted to have bleeding from right nare. Per LUISITO Hemphill, will give two sprays of nostril in right nare and she will call ENT to ensure it is ok to DC.
--- NOTE | 2019-12-24 15:09 | PC.NURSE ---
Bleeding has stopped since administration of afrin.
--- NOTE | 2019-12-24 15:10 | PC.NURSE ---
1400 Patient placed a rhino rocket in left nare. Bleeding is controlled.
== END 2019-12-24 15:15 | disposition home or self-care (01) ==
PROVIDERS: Emergency Provider Nurse Practitioner; PCP Internal Medicine
DX: R04.0 Epistaxis (principal); I10 Essential (primary) hypertension; Z79.01 Long term (current) use of anticoagulants; E03.9 Hypothyroidism, unspecified
CPT/HCPCS: 30901; 36415; 80053; 80061; 82306; 82607; 82728; 83036; 84155; 84165; 84443; 99282; 99283

== ENCOUNTER 2020-05-15 00:35 | Emergency (ER) | payer MEDICARE, OTHER, SELFPAY ==
[2019-12-02 17:55] VITALS: BMI 34.9
[2020-05-15] VITALS (35 sets, daily range): BP systolic 152–215; BP diastolic 76–130; PULSE 63–122; RESP 15–33; TEMP 36.6; O2SAT 84–100
--- NOTE | 2020-05-15 00:37 | DI.CT.S_ITS ---
PROCEDURE: CT STROKE INDICATIONS: stroke TECHNIQUE: Noncontrast 4.5 mm thick angled axial sections acquired from the foramen magnum to the vertex, with coronal reformats. For radiation dose reduction, the following was used: automated exposure control, adjustment of mA and/or kV according to patient size. COMPARISON: [facility], CT, HEAD WITHOUT CONTRAST, 05/06/2017, 15:55. [facility], CT, CT HEAD/BRAIN WO CON, 05/23/2018, 14:57. [facility], MR, MR HEAD/BRAIN WO CON, 11/02/2017, 8:44. FINDINGS: Image quality: Excellent. CSF spaces: Basal cisterns are patent. No extra-axial fluid collections. The ventricles are symmetric in size and shape. Brain: No intracranial bleeds or masses. There is cerebral volume loss for age, with resultant ventricular and sulcal prominence. There are periventricular and deep white matter chronic small vessel ischemic changes. There is intracranial internal carotid artery atherosclerosis. Skull and face: Calvarium and visualized facial bones appear intact, without suspicious lesions. Sinuses: Visualized sinuses and mastoids are clear. IMPRESSION: No acute intracranial disease process. This study fulfills neurological imaging criteria for inclusion or exclusion of acute stroke therapies based on available published neurological guidelines. Dictated by: Jenae Zhang MD, PhD on 05/15/2020 at 7:43 Approved by: Jenae Zhang MD, PhD on 05/15/2020 at 7:45
--- NOTE | 2020-05-15 00:38 | DI.CT.S_ITS ---
PROCEDURE: CT ANGIO HEAD AND NECK INDICATIONS: stroke TECHNIQUE: Pre-contrast 4.5 mm thick sections acquired from the foramen magnum to the vertex. After the administration of intravenous contrast, 1 mm thick sections acquired from the aortic arch through the [place] of [place]. Post-contrast 4.5 mm thick sections then re-acquired from the foramen magnum to the vertex. 3-dimensional szxbkxc-eiyprnglx-gpgdojrpuh (MIP) and/or volume rendering reformats were acquired of the central intracranial vasculature and neck separately. COMPARISON: [facility], CT, CT STROKE, 05/15/2020, 0:34. [facility], MR, MR STROKE, 05/24/2018, 9:19. FINDINGS: Image quality: Excellent. BRAIN: CSF spaces: Ventricles are normal in size and shape. Basal cisterns are patent. No extra-axial fluid collections. Brain: No midline shift. No intracranial bleeds or masses. Goldman-white matter interface appears intact. Skull and face: Calvarium and facial bones appear intact, without suspicious lesions. Orbits appear normal. Sinuses: Sinuses and mastoids are clear. HEAD CT ANGIOGRAPHY: Anterior circulation: Intracranial internal carotid arteries are normal in flow. Atherosclerotic calcification noted in the cavernous and clinoid segments of the internal carotid arteries bilaterally which causes mild narrowing of the vessels. The flow within the paired anterior cerebral arteries is normal and symmetric. The flow within the middle cerebral arteries is normal and symmetric. The anterior communicating artery is seen. No aneurysms are seen. Posterior circulation: Calcified atherosclerotic plaque noted in the proximal V4 segments of the vertebral arteries bilaterally which causes mild, short segment stenosis. Basilar artery appears fully patent. Flow within the posterior cerebral arteries is normal and symmetric. Right posterior cerebral artery has a origin. No aneurysms are seen. The dural sinuses demonstrate normal postcontrast enhancement. NECK CT ANGIOGRAPHY: Carotid system: The great vessels demonstrate a conventional anatomy as they arise from the aortic arch. The origins of the common carotid arteries appear patent. The common carotid arteries demonstrate normal caliber. Common carotid arteries and internal carotid arteries follow a medial course project into the retropharyngeal space. Atherosclerotic plaque noted in the origins of the internal carotid arteries bilaterally which causes less than 50% stenosis. Posterior circulation: The origins of the vertebral arteries both appear widely patent. The more superior extracranial portions of both vertebral arteries also demonstrate normal courses and calibers. They join to form a normal appearing basilar artery. Soft tissues: Visualized neck soft tissues demonstrate no suspicious abnormalities. Bones: No suspicious bony lesions. Spine degenerative disc disease and facet arthropathy. Visualized cervical spine appears normally aligned. IMPRESSION: 1. No acute intracranial disease process. 2. No large vessel occlusion, hemodynamically significant vascular stenosis, vascular dissection or aneurysm. Any quantitative measurements of stenosis were performed using NASCET criteria. Dictated by: Jenae Zhang MD, PhD on 05/15/2020 at 7:55 Approved by: Jenae Zhang MD, PhD on 05/15/2020 at 8:00
--- NOTE | 2020-05-15 00:45 | PC.NURSE ---
Patients at bedside, states last known normal approximately 2230. Patient was sitting in chair and had gone to sleep, when he awake at 2330 found patient still in chair with new confusion complaining of severe right sided headache. En route patient vomitted and received 4mg Zofran. states patient has dementia, however current LOC is not baseline. Patient also has visible shaking that states is also not baseline for patient. Provider aware of all findings.
--- NOTE | 2020-05-15 00:50 | ED_ITS ---
HPI - Altered Mental Status General Chief Complaint: Neuro Symptoms/Deficit Stated Complaint: Stroke Time Seen by Provider: 05/15/20 00:37 Source: patient and EMS Mode of arrival: EMS Limitations: altered mental status History of Present Illness HPI narrative: 75-year-old female nonsmoker with history of TIA, hypertension, AFib on Eliquis, diabetes presents with a chief complaint of a sudden onset altered mental status with slurred speech that started 1 hour prior to arrival. EMS states that the onset was at about midnight. The patient had initial blood pressure of 230 by palpate. She has had no recent injury. She is activated as a code stroke and taken directly to CT scan She denies other symptoms such as chest pain or shortness of breath. She has had no abdominal pain and had 1 episode of vomiting in the ambulance. Her arrives soon after she returns from CT and states that while driving in he realized that she was absolutely normal and at her baseline at 2200 and he fell asleep for about an hour and found her acting confused and slurring words at 2300. He states she had no seizure like activity, no loss of bowel or bladder control. She was at [facility] in [place] in mid- November and had an atrial closure device placed and her eliquis was stopped 3 weeks later. She's had no bleeding problems or surgeries in the last month. MD complaint: altered mental status, confusion and decreased responsiveness Onset (ago): hour(s) Time: 00:00 Timing confirmed by: spouse Severity: moderate Consistency of symptoms: constant Context: history of similar presentation Related Data Home Medications Medication Instructions Recorded Confirmed aspirin 81 mg PO BID #0 09/21/11 12/04/19 cholecalciferol (vitamin D3) 2,000 iu PO BID #0 09/21/11 12/04/19 [Vitamin D3] [DEEP SLEEP] 1 cap PO BEDTIME PRN #0 05/06/17 12/04/19 atorvastatin 20 mg PO DAILY 05/23/18 12/04/19 folic acid 1 mg PO DAILY 05/23/18 12/04/19 levothyroxine 50 mcg PO DAILY 05/23/18 12/04/19 metformin 500 mg PO BID 05/23/18 12/04/19 Respironics Dreamstation Auto CPAP #1 ea 02/05/19 06/09/20 Allergies Allergy/AdvReac Type Severity Reaction Status Date / Time Sulfa (Sulfonamide Allergy Mild RASH Verified 12/24/19 11:21 Antibiotics) [SULFA (SULFONAMIDE ANTIBIOTICS)] codeine [CODEINE] AdvReac Mild N/V Verified 12/24/19 11:21 Review of Systems Constitutional Constitutional: Denies chills, Denies fatigue, Denies fever(s), Denies frequent falls, Denies lethargy and Denies weakness Eyes Eyes: Reports blurry vision, Denies change in vision, Denies eye discharge, Denies irritation and Denies loss of vision ENT Ears, Nose, Mouth, and Throat: Denies change in voice, Denies dizziness, Denies neck pain, Denies sore throat and Denies throat swelling Cardiovascular Cardiovascular: Denies chest pain, Denies irregular heart rhythm, Denies lightheadedness, Denies palpitations, Denies dyspnea, Denies dyspnea on exertion and Denies orthopnea Respiratory Respiratory: Denies cough, Denies dyspnea, Denies dyspnea on exertion and Denies wheezing Gastrointestinal Gastrointestinal: Denies abdominal pain, Denies change in bowel habits, Denies diarrhea, Denies nausea and Denies vomiting Musculoskeletal Musculoskeletal: Denies neck pain and Denies numbness Integumentary/Breasts Skin/Breast: Denies pruritus, Denies erythema, Denies rash and Denies wounds Neurologic Neurologic: Reports abnormal speech, Denies behavioral changes, Reports confusion, Denies dizziness, Denies frequent falls, Denies loss of vision, Denies numbness and Denies weakness Psychiatric Psychiatric: Denies anxiety, Denies behavioral changes, Reports confusion, Denies depression, Denies homicidal ideation and Denies suicidal ideation Endocrine Endocrine: Denies fatigue, Denies flushing and Denies palpitations Hematologic/Lymphatic Hematologic/Lymphatic: Denies easy bruising Allergic/Immunologic Allergic/Immunologic: Denies urticaria, Denies throat swelling and Denies wheezing Patient History Medical History (Updated 05/15/20 @ 04:13 by Mert Jolly DO) Breast cancer Dementia Diabetes type 2, controlled HTN (hypertension) Hypothyroidism (acquired) Intraparenchymal hemorrhage of brain Obstructive sleep apnea of adult Surgical History History of bilateral mastectomy History of hysterectomy History of vein stripping Family History Mother Ovarian cancer Father Leukemia Brother Diabetes mellitus Social History household members: spouse Smoking Status: Never smoker Smoking Status: Never smoker alcohol intake frequency: holidays/special occasions only Substance Use Type: does not use Exam Narrative Exam Narrative: GENERAL: [75] year old patient appears stated age. Well- nourished, well-developed patient, in moderate distress. GCS 14 HEAD: Atraumatic. Normocephalic. EYES: Pupils equal round and reactive. Extraocular motions intact. No scleral icterus. No injection or drainage. ENT: Nose without bleeding, purulent drainage. Throat without erythema, tonsillar hypertrophy or exudate. Airway patent. NECK: Trachea midline. Non tender CARDIOVASCULAR: Regular rate and rhythm without murmurs, gallops, or rubs. RESPIRATORY: Clear to auscultation. Breath sounds equal bilaterally. No wheezes, rales, or rhonchi. GASTROINTESTINAL: Abdomen soft, non-tender, nondistended. EXTREMITIES: No edema or joint tenderness. BACK: Nontender without deformity or crepitance. No flank tenderness. NEURO: [place], alert and answered most questions accurately but certainly having trouble following some commands. SKIN: No rash or erythema of visible areas Initial Vital Signs Initial Vital Signs: Vital Signs Temperature 97.8 F 05/15/20 00:35 Pulse Rate 69 05/15/20 00:35 Respiratory Rate 15 05/15/20 00:35 Blood Pressure 215/105 H 05/15/20 00:35 Pulse Oximetry 94 05/15/20 00:35 Scores NIH Stroke Scale Level of Conciousness: Alert, keenly responsive Ask month/age: Answers one question correctly, intubated follow commands (Aware of age, not month (patient not intubated)) Open/close eyes, close hand: Performs both tasks correctly Best gaze horizontal: Normal Visual sanz: Complete hemianopia (left field of vision) Facial palsy: Normal symetrical movement Left arm drift: No drift for full 10 sec Right arm drift: No drift for full 10 sec Left leg drift: No drift for full 5 sec Right leg drift: No drift for full 5 sec Limb ataxia: Absent Sensory on face/arms/legs: Normal, no sensory loss Best language: Mild to moderate, slurs some words Dysarthria: Mild to mod,some slurring Extinction or inattention: No abnormality Total NIH Stroke scale score: 5 Course Course Course Narrative: Initially patient activated as code stroke but thought to be not a candidate given reported use of eliquis. CT and CTA orderd and upon arrival confirms time frame of eliquis cessation. Given increased risk including history of ICH, decision to involve Telestroke for further assistance with decision making. 0156 - TPA Bolus 9mg 0157 - TPA drip 81mg started Orders Ordered: ED Orders 05/15/20 00:37 CT Stroke Stat Urine Drug Screen, Rapid Stat EKG-12 Lead Stat 05/15/20 00:38 CT angio head and neck Stat 05/15/20 00:47 Basic Metabolic Panel Stat Complete Blood Count AUTO DIFF Stat Ethanol (ETOH) Stat Partial Thromboplastin Time Stat Prothrombin Time INR Stat Troponin & CK Cardiac Panel Stat 05/15/20 02:07 COVID19 Stat Sodium Chloride (Normal Saline 0.9%) 1,000 mls @ 150 mls/hr IV CONT OLEKSANDR Last Titration: 05/15/20 02:05 Dose: 0 mls/hr Documented by: Nicardipine HCl 25 mg/ Sodium (Chloride) 250 mls @ 50 mls/hr IV TITRATE OLEKSANDR; Protocol Last Titration: 05/15/20 02:50 Dose: 5 mg/hr, 50 mls/hr Documented by: Discontinued Medications Alteplase, Recombinant (Alteplase 100 Mg Vial) 9 mg IV NOW ONE Stop: 05/15/20 01:40 Last Admin: 05/15/20 01:56 Dose: 9 mg Documented by: Alteplase, Recombinant (Alteplase 100 Mg Vial) 81 mg IV NOW ONE Stop: 05/15/20 01:40 Last Admin: 05/15/20 01:56 Dose: 81 mg Documented by: Lorazepam (Lorazepam 2 Mg/Ml Inj) 0.5 mg IV NOW ONE Stop: 05/15/20 03:33 Last Admin: 05/15/20 03:37 Dose: 0.5 mg Documented by: Lorazepam (Lorazepam 2 Mg/Ml Inj) 0.5 mg IV NOW ONE Stop: 05/15/20 04:14 Last Admin: 05/15/20 04:15 Dose: 0.5 mg Documented by: Reevaluation(s) Reevaluation #1: Initial BP 235, Nicardipine ordered to the bedside. first full set in ED 215/105 (0055) will hold on Nicardipine given need for permissive hypertension in non TPA candidate and concern for ischemic stroke (0100). now at the bedside, she had a Watchman placed 6 weeks ago and has been off the eliquis for about 3 weeks. Reevaluation #2: Telestroke activated and Dr. Marsh has heard the story, examined the patient and consented the , including increased risk given prior ICH, new timeline putting us at 4 hours (still within 4.5 hour window). Images reviewed. Increased risk very clearly relayed. understands this risk and wishes to proceed. TPA ordered. BP down to 174/89 Reevaluation #3: patient has been on Nicardipine 5-10 and BP kept below 180. Patient has no headache, no change in symptoms 0325 - we have received bed assignment. Call to Ambulance and there is delay of at least 4 hours for transport. Given patient's severity of illness and potential to deteriorate we've called [facility] 0335 - she is becoming a bit agitated and anxious. She denies pain. Has no headache, vomiting, or abdominal pain. She is pulling off BP cuff and we are unable to verbally de-escalate her. We will give a touch of ativan to help her recognizing that the potential benefit outweighs the risk of causing some mild obtundation. Consultations Consultation #1: 0145 - call to [facility] - no beds 0147 - call to [facility] - on wait list 0149 - call to [facility] - checking on bed 0215 - Dr. Greene ([facility] ICU) happy to accept. Vital Signs Vital signs: Vital Signs - 8 hr 05/15/20 00:35 05/15/20 01:24 05/15/20 01:29 Temperature 97.8 F Pulse Rate 69 63 67 Respiratory Rate 15 19 21 Blood Pressure 215/105 H 202/96 H Pulse Oximetry 94 93 95 05/15/20 01:30 05/15/20 01:31 05/15/20 01:33 Temperature Pulse Rate 67 69 Respiratory Rate 18 26 H Blood Pressure 204/96 H 215/106 H Pulse Oximetry 91 95 05/15/20 01:38 05/15/20 01:42 05/15/20 01:44 Temperature Pulse Rate 89 93 H 86 Respiratory Rate 20 25 H Blood Pressure 214/97 H 173/85 H 178/81 H Pulse Oximetry 92 95 95 05/15/20 01:45 05/15/20 01:47 05/15/20 01:50 Temperature Pulse Rate 86 84 85 Respiratory Rate 21 22 20 Blood Pressure 159/76 H 175/85 H 176/87 H Pulse Oximetry 95 94 92 05/15/20 01:52 05/15/20 01:55 05/15/20 01:57 Temperature Pulse Rate 85 93 H 92 H Respiratory Rate 20 24 25 H Blood Pressure 169/83 H 190/103 H 204/93 H Pulse Oximetry 92 94 94 05/15/20 02:00 05/15/20 02:05 05/15/20 02:10 Temperature Pulse Rate 90 96 H 103 H Respiratory Rate 18 21 22 Blood Pressure 204/93 H 184/110 H 181/108 H Pulse Oximetry 95 91 93 05/15/20 02:17 05/15/20 02:21 05/15/20 02:24 Temperature Pulse Rate 108 H 114 H 118 H Respiratory Rate 26 H Blood Pressure 186/108 H 207/130 H Pulse Oximetry 95 92 97 05/15/20 02:30 05/15/20 02:58 05/15/20 03:00 Temperature Pulse Rate 117 H 114 H 114 H Respiratory Rate 27 H 22 23 Blood Pressure 167/95 H 165/95 H Pulse Oximetry 98 93 97 05/15/20 03:05 05/15/20 03:10 05/15/20 03:16 Temperature Pulse Rate 118 H 118 H 120 H Respiratory Rate 24 18 17 Blood Pressure 163/82 H 164/92 H 175/102 H Pulse Oximetry 97 84 L 99 05/15/20 03:20 05/15/20 03:25 05/15/20 03:30 Temperature Pulse Rate 122 H 111 H 114 H Respiratory Rate 17 18 22 Blood Pressure 176/88 H 176/89 H 172/83 H Pulse Oximetry 99 99 100 05/15/20 03:40 05/15/20 03:46 05/15/20 03:52 Temperature Pulse Rate 114 H 112 H 109 H Respiratory Rate 28 H 33 H Blood Pressure 171/85 H 160/81 H 181/87 H Pulse Oximetry 99 99 99 05/15/20 03:56 05/15/20 04:00 Temperature Pulse Rate 111 H 113 H Respiratory Rate Blood Pressure 152/91 H Pulse Oximetry 99 99 MDM - Altered Mental Status Lab Data Result diagrams: 05/15/20 00:47 05/15/20 00:47 Labs: Lab Results 05/15/20 05/15/20 05/15/20 Range/Units 00:47 00:47 00:47 WBC 10.5 (4.5-11.0) X10^3/uL RBC 4.48 (4.0-5.2) X10^6/uL Hgb 10.9 L (12.0-16.0) g/dL Hct 35.5 L (36-46) % MCV 79.4 L (80-100) fL MCH 24.4 L (26-34) PG MCHC 30.8 (30-36) % RDW 19.6 H (11.6-14.8) % Plt Count 392 (150-400) X10^3/uL Neut % (Auto) 74.1 (50-75) % Lymph % (Auto) 17.3 L (25-40) % [place] % (Auto) 7.3 (3-14) % Eos % (Auto) 1.0 L (2-4) % Baso % (Auto) 0.3 (0-2) % Neut # (Auto) 7800 H (2346-2946) /uL Lymph # (Auto) 1800 (2839-3410) /uL [place] # (Auto) 800 (0-900) /uL Eos # (Auto) 100 (0-450) /uL Baso # (Auto) 0 (0-100) /uL PT 11.3 (10.1-12.7) SECONDS INR 1.0 (0.9-1.3) APTT 31 D (26.4-36.2) SECONDS Sodium 134 L (137-145) mmol/L Potassium 4.3 (3.4-5.1) mmol/L Chloride 98 (98-107) mmol/L Carbon Dioxide 30 (22-32) mmol/L BUN 23 H (7-17) mg/dL Creatinine 0.97 (0.52-1.04) mg/dL Estimated GFR 56.1 L (>60) mL/min BUN/Creatinine Ratio 23.7 H (6-22) Glucose 321 H (80-110) mg/dL Calcium 9.1 (8.4-10.2) mg/dL Total Creatine Kinase 35 (30-135) U/L CK-MB (CK-2) TNP CK-MB (CK-2) Rel Index TNP Troponin I < 0.012 (0.01-0.034) ng/mL Ethyl Alcohol < 10 ( - 10) mg/dL COVID-19 PCR (Negative) 05/15/20 Range/Units 02:07 WBC (4.5-11.0) X10^3/uL RBC (4.0-5.2) X10^6/uL Hgb (12.0-16.0) g/dL Hct (36-46) % MCV (80-100) fL MCH (26-34) PG MCHC (30-36) % RDW (11.6-14.8) % Plt Count (150-400) X10^3/uL Neut % (Auto) (50-75) % Lymph % (Auto) (25-40) % [place] % (Auto) (3-14) % Eos % (Auto) (2-4) % Baso % (Auto) (0-2) % Neut # (Auto) (3034-7458) /uL Lymph # (Auto) (4653-6122) /uL [place] # (Auto) (0-900) /uL Eos # (Auto) (0-450) /uL Baso # (Auto) (0-100) /uL PT (10.1-12.7) SECONDS INR (0.9-1.3) APTT (26.4-36.2) SECONDS Sodium (137-145) mmol/L Potassium (3.4-5.1) mmol/L Chloride (98-107) mmol/L Carbon Dioxide (22-32) mmol/L BUN (7-17) mg/dL Creatinine (0.52-1.04) mg/dL Estimated GFR (>60) mL/min BUN/Creatinine Ratio (6-22) Glucose (80-110) mg/dL Calcium (8.4-10.2) mg/dL Total Creatine Kinase (30-135) U/L CK-MB (CK-2) CK-MB (CK-2) Rel Index Troponin I (0.01-0.034) ng/mL Ethyl Alcohol ( - 10) mg/dL COVID-19 PCR Negative (Negative) Point of Care Testing Glucose POC [address] scan - head: Radiologist's Impression: No bleed CTA Head/Neck: Radiologist's Impression: No large vessel occlusion MDM Narrative Medical decision making narrative: Patient with ischemic stroke and admi nistration of TPA requires transport to [facility] as we cannot care for post TPA candidates. Images have been pushed and TPA consent and consultation from Dr. Marsh included with transfer paperwork. understands and is in agreement with plan and need for transfer. Critical Care Time Critical Care Time Critical Care Time: Yes Total Critical Care Time: 40 Attestation: The high probability of a clinically significant, sudden or life threatening deterioration of the [NV/CV] system(s) required my full and direct attention, intervention and personal management. The aggregate critical care time was [40] minutes. This time is in addition to time spent performing reported procedures but includes the following: [x] Data Review and interpretation [x] Patient assessment and monitoring of vital signs [x] Documentation [x] Medication orders and management Discharge Plan Departure Patient Disposition: [facility] Clinical Impression: Stroke Qualifiers: CVA mechanism: other Qualified Code(s): I63.89 - Other cerebral infarction Prescriptions: No Action aspirin 81 MG tablet,chewable 81 mg PO BID Qty: 0 RF: 0 cholecalciferol (vitamin D3) [Vitamin D3] 1,000 UNIT tablet 2,000 iu PO BID Qty: 0 RF: 0 [DEEP SLEEP] 1 cap PO BEDTIME PRN (Reason: Sleep) Qty: 0 RF: 0 metformin 500 mg tablet 500 mg PO BID RF: 0 atorvastatin 20 mg tablet 20 mg PO DAILY RF: 0 levothyroxine 50 mcg tablet 50 mcg PO DAILY RF: 0 folic acid 1 mg tablet 1 mg PO DAILY RF: 0 (DME) Respironics Dreamstation Auto CPAP Qty: 1 RF: 0 Referrals: Nat Lewis MD [Primary Care Provider] -
[2020-05-15] MEDS: SODIUM CHLORIDE 0.9% 1,000 ML 150 ML IV (00:58)
[2020-05-15 01:01] LABS: Add Manual Diff / Slide Review NO; Basophils Absolute Auto 0 /uL (0-100); Basophils Percent Auto 0.3 % (0-2); Eosinophils Absolute Auto 100 /uL (0-450); Hematocrit 35.5 % (36-46); Hemoglobin 10.9 g/dL (12.0-16.0); Lymphocytes Absolute Auto 1800 /uL (1100-4500); Lymphocytes Percent Auto 17.3 % (25-40); Mean Corpuscular HGB Conc 30.8 % (30-36); Mean Corpuscular Hemoglobin 24.4 PG (26-34); Mean Corpuscular Volume 79.4 fL (80-100); Monocytes Absolute Auto 800 /uL (0-900); Monocytes Percent Auto 7.3 % (3-14); Neutrophils Absolute Auto 7800 /uL (1500-7000); Neutrophils Percent Auto 74.1 % (50-75); Platelet Count 392 X10^3/uL (150-400); Red Blood Cell Count 4.48 X10^6/uL (4.0-5.2); Red Cell Distribution Width 19.6 % (11.6-14.8); White Blood Cell Count 10.5 X10^3/uL (4.5-11.0)
[2020-05-15 01:06] LABS: Prothrombin Time 11.3 SECONDS (10.1-12.7)
[2020-05-15 01:09] LABS: PTT Partial Thromboplastin Tim 31 SECONDS (26.4-36.2)
[2020-05-15 01:11] LABS: BUN Creatinine Ratio 23.7 (6-22); Blood Urea Nitrogen 23 mg/dL (7-17); Calcium 9.1 mg/dL (8.4-10.2); Carbon Dioxide 30 mmol/L (22-32); Chloride 98 mmol/L (98-107); Creatine Kinase 35 U/L (30-135); Estimated Glomerular Filt Rate 56.1 mL/min (>60); Ethanol (ETOH) < 10 mg/dL; Glucose 321 mg/dL (80-110); HEMOLYSIS < 15 (0-50); Potassium 4.3 mmol/L (3.4-5.1); Sodium 134 mmol/L (137-145)
[2020-05-15 01:23] LABS: Troponin I < 0.012 ng/mL (0.01-0.034)
[2020-05-15] MEDS: NICARDIPINE 25 MG in SODIUM CHLORIDE 0.9% 240 ML 50 ML IV (01:26)
[2020-05-15] MEDS: ALTEPLASE 100 MG VIAL 9 MG IV (01:56)
[2020-05-15] MEDS: ALTEPLASE 100 MG VIAL 81 MG IV (01:56)
[2020-05-15 02:26] LABS: COVID19 -Nasal RAPID Negative (Negative)
--- NOTE | 2020-05-15 02:33 | PC.NURSE ---
Pt with multiple high blood pressures. Each time blood pressure would take pt would move and fight blood pressure. Checked bp at 7 was 160/palp. then at 2 was 140/palp.
[2020-05-15] MEDS: LORazepam 2 MG/ML INJ 0.5 MG IV ×2 (03:37→04:15)
== END 2020-05-15 04:38 | disposition short-term general hospital (02) ==
PROVIDERS: Emergency Provider Emergency Medicine; PCP Internal Medicine
DX: I63.89 Other cerebral infarction (principal); R41.82 Altered mental status, unspecified; I48.91 Unspecified atrial fibrillation; Z79.01 Long term (current) use of anticoagulants; I10 Essential (primary) hypertension; E11.9 Type 2 diabetes mellitus without complications; H53.8 Other visual disturbances
CPT/HCPCS: 36415; 70450; 70496; 70498; 80048; 80320; 82550; 82962; 84484; 85025; 85610; 85730; 87635; 93005; 93010; 96365; 96375; 96376; 99284; 99291; 99292; Q3014; J2060; J2997; Q9967

== ENCOUNTER → 2020-08-01 08:01 | Outpatient (CLI) | payer MEDICARE, OTHER, SELFPAY ==
[2019-12-02 17:55] VITALS: BMI 34.9
[2020-08-01] MEDS: COVID-19 VACC #1, MRNA(MOD) 100 MCG/0.5 ML VIAL IM (08:11)
== END ==
PROVIDERS: PCP Internal Medicine; Visit Provider Internal Medicine
DX: Z23 Encounter for immunization (principal)
CPT/HCPCS: 0011A; 91301

== ENCOUNTER → 2020-08-28 08:37 | Outpatient (CLI) | payer MEDICARE, OTHER, SELFPAY ==
[2019-12-02 17:55] VITALS: BMI 34.9
[2020-08-28] MEDS: COVID-19 VACC #2, MRNA(MOD) 100 MCG/0.5 ML VIAL IM (08:44)
== END ==
PROVIDERS: PCP Internal Medicine; Visit Provider Internal Medicine
DX: Z23 Encounter for immunization (principal)
CPT/HCPCS: 0012A; 91301

== ENCOUNTER → 2020-09-08 11:01 | Outpatient (CLI) | payer MEDICARE, OTHER, SELFPAY ==
[2019-12-02 17:55] VITALS: BMI 34.9
[2020-09-08 11:32] LABS: Hemoglobin A1C% w Est Avg Glu 6.8 % (4.0-6.0)
[2020-09-08 11:51] LABS: Alanine Aminotransferase 16 IU/L (<35); Albumin 4.1 g/dL (3.5-5.0); Albumin Globulin Ratio 1.4 (1.0-2.8); Alkaline Phosphatase 89 U/L (38-126); Aspartate Aminotransferase 25 IU/L (14-36); BUN Creatinine Ratio 23.4 (6-22); Bilirubin Total 0.2 mg/dL (0.2-1.3); Blood Urea Nitrogen 22 mg/dL (7-17); Calcium 9.4 mg/dL (8.4-10.2); Carbon Dioxide 30 mmol/L (22-32); Chloride 103 mmol/L (98-107); Cholesterol 138 mg/dL (140-199); Estimated Glomerular Filt Rate 58.2 mL/min (>60); Glucose 133 mg/dL (80-110); HDL Cholesterol 30 mg/dL (40-60); HEMOLYSIS < 15 (0-50); LDL Cholesterol Calculated 77 mg/dL (<100); Potassium 3.9 mmol/L (3.4-5.1); Sodium 140 mmol/L (137-145); Total Protein 7.1 g/dL (6.3-8.2); Triglycerides 154 mg/dL (35-150)
[2020-09-08 12:17] LABS: Thyroid Stimulating Hormone 1.77 uIU/mL (0.47-4.68)
== END ==
PROVIDERS: PCP Internal Medicine; Referring Provider Internal Medicine; Visit Provider Internal Medicine
DX: E03.9 Hypothyroidism, unspecified (principal); E11.9 Type 2 diabetes mellitus without complications; E78.2 Mixed hyperlipidemia; I10 Essential (primary) hypertension
CPT/HCPCS: 36415; 80053; 80061; 83036; 84439; 84443

== ENCOUNTER → 2021-03-09 09:37 | Outpatient (CLI) | payer MEDICARE, OTHER, SELFPAY ==
[2019-12-02 17:55] VITALS: BMI 34.9
[2021-03-09 11:11] LABS: Hemoglobin A1C% w Est Avg Glu 6.9 % (4.0-6.0)
[2021-03-09 11:27] LABS: Alanine Aminotransferase 17 IU/L (<35); Albumin Globulin Ratio 1.6 (1.0-2.8); Alkaline Phosphatase 90 U/L (38-126); Aspartate Aminotransferase 20 IU/L (14-36); BUN Creatinine Ratio 22.3 (6-22); Bilirubin Total 0.4 mg/dL (0.2-1.3); Blood Urea Nitrogen 21 mg/dL (7-17); Calcium 9.2 mg/dL (8.4-10.2); Carbon Dioxide 29 mmol/L (22-32); Chloride 103 mmol/L (98-107); Cholesterol 166 mg/dL (140-199); Estimated Glomerular Filt Rate 58.1 mL/min (>60); Globulin 2.5 g/dL (1.7-4.1); Glucose 169 mg/dL (80-110); HDL Cholesterol 40 mg/dL (40-60); HEMOLYSIS < 15 (0-50); LDL Cholesterol Calculated 85 mg/dL (<100); Sodium 140 mmol/L (137-145); Total Protein 6.5 g/dL (6.3-8.2); Triglycerides 207 mg/dL (35-150)
== END ==
PROVIDERS: PCP Internal Medicine; Referring Provider Internal Medicine; Visit Provider Internal Medicine
DX: E11.9 Type 2 diabetes mellitus without complications (principal); E78.2 Mixed hyperlipidemia; Z79.4 Long term (current) use of insulin; I10 Essential (primary) hypertension
CPT/HCPCS: 36415; 80053; 80061; 83036

== ENCOUNTER → 2021-04-04 15:05 | Outpatient (CLI) | payer MEDICARE, OTHER, SELFPAY ==
[2019-12-02 17:55] VITALS: BMI 34.9
== END ==
PROVIDERS: PCP Internal Medicine; Visit Provider Nurse Practitioner
DX: R52 Pain, unspecified (principal)
CPT/HCPCS: 87070; 87075; 87205

== ENCOUNTER → 2021-09-21 08:42 | Outpatient (CLI) | payer MEDICARE, OTHER, SELFPAY ==
[2019-12-02 17:55] VITALS: BMI 34.9
[2021-09-21 10:17] LABS: Hemoglobin A1C% w Est Avg Glu 7.4 % (4.0-6.0)
[2021-09-21 10:23] LABS: Alanine Aminotransferase 15 IU/L (<35); Albumin 3.8 g/dL (3.5-5.0); Albumin Globulin Ratio 1.5 (1.0-2.8); Alkaline Phosphatase 88 U/L (38-126); Aspartate Aminotransferase 20 IU/L (14-36); Bilirubin Total 0.5 mg/dL (0.2-1.3); Blood Urea Nitrogen 17 mg/dL (7-17); Calcium 9.1 mg/dL (8.4-10.2); Carbon Dioxide 28 mmol/L (22-32); Chloride 106 mmol/L (98-107); Cholesterol 129 mg/dL (140-199); Estimated Glomerular Filt Rate 46.9 mL/min (>60); Globulin 2.6 g/dL (1.7-4.1); Glucose 113 mg/dL (80-110); HDL Cholesterol 35 mg/dL (40-60); HEMOLYSIS < 15 (0-50); LDL Cholesterol Calculated 73 mg/dL (<100); Potassium 4.1 mmol/L (3.4-5.1); Sodium 141 mmol/L (137-145); Total Protein 6.4 g/dL (6.3-8.2); Triglycerides 107 mg/dL (35-150)
[2021-09-21 10:31] LABS: Free T4, Direct Thyroxine 0.93 ng/dL (0.78-2.19)
== END ==
PROVIDERS: PCP Internal Medicine; Referring Provider Internal Medicine; Visit Provider Internal Medicine
DX: E11.9 Type 2 diabetes mellitus without complications (principal); E78.2 Mixed hyperlipidemia; E03.9 Hypothyroidism, unspecified; I10 Essential (primary) hypertension; Z79.4 Long term (current) use of insulin
CPT/HCPCS: 36415; 80053; 80061; 83036; 84439; 84443

== ENCOUNTER → 2022-01-07 17:00 | Outpatient (CLI) | payer MEDICARE, OTHER, SELFPAY ==
[2019-12-02 17:55] VITALS: BMI 34.9
[2022-01-07 17:48] LABS: Alanine Aminotransferase 17 IU/L (<35); Albumin 4.1 g/dL (3.5-5.0); Albumin Globulin Ratio 1.3 (1.0-2.8); Alkaline Phosphatase 93 U/L (38-126); Aspartate Aminotransferase 21 IU/L (14-36); Bilirubin Total 0.4 mg/dL (0.2-1.3); Blood Urea Nitrogen 17 mg/dL (7-17); Calcium 8.9 mg/dL (8.4-10.2); Carbon Dioxide 30 mmol/L (22-32); Chloride 101 mmol/L (98-107); Estimated Glomerular Filt Rate 59 mL/min (>60); Globulin 3.1 g/dL (1.7-4.1); Glucose 169 mg/dL (80-110); HEMOLYSIS < 15 (0-50); Potassium 4.4 mmol/L (3.4-5.1); Sodium 137 mmol/L (137-145); Total Protein 7.2 g/dL (6.3-8.2)
[2022-01-07 18:09] LABS: Free T4, Direct Thyroxine 1.01 ng/dL (0.78-2.19)
[2022-01-07 18:23] LABS: Thyroid Stimulating Hormone 1.27 uIU/mL (0.47-4.68)
== END ==
PROVIDERS: PCP Internal Medicine; Referring Provider Internal Medicine; Visit Provider Internal Medicine
DX: E03.9 Hypothyroidism, unspecified (principal); I10 Essential (primary) hypertension
CPT/HCPCS: 36415; 80053; 84439; 84443

== ENCOUNTER → 2022-03-02 10:40 | Outpatient (CLI) | payer MEDICARE, OTHER, SELFPAY ==
[2019-12-02 17:55] VITALS: BMI 34.9
--- NOTE | 2022-03-02 10:41 | DI.US.S_ITS ---
PROCEDURE: US CAROTID DOPPLER BI INDICATIONS: Recent Left eye stroke TECHNIQUE: Color and pulse Doppler interrogation was performed of both carotid systems, with image documentation and velocity measurements. COMPARISON: None. FINDINGS: Stenosis calculations are based on SRU (Society of Radiologists in Ultrasound) criteria. Right side: Brachial blood pressure: 111/64 mm Hg. Common carotid artery peak systolic velocity: 52 cm/sec. Internal carotid artery peak systolic velocity: 52 cm/sec. Internal carotid artery end diastolic velocity: 20 cm/sec. External carotid artery peak systolic velocity: 54 cm/sec. ICA/CCA peak systolic ratio: 1.0 . Goldman scale imaging description: Moderate calcific plaque Percent internal carotid artery stenosis: Less than 50% . Vertebral artery: Flow direction is antegrade. Left side: Brachial blood pressure: 109/41 mm Hg. Common carotid artery peak systolic velocity: 52 cm/sec. Internal carotid artery peak systolic velocity: 57 cm/sec. Internal carotid artery end diastolic velocity: 15 cm/sec. External carotid artery peak systolic velocity: 57 cm/sec. ICA/CCA peak systolic ratio: 1.0 . Goldman scale imaging description: Moderate calcific plaque at the bifurcation Percent internal carotid artery stenosis: Less than 50% . Vertebral artery: Flow direction is antegrade. IMPRESSION: 1. Less than 50% bilateral internal carotid artery stenosis. 2. Antegrade vertebral artery flow bilaterally. Dictated by: aKssandra Sosa M.D. on 03/02/2022 at 13:38 Transcribed by: YULY on 03/02/2022 at 13:40 Approved by: Kassandra Sosa M.D. on 03/02/2022 at 16:26
== END ==
PROVIDERS: PCP Internal Medicine; Referring Provider Internal Medicine; Visit Provider Internal Medicine
DX: H34.239 Retinal artery branch occlusion, unspecified eye (principal); E11.9 Type 2 diabetes mellitus without complications; Z79.4 Long term (current) use of insulin; I10 Essential (primary) hypertension
CPT/HCPCS: 93880

== ENCOUNTER → 2022-03-08 11:51 | Outpatient (CLI) | payer MEDICARE, OTHER, SELFPAY ==
[2019-12-02 17:55] VITALS: BMI 34.9
[2022-03-08 14:46] LABS: Alanine Aminotransferase 15 IU/L (<35); Albumin 3.8 g/dL (3.5-5.0); Albumin Globulin Ratio 1.1 (1.0-2.8); Alkaline Phosphatase 100 U/L (38-126); Aspartate Aminotransferase 17 IU/L (14-36); BUN Creatinine Ratio 15.8 (6-22); Bilirubin Total 0.4 mg/dL (0.2-1.3); Blood Urea Nitrogen 18 mg/dL (7-17); C-Reactive Protein Quant 2.5 mg/dL (<1.0); Calcium 8.9 mg/dL (8.4-10.2); Carbon Dioxide 26 mmol/L (22-32); Chloride 101 mmol/L (98-107); Estimated Glomerular Filt Rate 50 mL/min (>60); Globulin 3.4 g/dL (1.7-4.1); Glucose 201 mg/dL (80-110); HEMOLYSIS < 15 (0-50); Potassium 3.5 mmol/L (3.4-5.1); Sodium 139 mmol/L (137-145); Total Protein 7.2 g/dL (6.3-8.2)
[2022-03-08 15:17] LABS: Erythrocyte Sedimentation Rate 55 MM/HR (0-20)
== END ==
PROVIDERS: PCP Internal Medicine; Referring Provider Internal Medicine; Visit Provider Internal Medicine
DX: I63.9 Cerebral infarction, unspecified (principal)
CPT/HCPCS: 36415; 80053; 85651; 86140

== ENCOUNTER → 2022-03-11 14:48 | Outpatient (CLI) | payer MEDICARE, OTHER, SELFPAY ==
[2019-12-02 17:55] VITALS: BMI 34.9
--- NOTE | 2022-03-11 14:49 | DI.ECHO.S_ITS ---
[facility] +---------+ : : [address] : [address] : : : : [id number] : : : : Phone: [phone]+ Echocardiogram Report + + :Name: BARBARA MOREIRA Study Date: 03/11/2022 Height: 70 in : :[facility] ReadingLocation: Weight: 220 lb : : Gender: Female BSA: 2.2 m2 : :: 1945 Age: 77 yrs BP: 130/84 mmHg: :Reason For Study: CVA : :Ordering Physician: RUBINA, : :JOSEPH Burton Performed By: Robert Keenan : :Referring: JOSEPH CESPEDES : + + Interpretation Summary The left ventricle is normal in size. There is moderate concentric left ventricular hypertrophy. Left ventricular systolic function is normal. The ejection fraction is estimated to be 60-65%. There are no focal wall motion abnormalities. The right ventricle is normal in size and function. The right ventricular systolic pressure is estimated to be at least 32 mmHg based on an estimated right atrial pressure of 3 mm Hg. Both atria are normal in size. The interatrial septum grossly appears intact with no obvious evidence for an atrial septal defect. Injection of contrast documented no interatrial shunt. There is mild mitral regurgitation. There is mild aortic stenosis. The calculated aortic valve area is 1.7 cm2. There is mild aortic regurgitation. There is no other significant valvular heart disease. The ascending aorta is mildly enlarged. Procedure: A two-dimensional transthoracic echocardiogram with color flow and Doppler was performed. The study quality was technically adequate. Comparison is made with the echocardiogram of 12/03/2019. A saline contrast injection was performed to assess for cardiac shunting. Left Ventricle: The left ventricle is normal in size. There is moderate concentric left ventricular hypertrophy. Left ventricular systolic function is normal. The ejection fraction is estimated to be 60-65%. There are no focal wall motion abnormalities. Diastolic function could not be accurately assessed due to contradictory data. Right Ventricle: The right ventricle is normal in size and function. Atria: Both atria are normal in size. The interatrial septum grossly appears intact with no obvious evidence for an atrial septal defect. Injection of contrast documented no interatrial shunt. Mitral Valve: The mitral valve is normal in structure and function. There is mild mitral regurgitation. Aortic Valve: The aortic valve is mildly calcified. There is mild aortic stenosis. The aortic valve mean gradient is 18.5 mmHg. The calculated aortic valve area is 1.7 cm2. There is mild aortic regurgitation. Tricuspid Valve: The tricuspid valve is normal in structure and function. There is mild tricuspid regurgitation. The right ventricular systolic pressure is estimated to be at least 32 mmHg based on an estimated right atrial pressure of 3 mm Hg. Pulmonic Valve: The pulmonic valve is not well seen, but is grossly normal. There is mild pulmonic regurgitation. There is no other significant valvular heart disease. Great Vessels: The aortic root is normal size. The ascending aorta is mildly enlarged. The IVC is of normal diameter and collapses greater than 50% with a sniff. This suggests a low right atrial pressure of 3 mm Hg. Pericardium/ Pleura There is no pericardial effusion. There is no pleural effusion. MMode/2D Measurements & Calculations LVIDd: 5.1 cm LVOT diam: 2.3 cm LVIDs: 3.2 cm Ao root diam: 3.2 cm FS: 37.3 % asc Aorta Diam: 3.7 cm IVSd: 1.3 cm LVPWd: 1.2 cm LV almanza. diameter/BSA (cm/m^2): 2.3 LV sys. diameter/BSA (cm/m^2): 1.5 LA dimension: 3.1 cm RA long axis: 5.2 cm LA A2 area: 17.4 cm2 LA A4 area: 19.6 cm2 LA length (vol): 5.7 cm LA vol: 50.9 ml LA vol index: 23.4 ml/m2 TAPSE_phl: 3.0 cm Doppler Measurements & Calculations Ao V2 max: 298.0 cm/sec LVOT Max Luis Fernando: 119.0 cm/sec Ao V2 mean: 201.5 cm/sec LV V1 max P.7 mmHg Ao max P.0 mmHg LV V1 VTI: 27.6 cm Ao mean P.5 mmHg ALEXANDRA(I,D): 1.8 cm2 Ao V2 VTI: 63.0 cm ALEXANDRA(V,D): 1.6 cm2 sev ratio: 0.44 ALEXANDRA indexed to BSA (cm^2/m^2): 0.82 MV E max luis fernando: 85.3 cm/sec TR max luis fernando: 268.0 cm/sec MV A max luis fernando: 93.4 cm/sec TR max P.7 mmHg MV E/A: 0.91 Med Peak E' Luis Fernando: 4.9 cm/sec E/E' med: 17.3 Lat Peak E' Luis Fernando: 5.9 cm/sec E/E' lat: 14.5 E/e' average: 15.9 MV dec time: 0.26 sec SV(LVOT): 112.8 ml AV VR_phl: 0.40 ALEXANDRA(VTI)/BSA_phl: 0.76 MV P1/2t-pr_phl: 76.0 msec Reading Physician:08:26 AM
== END ==
PROVIDERS: PCP Internal Medicine; Referring Provider Internal Medicine; Visit Provider Internal Medicine
DX: I63.9 Cerebral infarction, unspecified (principal); I34.0 Nonrheumatic mitral (valve) insufficiency; I35.0 Nonrheumatic aortic (valve) stenosis; I35.1 Nonrheumatic aortic (valve) insufficiency; I51.7 Cardiomegaly
CPT/HCPCS: 93306

== ENCOUNTER → 2022-05-27 11:40 | Outpatient (CLI) | payer MEDICARE, OTHER, SELFPAY ==
[2019-12-02 17:55] VITALS: BMI 34.9
[2022-05-27 12:57] LABS: Hemoglobin A1C% w Est Avg Glu 8.9 % (4.0-6.0)
[2022-05-27 13:32] LABS: Free T4, Direct Thyroxine 1.58 ng/dL (0.78-2.19)
[2022-05-27 13:56] LABS: Alanine Aminotransferase 29 IU/L (<35); Albumin 3.9 g/dL (3.5-5.0); Albumin Globulin Ratio 1.1 (1.0-2.8); Alkaline Phosphatase 87 U/L (38-126); Aspartate Aminotransferase 32 IU/L (14-36); BUN Creatinine Ratio 14.3 (6-22); Bilirubin Total 0.7 mg/dL (0.2-1.3); Blood Urea Nitrogen 15 mg/dL (7-17); Calcium 8.8 mg/dL (8.4-10.2); Carbon Dioxide 28 mmol/L (22-32); Chloride 101 mmol/L (98-107); Estimated Glomerular Filt Rate 55 mL/min (>60); Globulin 3.5 g/dL (1.7-4.1); Glucose 187 mg/dL (80-110); HEMOLYSIS < 15 (0-50); Potassium 3.4 mmol/L (3.4-5.1); Sodium 141 mmol/L (137-145); Total Protein 7.4 g/dL (6.3-8.2)
== END ==
PROVIDERS: PCP Internal Medicine; Referring Provider Internal Medicine; Visit Provider Internal Medicine
DX: E11.9 Type 2 diabetes mellitus without complications (principal); E03.9 Hypothyroidism, unspecified; E78.2 Mixed hyperlipidemia; I10 Essential (primary) hypertension; I48.92 Unspecified atrial flutter; Z79.4 Long term (current) use of insulin
CPT/HCPCS: 36415; 80053; 83036; 84439

== ENCOUNTER → 2023-04-25 14:07 | Outpatient (CLI) | payer MEDICARE, OTHER, SELFPAY ==
[2019-12-02 17:55] VITALS: BMI 34.9
[2023-04-25 15:19] LABS: Hemoglobin A1C% w Est Avg Glu 6.7 % (4.0-6.0)
[2023-04-25 15:34] LABS: Alanine Aminotransferase 16 IU/L (<35); Albumin 3.8 g/dL (3.5-5.0); Albumin Globulin Ratio 1.5 (1.0-2.8); Alkaline Phosphatase 82 U/L (38-126); Aspartate Aminotransferase 21 IU/L (14-36); BUN Creatinine Ratio 18.2 (6-22); Bilirubin Total 0.3 mg/dL (0.2-1.3); Blood Urea Nitrogen 20 mg/dL (7-17); Calcium 9.8 mg/dL (8.4-10.2); Carbon Dioxide 29 mmol/L (22-32); Chloride 100 mmol/L (98-107); Estimated Glomerular Filt Rate 52 mL/min (>60); Globulin 2.5 g/dL (1.7-4.1); Glucose 90 mg/dL (80-110); HEMOLYSIS < 15 (0-50); Potassium 4.7 mmol/L (3.4-5.1); Sodium 138 mmol/L (137-145); Total Protein 6.3 g/dL (6.3-8.2)
[2023-04-25 15:48] LABS: Free T4, Direct Thyroxine 1.33 ng/dL (0.78-2.19)
[2023-04-25 16:01] LABS: Thyroid Stimulating Hormone 1.68 uIU/mL (0.47-4.68)
== END ==
PROVIDERS: PCP Internal Medicine; Referring Provider Internal Medicine; Visit Provider Internal Medicine
DX: E11.9 Type 2 diabetes mellitus without complications (principal); E03.9 Hypothyroidism, unspecified
CPT/HCPCS: 36415; 80053; 83036; 84439; 84443

== ENCOUNTER → 2024-01-10 16:31 | Outpatient (CLI) | payer MEDICARE, OTHER, SELFPAY ==
[2023-07-12 16:02] VITALS: BMI 34.9
[2024-01-10 17:40] LABS: Add Manual Diff / Slide Review NO; Basophils Absolute Auto 0 /uL (0-100); Basophils Percent Auto 0.2 % (0-2); Eosinophils Absolute Auto 100 /uL (0-450); Eosinophils Percent Auto 1.1 % (2-4); Hemoglobin 11.2 g/dL (12.0-16.0); Lymphocytes Absolute Auto 3200 /uL (1100-4500); Lymphocytes Percent Auto 29.2 % (25-40); Mean Corpuscular HGB Conc 32.9 % (30-36); Mean Corpuscular Hemoglobin 29.5 PG (26-34); Mean Corpuscular Volume 89.8 fL (80-100); Monocytes Absolute Auto 1000 /uL (0-900); Monocytes Percent Auto 9.4 % (3-14); Neutrophils Absolute Auto 6600 /uL (1500-7000); Neutrophils Percent Auto 60.1 % (50-75); Platelet Count 367 X10^3/uL (150-400); Red Blood Cell Count 3.78 X10^6/uL (4.0-5.2); Red Cell Distribution Width 15.7 % (11.6-14.8)
[2024-01-10 17:55] LABS: Digoxin 0.5 ng/mL (0.8-2.0)
[2024-01-10 18:16] LABS: Alanine Aminotransferase 21 IU/L (<35); Albumin 3.8 g/dL (3.5-5.0); Albumin Globulin Ratio 1.2 (1.0-2.8); Alkaline Phosphatase 112 U/L (38-126); Aspartate Aminotransferase 19 IU/L (14-36); BUN Creatinine Ratio 17.3 (6-22); Bilirubin Total 0.4 mg/dL (0.2-1.3); Blood Urea Nitrogen 18 mg/dL (7-17); Carbon Dioxide 24 mmol/L (22-32); Chloride 105 mmol/L (98-107); Estimated Glomerular Filt Rate 55 mL/min (>60); Globulin 3.2 g/dL (1.7-4.1); Glucose 165 mg/dL (80-110); HEMOLYSIS < 15 (0-50); Potassium 3.8 mmol/L (3.4-5.1); Sodium 139 mmol/L (137-145)
[2024-01-10 18:23] LABS: TSH w/ Reflex to FT4 1.93 uIU/mL (0.47-4.68)
[2024-01-10 18:24] LABS: Hemoglobin A1C% w Est Avg Glu 6.9 % (4.0-6.0)
== END ==
PROVIDERS: PCP Internal Medicine; Referring Provider Internal Medicine; Visit Provider Internal Medicine
DX: I10 Essential (primary) hypertension (principal); E11.9 Type 2 diabetes mellitus without complications; E78.2 Mixed hyperlipidemia; I48.92 Unspecified atrial flutter; E03.9 Hypothyroidism, unspecified
CPT/HCPCS: 80053; 80162; 83036; 84443; 85025